=== PATIENT | male | born 1945 | race American Indian/Alaskan Native ===

== ENCOUNTER 2016-06-02 05:48 | Inpatient (IN) | payer MEDICARE, OTHER ==
[2016-06-02] MEDS ORDERED: ATROVENT IH ONE ×2 (06:18→09:02)
[2016-06-02] MEDS ORDERED: PROVENTIL IH ONE ×2 (06:18→09:02)
--- NOTE | 2016-06-02 06:19 | Emergency Department Report ---
ED Shortness of Breath HPI - General Chief Complaint: Dyspnea/Respdistress Stated Complaint: JOSE LUIS Time Seen by Provider: 06/02/16 06:11 Source: patient, EMS (ems notes not available at time of chart dictation), RN notes reviewed, old records reviewed Mode of arrival: Stretcher Limitations: Physical Limitation - History of Present Illness Initial Comments: Past medical history: COPD, hypertension, renal insufficiency Not home oxygen dependent. Primary care physician through the [facility] This is a 71-year-old male. He is previously unknown to me. He is apparently brought to the hospital by EMS Patient complained of shortness of breath, cough and wheezing. He was started on BiPAP prior to my evaluation. As per verbal report from EMS, he received 125 of Solu-Medrol, 2 g of magnesium sulfate, 5 mg of albuterol. He reports that he felt improved. There is no pain at this time. There is no leg pain. There is no leg swelling. No recent hospital admissions. MD Complaint: shortness of breath, cough, "asthma attack" -: Gradual Consistency: constant Improves With: bronchodilators, upright position, medication Worsens With: nothing, lying flat, exertion Known History Of: COPD Associated Symptoms: cough Treatments Prior to Arrival: oxygen, bronchodilator, NIPPV - Related Data Previous Rx's Medication Instructions Recorded Last Taken Type Budesoni/Formotero 160-4.5(Nf) 2 puff IH BID #1 inha 01/30/14 Unknown Rx [Symbicort 160-4.5 (Nf)] Diltiazem [Cardizem] 180 mg PO Q8AM #30 tablet 01/30/14 Unknown Rx Ipratropium/Albuterol Sulfate 1 ampul IH Q8HRT #120 ampul.neb 01/30/14 Unknown Rx [Duoneb 0.5 mg-3 mg/3 ml Soln] Tiotropium [Spiriva] 18 mcg IH QDAY #1 box 01/30/14 Unknown Rx Allergies Allergy/AdvReac Type Severity Reaction Status Date / Time No Known Allergies Allergy Verified 01/02/16 17:32 ED Review of Systems ROS: Stated complaint: JOSE LUIS Other details as noted in HPI Comment: Unobtainable due to pts medical conditions Constitutional: malaise Eyes: denies: vision change ENT: denies: epistaxis Respiratory: shortness of breath Cardiovascular: dyspnea on exertion Gastrointestinal: denies: vomiting Genitourinary: as per HPI Musculoskeletal: as per HPI Skin: as per HPI Neurological: as per HPI, weakness ED Past Medical Hx - Past Medical History Previous Medical History?: Yes Hx Hypertension: Yes Hx Renal Disease: Yes Hx COPD: Yes - Surgical History Past Surgical History?: Yes Additional Surgical History: prostate surgery - Social History Smoking Status: Never Smoker Substance Use Type: None - Medications Home Medications: Home Medications Medication Instructions Recorded Confirmed Last Taken Type Budesoni/Formotero 160-4.5(Nf) 2 puff IH BID #1 inha 01/30/14 Unknown Rx [Symbicort 160-4.5 (Nf)] Diltiazem [Cardizem] 180 mg PO Q8AM #30 tablet 01/30/14 Unknown Rx Ipratropium/Albuterol Sulfate 1 ampul IH Q8HRT #120 ampul.neb 01/30/14 Unknown Rx [Duoneb 0.5 mg-3 mg/3 ml Soln] Tiotropium [Spiriva] 18 mcg IH QDAY #1 box 01/30/14 Unknown Rx ED Physical Exam - General Limitations: Physical Limitation General appearance: alert, in no apparent distress - Head Head exam: Present: atraumatic, normocephalic - Eye Eye exam: Present: normal appearance, EOMI. Absent: nystagmus - ENT ENT exam: Present: normal exam, normal orophraynx, mucous membranes moist, normal external ear exam - Neck Neck exam: Present: normal inspection, full ROM. Absent: tenderness, meningismus - Respiratory Respiratory exam: Present: respiratory distress, wheezes, rhonchi - Cardiovascular Cardiovascular Exam: Present: normal rhythm, tachycardia, normal heart sounds. Absent: systolic murmur, diastolic murmur, rubs, gallop - GI/Abdominal GI/Abdominal exam: Present: soft, normal bowel sounds. Absent: distended, tenderness, guarding, rebound, rigid, pulsatile mass - Rectal Rectal exam: Present: deferred - Extremities Exam Extremities exam: Present: normal inspection, full ROM, normal capillary refill. Absent: tenderness, pedal edema, joint swelling, calf tenderness - Back Exam Back exam: Present: normal inspection, full ROM. Absent: tenderness, CVA tenderness (R), CVA tenderness (L), muscle spasm, paraspinal tenderness, vertebral tenderness - Neurological Exam Neurological exam: Present: alert, other (Extraocular movements intact. Tongue midline. No facial droop. Facial sensation intact to light touch in the V1, V2 , V3 distribution bilaterally. 5 and 5 strength in 4 extremities.. Sensation is intact to light touch in 4 extremities.). Absent: motor sensory deficit - Psychiatric Psychiatric exam: Present: normal affect, normal mood - Skin Skin exam: Present: warm, dry, intact, normal color. Absent: rash ED Course Vital Signs 06/02/16 06/02/16 06/02/16 05:44 05:50 05:51 Temperature Pulse Rate 110 H 112 H 111 H Pulse Rate [ Anterior Bilateral Bases ] Pulse Rate [ Radial] Respiratory 34 H 21 33 H Rate Respiratory Rate [Anterior Bilateral Bases ] Blood Pressure 137/99 167/105 Blood Pressure [Left Femoral Artery] O2 Sat by Pulse 99 100 100 Oximetry 06/02/16 06/02/16 06/02/16 05:55 05:59 06:00 Temperature Pulse Rate 111 H 110 H 109 H Pulse Rate [ Anterior Bilateral Bases ] Pulse Rate [ Radial] Respiratory 32 H 25 H 21 Rate Respiratory Rate [Anterior Bilateral Bases ] Blood Pressure 137/99 141/94 Blood Pressure [Left Femoral Artery] O2 Sat by Pulse 99 97 Oximetry 06/02/16 06/02/16 06/02/16 06:10 07:07 08:18 Temperature 96.5 F L 98.6 F Pulse Rate 110 H Pulse Rate [ Anterior Bilateral Bases ] Pulse Rate [ 113 H Radial] Respiratory 26 H 20 Rate Respiratory Rate [Anterior Bilateral Bases ] Blood Pressure 141/94 Blood Pressure 146/83 [Left Femoral Artery] O2 Sat by Pulse 99 98 Oximetry 06/02/16 06/02/16 06/02/16 09:18 09:19 10:18 Temperature Pulse Rate Pulse Rate [ 113 H 113 H Anterior Bilateral Bases ] Pulse Rate [ Radial] Respiratory 20 Rate Respiratory 30 H 28 H Rate [Anterior Bilateral Bases ] Blood Pressure Blood Pressure [Left Femoral Artery] O2 Sat by Pulse 98 Oximetry - Reevaluation(s) Reevaluation #1: 06/02/16 07:50 Differential diagnosis: Pneumonia, COPD, asthma, bronchitis, incidental hypothermia, urinary tract infection Assessment and plan: 71-year-old male with chronic renal insufficiency, renal function appears to be at baseline when compared to prior, with wheezing, shortness of breath, requiring positive pressure ventilation. He is alert, protecting his airway, and indicates that he feels much improved. There are no pulmonary embolus or DVT risk factors, he is low risk by well's criteria. He is found to be mildly hypothermic with a core temperature of 96.5. Blood cultures, lactic acid, active rewarming ordered, appropriate antibiotic therapy is ordered, urinalysis is pending. Case is discussed with the Hospital physician, Dr. Gómez, who graciously accepts the patient to her service. ED Medical Decision Making - Lab Data Result diagrams: 06/02/16 06:43 06/02/16 06:43 Vital Signs 06/02/16 06/02/16 06/02/16 05:44 05:50 05:51 Temperature Pulse Rate 110 H 112 H 111 H Respiratory 34 H 21 33 H Rate Blood Pressure 137/99 167/105 O2 Sat by Pulse 99 100 100 Oximetry 06/02/16 06/02/16 06/02/16 05:55 05:59 06:00 Temperature Pulse Rate 111 H 110 H 109 H Respiratory 32 H 25 H 21 Rate Blood Pressure 137/99 141/94 O2 Sat by Pulse 99 97 Oximetry 06/02/16 06/02/16 06:10 07:07 Temperature 96.5 F L Pulse Rate 110 H Respiratory 26 H Rate Blood Pressure 141/94 O2 Sat by Pulse 99 Oximetry Lab Results 06/02/16 06/02/16 06/02/16 Range/Units 06:43 06:43 06:43 WBC 3.6 L (4.5-11.0) K/mm3 RBC 3.28 L (3.65-5.03) M/mm3 Hgb 11.2 L (11.8-15.2) gm/dl Hct 32.9 L (35.5-45.6) % MCV 100 H (84-94) fl MCH 34 H (28-32) pg MCHC 34 (32-34) % RDW 14.5 (13.2-15.2) % Plt Count 196 (140-440) K/mm3 Lymph % (Auto) 16.9 (13.4-35.0) % Whitfield % (Auto) 9.6 H (0.0-7.3) % Eos % (Auto) 6.1 H (0.0-4.3) % Baso % (Auto) 1.7 (0.0-1.8) % Lymph # 0.6 L (1.2-5.4) K/mm3 Whitfield # 0.3 (0.0-0.8) K/mm3 Eos # 0.2 (0.0-0.4) K/mm3 Baso # 0.1 (0.0-0.1) K/mm3 Seg Neutrophils % 65.7 (40.0-70.0) % Seg Neutrophils # 2.3 (1.8-7.7) K/mm3 PT 12.6 (12.2-14.9) Sec. INR 0.95 (0.87-1.13) APTT 24.2 (24.2-36.6) Sec. Sodium 132 L (137-145) mmol/L Potassium 5.0 (3.6-5.0) mmol/L Chloride 92.3 L (98-107) mmol/L Carbon Dioxide 21 L (22-30) mmol/L Anion Gap 24 mmol/L BUN 15 (9-20) mg/dL Creatinine 2.0 H (0.8-1.5) mg/dL Estimated GFR 40 ml/min BUN/Creatinine Ratio 7.50 % Glucose 113 H (75-100) mg/dL Calcium 9.0 (8.4-10.2) mg/dL Magnesium 2.7 H (1.7-2.3) mg/dL Total Bilirubin 0.7 (0.1-1.2) mg/dL AST 27 (5-40) units/L ALT 13 (7-56) units/L Total Creatine Kinase (55-170) units/L NT-Pro-B Natriuret Pep (0-900) pg/mL Total Protein 6.4 (6.3-8.2) g/dL Albumin 4.2 (3.9-5) g/dL Albumin/Globulin Ratio 1.9 % // Range/Units 06:43 WBC (4.5-11.0) K/mm3 RBC (3.65-5.03) M/mm3 Hgb (11.8-15.2) gm/dl Hct (35.5-45.6) % MCV (84-94) fl MCH (28-32) pg MCHC (32-34) % RDW (13.2-15.2) % Plt Count (140-440) K/mm3 Lymph % (Auto) (13.4-35.0) % Whitfield % (Auto) (0.0-7.3) % Eos % (Auto) (0.0-4.3) % Baso % (Auto) (0.0-1.8) % Lymph # (1.2-5.4) K/mm3 Whitfield # (0.0-0.8) K/mm3 Eos # (0.0-0.4) K/mm3 Baso # (0.0-0.1) K/mm3 Seg Neutrophils % (40.0-70.0) % Seg Neutrophils # (1.8-7.7) K/mm3 PT (12.2-14.9) Sec. INR (0.87-1.13) APTT (24.2-36.6) Sec. Sodium (137-145) mmol/L Potassium (3.6-5.0) mmol/L Chloride (98-107) mmol/L Carbon Dioxide (22-30) mmol/L Anion Gap mmol/L BUN (9-20) mg/dL Creatinine (0.8-1.5) mg/dL Estimated GFR ml/min BUN/Creatinine Ratio % Glucose (75-100) mg/dL Calcium (8.4-10.2) mg/dL Magnesium (1.7-2.3) mg/dL Total Bilirubin (0.1-1.2) mg/dL AST (5-40) units/L ALT (7-56) units/L Total Creatine Kinase 243 H (55-170) units/L NT-Pro-B Natriuret Pep 367.1 (0-900) pg/mL Total Protein (6.3-8.2) g/dL Albumin (3.9-5) g/dL Albumin/Globulin Ratio % - EKG Data -: EKG Interpreted by Me Rate: tachycardia - EKG Data 06/02/16 07:53 sinus tachycardia, motion artifact, poor R-wave progression, not consistent with STEMI, unchanged when compared to prior EKG from December 2015. First-degree AV block seems to have resolved. - Radiology Data Radiology results: image reviewed interpreted by me: X-ray of the chest: Hyperinflated lungs, COPD, no acute disease Critical Care Time: Yes Critical care time in (mins) excluding proc time.: 35 Critical care attestation.: If time is entered above; I have spent that time in minutes in the direct care of this critically ill patient, excluding procedure time. Critical Care Time: Critical care time includes multiple bedside evaluations, interpretation of laboratory studies, radiology studies, time spent managing patient with acute respiratory failure, requiring positive pressure ventilation. This excludes procedure time. ED Disposition Clinical Impression: Renal insufficiency, COPD with acute exacerbation Disposition: OP ADMITTED IP TO THIS HOSP Is pt being admited?: Yes Condition: Good
[2016-06-02 07:04] LABS: Basophils % (Auto) 1.7 % (0.0-1.8); Eosinophils % (Auto) 6.1 % (0.0-4.3); Hematocrit 32.9 % (35.5-45.6); Hemoglobin 11.2 gm/dl (11.8-15.2); Mean Corpuscular HGB Conc 34 % (32-34); Mean Corpuscular Hemoglobin 34 pg (28-32); Mean Corpuscular Volume 100 fl (84-94); Platelet Count 196 K/mm3 (140-440); Red Blood Count 3.28 M/mm3 (3.65-5.03); Red Cell Distribution Width 14.5 % (13.2-15.2); White Blood Count 3.6 K/mm3 (4.5-11.0)
[2016-06-02 07:11] LABS: INR 0.95 (0.87-1.13); Partial Thromboplastin Time 24.2 Sec. (24.2-36.6)
--- NOTE | 2016-06-02 07:15 | Admit Criteria Form ---
Admission Criteria Documentation: COPD Clinical Indications for Admission to Inpatient Care (Place 'X' for any and all applicable criteria): Admission is indicated for ANY ONE of the following (1)(2)(3): [X ]I. Acute exacerbation by high-risk comorbidity (e.g., pneumonia, dysrhythmia, heart failure, pleural effusion, pneumothorax) or severe underlying COPD (e.g., steroid dependent) [X ]II. Inpatient admission required rather than observation care (see Chronic Obstructive Pulmonary Disease: Observation Care) because of ANY ONE of the following: [ X]a) New or pre-existing signs or symptoms of COPD (eg, dyspnea or Tachypnea at rest or with minimal activity) that persist despite outpatient and observation care treatment [ ]b) New-onset hypoxemia (room air SaO2 less than 90%, PO2 less than 60 mm Hg (8.0 kPa)) that persists despite outpatient and observation care treatment [ ]c) Worsening of pre-existing hypoxemia (eg, new or increased requirement for supplemental oxygen to maintain oxygenation at baseline level) that persists despite outpatient and observation care treatment, with oxygen treatment needs performable only in acute inpatient setting [ ]d) Hypercarbia (PCO2 greater than 40 mm Hg (5.3 kPa))-induced respiratory acidosis (pH less than 7.35) that persists despite outpatient and observation care treatment [ ]e) Supplemental oxygen or respiratory treatments for over 24 hours that are performable only in acute inpatient setting [ ]f) Chest tube placement with active evacuation (e.g., suction, drainage) (5) [ X]g) Other condition, treatment or monitoring requiring inpatient admission [ ]III. Planned invasive surgical or diagnostic procedures requiring acute- care hospitalization [ ]IV. Acute respiratory failure (e.g., uncompensated hypercarbia, severe hypoxemia) [ ]V. Severe comorbid condition (e.g., severe steroid myopathy, acute vertebral fracture) that has acutely worsened pulmonary function [ ]. Confusion state, lethargy, obtundation, stupor or coma Extended stay beyond goal length of stay may be needed for (31)(32): [ ]a ) Respiratory Failure. [ ]b) Severe or persisting hypoxemia or hypercarbia [ ]c) Severe or persistent dyspnea [ ]d) Comorbidities (e.g. chronic heart failure, atrial fibrillation with rapid response, pneumonia) [ ]e) Malnutrition The original [facility] content created by [facility] has been revised. The portions of the content which have been revised are identified through the use of italic text or in bold, and [facility] has neither reviewed nor approved the modified material. All other unmodified content is copyright [facility]. Please see references footnoted in the original [facility] edition 2016 Admission Criteria Met: Yes
[2016-06-02] MEDS ORDERED: ROCEPHIN/NS 1 GM/50 ML 1 GM/50 ML BAG IV ONE (07:17)
[2016-06-02 07:28] LABS: Albumin 4.2 g/dL (3.9-5); Albumin/Globulin Ratio 1.9 %; BUN/Creatinine Ratio 7.5; Bilirubin,Total 0.7 mg/dL (0.1-1.2); Chloride 92.3 mmol/L (98-107); Magnesium 2.7 mg/dL (1.7-2.3); Total Protein 6.4 g/dL (6.3-8.2)
[2016-06-02] MEDS ORDERED: ZITHROMAX 500 MG in NACL 0.9% 250ML 250 ML IV ONE (08:00)
--- NOTE | 2016-06-02 08:13 | XRay Report ---
AP CHEST :06/02/16 05:48:00 CLINICAL: Dyspnea. COMPARISON:01/02/16 FINDINGS: Normal heart and pulmonary vasculature. The lungs are hyperexpanded and hyperlucent. No airspace disease or pleural effusion. The bones and soft tissues are normal. IMPRESSION: COPD. No CHF or pneumonia.
[2016-06-02] MEDS ORDERED: PROTONIX PO ONE (08:18)
--- NOTE | 2016-06-02 08:23 | History and Physical Report ---
History of Present Illness Date of examination: 06/02/16 Date of admission: 06/02/16 Chief complaint: Worsening Shortness of breath History of present illness: Very pleasant 71-year-old -[place] Citizen male patient with significant past medical history of hypertension chronic kidney disease and COPD presented to the emergency room with worsening shortness of breath cough and severe wheezing patient was noted to be hypoxemic and was placed on BiPAP Agitation and received high-dose IV steroids as well as IV antibiotics Denies any nausea vomiting or abdominal pain Denies chest pain but complains of severe shortness of breath and dyspnea on exertion Chest x-ray findings consistent with COPD transfer Past History Past Medical History: COPD, hypertension, renal failure Past Surgical History: Other (prostate surgery) Social history: lives with family, full code. denies: smoking, alcohol abuse, prescription drug abuse Family history: hypertension Medications and Allergies Allergies Allergy/AdvReac Type Severity Reaction Status Date / Time No Known Allergies Allergy Verified 01/02/16 17:32 Home Medications Medication Instructions Recorded Confirmed Last Taken Type Budesoni/Formotero 160-4.5(Nf) 2 puff IH BID #1 inha 01/30/14 Unknown Rx [Symbicort 160-4.5 (Nf)] Diltiazem [Cardizem] 180 mg PO Q8AM #30 tablet 01/30/14 Unknown Rx Ipratropium/Albuterol Sulfate 1 ampul IH Q8HRT #120 ampul.neb 01/30/14 Unknown Rx [Duoneb 0.5 mg-3 mg/3 ml Soln] Tiotropium [Spiriva] 18 mcg IH QDAY #1 box 01/30/14 Unknown Rx Active Meds: Active Medications Azithromycin 500 mg/ Sodium (Chloride) 250 mls @ 250 mls/hr IV ONCE.ED ONE Stop: 06/02/16 08:59 Review of Systems Constitutional: weakness, no weight loss, no weight gain, no fever, no chills Ears, nose, mouth and throat: no nasal congestion, no nasal discharge Cardiovascular: shortness of breath, dyspnea on exertion, no chest pain, no orthopnea Respiratory: cough with sputum, shortness of breath Gastrointestinal: no abdominal pain, no nausea, no vomiting Genitourinary Male: no dysuria, no hematuria Musculoskeletal: no myalgias, no arthritis Integumentary: no rash, no lesions Neurological: weakness, no paralysis, no numbness, no seizures Psychiatric: no anxiety, no depression Endocrine: no cold intolerance, no heat intolerance, no polydipsia, no polyuria Hematologic/Lymphatic: no easy bruising, no easy bleeding Allergic/Immunologic: no urticaria, no allergic rhinitis Exam - Constitutional Vitals: Temp Pulse Resp BP Pulse Ox 96.5 F L 110 H 26 H 141/94 99 06/02/16 07:07 06/02/16 06:10 06/02/16 06:10 06/02/16 06:10 06/02/16 06:10 General appearance: Present: mild distress, cachectic, other (on BiPAP) - EENT Eyes: Present: PERRL, EOM intact ENT: hearing intact, clear oral mucosa - Neck Neck: Present: supple, normal ROM - Respiratory Respiratory effort: normal Respiratory: bilateral: diminished, rhonchi, wheezing - Cardiovascular Rhythm: regular Heart Sounds: Present: S1 & S2 - Extremities Extremities: no ischemia, pulses intact, pulses symmetrical Peripheral Pulses: within normal limits - Abdominal General gastrointestinal: Present: soft, non-tender, non-distended, normal bowel sounds - Integumentary Integumentary: Present: clear, warm - Musculoskeletal Musculoskeletal: strength equal bilaterally - Psychiatric Psychiatric: appropriate mood/affect, cooperative - Neurologic Neurologic: CNII-XII intact, moves all extremities Results - Labs CBC & Chem 7: 06/02/16 06:43 06/02/16 06:43 Labs: Abnormal lab results 06/02/16 06/02/16 06/02/16 Range/Units 06:43 06:43 06:43 WBC 3.6 L (4.5-11.0) K/mm3 RBC 3.28 L (3.65-5.03) M/mm3 Hgb 11.2 L (11.8-15.2) gm/dl Hct 32.9 L (35.5-45.6) % MCV 100 H (84-94) fl MCH 34 H (28-32) pg [place] % (Auto) 9.6 H (0.0-7.3) % Eos % (Auto) 6.1 H (0.0-4.3) % Lymph # 0.6 L (1.2-5.4) K/mm3 Sodium 132 L (137-145) mmol/L Chloride 92.3 L (98-107) mmol/L Carbon Dioxide 21 L (22-30) mmol/L Creatinine 2.0 H (0.8-1.5) mg/dL Glucose 113 H (75-100) mg/dL Magnesium 2.7 H (1.7-2.3) mg/dL Total Creatine Kinase 243 H (55-170) units/L Assessment and Plan --Acute toxic respiratory failure Requiring BiPAP, titrated to O2 sats more than 90% Wean as tolerated, to nasal cannula oxygen or Ventimask 55% Secondary to acute exacerbation of COPD --Acute exacerbation of COPD Oxygen, nebulizers, IV Solu-Medrol, IV antibiotics Inhalation steroids, supportive. Consider pulmonary evaluation if needed --Positive cardiac enzymes/non-ST elevation OH Patient had negative stress test last year Serial cardiac enzymes and EKG Cardiology evaluation for Possible Heart cath --Lactic acidosis Rule out sepsis, continue antibiotics for acute bronchitis --Acute bronchitis Nebulizers IV antibiotics and steroids --Acute on chronic renal failure stage III Gentle hydration, closely monitor renal function avoid nephrotoxic medication Constant nephrology evaluation if needed --DVT prophylaxis with Lovenox renal dose --Full CODE STATUS Patient's condition treatment plan discussed in detail with the patient he our physician and his nurse --
[2016-06-02] MEDS ORDERED: CARDIZEM PO SCH (09:00)
[2016-06-02] MEDS ORDERED: PROTONIX IV ONE (09:23)
[2016-06-02 09:27] LABS: ISTAT Base Excess -7; ISTAT HCO3 19.5; ISTAT PCO2 42.9 (35-45); ISTAT PH 7.265 (7.35-7.45); ISTAT PO2 70 (80-105); ISTAT SO2 91; ISTAT TCO2 21
[2016-06-02] MEDS: LOVENOX SUB-Q SCH (09:39)
[2016-06-02] MEDS ORDERED: SPIRIVA IH SCH (10:00)
[2016-06-02] MEDS ORDERED: ASPIRIN PO SCH (10:00)
[2016-06-02 10:47] LABS: Bilirubin,Urine NEG (Negative); Blood,Urine NEG (Negative); Ketones,Urine TR mg/dL (Negative); Leukocyte Esterase,Urine NEG (Negative); Nitrite,Urine NEG (Negative); Protein,Urine <15 mg/dL mg/dL (Negative); Urobilinogen,Urine < 2.0 mg/dL (<2.0); WBC,Urine < 1.0 /HPF (0.0-6.0)
[2016-06-02] MEDS: LEVAQUIN 500MG/100ML 500 MG/100 ML BAG IV SCH (10:50)
[2016-06-02] MEDS ORDERED: PROVENTIL IH PRN (12:00)
[2016-06-02] MEDS: DUONEB 0.5 MG-3 MG/3 ML SOLN IH SCH ×3 (12:59→20:10)
[2016-06-02] MEDS: CARDIZEM CD PO SCH (13:16)
[2016-06-02] MEDS: NACL 0.9% 1000 ML 1,000 ML IV SCH (13:17)
--- NOTE | 2016-06-02 14:20 | Consultation ---
History of Present Illness Consult date: 06/02/16 Past History Past Medical History: COPD, hypertension, renal failure Past Surgical History: Other (prostate surgery) Social history: lives with family, full code. denies: smoking, alcohol abuse, prescription drug abuse Family history: hypertension Medications and Allergies Allergies Allergy/AdvReac Type Severity Reaction Status Date / Time No Known Allergies Allergy Verified 01/02/16 17:32 Home Medications Medication Instructions Recorded Confirmed Last Taken Type Budesoni/Formotero 160-4.5(Nf) 2 puff IH BID #1 inha 01/30/14 Unknown Rx [Symbicort 160-4.5 (Nf)] Diltiazem [Cardizem] 180 mg PO Q8AM #30 tablet 01/30/14 Unknown Rx Ipratropium/Albuterol Sulfate 1 ampul IH Q8HRT #120 ampul.neb 01/30/14 Unknown Rx [Duoneb 0.5 mg-3 mg/3 ml Soln] Tiotropium [Spiriva] 18 mcg IH QDAY #1 box 01/30/14 Unknown Rx Active Meds: Active Medications Albuterol (Proventil) 2.5 mg IH Q2HRT PRN PRN Reason: Shortness Of Breath Albuterol/Ipratropium (Duoneb 0.5 Mg-3 Mg/3 Ml Soln) 1 ampul [facility]H Q4HRT [facility] Last Admin: 06/02/16 12:59 Dose: Not Given Aspirin (Aspirin) 325 mg PO QDAY [facility] Last Admin: 06/02/16 11:42 Dose: 325 mg Budesonide 0.5 mg/ (Arformoterol Tartrate 15 mcg) 0 mg IH Q12HRT [facility] Diltiazem HCl (Cardizem Cd) 180 mg PO DAILY@0800 [facility] Last Admin: 06/02/16 13:16 Dose: 180 mg Enoxaparin Sodium (Lovenox) 30 mg SUB-Q QDAY [facility] Last Admin: 06/02/16 09:39 Dose: 30 mg Levofloxacin/Dextrose (Levaquin 500mg/100ml) 500 mg in 100 mls @ 100 mls/hr IV Q24HR [facility] PRN Reason: Protocol Last Admin: 06/02/16 10:50 Dose: 100 mls/hr Sodium Chloride (Nacl 0.9% 1000 Ml) 1,000 mls @ 75 mls/hr IV DIRECT NICOLE Last Admin: 06/02/16 13:17 Dose: 75 mls/hr Methylprednisolone Sodium Succinate (Solu-Medrol) 80 mg IV Q8HR [facility] Last Admin: 06/02/16 13:16 Dose: 80 mg Physical Examination Vital Signs Pulse Resp Pulse Ox 110 H 34 H 99 06/02/16 05:44 06/02/16 05:44 06/02/16 05:44 Results 06/02/16 06:43 06/02/16 06:43 Cardiac Enzymes 06/02/16 Range/Units 13:01 CK-MB (CK-2) 7.0 H (0.0-4.0) ng/mL Assessment and Plan Detailed Cardiology consult dictated.
[2016-06-02 19:44] LABS: Creatine Kinase MB 6.8 ng/mL (0.0-4.0)
[2016-06-02] MEDS ORDERED: PULMICORT 0.5 MG, BROVANA NEBU 15 MCG IH SCH (20:00)
--- NOTE | 2016-06-03 04:33 | Consultation ---
HISTORY OF PRESENT ILLNESS: A 71-year-old thin built pleasant gentleman with a history of hypertension, chronic kidney disease stage 3, COPD, mild anemia who was admitted with progressive shortness of breath for several hours before admission. The patient has been having shortness of breath for the past 2-3 days, which become worse several hours before admission. He did not have any chest pain. No history of nausea, vomiting, palpitations, presyncope, or syncope. However, he gives history of some sweating. His serum creatinine is 2 and his first troponin is 0.166. His proBNP is 367. His ABGs revealed pH of 7.265, bicarbonate of 20. At the time of examination, he does not have any shortness of breath. He also gives history of cough with yellowish/brownish expectoration and also history of wheezing. No history of diabetes mellitus or hyperlipidemia. He is being treated with intravenous antibiotics. His blood cultures are pending. Chest x-ray done today reveals COPD, no evidence of CHF or pneumonia. PAST MEDICAL HISTORY: History of multiple medical problems as described above. No history of CAD or myocardial infarctions in the past. He had a Lexiscan stress myocardial scan on 01/03/2016, which was negative for ischemia. No wall motion abnormality. He had normal left ventricular ejection fraction of 63%. SOCIAL HISTORY: He has been a chronic heavy smoker and he came down on the number of cigarettes and approximately a week ago, he smoked 1 cigarette and he stopped smoking. History of occasional alcohol use. No history of drug abuse. FAMILY HISTORY: Negative for premature coronary artery disease. REVIEW OF SYSTEMS: CARDIOVASCULAR: As described in the history. PULMONARY: As described in the history. RENAL: As described in the history. HEMATOPOIETIC SYSTEM: As described in the history. METABOLISM AND ENDOCRINOLOGY: As described in the history. Review of rest of the 10 systems is negative. MEDICATIONS: DuoNeb inhalation q.4h., aspirin 325 mg p.o. daily, Diltiazem ER 180 mg p.o. daily, Lovenox 30 mg subcutaneous daily, intravenous Levaquin, and intravenous steroids. The patient also has received intravenous azithromycin and intravenous ceftriaxone in the Emergency Room. PHYSICAL EXAMINATION: GENERAL: A 71-year-old thin built, pleasant gentleman. VITAL SIGNS: He is afebrile, pulse 113 per minute and regular, blood pressure 146/83 mmHg, respirations 18 per minute. NEUROLOGIC: He is awake, alert, and oriented x 3. HEENT: Negative. NECK: Supple, no JVD, no bruit, no thyromegaly. HEART: Point of maximum impulse shifted laterally and is forcible in nature, no palpable thrills. Auscultation of heart reveals S1, S2 heard. S2 is loud. S4 is heard. No S3. Grade 2/6 ejection systolic murmur is heard over the pericardium. EXTREMITIES: Peripheral pulses felt. No edema. LUNGS: Bilateral air entry good and equal. No bronchial breathing. No wheezing. ABDOMEN: Soft, benign. No organomegaly. SKIN: Negative. BONE AND JOINTS: Negative. LABORATORY DATA: BUN 15, creatinine 2, potassium 5. WBC, mildly decreased to 3.6, hemoglobin and hematocrit 11.2 and 32.9 respectively, platelet count normal. Troponin and proBNP as described in the history. Chest x-ray findings as described in the history. EKG done today at 5:50 a.m., sinus tachycardia with a rate of 111 per minute, otherwise normal. The patient had a chest CT in the past (01/28/2014) which revealed COPD and bilateral atelectasis. There was no evidence of pulmonary embolism. IMPRESSION: 1. Progressive shortness of breath. 2. Acute exacerbation of chronic obstructive pulmonary disease. 3. Possible tracheobronchitis. 4. History of hypertension. 5. Chronic kidney disease, stage 3. 6. Mild anemia. 7. Negative Betina-stress myocardial scan during 12/2015. ADDENDUM: The patient also has had surgery for carcinoma of the prostate 20 years ago. RECOMMENDATIONS: 1. To continue present management. 2. Follow up serial troponins. 3. We will order echocardiogram to assess ventricular dimensions and function. Thank you again. We will follow. Yours Sincerely, JOB# [id number] CALI/VINNIE KAYE
[2016-06-03] MEDS: NACL 0.9% 1000 ML 1,000 ML IV SCH (05:23)
[2016-06-03 05:53] LABS: Hematocrit 30.4 % (35.5-45.6); Hemoglobin 10.3 gm/dl (11.8-15.2); Mean Corpuscular HGB Conc 34 % (32-34); Mean Corpuscular Hemoglobin 34 pg (28-32); Mean Corpuscular Volume 100 fl (84-94); Platelet Count 187 K/mm3 (140-440); Red Blood Count 3.05 M/mm3 (3.65-5.03); Red Cell Distribution Width 14.6 % (13.2-15.2); White Blood Count 7.6 K/mm3 (4.5-11.0)
[2016-06-03 06:12] LABS: Calcium 8.8 mg/dL (8.4-10.2); Chloride 97.3 mmol/L (98-107); Potassium 5.1 mmol/L (3.6-5.0)
--- NOTE | 2016-06-03 06:38 | Consultation ---
ADDENDUM The patient's troponins were 0.166 and 0.142. This is most likely secondary to chronic kidney disease with creatinine of 2, acute [place] is unlikely. JOB# [id number] CALI/VINNIE KAYE
[2016-06-03] MEDS: DUONEB 0.5 MG-3 MG/3 ML SOLN IH SCH ×3 (07:50→19:53)
[2016-06-03] MEDS: CARDIZEM CD PO SCH (07:52)
[2016-06-03 08:05] LABS: Basophils % (Manual) 0 % (0.0-1.8); Blastocytes % (Manual) 0 %; Eosinophils % (Manual) 0 % (0.0-4.3)
[2016-06-03 08:07] LABS: Anisocytosis 1+; Polychromasia Rare
[2016-06-03 08:11] LABS: Diff Status Complete; Large Platelets Few; Platelet Estimate Cons
[2016-06-03] MEDS: LOVENOX SUB-Q SCH (10:01)
[2016-06-03] MEDS: HALFPRIN EC PO SCH (10:01)
[2016-06-03] MEDS: LEVAQUIN 500MG/100ML 500 MG/100 ML BAG IV SCH (10:02)
--- NOTE | 2016-06-03 15:21 | Progress Note ---
Assessment and Plan Assessment: Progressive SOB COPD exacerbation Possible tracheobronchitis HTN CKD Mild anemia Negative lexiscan MPI 12/2015 Plan: Currently stable cardiac status. Cont current management. Await echo. The patient has been seen in conjunction with Dr. Maldonado who agrees with the assessment and plan of care. Subjective Date of service: 06/03/16 Interval history: no complaints, VSS. Objective Last Vital Signs Temp 97.7 F 06/03/16 08:55 Pulse 92 H 06/03/16 14:52 Resp 18 06/03/16 14:52 BP 145/74 06/03/16 12:56 Pulse Ox 98 06/03/16 08:55 - Physical Examination General: Appears Well, No Apparent Distress HEENT: Positive: PERRL, Normocephaly, Mucus Membranes Moist Neck: Positive: neck supple, trachea midline Cardiac: Positive: Reg Rate and Rhythm, S1/S2 Lungs: Positive: Normal Exam, clear to auscultation, Normal Breath Sounds Neuro: Positive: Grossly Intact, Cranial Nerve 2-12 Intact Abdomen: Positive: Unremarkable, Soft, Active Bowel Sounds. Negative: Tender Skin: Positive: Clear. Negative: Rash, Wound Musculoskeletal: No Fluid Collection, No Pain, Normal Range of Motion Extremities: Present: normal, upper extr. pulses, lower extr. pulses. Absent: edema - Labs and Meds Cardiac Enzymes 06/02/16 Range/Units 18:49 CK-MB (CK-2) 6.8 H (0.0-4.0) ng/mL CBC 06/03/16 Range/Units 04:58 WBC 7.6 (4.5-11.0) K/mm3 RBC 3.05 L (3.65-5.03) M/mm3 Hgb 10.3 L (11.8-15.2) gm/dl Hct 30.4 L (35.5-45.6) % Plt Count 187 (140-440) K/mm3 Comprehensive Metabolic Panel 06/03/16 Range/Units 04:58 Sodium 135 L (137-145) mmol/L Potassium 5.1 H (3.6-5.0) mmol/L Chloride 97.3 L (98-107) mmol/L Carbon Dioxide 23 (22-30) mmol/L BUN 19 (9-20) mg/dL Creatinine 1.9 H (0.8-1.5) mg/dL Glucose 149 H (75-100) mg/dL Calcium 8.8 (8.4-10.2) mg/dL - Telemetry EKG Rhythm: Sinus Rhythm
--- NOTE | 2016-06-03 16:32 | Progress Note ---
Assessment and Plan Assessment and plan: --Acute hypoxic respiratory failure Since saturates well on nasal cannula oxygen , intermittent BiPAP as needed, titrated to O2 sats more than 90% Secondary to acute exacerbation of COPD Home O2 evaluation at the time of discharge --Acute exacerbation of COPD Oxygen, nebulizers, tapering dose of IV Solu-Medrol, IV antibiotics Inhalation steroids, supportive. --Positive cardiac enzymes/non-ST elevation [place] Patient had negative stress test last year Probably nonspecific, secondary to acute renal failure Cardiology evaluation noted and appreciated --Lactic acidosis Rule out sepsis, continue antibiotics for acute bronchitis --Acute bronchitis Nebulizers IV antibiotics and steroids --Acute on chronic renal failure stage III Gentle hydration, closely monitor renal function avoid nephrotoxic medication Constant nephrology evaluation if needed --DVT prophylaxis with Lovenox renal dose --Full CODE STATUS Patient's condition treatment plan discussed in detail with the patient he our physician and his nurse Possible discharge in 1-2 days if stable -- History Interval history: Patient seen and evaluated this morning medical records reviewed Patient's nurse was at the bedside, denies any chest pain, complains of mild shortness of breath and nonproductive cough Patient was admitted with acute respiratory failure on BiPAP with acute exacerbation of COPD with bronchitis Nonspecific elevation of cardiac enzymes, probably secondary to acute renal failure, cardiology following Hospitalist Physical - Constitutional Vitals: Temp Pulse Resp BP Pulse Ox 97.7 F 92 H 18 145/74 98 06/03/16 08:55 06/03/16 14:52 06/03/16 14:52 06/03/16 12:56 06/03/16 08:55 General appearance: Present: no acute distress, cachectic, other (on BiPAP) - EENT Eyes: Present: PERRL, EOM intact - Neck Neck: Present: supple, normal ROM - Respiratory Respiratory effort: normal Respiratory: bilateral: diminished, wheezing, negative: rales, rhonchi - Cardiovascular Rhythm: regular Heart Sounds: Present: S1 & S2 - Extremities Extremities: no ischemia, pulses intact, pulses symmetrical Peripheral Pulses: within normal limits - Abdominal General gastrointestinal: soft, non-tender, non-distended, normal bowel sounds - Integumentary Integumentary: Present: clear, warm - Psychiatric Psychiatric: appropriate mood/affect, cooperative - Neurologic Neurologic: CNII-XII intact, moves all extremities Results - Labs CBC & Chem 7: 06/03/16 04:58 06/03/16 04:58 Labs: Laboratory Last Values WBC 7.6 K/mm3 (4.5-11.0) 06/03/16 04:58 RBC 3.05 M/mm3 (3.65-5.03) L 06/03/16 04:58 Hgb 10.3 gm/dl (11.8-15.2) L 06/03/16 04:58 Hct 30.4 % (35.5-45.6) L 06/03/16 04:58 MCV 100 fl (84-94) H 06/03/16 04:58 MCH 34 pg (28-32) H 06/03/16 04:58 MCHC 34 % (32-34) 06/03/16 04:58 RDW 14.6 % (13.2-15.2) 06/03/16 04:58 Plt Count 187 K/mm3 (140-440) 06/03/16 04:58 Lymph % (Auto) 16.9 % (13.4-35.0) 06/02/16 06:43 Sebastian % (Auto) 9.6 % (0.0-7.3) H 06/02/16 06:43 Eos % (Auto) 6.1 % (0.0-4.3) H 06/02/16 06:43 Baso % (Auto) 1.7 % (0.0-1.8) 06/02/16 06:43 Lymph # 0.6 K/mm3 (1.2-5.4) L 06/02/16 06:43 Sebastian # 0.3 K/mm3 (0.0-0.8) 06/02/16 06:43 Eos # 0.2 K/mm3 (0.0-0.4) 06/02/16 06:43 Baso # 0.1 K/mm3 (0.0-0.1) 06/02/16 06:43 Add Manual Diff Complete 06/03/16 04:58 Total Counted 100 06/03/16 04:58 Seg Neutrophils % [employer] Manager 06/03/16 04:58 Seg Neuts % (Manual) 93.0 % (40.0-70.0) H 06/03/16 04:58 Band Neutrophils % 3.0 % 06/03/16 04:58 Lymphocytes % (Manual) 1.0 % (13.4-35.0) L 06/03/16 04:58 Reactive Lymphs % (Man) 0 % 06/03/16 04:58 Monocytes % (Manual) 3.0 % (0.0-7.3) 06/03/16 04:58 Eosinophils % (Manual) 0 % (0.0-4.3) 06/03/16 04:58 Basophils % (Manual) 0 % (0.0-1.8) 06/03/16 04:58 Metamyelocytes % 0 % 06/03/16 04:58 Myelocytes % 0 % 06/03/16 04:58 Promyelocytes % 0 % 06/03/16 04:58 Blast Cells % 0 % 06/03/16 04:58 Nucleated RBC % Not Reportable 06/03/16 04:58 Seg Neutrophils # 2.3 K/mm3 (1.8-7.7) 06/02/16 06:43 Seg Neutrophils # Man 7.1 K/mm3 (1.8-7.7) 06/03/16 04:58 Band Neutrophils # 0.2 K/mm3 06/03/16 04:58 Lymphocytes # (Manual) 0.1 K/mm3 (1.2-5.4) L 06/03/16 04:58 Abs React Lymphs (Man) 0.0 K/mm3 06/03/16 04:58 Monocytes # (Manual) 0.2 K/mm3 (0.0-0.8) 06/03/16 04:58 Eosinophils # (Manual) 0.0 K/mm3 (0.0-0.4) 06/03/16 04:58 Basophils # (Manual) 0.0 K/mm3 (0.0-0.1) 06/03/16 04:58 Metamyelocytes # 0.0 K/mm3 06/03/16 04:58 Myelocytes # 0.0 K/mm3 06/03/16 04:58 Promyelocytes # 0.0 K/mm3 06/03/16 04:58 Blast Cells # 0.0 K/mm3 06/03/16 04:58 WBC Morphology Not Reportable 06/03/16 04:58 Hypersegmented Neuts Not Reportable 06/03/16 04:58 Hyposegmented Neuts Not Reportable 06/03/16 04:58 Hypogranular Neuts Not Reportable 06/03/16 04:58 Smudge Cells Not Reportable 06/03/16 04:58 Toxic Granulation Not Reportable 06/03/16 04:58 Toxic Vacuolation Not Reportable 06/03/16 04:58 Dohle Bodies Not Reportable 06/03/16 04:58 Pelger-Huet Anomaly Not Reportable 06/03/16 04:58 Timothy Rods Not Reportable 06/03/16 04:58 Platelet Estimate Cons 06/03/16 04:58 Clumped Platelets Not Reportable 06/03/16 04:58 Plt Clumps, EDTA Not Reportable 06/03/16 04:58 Large Platelets Few 06/03/16 04:58 Giant Platelets Not Reportable 06/03/16 04:58 Platelet Satelliting Not Reportable 06/03/16 04:58 Plt Morphology Comment Not Reportable 06/03/16 04:58 RBC Morphology Not Reportable 06/03/16 04:58 Dimorphic RBCs Not Reportable 06/03/16 04:58 Polychromasia Rare 06/03/16 04:58 Hypochromasia Not Reportable 06/03/16 04:58 Poikilocytosis Not Reportable 06/03/16 04:58 Anisocytosis 1+ 06/03/16 04:58 Microcytosis Not Reportable 06/03/16 04:58 Macrocytosis Not Reportable 06/03/16 04:58 Spherocytes Not Reportable 06/03/16 04:58 Pappenheimer Bodies Not Reportable 06/03/16 04:58 Sickle Cells Not Reportable 06/03/16 04:58 Target Cells Not Reportable 06/03/16 04:58 Tear Drop Cells Not Reportable 06/03/16 04:58 Ovalocytes Not Reportable 06/03/16 04:58 Helmet Cells Not Reportable 06/03/16 04:[address] [place] Bodies Not Reportable 06/03/16 04:58 Stewart Rings Not Reportable 06/03/16 04:58 [place] Cells Not Reportable 06/03/16 04:58 Bite Cells Not Reportable 06/03/16 04:58 Crenated Cell Not Reportable 06/03/16 04:58 Elliptocytes Not Reportable 06/03/16 04:58 Acanthocytes (Spur) Not Reportable 06/03/16 04:58 Rouleaux Not Reportable 06/03/16 04:58 Hemoglobin C Crystals Not Reportable 06/03/16 04:58 Schistocytes Not Reportable 06/03/16 04:58 Malaria parasites Not Reportable 06/03/16 04:58 [place] Bodies Not Reportable 06/03/16 04:58 Hem Pathologist Commnt No 06/03/16 04:58 PT 12.6 Sec. (12.2-14.9) 06/02/16 06:43 INR 0.95 (0.87-1.13) 06/02/16 06:43 APTT 24.2 Sec. (24.2-36.6) 06/02/16 06:43 POC ABG pH 7.265 (7.35-7.45) L 06/02/16 09:18 POC ABG pCO2 42.9 (35-45) 06/02/16 09:18 POC ABG pO2 70 (80-105) L 06/02/16 09:18 POC ABG HCO3 19.5 06/02/16 09:18 POC ABG Total CO2 21 06/02/16 09:18 POC ABG O2 Sat 91 06/02/16 09:18 POC ABG Base Excess -7 06/02/16 09:18 FiO2 32 % 06/02/16 09:18 Sodium 135 mmol/L (137-145) L 06/03/16 04:58 Potassium 5.1 mmol/L (3.6-5.0) H 06/03/16 04:58 Chloride 97.3 mmol/L (98-107) L 06/03/16 04:58 Carbon Dioxide 23 mmol/L (22-30) 06/03/16 04:58 Anion Gap 20 mmol/L 06/03/16 04:58 BUN 19 mg/dL (9-20) 06/03/16 04:58 Creatinine 1.9 mg/dL (0.8-1.5) H 06/03/16 04:58 Estimated GFR 43 ml/min 06/03/16 04:58 BUN/Creatinine Ratio 10.00 % 06/03/16 04:58 Glucose 149 mg/dL (75-100) H 06/03/16 04:58 Lactic Acid 2.3 mmol/L (0.7-2.0) H* 06/02/16 06:43 Calcium 8.8 mg/dL (8.4-10.2) 06/03/16 04:58 Magnesium 2.7 mg/dL (1.7-2.3) H 06/02/16 06:43 Total Bilirubin 0.7 mg/dL (0.1-1.2) 06/02/16 06:43 AST 27 units/L (5-40) 06/02/16 06:43 ALT 13 units/L (7-56) 06/02/16 06:43 Alkaline Phosphatase 65 units/L (35-129) 06/02/16 06:43 Total Creatine Kinase 229 units/L (55-170) H 06/02/16 18:49 CK-MB (CK-2) 6.8 ng/mL (0.0-4.0) H 06/02/16 18:49 CK-MB (CK-2) Rel Index 2.9 (0-4) 06/02/16 18:49 Troponin T 0.121 ng/mL (0.00-0.029) H* 06/02/16 18:49 NT-Pro-B Natriuret Pep 367.1 pg/mL (0-900) 06/02/16 06:43 Total Protein 6.4 g/dL (6.3-8.2) 06/02/16 06:43 Albumin 4.2 g/dL (3.9-5) 06/02/16 06:43 Albumin/Globulin Ratio 1.9 % 06/02/16 06:43 Triglycerides 66 mg/dL (2-149) 06/02/16 06:43 Cholesterol 180 mg/dL (50-199) 06/02/16 06:43 LDL Cholesterol Direct 55 mg/dL (50-130) 06/02/16 06:43 HDL Cholesterol 135 mg/dL (40-59) H 06/02/16 06:43 Cholesterol/HDL Ratio 1.33 % 06/02/16 06:43 Urine Color Yellow (Yellow) 06/02/16 Unknown Urine Turbidity Clear (Clear) 06/02/16 Unknown Urine pH 5.0 (5.0-7.0) 06/02/16 Unknown Ur Specific [place] 1.011 (1.003-1.030) 06/02/16 Unknown Urine Protein <15 mg/dl mg/dL (Negative) 06/02/16 Unknown Urine Glucose (UA) Neg mg/dL (Negative) 06/02/16 Unknown Urine Ketones Tr mg/dL (Negative) 06/02/16 Unknown Urine Blood Neg (Negative) 06/02/16 Unknown Urine Nitrite Neg (Negative) 06/02/16 Unknown Urine Bilirubin Neg (Negative) 06/02/16 Unknown Urine Urobilinogen < 2.0 mg/dL (<2.0) 06/02/16 Unknown Ur Leukocyte Esterase Neg (Negative) 06/02/16 Unknown Urine WBC (Auto) < 1.0 /HPF (0.0-6.0) 06/02/16 Unknown Urine RBC (Auto) 3.0 /HPF (0.0-6.0) 06/02/16 Unknown U Epithel Cells (Auto) < 1.0 /HPF (0-13.0) 06/02/16 Unknown
[2016-06-04 07:04] LABS: BUN/Creatinine Ratio 9.47; Calcium 8.7 mg/dL (8.4-10.2); Chloride 98.8 mmol/L (98-107); Potassium 4.8 mmol/L (3.6-5.0)
[2016-06-04] MEDS: NACL 0.9% 1000 ML 1,000 ML IV SCH (07:05)
[2016-06-04] MEDS: DUONEB 0.5 MG-3 MG/3 ML SOLN IH SCH ×2 (08:15→14:42)
--- NOTE | 2016-06-04 09:46 | Discharge Summary ---
Providers - Providers Date of Admission: 06/02/16 08:16 Date of discharge: 06/04/16 Attending physician: ALEKSANDER STEPHENSON 06/02/16 09:47 Consult to Physician [CONS] Routine Consulting Provider: ECHO DOYLE Reason For Exam: SOB/positive troponin Place consult to:: bonding agent Notified:: bonita Time called:: 12:49 Comment:: put on list Primary care physician: CLINICAL MICROBIOLOGIST Hospitalization Reason for admission: Worsening shortness of breath of 2 days' duration Condition: Good Pertinent studies: Chest x-ray; findings consistent with COPD, no CHF or pneumonia Echocardiogram; normal left ventricle function with ejection fraction of 50-55% Consults; cardiology Hospital course: Final diagnosis; Final diagnosis; Acute on chronic respiratory failure requiring BiPAP resolved Acute exacerbation of COPD Nonspecific elevation of cardiac enzymes Noncardiac secondary to acute renal failure Lactic acidosis resolved Acute bronchitis improved Acute on chronic renal failure stage III improved 71-year-old -[place] male patient with significant past medical history of hypertension chronic kidney disease COPD was admitted through emergency room with worsening shortness of breath of 2 days' duration Patient was noted to be in acute respiratory failure requiring BiPAP, there to slowly wean to nasal cannula oxygen Patient also had nonspecific elevation of cardiac enzymes probably secondary to acute renal failure Cardiology has evaluated the patient and medications were optimized Patient's symptoms significantly improved today's comfortable in bed alert awake oriented 3 Not in acute distress vital signs are stable [id number] evaluation physical examination done by me prior to discharge is unremarkable as detailed below Cardiology did not recommend any further workup Patient is hemodynamically and clinically stable for discharge and does not need any further acute inpatient care at this time Disposition: DISCHARGED TO HOME OR SELFCARE Time spent for discharge: 32 min Core Measure Documentation - Palliative Care Palliative Care/ Comfort Measures: Not Applicable - Core Measures Any of the following diagnoses?: none Exam - Constitutional Vitals: Temp Pulse Resp BP Pulse Ox 97.8 F 87 20 145/85 97 06/04/16 05:00 06/04/16 05:00 06/04/16 05:00 06/04/16 05:00 06/04/16 05:00 General appearance: Present: no acute distress, well-nourished - EENT Eyes: Present: PERRL, EOM intact - Neck Neck: Present: supple, normal ROM - Respiratory Respiratory effort: normal Respiratory: bilateral: diminished, negative: rales, rhonchi, wheezing - Cardiovascular Rhythm: regular Heart Sounds: Present: S1 & S2 - Extremities Extremities: no ischemia, pulses intact, pulses symmetrical Peripheral Pulses: within normal limits - Abdominal General gastrointestinal: Present: soft, non-tender, non-distended, normal bowel sounds - Integumentary Integumentary: Present: clear, warm - Musculoskeletal Musculoskeletal: strength equal bilaterally - Psychiatric Psychiatric: appropriate mood/affect, cooperative - Neurologic Neurologic: CNII-XII intact, moves all extremities Plan Activity: advance as tolerated Diet: low salt Special Instructions: smoking cessation Additional Instructions: if you have chest pain or shortness of breath,contact MD or go to ER. advised smoking cessation Follow up with: PRIMARY CARE, [Primary Care Provider] - 3-5 Days ARIANNA HOUGH MD [Staff Physician] - 7 Days Prescriptions: Azithromycin [Zithromax Z-VALERIE] 0 mg PO DAILY #1 tab Prednisone [predniSONE 10 mg (6-Day Pack, 21 Tabs)] 10 mg PO .TAPER #1 tab.ds.pk
[2016-06-04] MEDS ORDERED: LOVENOX SUB-Q SCH (10:00)
--- NOTE | 2016-06-04 11:51 | Progress Note ---
Assessment and Plan Assessment: Progressive SOB COPD exacerbation Possible tracheobronchitis HTN CKD Mild anemia Negative lexiscan MPI 12/2015 Plan: Echo reviewed with [facility]. Currently stable cardiac status. Cont current management. Pt may discharge home from cardiology standpoint. Recommend follow up in our office with Dr. Maldonado within 1-2 weeks of hospital discharge. The patient has been seen in conjunction with Dr. Maldonado who agrees with the assessment and plan of care. Subjective Date of service: 06/04/16 Principal diagnosis: COPD exacerbation Interval history: no complaints, VSS. States he is ready to go home. Objective Last Vital Signs Temp 98.4 F 06/04/16 08:45 Pulse 87 06/04/16 05:00 Resp 18 06/04/16 08:45 BP 134/74 06/04/16 08:45 Pulse Ox 100 06/04/16 08:45 - Physical Examination General: Appears Well, No Apparent Distress HEENT: Positive: PERRL, Normocephaly, Mucus Membranes Moist Neck: Positive: neck supple, trachea midline Cardiac: Positive: Reg Rate and Rhythm, S1/S2 Lungs: Positive: clear to auscultation Neuro: Positive: Grossly Intact, Cranial Nerve 2-12 Intact Abdomen: Positive: Unremarkable, Soft, Active Bowel Sounds. Negative: Tender Skin: Positive: Clear. Negative: Rash, Wound Musculoskeletal: No Fluid Collection, No Pain, Normal Range of Motion Extremities: Present: normal, upper extr. pulses, lower extr. pulses. Absent: edema - Labs and Meds Comprehensive Metabolic Panel 06/04/16 Range/Units 05:49 Sodium 134 L (137-145) mmol/L Potassium 4.8 (3.6-5.0) mmol/L Chloride 98.8 (98-107) mmol/L Carbon Dioxide 23 (22-30) mmol/L BUN 18 (9-20) mg/dL Creatinine 1.9 H (0.8-1.5) mg/dL Glucose 133 H (75-100) mg/dL Calcium 8.7 (8.4-10.2) mg/dL
[2016-06-04] MEDS: CARDIZEM CD PO SCH (12:31)
[2016-06-04] MEDS: HALFPRIN EC PO SCH (12:31)
--- NOTE | 2016-06-04 16:20 | Query- Renal Failure ---
Wenceslao Reyes____Dalia Date:___06/04/16 Bundle Clerk/CDS:____Joseph Ochoacarmenza Phone#:____[phone] Exercise your independent professional judgment when responding to query. Questions asked do not imply a particular answer is desired or expected. We greatly appreciate your clarification on this issue. Clinical Documentation States: 71 year old Male was admitted on 06/02/16 The Progress note ( 06/03/16) states " Acute on chronic renal failure stage III Gentle hydration, closely monitor renal function avoid nephrotoxic medication Constant nephrology evaluation if needed " Clinical Findings Show: Creatinine: 2.0 Please clarify if you mean: Acute Renal Failure with or due to: [ ] Tubular Necrosis [ ] Medullary Necrosis [ ] Vasomotor Nephropathy [ ] Shock Kidney [ ] Tubular Nephrosis [ ] Renal Tubular Stasis [ ] Cortical Necrosis [ ] Acute Renal Failure (unspecified) [ ] Lower Tubular Nephrosis [x ] Other:_Acute on chronic kidney disease stage III [patient's baseline creatinine was 1.9 ]_due to ATN [ ] Not Applicable Present on Admission: [x ] Yes (Y) [ ] Clinically undeterminable (W) [ ] No (N) Please also document response in your Progress Notes and/or Discharge Summary and indicate if the condition was present on admission. VARGAS
--- NOTE | 2016-06-04 16:25 | Query- General ---
Wenceslao Reyes___Dalia Date: 06/04/16 Billing Adjudicator/CDS:____Joseph Mack Phone#:___[phone] Exercise your independent professional judgment when responding to this query. Questions asked do not imply a particular answer is desired or expected. We greatly appreciate your clarification on this issue. Clinical Documentation States: 71 year old male was admitted on 06/02/16 The hospitalist progress note (06/03/16) states " Lactic acidosis Rule out sepsis, continue antibiotics for acute bronchitis " Clinical Findings Show (include reference to source document): Given the above clinical scenario can you please provide an appropriate diagnosis based on your knowledge of the patient: Please clarify the status of Sepsis: PHYSICIAN RESPONSE: [ ] Sepsis ruled in [ ] Sepsis ruled out [ x] Other (please specify) possible sepsis secondary to acute bronchitis [ ] Clinically undeterminable Present on Admission: [ x] Yes (Y) [ ] Clinically undeterminable (W) [ ]No(N) Please also document response in your Progress Notes and/or Discharge Summary and indicate if the condition was present on admission. VARGAS
[2016-06-04 17:10] VITALS: BP 154/81
[2016-06-05] MEDS ORDERED: LEVAQUIN 500MG/100ML 500 MG/100 ML BAG IV SCH (10:00)
== END 2016-06-04 18:30 | disposition home or self-care (01) | DRG 871 ==
LOC: ED 05:48 → 4A 08:16
PROVIDERS: ADMIT Internal Medicine; ATTEND Internal Medicine
PROC: 4A033R1 Measurement of Arterial Saturation, Peripheral, Percutaneous Approach (ICD-10-PCS; principal; 2016-06-02)
PROC: 5A09357 Assistance with Respiratory Ventilation, Less than 24 Consecutive Hours, Continuous Positive Airway Pressure (ICD-10-PCS; 2016-06-02)
DX: A41.9 Sepsis, unspecified organism (principal); J96.21 Acute and chronic respiratory failure with hypoxia; N17.0 Acute kidney failure with tubular necrosis; J44.0 Chronic obstructive pulmonary disease with (acute) lower respiratory infection; J44.1 Chronic obstructive pulmonary disease with (acute) exacerbation; J20.9 Acute bronchitis, unspecified; I12.9 Hypertensive chronic kidney disease with stage 1 through stage 4 chronic kidney disease, or unspecified chronic kidney disease; N18.3 Chronic kidney disease, stage 3 (moderate); D64.9 Anemia, unspecified; Z79.899 Other long term (current) drug therapy; Z82.49 Family history of ischemic heart disease and other diseases of the circulatory system
CPT/HCPCS: 36415; 71010; 80048; 80053; 80061; 81001; 82140; 82550; 82553; 82803; 83735; 83880; 84484; 85007; 85025; 85610; 85730; 87040; 87086; 93005; 93010; 93306; 94640; 94760; 96365; 96366; 96368; 96372; 99291; C9113; J0456; J0696; J1650; J1956; J2920; J2930; J7030; J7050

== ENCOUNTER 2016-10-11 13:26 | Inpatient (IN) | payer MEDICARE, OTHER ==
[2016-10-11] MEDS ORDERED: DUONEB *Not for PRN Use IH ONE (13:36)
--- NOTE | 2016-10-11 13:42 | Emergency Department Report ---
ED Shortness of Breath HPI - General Chief Complaint: Dyspnea/Respdistress Stated Complaint: JOSE LUIS Source: EMS Mode of arrival: Stretcher Limitations: No Limitations - History of Present Illness Initial Comments: 8-year-old male here with complaint of shortness of breath. Patient has a known history of CPD. States that he started developing shortness of breath last night with symptoms of worsening this morning. Has a known history of intubation. His been on steroids recently. EMS treated him with BiPAP steroids 5 mg of albuterol in route. Patient states she feels better with the BiPAP on. His oxygen saturations were in the mid to high 80s on EMS evaluation. Here on arrival his oxygen saturation is in the high 90s. He is able to speak in more than 3 word sentences. -: Sudden Consistency: constant Improves With: oxygen, bronchodilators Known History Of: COPD, asthma Associated Symptoms: pain with inspiration, lower abdominal swelling Treatments Prior to Arrival: oxygen, bronchodilator - Related Data Previous Rx's Medication Instructions Recorded Last Taken Type Budesoni/Formotero 160-4.5(Nf) 2 puff IH BID #1 inha 01/30/14 06/01/16 08:00 Rx [Symbicort 160-4.5 (Nf)] Diltiazem [Cardizem] 180 mg PO Q8AM #30 tablet 01/30/14 06/01/16 21:00 Rx Ipratropium/Albuterol Sulfate 1 ampul IH Q8HRT #120 ampul.neb 01/30/14 06/01/16 21:00 Rx [DUONEB *Not for PRN Use*] Tiotropium [Spiriva] 18 mcg IH QDAY #1 box 01/30/14 06/01/16 09:00 Rx Azithromycin [Zithromax Z-VALERIE] 0 mg PO DAILY #1 tab 06/04/16 Unknown Rx Prednisone [predniSONE 10 mg 10 mg PO .TAPER #1 tab.ds.pk 06/04/16 Unknown Rx (6-Day Pack, 21 Tabs)] Allergies Allergy/AdvReac Type Severity Reaction Status Date / Time No Known Allergies Allergy Verified 01/02/16 17:32 ED Review of Systems ROS: Stated complaint: JOSE LUIS Other details as noted in HPI Comment: All other systems reviewed and negative Constitutional: denies: chills, fever Eyes: denies: eye pain, eye discharge, vision change ENT: denies: ear pain, throat pain Respiratory: shortness of breath, SOB with exertion, SOB at rest. denies: cough , wheezing Cardiovascular: dyspnea on exertion. denies: chest pain, palpitations Endocrine: no symptoms reported Gastrointestinal: denies: abdominal pain, nausea, diarrhea Genitourinary: denies: urgency, dysuria Musculoskeletal: denies: back pain, joint swelling, arthralgia Skin: denies: rash, lesions Neurological: denies: headache, weakness, paresthesias Psychiatric: denies: anxiety, depression Hematological/Lymphatic: denies: easy bleeding, easy bruising ED Past Medical Hx - Past Medical History Hx Hypertension: Yes Hx Renal Disease: Yes Hx COPD: Yes - Surgical History Additional Surgical History: prostate surgery - Family History Family history: no significant - Social History Smoking Status: Unknown if ever smoked - Medications Home Medications: Home Medications Medication Instructions Recorded Confirmed Last Taken Type Budesoni/Formotero 160-4.5(Nf) 2 puff IH BID #1 inha 01/30/14 06/03/16 06/01/16 08:00 Rx [Symbicort 160-4.5 (Nf)] Diltiazem [Cardizem] 180 mg PO Q8AM #30 tablet 01/30/14 06/03/16 06/01/16 21:00 Rx Ipratropium/Albuterol Sulfate 1 ampul IH Q8HRT #120 ampul.neb 01/30/14 06/03/16 06/01/16 21:00 Rx [DUONEB *Not for PRN Use*] Tiotropium [Spiriva] 18 mcg IH QDAY #1 box 01/30/14 06/03/16 06/01/16 09:00 Rx Azithromycin [Zithromax Z-VALERIE] 0 mg PO DAILY #1 tab 06/04/16 Unknown Rx Prednisone [predniSONE 10 mg 10 mg PO .TAPER #1 tab.ds.pk 06/04/16 Unknown Rx (6-Day Pack, 21 Tabs)] ED Physical Exam - General Limitations: No Limitations General appearance: alert, in distress - Head Head exam: Present: atraumatic, normocephalic - Eye Eye exam: Present: normal appearance. Absent: scleral icterus, conjunctival injection - ENT ENT exam: Present: mucous membranes moist - Neck Neck exam: Present: normal inspection - Respiratory Respiratory exam: Present: normal lung sounds bilaterally, respiratory distress , wheezes, decreased breath sounds, other (speaking in more than 3 word sentences, tachypnea) - Cardiovascular Cardiovascular Exam: Present: normal rhythm, tachycardia, irregular rhythm. Absent: systolic murmur, diastolic murmur, rubs, gallop - GI/Abdominal GI/Abdominal exam: Present: soft, normal bowel sounds. Absent: distended, tenderness - Rectal Rectal exam: Present: deferred - Extremities Exam Extremities exam: Present: normal inspection. Absent: pedal edema - Back Exam Back exam: Present: normal inspection. Absent: vertebral tenderness - Neurological Exam Neurological exam: Present: alert, oriented X3 - Psychiatric Psychiatric exam: Present: normal affect, normal mood - Skin Skin exam: Present: warm, dry, intact, normal color. Absent: rash ED Course Vital Signs 10/11/16 10/11/16 10/11/16 13:30 13:40 13:50 Temperature Pulse Rate 104 H 102 H Pulse Rate [ 99 H Anterior Bilateral Throughout] Respiratory 22 30 H Rate Respiratory 31 H Rate [Anterior Bilateral Throughout] Blood Pressure 167/104 164/108 O2 Sat by Pulse 100 99 Oximetry 10/11/16 10/11/16 10/11/16 13:53 14:11 14:20 Temperature 97.5 F L Pulse Rate 98 H Pulse Rate [ 96 H Anterior Bilateral Throughout] Respiratory 33 H Rate Respiratory 32 H Rate [Anterior Bilateral Throughout] Blood Pressure 166/93 O2 Sat by Pulse 98 Oximetry ED Medical Decision Making - Lab Data Result diagrams: 10/11/16 13:47 10/11/16 13:47 Laboratory Results - last 24 hr 10/11/16 10/11/16 10/11/16 13:47 13:47 13:47 WBC 5.1 RBC 4.03 Hgb 12.7 Hct 38.7 MCV 96 H MCH 32 MCHC 33 RDW 14.5 Plt Count 277 Lymph % (Auto) 37.4 H [place] % (Auto) 15.8 H Eos % (Auto) 9.5 H Baso % (Auto) 1.4 Lymph # 1.9 [place] # 0.8 Eos # 0.5 H Baso # 0.1 Seg Neutrophils % 35.9 L Seg Neutrophils # 1.8 Carbon Dioxide 19 L BUN 27 H Creatinine 2.0 H Estimated GFR 40 BUN/Creatinine Ratio 13.50 Glucose 79 Calcium 9.1 Total Bilirubin 0.60 AST 20 ALT 11 Alkaline Phosphatase 49 Troponin T 0.045 H NT-Pro-B Natriuret Pep Total Protein 7.0 Albumin 4.2 Albumin/Globulin Ratio 1.5 Triglycerides 72 Cholesterol 128 LDL Cholesterol Direct 37 L HDL Cholesterol 77 H Cholesterol/HDL Ratio 1.66 10/11/16 13:47 WBC RBC Hgb Hct MCV MCH MCHC RDW Plt Count Lymph % (Auto) [place] % (Auto) Eos % (Auto) Baso % (Auto) Lymph # [place] # Eos # Baso # Seg Neutrophils % Seg Neutrophils # Carbon Dioxide BUN Creatinine Estimated GFR BUN/Creatinine Ratio Glucose Calcium Total Bilirubin AST ALT Alkaline Phosphatase Troponin T NT-Pro-B Natriuret Pep 218.2 Total Protein Albumin Albumin/Globulin Ratio Triglycerides Cholesterol LDL Cholesterol Direct HDL Cholesterol Cholesterol/HDL Ratio - EKG Data -: EKG Interpreted by Me - EKG Data 10/11/16 13:43 Sinus tachycardia rate of 102 normal axis and prolonged WI interval biatrial enlargement and no ST or T-wave changes - Medical Decision Making Patient is a 71-year-old male presents to emergency department with acute onset of dyspnea. He initially had low oxygen saturations and was struggling to breathe prior to treatment by EMS. He is doing better on CPAP and started and nebulizers. Anticipate admission. Chest x-ray does not show any evidence of volume overload. Given breath sounds on patient presentation I suspect this is all related to COPD exacerbation. Patient still on BiPAP. Plan to admit to the hospitalist service for continued nebulizer treatments and CPAP as needed. Patient is counseled with this plan. Critical care attestation.: If time is entered above; I have spent that time in minutes in the direct care of this critically ill patient, excluding procedure time. ED Disposition Clinical Impression: COPD exacerbation Disposition: OP ADMIT IP TO THIS HOSP Is pt being admited?: Yes Condition: Stable Instructions: Chronic Obstructive Pulmonary Disease (ED) Referrals: PRIMARY CARE, [Primary Care Provider] - 3-5 Days
--- NOTE | 2016-10-11 14:00 | Admit Criteria Form ---
<GERARDO PHAN - Last Filed: 10/11/16 15:00> Admission Criteria Documentation: RESPIRATORY FAILURE GRG Clinical Indications for Admission to Inpatient Care (Place 'X' for any and all applicable criteria): Hospital admission is needed for appropriate care of the patient because of acute respiratory failure or insufficiency as indicated by 1 or more of the following (1)(2)(3)(4)(5)(6)(7)(8 ): [ X]I. Mechanical ventilation needed (acute invasive or noninvasive) [ ]II. Severe ventilation deficit as indicated by 1 or more of the following ( 9) [ ]a) Uncompensated Respiratory acidosis (pH < 7.35 and PaCO2 > 40 mmHg (5.3 kPa)) [ ]b) Airflow measurements < 25% of predicted (eg, PEFR < 100 L/min) [ ]c) FVC < 15 mL/kg of ideal body weight, or 50% decrease in vital capacity from baseline [ ]III. Noncardiac pulmonary edema not resolving with rapid emergency treatment (8) [ ]IV. Severe respiratory distress as indicated by 1 or more of the following: [ ]a) Severe tachypnea (respiratory rate greater than 30, greater than 45 for 6-month-old, greater than 60 for ) [ ]b) Severe hypoxemia (partial pressure of oxygen less than 50 mm Hg ( 6.7 kPa) on greater than 50% oxygen or partial pressure of oxygen to FIO2 ratio less than 200) [ ]c) Mental status deterioration from respiratory disease [ ]V. Airway obstruction or inadequate protection [A](10)(11) The original [email or web address] content created by [email or web address] has been revised. The portions of the content which have been revised are identified through the use of italic text or in bold, and [facility] has neither reviewed nor approved the modified material. All other unmodified content is copyright [facility]. Please see references footnoted in the original [facility] edition 2017 Admission Criteria Met: Yes <SAMARA RUIZ - Last Filed: 10/15/16 15:32> Admission Criteria Documentation: I am administratively signing this note. It has no bearing on the patient's admission status and was not filled out by me.
[2016-10-11 14:15] LABS: Basophils % (Auto) 1.4 % (0.0-1.8); Eosinophils % (Auto) 9.5 % (0.0-4.3); Hematocrit 38.7 % (35.5-45.6); Hemoglobin 12.7 gm/dl (11.8-15.2); Mean Corpuscular HGB Conc 33 % (32-34); Mean Corpuscular Hemoglobin 32 pg (28-32); Mean Corpuscular Volume 96 fl (84-94); Platelet Count 277 K/mm3 (140-440); Red Blood Count 4.03 M/mm3 (3.65-5.03); Red Cell Distribution Width 14.5 % (13.2-15.2); White Blood Count 5.1 K/mm3 (4.5-11.0)
[2016-10-11 14:18] LABS: Albumin 4.2 g/dL (3.9-5); Albumin/Globulin Ratio 1.5 %; BUN/Creatinine Ratio 13.5; Bilirubin,Total 0.6 mg/dL (0.1-1.2); Calcium 9.1 mg/dL (8.4-10.2); Chloride 102.3 mmol/L (98-107)
[2016-10-11] MEDS ORDERED: ZITHROMAX 500 MG in NACL 0.9% 250ML 250 ML IV ONE (14:30)
[2016-10-11 14:39] LABS: ISTAT Base Excess -9; ISTAT HCO3 17.4; ISTAT PCO2 37.6 (35-45); ISTAT PH 7.274 (7.35-7.45); ISTAT PO2 82 (80-105); ISTAT SO2 94; ISTAT TCO2 19
--- NOTE | 2016-10-11 15:28 | XRay Report ---
AP CHEST: HISTORY: Dyspnea The lungs are hyperinflated but clear. The heart and mediastinal structures are within normal limits. The thoracic cage is in tact. No overwhelming change since 06/02/16. IMPRESSION: Hyperinflation suggesting emphysema. No acute process.
[2016-10-11] MEDS ORDERED: DILAUDID IV PRN (18:29)
[2016-10-11] MEDS ORDERED: MILK OF MAGNESIA PO PRN (18:29)
[2016-10-11] MEDS ORDERED: ZOFRAN IV PRN (18:29)
[2016-10-11] MEDS ORDERED: AMBIEN PO PRN (18:29)
[2016-10-11] MEDS ORDERED: PERCOCET 5/325 PO PRN (18:29)
[2016-10-11] MEDS ORDERED: TYLENOL PO PRN (18:29)
[2016-10-11] MEDS ORDERED: DULCOLAX PR PRN (18:29)
--- NOTE | 2016-10-11 18:29 | History and Physical Report ---
History of Present Illness Date of examination: 10/11/16 Date of admission: 10/11/16 Chief complaint: Increasing SOB for 3 days History of present illness: History of Present Illness 71-year-old male here with complaint of shortness of breath. Patient has a known history of CPD. States that he started developing shortness of breath last night with symptoms of worsening this morning. Has a known history of intubation. His been on steroids recently. EMS treated him with BiPAP steroids 5 mg of albuterol in route. Patient states she feels better with the BiPAP on. His oxygen saturations were in the mid to high 80s on EMS evaluation. Here on arrival his oxygen saturation is in the high 90s. He is able to speak in more than 3 word sentences. -: Sudden Consistency: constant Improves With: oxygen, bronchodilators Known History Of: COPD, asthma Associated Symptoms: pain with inspiration, lower abdominal swelling Treatments Prior to Arrival: oxygen, bronchodilator Past Medical History Hx Hypertension: Yes Hx Renal Disease: Yes Hx COPD: Yes - Surgical History Additional Surgical History: prostate surgery - Family History Family history: no significant - Social History Smoking Status: Unknown if ever smoked - Medications Home Medications: Home Medications Medication Instructions Recorded Confirmed Last Taken Type Budesoni/Formotero 160-4.5(Nf) 2 puff IH BID #1 inha 01/30/14 06/03/16 06/01/16 08:00 Rx [Symbicort 160-4.5 (Nf)] Diltiazem [Cardizem] 180 mg PO Q8AM #30 tablet 01/30/14 06/03/16 06/01/16 21:00 Rx Ipratropium/Albuterol Sulfate 1 ampul IH Q8HRT #120 ampul.neb 01/30/14 06/03/16 06/01/16 21:00 Rx [DUONEB *Not for PRN Use*] Tiotropium [Spiriva] 18 mcg IH QDAY #1 box 01/30/14 06/03/16 06/01/16 09:00 Rx Azithromycin [Zithromax Z-VALERIE] 0 mg PO DAILY #1 tab 06/04/16 Unknown Rx Prednisone [predniSONE 10 mg 10 mg PO .TAPER #1 tab.ds.pk 06/04/16 Unknown Rx (6-Day Pack, 21 Tabs)] Review of Systems Stated complaint: JOSE LUIS Other details as noted in HPI Comment: All other systems reviewed and negative Constitutional: denies: chills, fever Eyes: denies: eye pain, eye discharge, vision change ENT: denies: ear pain, throat pain Respiratory: shortness of breath, SOB with exertion, SOB at rest. denies: cough , wheezing Cardiovascular: dyspnea on exertion. denies: chest pain, palpitations Endocrine: no symptoms reported Gastrointestinal: denies: abdominal pain, nausea, diarrhea Genitourinary: denies: urgency, dysuria Musculoskeletal: denies: back pain, joint swelling, arthralgia Skin: denies: rash, lesions Neurological: denies: headache, weakness, paresthesias Psychiatric: denies: anxiety, depression Hematological/Lymphatic: denies: easy bleeding, easy bruising Medications and Allergies Allergies Allergy/AdvReac Type Severity Reaction Status Date / Time No Known Allergies Allergy Verified 01/02/16 17:32 Home Medications Medication Instructions Recorded Confirmed Last Taken Type Tiotropium [Spiriva] 18 mcg IH QDAY #1 box 01/30/14 10/11/16 06/01/16 09:00 Rx Aspirin [Adult Low Dose Aspirin EC] 81 mg PO DAILY 10/11/16 10/11/16 10/11/16 History Diltiazem Cd [Cardizem Cd] 120 mg PO DAILY 10/11/16 10/11/16 10/11/16 History Folic Acid 0.4 mg PO QDAY 10/11/16 10/11/16 10/11/16 History Pravastatin Sodium [Pravastatin] 20 mg PO QHS 10/11/16 10/11/16 10/11/16 History Thiamine [Vitamin B-1] 100 mg PO QDAY 10/11/16 10/11/16 10/11/16 History Exam - Constitutional Vitals: Temp Pulse Resp BP Pulse Ox 98 F 92 H 18 151/93 99 10/11/16 18:10 10/11/16 18:10 10/11/16 18:10 10/11/16 18:10 10/11/16 18:10 General appearance: Present: no acute distress, well-nourished - EENT Eyes: Present: PERRL ENT: hearing intact, clear oral mucosa - Neck Neck: Present: supple, normal ROM - Respiratory Respiratory effort: normal Respiratory: bilateral: diminished, rhonchi - Cardiovascular Heart rate: 90 Rhythm: regular Heart Sounds: Present: S1 & S2. Absent: rub, click - Extremities Extremities: no ischemia, pulses symmetrical, No edema Peripheral Pulses: within normal limits - Abdominal General gastrointestinal: Present: soft, non-tender, non-distended, normal bowel sounds Male genitourinary: Present: normal - Rectal Rectal Exam: deferred - Integumentary Integumentary: Present: clear, warm, dry - Musculoskeletal Musculoskeletal: gait normal, strength equal bilaterally - Psychiatric Psychiatric: appropriate mood/affect, intact judgment & insight - Neurologic Neurologic: CNII-XII intact, moves all extremities - Allied Health Allied health notes reviewed: nursing, case management Results - Labs CBC & Chem 7: 10/12/16 05:31 10/12/16 05:31 Labs: Laboratory Last Values WBC 5.1 K/mm3 (4.5-11.0) 10/11/16 13:47 RBC 4.03 M/mm3 (3.65-5.03) 10/11/16 13:47 Hgb 12.7 gm/dl (11.8-15.2) 10/11/16 13:47 Hct 38.7 % (35.5-45.6) 10/11/16 13:47 MCV 96 fl (84-94) H 10/11/16 13:47 MCH 32 pg (28-32) 10/11/16 13:47 MCHC 33 % (32-34) 10/11/16 13:47 RDW 14.5 % (13.2-15.2) 10/11/16 13:47 Plt Count 277 K/mm3 (140-440) 10/11/16 13:47 Lymph % (Auto) 37.4 % (13.4-35.0) H 10/11/16 13:47 [place] % (Auto) 15.8 % (0.0-7.3) H 10/11/16 13:47 Eos % (Auto) 9.5 % (0.0-4.3) H 10/11/16 13:47 Baso % (Auto) 1.4 % (0.0-1.8) 10/11/16 13:47 Lymph # 1.9 K/mm3 (1.2-5.4) 10/11/16 13:47 [place] # 0.8 K/mm3 (0.0-0.8) 10/11/16 13:47 Eos # 0.5 K/mm3 (0.0-0.4) H 10/11/16 13:47 Baso # 0.1 K/mm3 (0.0-0.1) 10/11/16 13:47 Seg Neutrophils % 35.9 % (40.0-70.0) L 10/11/16 13:47 Seg Neutrophils # 1.8 K/mm3 (1.8-7.7) 10/11/16 13:47 POC ABG pH 7.274 (7.35-7.45) L 10/11/16 14:29 POC ABG pCO2 37.6 (35-45) 10/11/16 14:29 POC ABG pO2 82 (80-105) 10/11/16 14:29 POC ABG HCO3 17.4 10/11/16 14:29 POC ABG Total CO2 19 10/11/16 14:29 POC ABG O2 Sat 94 10/11/16 14:29 POC ABG Base Excess -9 10/11/16 14:29 FiO2 30 % 10/11/16 14:29 Carbon Dioxide 19 mmol/L (22-30) L 10/11/16 13:47 BUN 27 mg/dL (9-20) H 10/11/16 13:47 Creatinine 2.0 mg/dL (0.8-1.5) H 10/11/16 13:47 Estimated GFR 40 ml/min 10/11/16 13:47 BUN/Creatinine Ratio 13.50 % 10/11/16 13:47 Glucose 79 mg/dL (75-100) 10/11/16 13:47 Calcium 9.1 mg/dL (8.4-10.2) 10/11/16 13:47 Total Bilirubin 0.60 mg/dL (0.1-1.2) 10/11/16 13:47 AST 20 units/L (5-40) 10/11/16 13:47 ALT 11 units/L (7-56) 10/11/16 13:47 Alkaline Phosphatase 49 units/L (35-129) 10/11/16 13:47 Troponin T 0.045 ng/mL (0.00-0.029) H 10/11/16 13:47 NT-Pro-B Natriuret Pep 218.2 pg/mL (0-900) 10/11/16 13:47 Total Protein 7.0 g/dL (6.3-8.2) 10/11/16 13:47 Albumin 4.2 g/dL (3.9-5) 10/11/16 13:47 Albumin/Globulin Ratio 1.5 % 10/11/16 13:47 Triglycerides 72 mg/dL (2-149) 10/11/16 13:47 Cholesterol 128 mg/dL (50-199) 10/11/16 13:47 LDL Cholesterol Direct 37 mg/dL (50-130) L 10/11/16 13:47 HDL Cholesterol 77 mg/dL (40-59) H 10/11/16 13:47 Cholesterol/HDL Ratio 1.66 % 10/11/16 13:47 - Imaging and Cardiology EKG: report reviewed Chest x-ray: report reviewed Assessment and Plan - Patient Problems (1) Acute respiratory failure with hypoxia Current Visit: No Status: Acute Plan to address problem: Patient initiated on Duonebs IV solumedrol and IV Levaquin Bipap was initiated-Improved in ER -hence transferred to Telemetry (2) COPD with acute exacerbation Current Visit: No Status: Acute Plan to address problem: As above (3) Hyperkalemia Current Visit: No Status: Acute Plan to address problem: Kayexalate 30 mg ordered (4) Hypertension Current Visit: No Status: Chronic Qualifiers: Hypertension type: essential hypertension Qualified Code(s): I10 - Essential (primary) hypertension Plan to address problem: Cont Diltiazem (5) CKD (chronic kidney disease) Current Visit: Yes Status: Chronic Qualifiers: Chronic kidney disease stage: stage 3 (moderate) Qualified Code(s): N18.3 - Chronic kidney disease, stage 3 (moderate) Plan to address problem: Nephrology consult ordere.Patient to follow with [facility] on regular basis (6) DVT prophylaxis Current Visit: No Status: Acute Plan to address problem: On Heparin
[2016-10-11] MEDS ORDERED: DUONEB *Not for PRN Use IH (18:34)
[2016-10-11] MEDS ORDERED: NON-FORMULARY (Folic Acid [Folic Acid] 0.4 MG) PO SCH (18:45)
[2016-10-11] MEDS ORDERED: LOVENOX SUB-Q SCH (19:00)
[2016-10-11] MEDS: LEVAQUIN 750MG/150ML 750 MG/150 ML BAG IV SCH (19:09)
[2016-10-11] MEDS: DUONEB *Not for PRN Use IH SCH (20:54)
[2016-10-11] MEDS: ZOCOR PO SCH (22:46)
[2016-10-11] MEDS: HALFPRIN EC PO SCH (22:46)
[2016-10-11] MEDS: CARDIZEM CD PO SCH (22:46)
[2016-10-11] MEDS: D5NS 1,000 ML IV SCH (22:46)
[2016-10-11] MEDS: VITAMIN B-1 PO SCH (22:52)
[2016-10-12] MEDS: DUONEB *Not for PRN Use IH SCH ×4 (02:09→19:40)
[2016-10-12 05:56] LABS: Basophils % (Auto) 0.1 % (0.0-1.8); Hematocrit 34.9 % (35.5-45.6); Hemoglobin 11.9 gm/dl (11.8-15.2); Mean Corpuscular HGB Conc 34 % (32-34); Mean Corpuscular Hemoglobin 32 pg (28-32); Mean Corpuscular Volume 95 fl (84-94); Platelet Count 249 K/mm3 (140-440); Red Blood Count 3.69 M/mm3 (3.65-5.03); Red Cell Distribution Width 14.4 % (13.2-15.2); White Blood Count 2.5 K/mm3 (4.5-11.0)
[2016-10-12 06:15] LABS: Albumin 4.1 g/dL (3.9-5); Albumin/Globulin Ratio 1.8 %; BUN/Creatinine Ratio 15.9; Bilirubin,Total 0.4 mg/dL (0.1-1.2); Chloride 101.5 mmol/L (98-107); Potassium 5.6 mmol/L (3.6-5.0); Total Protein 6.4 g/dL (6.3-8.2)
--- NOTE | 2016-10-12 09:34 | Consultation ---
History of Present Illness - Reason for Consult Consult date: 10/12/16 acute renal failure, chronic renal failure, hyperkalemia, metabolic acidosis Requesting physician: DANIELA DAVIS - History of Present Illness 71-year-old male here with complaint of shortness of breath. Patient has a known history of CPD. States that he started developing shortness of breath last night with symptoms of worsening this morning. Has a known history of intubation. His been on steroids recently. EMS treated him with BiPAP steroids 5 mg of albuterol in route. Patient states she feels better with the BiPAP on. His oxygen saturations were in the mid to high 80s on EMS evaluation. Here on arrival his oxygen saturation is in the high 90s. He is able to speak in more than 3 word sentences. cr was 1.9 in may, has ranged from 1.9 to 2.5 on previous visits -: Sudden Consistency: constant Improves With: oxygen, bronchodilators Known History Of: COPD, asthma Associated Symptoms: pain with inspiration, lower abdominal swelling Treatments Prior to Arrival: oxygen, bronchodilator Past Medical History Hx Hypertension: Yes Hx Renal Disease: Yes Hx COPD: Yes - Surgical History Additional Surgical History: prostate surgery - Family History Family history: no significant - Social History Smoking Status: Unknown if ever smoked - Medications Home Medications: Home Medications Medication Instructions Recorded Confirmed Last Taken Type Budesoni/Formotero 160-4.5(Nf) 2 puff IH BID #1 inha 01/30/14 06/03/16 06/01/16 08:00 Rx [Symbicort 160-4.5 (Nf)] Diltiazem [Cardizem] 180 mg PO Q8AM #30 tablet 01/30/14 06/03/16 06/01/16 21:00 Rx Ipratropium/Albuterol Sulfate 1 ampul IH Q8HRT #120 ampul.neb 01/30/14 06/03/16 06/01/16 21:00 Rx [DUONEB *Not for PRN Use*] Tiotropium [Spiriva] 18 mcg IH QDAY #1 box 01/30/14 06/03/16 06/01/16 09:00 Rx Azithromycin [Zithromax Z-VALERIE] 0 mg PO DAILY #1 tab 06/04/16 Unknown Rx Prednisone [predniSONE 10 mg 10 mg PO .TAPER #1 tab.ds.pk 06/04/16 Unknown Rx (6-Day Pack, 21 Tabs)] Review of Systems Stated complaint: JOSE LUIS Other details as noted in HPI Comment: All other systems reviewed and negative Constitutional: denies: chills, fever Eyes: denies: eye pain, eye discharge, vision change ENT: denies: ear pain, throat pain Respiratory: shortness of breath, SOB with exertion, SOB at rest. denies: cough , wheezing Cardiovascular: dyspnea on exertion. denies: chest pain, palpitations Endocrine: no symptoms reported Gastrointestinal: denies: abdominal pain, nausea, diarrhea Genitourinary: denies: urgency, dysuria Musculoskeletal: denies: back pain, joint swelling, arthralgia Skin: denies: rash, lesions Neurological: denies: headache, weakness, paresthesias Psychiatric: denies: anxiety, depression Hematological/Lymphatic: denies: easy bleeding, easy bruising Medications and Allergies Allergies Allergy/AdvReac Type Severity Reaction Status Date / Time No Known Allergies Allergy Verified 01/02/16 17:32 Home Medications Medication Instructions Recorded Confirmed Last Taken Type Tiotropium [Spiriva] 18 mcg IH QDAY #1 box 01/30/14 10/11/16 06/01/16 09:00 Rx Aspirin [Adult Low Dose Aspirin EC] 81 mg PO DAILY 10/11/16 10/11/16 10/11/16 History Diltiazem Cd [Cardizem Cd] 120 mg PO DAILY 10/11/16 10/11/16 10/11/16 History Folic Acid 0.4 mg PO QDAY 10/11/16 10/11/16 10/11/16 History Pravastatin Sodium [Pravastatin] 20 mg PO QHS 10/11/16 10/11/16 10/11/16 History Thiamine [Vitamin B-1] 100 mg PO QDAY 10/11/16 10/11/16 10/11/16 History Active Meds: Active Medications Acetaminophen (Tylenol) 650 mg PO Q4H PRN PRN Reason: Pain MILD(1-3)/Fever >100.5/NOBLE Albuterol/Ipratropium (Duoneb *Not For Prn Use*) 1 ampul IH Q6HRT NICOLE Last Admin: 10/12/16 02:09 Dose: 1 ampul Albuterol/Ipratropium (Duoneb *Not For Prn Use*) 1 ampul IH Q3H PRN PRN Reason: Wheezing Aspirin (Halfprin Ec) 81 mg PO DAILY [facility] Last Admin: 10/11/16 22:46 Dose: 81 mg Bisacodyl (Dulcolax) 10 mg MO QDAY PRN PRN Reason: Constipation unrelieved by MOM Diltiazem HCl (Cardizem Cd) 120 mg PO DAILY [facility] Last Admin: 10/11/16 22:46 Dose: 120 mg Folic Acid (Folvite) 1 mg PO DAILY [facility] Hydromorphone HCl (Dilaudid) 0.5 mg IV Q3H PRN PRN Reason: Pain , Severe (7-10) Dextrose/Sodium Chloride (D5ns) 1,000 mls @ 42 mls/hr IV DIRECT [facility] Last Admin: 10/11/16 22:46 Dose: 42 mls/hr Levofloxacin/Dextrose (Levaquin 750mg/150ml) 750 mg in 150 mls @ 100 mls/hr IV Q24HR [facility] PRN Reason: Protocol Last Admin: 10/11/16 19:09 Dose: 100 mls/hr Magnesium Hydroxide (Milk Of Magnesia) 30 ml PO Q4H PRN PRN Reason: Constipation Methylprednisolone Sodium Succinate (Solu-Medrol) 125 mg IV Q8HR [facility] Last Admin: 10/12/16 06:28 Dose: 125 mg Ondansetron HCl (Zofran) 4 mg IV Q8H PRN PRN Reason: N/V unrelieved by Reglan Oxycodone/Acetaminophen (Percocet 5/325) 1 tab PO Q6H PRN PRN Reason: Pain, Moderate (4-6) Pneumococcal Polyvalent Vaccine (Pneumovax 23) 0.5 ml IM .ONCE ONE Stop: 10/12/16 12:01 Simvastatin (Zocor) 10 mg PO QHS [facility] Last Admin: 10/11/16 22:46 Dose: 10 mg Thiamine HCl (Vitamin B-1) 100 mg PO QDAY [facility] Last Admin: 10/11/16 22:52 Dose: 100 mg Tiotropium [place] (Spiriva) 1 puff IH QDAY [facility] Zolpidem Tartrate (Ambien) 5 mg PO QHS PRN PRN Reason: Insomnia Exam - Vital Signs Vital signs: Vital Signs Pulse Ox 88 10/11/16 13:25 - Physical Exam Narrative exam: General appearance: Present: no acute distress, well-nourished - EENT Eyes: Present: PERRL ENT: hearing intact, clear oral mucosa - Neck Neck: Present: supple, normal ROM - Respiratory Respiratory effort: normal Respiratory: bilateral: diminished, rhonchi - Cardiovascular Heart rate: 90 Rhythm: regular Heart Sounds: Present: S1 & S2. Absent: rub, click - Extremities Extremities: no ischemia, pulses symmetrical, No edema Peripheral Pulses: within normal limits - Abdominal General gastrointestinal: Present: soft, non-tender, non-distended, normal bowel sounds Male genitourinary: Present: normal - Rectal Rectal Exam: deferred - Integumentary Integumentary: Present: clear, warm, dry - Musculoskeletal Musculoskeletal: gait normal, strength equal bilaterally - Psychiatric Psychiatric: appropriate mood/affect, intact judgment & insight - Neurologic Neurologic: CNII-XII intact, moves all extremities - Allied Health Allied health notes reviewed: nursing, case management Results - Lab Results 10/12/16 05:31 10/12/16 05:31 Most recent lab results Calcium 9.0 mg/dL (8.4-10.2) 10/12/16 05:31 Assessment and Plan Impression: * MAGDALENE on ckd--cr 1.9 to 2.5 on previous admissions * hyperkalemia * COPD * SOB * HTN Plan. * renal us/ua/urine lytes * appears to be close to base renal function * r/o obstruction and infection * strict i/os * avoid nephrotoxins
[2016-10-12] MEDS ORDERED: KIONEX PO ONE (09:35)
--- NOTE | 2016-10-12 10:46 | Progress Note ---
Assessment and Plan Assessment and plan: Acute hypoxic respiratory failure. Continue BiPAP as clinically indicated. Acute COPD exacerbation. Continue IV Solu-Medrol, IV antibiotics and nebulizer treatments. Hyperkalemia. Patient status post Kayexalate 1. Follow-up BMP. Hypertension. Continue diltiazem. CKD. Nephrology consultation pending. DVT prophylaxis. Continue heparin. History Interval history: No new issues overnight. Hospitalist Physical - Constitutional Vitals: Temp Pulse Resp BP Pulse Ox 97.8 F 94 H 20 166/88 100 10/12/16 07:42 10/12/16 07:42 10/12/16 07:42 10/12/16 07:42 10/12/16 07:42 General appearance: Present: no acute distress, well-nourished - EENT Eyes: Present: PERRL, EOM intact ENT: hearing intact, clear oral mucosa, dentition normal - Neck Neck: Present: supple, normal ROM - Respiratory Respiratory effort: normal Respiratory: bilateral: CTA - Cardiovascular Rhythm: regular Heart Sounds: Present: S1 & S2. Absent: gallop, rub - Extremities Extremities: no ischemia, No edema, Full ROM - Abdominal General gastrointestinal: soft, non-tender, non-distended, normal bowel sounds - Integumentary Integumentary: Present: clear, warm, dry - Neurologic Neurologic: CNII-XII intact, moves all extremities Results - Labs CBC & Chem 7: 10/12/16 05:31 10/12/16 05:31 Labs: Laboratory Last Values WBC 2.5 K/mm3 (4.5-11.0) L 10/12/16 05:31 RBC 3.69 M/mm3 (3.65-5.03) 10/12/16 05:31 Hgb 11.9 gm/dl (11.8-15.2) 10/12/16 05:31 Hct 34.9 % (35.5-45.6) L 10/12/16 05:31 MCV 95 fl (84-94) H 10/12/16 05:31 MCH 32 pg (28-32) 10/12/16 05:31 MCHC 34 % (32-34) 10/12/16 05:31 RDW 14.4 % (13.2-15.2) 10/12/16 05:31 Plt Count 249 K/mm3 (140-440) 10/12/16 05:31 Lymph % (Auto) 15.9 % (13.4-35.0) 10/12/16 05:31 [place] % (Auto) 2.0 % (0.0-7.3) 10/12/16 05:31 Eos % (Auto) 0.0 % (0.0-4.3) 10/12/16 05:31 Baso % (Auto) 0.1 % (0.0-1.8) 10/12/16 05:31 Lymph # 0.4 K/mm3 (1.2-5.4) L 10/12/16 05:31 [place] # 0.1 K/mm3 (0.0-0.8) 10/12/16 05:31 Eos # 0.0 K/mm3 (0.0-0.4) 10/12/16 05:31 Baso # 0.0 K/mm3 (0.0-0.1) 10/12/16 05:31 Seg Neutrophils % 82.0 % (40.0-70.0) H 10/12/16 05:31 Seg Neutrophils # 2.1 K/mm3 (1.8-7.7) 10/12/16 05:31 POC ABG pH 7.274 (7.35-7.45) L 10/11/16 14:29 POC ABG pCO2 37.6 (35-45) 10/11/16 14:29 POC ABG pO2 82 (80-105) 10/11/16 14:29 POC ABG HCO3 17.4 10/11/16 14:29 POC ABG Total CO2 19 10/11/16 14:29 POC ABG O2 Sat 94 10/11/16 14:29 POC ABG Base Excess -9 10/11/16 14:29 FiO2 30 % 10/11/16 14:29 Sodium 137 mmol/L (137-145) 10/12/16 05:31 Potassium 5.6 mmol/L (3.6-5.0) H 10/12/16 05:31 Chloride 101.5 mmol/L (98-107) 10/12/16 05:31 Carbon Dioxide 16 mmol/L (22-30) L 10/12/16 05:31 Anion Gap 25 mmol/L 10/12/16 05:31 BUN 35 mg/dL (9-20) H 10/12/16 05:31 Creatinine 2.2 mg/dL (0.8-1.5) H 10/12/16 05:31 Estimated GFR 36 ml/min 10/12/16 05:31 BUN/Creatinine Ratio 15.90 % 10/12/16 05:31 Glucose 139 mg/dL (75-100) H 10/12/16 05:31 Calcium 9.0 mg/dL (8.4-10.2) 10/12/16 05:31 Total Bilirubin 0.40 mg/dL (0.1-1.2) 10/12/16 05:31 AST 15 units/L (5-40) 10/12/16 05:31 ALT 10 units/L (7-56) 10/12/16 05:31 Alkaline Phosphatase 45 units/L (35-129) 10/12/16 05:31 Troponin T 0.045 ng/mL (0.00-0.029) H 10/11/16 13:47 NT-Pro-B Natriuret Pep 218.2 pg/mL (0-900) 10/11/16 13:47 Total Protein 6.4 g/dL (6.3-8.2) 10/12/16 05:31 Albumin 4.1 g/dL (3.9-5) 10/12/16 05:31 Albumin/Globulin Ratio 1.8 % 10/12/16 05:31 Triglycerides 72 mg/dL (2-149) 10/11/16 13:47 Cholesterol 128 mg/dL (50-199) 10/11/16 13:47 LDL Cholesterol Direct 37 mg/dL (50-130) L 10/11/16 13:47 HDL Cholesterol 77 mg/dL (40-59) H 10/11/16 13:47 Cholesterol/HDL Ratio 1.66 % 10/11/16 13:47
[2016-10-12] MEDS: FOLVITE PO SCH (11:38)
[2016-10-12] MEDS: CARDIZEM CD PO SCH (11:38)
[2016-10-12] MEDS: HALFPRIN EC PO SCH (11:38)
[2016-10-12] MEDS ORDERED: PROVENTIL IH PRN (11:38)
[2016-10-12] MEDS: VITAMIN B-1 PO SCH (11:39)
[2016-10-12] MEDS: LEVAQUIN 750MG/150ML 750 MG/150 ML BAG IV SCH (11:39)
[2016-10-12] MEDS: SODIUM BICARBONATE PO SCH ×2 (11:39→22:04)
[2016-10-12] MEDS ORDERED: PNEUMOVAX 23 IM ONE (12:00)
--- NOTE | 2016-10-12 13:31 | Event Note ---
Date: 10/12/16 Dr. Meza thank you for asking us to participate in the care of this patient. Full consultation follow. This is 71 year old make with history of COPD admitted with shortness of breath and cough. Patient has history of smoking 1/2 pack a day for 40 years. Says stopped smoking 3 months ago. IMMPRESSION; 1. EXACERBATION OF COPD. 2. ACUTE BRONCHITIS. 3. METABOLIC ACIDOSIS 4. CKD. 5. hYPERTENSION. PLAN; 1. O2 2 LITRES VIA NASAL CANULA. 2. ALBUTEROL/ATROVENT AEROSOL TREATMENTS Q 6 HOURS. 3. CONTINUE I/V SOLUMEDRAL 4. CONTINUE LEVAQUINE. 5. CONTINUE SUPPLEMENT BICARB. 6. REPEAT ABGS TOMORROW.
[2016-10-12] MEDS: SPIRIVA IH SCH (17:37)
[2016-10-12] MEDS: ZOCOR PO SCH (22:04)
[2016-10-13] MEDS: DUONEB *Not for PRN Use IH SCH ×4 (01:50→20:35)
[2016-10-13 02:55] LABS: Bilirubin,Urine NEG (Negative); Blood,Urine NEG (Negative); Ketones,Urine NEG (Negative); Leukocyte Esterase,Urine NEG (Negative); Mucus,Urine FEW /HPF; Nitrite,Urine NEG (Negative); Protein,Urine <15 mg/dL mg/dL (Negative); RBC,Urine < 1.0 /HPF (0.0-6.0); Urobilinogen,Urine < 2.0 mg/dL (<2.0)
[2016-10-13 02:57] LABS: WBC,Urine < 1.0 /HPF (0.0-6.0)
[2016-10-13 06:23] LABS: Hemoglobin 10.8 gm/dl (11.8-15.2); Mean Corpuscular HGB Conc 35 % (32-34); Mean Corpuscular Hemoglobin 32 pg (28-32); Mean Corpuscular Volume 93 fl (84-94); Platelet Count 233 K/mm3 (140-440); Red Blood Count 3.32 M/mm3 (3.65-5.03); Red Cell Distribution Width 14.5 % (13.2-15.2); White Blood Count 18.6 K/mm3 (4.5-11.0)
[2016-10-13 06:34] LABS: BUN/Creatinine Ratio 20.5; Calcium 8.4 mg/dL (8.4-10.2)
[2016-10-13 06:35] LABS: Chloride 102.2 mmol/L (98-107); Potassium 4.2 mmol/L (3.6-5.0)
--- NOTE | 2016-10-13 07:48 | Ultrasound Report ---
ULTRASOUND RENAL BILATERAL ULTRASOUND BLADDER RESIDUAL HISTORY: Renal failure. TECHNIQUE: transabdominal ultrasound with color Doppler interrogation. FINDINGS: Compared to the renal ultrasound dated 01/28/14. The right kidney remains slightly atrophic with increased cortical echotexture measuring 7.9 cm in length. 3 tiny cortical cysts are noted in the right kidney on today's exam measuring less than 1 cm. The left kidney is poorly imaged on today's exam due to overlying bowel gas. The left kidney appears normal size measuring 9.1 cm. There is increased left renal echotexture on today's exam which is a new finding. No obvious left nephrolithiasis or focal left renal lesion. No hydronephrosis is appreciated. Prevoid bladder volume measures 52 cc. Postvoid residual measures 1.2 cc. IMPRESSION: Atrophic right kidney with tiny cysts which is essentially unchanged since 2014. The left kidney is normal size but now demonstrates increased echotexture suggesting acute renal failure or nonspecific renal parenchymal disease. No obstructive uropathy. No significant postvoid residual.
[2016-10-13 08:07] LABS: Basophils % (Manual) 0 % (0.0-1.8); Blastocytes % (Manual) 0 %; Eosinophils % (Manual) 0 % (0.0-4.3)
[2016-10-13 08:08] LABS: Burr Cells 2+; Poikilocytosis 1+
[2016-10-13 08:09] LABS: Acanthocytes 1+; Diff Status Complete; Ovalocytes Few
--- NOTE | 2016-10-13 08:45 | Progress Note ---
Assessment and Plan Impression: * MAGDALENE on ckd--cr 1.9 to 2.5 on previous admissions * hyperkalemia * COPD * SOB * HTN Plan. * renal us/ua/urine lytes * appears to be close to base renal function * r/o obstruction and infection * k is better today * co2 has improved * strict i/os * avoid nephrotoxins Subjective Date of service: 10/13/16 Principal diagnosis: ckd,hyperkalemia Interval history: resting in bed today Objective - Exam Narrative Exam: General appearance: Present: no acute distress, well-nourished - EENT Eyes: Present: PERRL ENT: hearing intact, clear oral mucosa - Neck Neck: Present: supple, normal ROM - Respiratory Respiratory effort: normal Respiratory: bilateral: diminished, rhonchi - Cardiovascular Heart rate: 90 Rhythm: regular Heart Sounds: Present: S1 & S2. Absent: rub, click - Extremities Extremities: no ischemia, pulses symmetrical, No edema Peripheral Pulses: within normal limits - Abdominal General gastrointestinal: Present: soft, non-tender, non-distended, normal bowel sounds Male genitourinary: Present: normal - Rectal Rectal Exam: deferred - Integumentary Integumentary: Present: clear, warm, dry - Musculoskeletal Musculoskeletal: gait normal, strength equal bilaterally - Psychiatric Psychiatric: appropriate mood/affect, intact judgment & insight - Neurologic Neurologic: CNII-XII intact, moves all extremities - Allied Health Allied health notes reviewed: nursing, case management - Vital Signs Vital signs: Vital Signs - 12hr 10/12/16 10/12/16 10/12/16 20:49 21:35 21:39 Temperature 98.2 F Pulse Rate 90 97 H Pulse Rate [ Bilateral] Respiratory 19 20 Rate Respiratory Rate [Bilateral ] Blood Pressure 170/94 O2 Sat by Pulse 100 96 Oximetry 10/13/16 10/13/16 10/13/16 01:07 01:51 01:57 Temperature 97.3 F L Pulse Rate 97 H Pulse Rate [ 97 H 101 H Bilateral] Respiratory 21 Rate Respiratory 18 18 Rate [Bilateral ] Blood Pressure 161/103 O2 Sat by Pulse 96 Oximetry 10/13/16 10/13/16 10/13/16 05:25 07:43 08:16 Temperature 98.2 F 98.4 F Pulse Rate 101 H 105 H Pulse Rate [ 104 H Bilateral] Respiratory 20 18 Rate Respiratory 18 Rate [Bilateral ] Blood Pressure 158/97 158/87 O2 Sat by Pulse 97 99 Oximetry 10/13/16 10/13/16 08:19 08:36 Temperature Pulse Rate Pulse Rate [ 104 H Bilateral] Respiratory Rate Respiratory 18 Rate [Bilateral ] Blood Pressure O2 Sat by Pulse 94 Oximetry - Lab 10/13/16 05:35 10/13/16 05:35 Most recent lab results Calcium 8.4 mg/dL (8.4-10.2) 10/13/16 05:35 Urine Creatinine 137.4 mg/dL (0.1-20.0) H 10/12/16 Unknown Urine Total Protein 8 mg/dL (5-11.8) 10/12/16 Unknown
[2016-10-13] MEDS: SPIRIVA IH SCH (10:11)
[2016-10-13] MEDS: SODIUM BICARBONATE PO SCH ×2 (10:34→22:01)
[2016-10-13] MEDS: CARDIZEM CD PO SCH (10:34)
[2016-10-13] MEDS: LEVAQUIN 750MG/150ML 750 MG/150 ML BAG IV SCH (10:34)
[2016-10-13] MEDS: FOLVITE PO SCH (10:34)
[2016-10-13] MEDS: HALFPRIN EC PO SCH (10:34)
[2016-10-13] MEDS: VITAMIN B-1 PO SCH (10:34)
[2016-10-13 11:05] LABS: ISTAT Base Excess -4; ISTAT HCO3 20.5; ISTAT PCO2 32.6 (35-45); ISTAT PH 7.406 (7.35-7.45); ISTAT PO2 111 (80-105); ISTAT SO2 98; ISTAT TCO2 21
--- NOTE | 2016-10-13 12:03 | Progress Note ---
Assessment and Plan Assessment and plan: Acute hypoxic respiratory failure. Continue BiPAP as clinically indicated. Acute COPD exacerbation. Continue IV Solu-Medrol, IV antibiotics and nebulizer treatments. Hyperkalemia. Resolved. s/p Kayexalate. Follow-up BMP. Chronic kidney disease. Patient appears to be a baseline creatinine of 1.06 June 2016 Hypertension. Continue diltiazem. CKD. Nephrology consultation pending. DVT prophylaxis. Continue heparin. History Interval history: No new issues overnight. Patient states he feels better but still short of breath. Hospitalist Physical - Constitutional Vitals: Temp Pulse Resp BP Pulse Ox 98.4 F 104 H 18 158/87 100 10/13/16 07:43 10/13/16 09:35 10/13/16 08:36 10/13/16 07:43 10/13/16 10:45 General appearance: Present: no acute distress, well-nourished - EENT Eyes: Present: PERRL, EOM intact ENT: hearing intact, clear oral mucosa, dentition normal - Neck Neck: Present: supple, normal ROM - Respiratory Respiratory effort: normal Respiratory: bilateral: CTA - Cardiovascular Rhythm: regular Heart Sounds: Present: S1 & S2. Absent: gallop, rub - Extremities Extremities: no ischemia, No edema, Full ROM - Abdominal General gastrointestinal: soft, non-tender, non-distended, normal bowel sounds - Integumentary Integumentary: Present: clear, warm, dry - Neurologic Neurologic: CNII-XII intact, moves all extremities Results - Labs CBC & Chem 7: 10/13/16 05:35 10/13/16 05:35 Labs: Laboratory Last Values WBC 18.6 K/mm3 (4.5-11.0) H 10/13/16 05:35 RBC 3.32 M/mm3 (3.65-5.03) L 10/13/16 05:35 Hgb 10.8 gm/dl (11.8-15.2) L 10/13/16 05:35 Hct 31.0 % (35.5-45.6) L 10/13/16 05:35 MCV 93 fl (84-94) 10/13/16 05:35 MCH 32 pg (28-32) 10/13/16 05:35 MCHC 35 % (32-34) H 10/13/16 05:35 RDW 14.5 % (13.2-15.2) 10/13/16 05:35 Plt Count 233 K/mm3 (140-440) 10/13/16 05:35 Lymph % (Auto) 15.9 % (13.4-35.0) 10/12/16 05:31 [place] % (Auto) 2.0 % (0.0-7.3) 10/12/16 05:31 Eos % (Auto) 0.0 % (0.0-4.3) 10/12/16 05:31 Baso % (Auto) 0.1 % (0.0-1.8) 10/12/16 05:31 Lymph # 0.4 K/mm3 (1.2-5.4) L 10/12/16 05:31 [place] # 0.1 K/mm3 (0.0-0.8) 10/12/16 05:31 Eos # 0.0 K/mm3 (0.0-0.4) 10/12/16 05:31 Baso # 0.0 K/mm3 (0.0-0.1) 10/12/16 05:31 Add Manual Diff Complete 10/13/16 05:35 Total Counted 100 10/13/16 05:35 Seg Neutrophils % [employer] 10/13/16 05:35 Seg Neuts % (Manual) 94.0 % (40.0-70.0) H 10/13/16 05:35 Band Neutrophils % 1.0 % 10/13/16 05:35 Lymphocytes % (Manual) 2.0 % (13.4-35.0) L 10/13/16 05:35 Reactive Lymphs % (Man) 0 % 10/13/16 05:35 Monocytes % (Manual) 3.0 % (0.0-7.3) 10/13/16 05:35 Eosinophils % (Manual) 0 % (0.0-4.3) 10/13/16 05:35 Basophils % (Manual) 0 % (0.0-1.8) 10/13/16 05:35 Metamyelocytes % 0 % 10/13/16 05:35 Myelocytes % 0 % 10/13/16 05:35 Promyelocytes % 0 % 10/13/16 05:35 Blast Cells % 0 % 10/13/16 05:35 Nucleated RBC % Not Reportable 10/13/16 05:35 Seg Neutrophils # 2.1 K/mm3 (1.8-7.7) 10/12/16 05:31 Seg Neutrophils # Man 17.5 K/mm3 (1.8-7.7) H 10/13/16 05:35 Band Neutrophils # 0.2 K/mm3 10/13/16 05:35 Lymphocytes # (Manual) 0.4 K/mm3 (1.2-5.4) L 10/13/16 05:35 Abs React Lymphs (Man) 0.0 K/mm3 10/13/16 05:35 Monocytes # (Manual) 0.6 K/mm3 (0.0-0.8) 10/13/16 05:35 Eosinophils # (Manual) 0.0 K/mm3 (0.0-0.4) 10/13/16 05:35 Basophils # (Manual) 0.0 K/mm3 (0.0-0.1) 10/13/16 05:35 Metamyelocytes # 0.0 K/mm3 10/13/16 05:35 Myelocytes # 0.0 K/mm3 10/13/16 05:35 Promyelocytes # 0.0 K/mm3 10/13/16 05:35 Blast Cells # 0.0 K/mm3 10/13/16 05:35 WBC Morphology Not Reportable 10/13/16 05:35 Hypersegmented Neuts Not Reportable 10/13/16 05:35 Hyposegmented Neuts Not Reportable 10/13/16 05:35 Hypogranular Neuts Not Reportable 10/13/16 05:35 Smudge Cells Not Reportable 10/13/16 05:35 Toxic Granulation Not Reportable 10/13/16 05:35 Toxic Vacuolation Not Reportable 10/13/16 05:35 Dohle Bodies Not Reportable 10/13/16 05:35 Pelger-Huet Anomaly Not Reportable 10/13/16 05:35 Timothy Rods Not Reportable 10/13/16 05:35 Platelet Estimate Appears normal 10/13/16 05:35 Clumped Platelets Not Reportable 10/13/16 05:35 Plt Clumps, EDTA Not Reportable 10/13/16 05:35 Large Platelets Not Reportable 10/13/16 05:35 Giant Platelets Not Reportable 10/13/16 05:35 Platelet Satelliting Not Reportable 10/13/16 05:35 Plt Morphology Comment Not Reportable 10/13/16 05:35 RBC Morphology Not Reportable 10/13/16 05:35 Dimorphic RBCs Not Reportable 10/13/16 05:35 Polychromasia Not Reportable 10/13/16 05:35 Hypochromasia Not Reportable 10/13/16 05:35 Poikilocytosis 1+ 10/13/16 05:35 Anisocytosis Not Reportable 10/13/16 05:35 Microcytosis Not Reportable 10/13/16 05:35 Macrocytosis Not Reportable 10/13/16 05:35 Spherocytes Not Reportable 10/13/16 05:35 Pappenheimer Bodies Not Reportable 10/13/16 05:35 Sickle Cells Not Reportable 10/13/16 05:35 Target Cells Not Reportable 10/13/16 05:35 Tear Drop Cells Not Reportable 10/13/16 05:35 Ovalocytes Few 10/13/16 05:35 Helmet Cells Not Reportable 10/13/16 05:35 [place] Bodies Not Reportable 10/13/16 05:35 [place] Rings Not Reportable 10/13/16 05:35 Luis Cells 2+ 10/13/16 05:35 Bite Cells Not Reportable 10/13/16 05:35 Crenated Cell Not Reportable 10/13/16 05:35 Elliptocytes Not Reportable 10/13/16 05:35 Acanthocytes (Spur) 1+ 10/13/16 05:35 Rouleaux Not Reportable 10/13/16 05:35 Hemoglobin C Crystals Not Reportable 10/13/16 05:35 Schistocytes Not Reportable 10/13/16 05:35 Malaria parasites Not Reportable 10/13/16 05:35 [place] Bodies Not Reportable 10/13/16 05:35 Hem Pathologist Commnt No 10/13/16 05:35 POC ABG pH 7.406 (7.35-7.45) 10/13/16 10:40 POC ABG pCO2 32.6 (35-45) L 10/13/16 10:40 POC ABG pO2 111 (80-105) H 10/13/16 10:40 POC ABG HCO3 20.5 10/13/16 10:40 POC ABG Total CO2 21 10/13/16 10:40 POC ABG O2 Sat 98 10/13/16 10:40 POC ABG Base Excess -4 10/13/16 10:40 FiO2 32 % 10/13/16 10:40 Sodium 139 mmol/L (137-145) 10/13/16 05:35 Potassium 4.2 mmol/L (3.6-5.0) D 10/13/16 05:35 Chloride 102.2 mmol/L (98-107) 10/13/16 05:35 Carbon Dioxide 20 mmol/L (22-30) L 10/13/16 05:35 Anion Gap 21 mmol/L 10/13/16 05:35 BUN 41 mg/dL (9-20) H 10/13/16 05:35 Creatinine 2.0 mg/dL (0.8-1.5) H 10/13/16 05:35 Estimated GFR 40 ml/min 10/13/16 05:35 BUN/Creatinine Ratio 20.50 % 10/13/16 05:35 Glucose 150 mg/dL (75-100) H 10/13/16 05:35 POC Glucose 172 (70-105) H 10/12/16 21:33 Calcium 8.4 mg/dL (8.4-10.2) 10/13/16 05:35 Total Bilirubin 0.40 mg/dL (0.1-1.2) 10/12/16 05:31 AST 15 units/L (5-40) 10/12/16 05:31 ALT 10 units/L (7-56) 10/12/16 05:31 Alkaline Phosphatase 45 units/L (35-129) 10/12/16 05:31 Troponin T 0.045 ng/mL (0.00-0.029) H 10/11/16 13:47 NT-Pro-B Natriuret Pep 218.2 pg/mL (0-900) 10/11/16 13:47 Total Protein 6.4 g/dL (6.3-8.2) 10/12/16 05:31 Albumin 4.1 g/dL (3.9-5) 10/12/16 05:31 Albumin/Globulin Ratio 1.8 % 10/12/16 05:31 Triglycerides 72 mg/dL (2-149) 10/11/16 13:47 Cholesterol 128 mg/dL (50-199) 10/11/16 13:47 LDL Cholesterol Direct 37 mg/dL (50-130) L 10/11/16 13:47 HDL Cholesterol 77 mg/dL (40-59) H 10/11/16 13:47 Cholesterol/HDL Ratio 1.66 % 10/11/16 13:47 Urine Color Yellow (Yellow) 10/12/16 Unknown Urine Turbidity Clear (Clear) 10/12/16 Unknown Urine pH 5.0 (5.0-7.0) 10/12/16 Unknown Ur Specific [place] 1.017 (1.003-1.030) 10/12/16 Unknown Urine Protein <15 mg/dl mg/dL (Negative) 10/12/16 Unknown Urine Glucose (UA) Neg mg/dL (Negative) 10/12/16 Unknown Urine Ketones Neg mg/dL (Negative) 10/12/16 Unknown Urine Blood Neg (Negative) 10/12/16 Unknown Urine Nitrite Neg (Negative) 10/12/16 Unknown Urine Bilirubin Neg (Negative) 10/12/16 Unknown Urine Urobilinogen < 2.0 mg/dL (<2.0) 10/12/16 Unknown Ur Leukocyte Esterase Neg (Negative) 10/12/16 Unknown Urine WBC (Auto) < 1.0 /HPF (0.0-6.0) 10/12/16 Unknown Urine RBC (Auto) < 1.0 /HPF (0.0-6.0) 10/12/16 Unknown U Epithel Cells (Auto) < 1.0 /HPF (0-13.0) 10/12/16 Unknown Urine Mucus Few /HPF 10/12/16 Unknown Urine Creatinine 137.4 mg/dL (0.1-20.0) H 10/12/16 Unknown Protein/Creatinin Ratio 0.06 10/12/16 Unknown Urine Total Protein 8 mg/dL (5-11.8) 10/12/16 Unknown
--- NOTE | 2016-10-13 15:31 | Progress Note ---
Assessment and Plan Patient resting on room air. Says breathing better than yesterday.O2 saturation 97% on room air. - Patient Problems (1) COPD exacerbation Current Visit: Yes Status: Acute Plan to address problem: O2 2 litres via nasal canula. Albuterol/atrovent aerosol treatments q 6 hours Continue I/V solumedral. Continue Levaquine. SCDs. (2) Acute bronchitis Current Visit: No Status: Acute Qualifiers: Bronchitis organism: B Plan to address problem: Patient is on Levaquine. (3) CKD (chronic kidney disease) Current Visit: Yes Status: Chronic Qualifiers: Chronic kidney disease stage: stage 3 (moderate) Qualified Code(s): N18.3 - Chronic kidney disease, stage 3 (moderate) Plan to address problem: Management as per nephrology. (4) Metabolic acidosis Current Visit: No Status: Acute Plan to address problem: Improving. (5) History of alcohol abuse Current Visit: No Status: Acute Plan to address problem: Counselled to stop drinking. Subjective Date of service: 10/13/16 Principal diagnosis: ckd,hyperkalemia Interval history: Patient resting on room air. Says breathing better than yesterday.O2 saturation 97% on room air. Objective Vital Signs - 12hr 10/13/16 10/13/16 10/13/16 05:25 07:43 08:16 Temperature 98.2 F 98.4 F Pulse Rate 101 H 105 H Pulse Rate [ Anterior Bilateral Throughout] Pulse Rate [ 104 H Bilateral] Respiratory 20 18 Rate Respiratory Rate [Anterior Bilateral Throughout] Respiratory 18 Rate [Bilateral ] Blood Pressure 158/97 158/87 O2 Sat by Pulse 97 99 Oximetry 10/13/16 10/13/16 10/13/16 08:19 08:36 09:35 Temperature Pulse Rate 104 H Pulse Rate [ Anterior Bilateral Throughout] Pulse Rate [ 104 H Bilateral] Respiratory Rate Respiratory Rate [Anterior Bilateral Throughout] Respiratory 18 Rate [Bilateral ] Blood Pressure O2 Sat by Pulse 94 Oximetry 10/13/16 10/13/16 10/13/16 10:45 11:32 13:32 Temperature 98.2 F Pulse Rate 108 H Pulse Rate [ Anterior Bilateral Throughout] Pulse Rate [ 104 H Bilateral] Respiratory 20 Rate Respiratory Rate [Anterior Bilateral Throughout] Respiratory 18 Rate [Bilateral ] Blood Pressure 151/77 O2 Sat by Pulse 100 100 Oximetry 10/13/16 10/13/16 13:34 13:47 Temperature Pulse Rate Pulse Rate [ 104 H Anterior Bilateral Throughout] Pulse Rate [ Bilateral] Respiratory Rate Respiratory 18 Rate [Anterior Bilateral Throughout] Respiratory Rate [Bilateral ] Blood Pressure O2 Sat by Pulse 97 Oximetry Constitutional: no acute distress, alert Eyes: non-icteric Neck: supple, no lymphadenopathy Effort: normal Ascultation: Bilateral: diminished breath sounds Cardiovascular: regular rate and rhythm Gastrointestinal: normoactive bowel sounds, soft, non-tender Integumentary: normal Extremities: no cyanosis, no edema Neurologic: normal mental status, non-focal exam, pupils equal and round, CN II- XII normal Psychiatric: mood appropriate CBC and BMP: 10/13/16 05:35 10/13/16 05:35 ABG, PT/INR, D-dimer: ABG POC ABG pH 7.406 (7.35-7.45) 10/13/16 10:40 POC ABG pCO2 32.6 (35-45) L 10/13/16 10:40 POC ABG pO2 111 (80-105) H 10/13/16 10:40 POC ABG HCO3 20.5 10/13/16 10:40 POC ABG Total CO2 21 10/13/16 10:40 POC ABG O2 Sat 98 10/13/16 10:40 Abnormal lab findings: Abnormal Labs 10/12/16 10/12/16 10/12/16 05:31 05:31 18:41 WBC 2.5 L RBC Hgb Hct 34.9 L MCV 95 H MCHC Lymph # 0.4 L Seg Neutrophils % 82.0 H Seg Neuts % (Manual) Lymphocytes % (Manual) Seg Neutrophils # Man Lymphocytes # (Manual) POC ABG pCO2 POC ABG pO2 Potassium 5.6 H Carbon Dioxide 16 L BUN 35 H Creatinine 2.2 H Glucose 139 H POC Glucose 180 H Urine Creatinine 10/12/16 10/12/16 10/13/16 21:33 Unknown 05:35 WBC RBC Hgb Hct MCV MCHC Lymph # Seg Neutrophils % Seg Neuts % (Manual) Lymphocytes % (Manual) Seg Neutrophils # Man Lymphocytes # (Manual) POC ABG pCO2 POC ABG pO2 Potassium Carbon Dioxide 20 L BUN 41 H Creatinine 2.0 H Glucose 150 H POC Glucose 172 H Urine Creatinine 137.4 H 10/13/16 10/13/16 05:35 10:40 WBC 18.6 H RBC 3.32 L Hgb 10.8 L Hct 31.0 L MCV MCHC 35 H Lymph # Seg Neutrophils % Seg Neuts % (Manual) 94.0 H Lymphocytes % (Manual) 2.0 L Seg Neutrophils # Man 17.5 H Lymphocytes # (Manual) 0.4 L POC ABG pCO2 32.6 L POC ABG pO2 111 H Potassium Carbon Dioxide BUN Creatinine Glucose POC Glucose Urine Creatinine Chest x-ray: report reviewed (Hyperinflation. Lungs clear.)
[2016-10-13] MEDS: D5NS 1,000 ML IV SCH (18:38)
[2016-10-13] MEDS: ZOCOR PO SCH (22:01)
[2016-10-14] MEDS: DUONEB *Not for PRN Use IH SCH ×3 (02:37→14:27)
[2016-10-14 05:55] LABS: Hematocrit 29.2 % (35.5-45.6); Mean Corpuscular HGB Conc 34 % (32-34); Mean Corpuscular Hemoglobin 32 pg (28-32); Mean Corpuscular Volume 93 fl (84-94); Platelet Count 218 K/mm3 (140-440); Red Blood Count 3.14 M/mm3 (3.65-5.03); Red Cell Distribution Width 14.4 % (13.2-15.2); White Blood Count 15.5 K/mm3 (4.5-11.0)
[2016-10-14 06:08] LABS: BUN/Creatinine Ratio 21.57; Calcium 8.1 mg/dL (8.4-10.2); Chloride 103.6 mmol/L (98-107); Potassium 3.9 mmol/L (3.6-5.0)
--- NOTE | 2016-10-14 07:38 | Discharge Summary ---
Providers - Providers Date of Admission: 10/11/16 18:29 Date of discharge: 10/14/16 Attending physician: REYNA MERCADO 10/12/16 08:43 Consult to Physician [CONS] Routine Consulting Provider: TAMAR COLEMAN Reason For Exam: CKD Place consult to:: renal Notified:: office Phone number called:: [phone] Was contact made?: Yes If yes, spoke with:: farhana Time called:: 09:20 Primary care physician: [facility] Hospitalization Reason for admission: COPD exac Condition: Stable Hospital course: This is a 71-year-old male with significant past medical history of COPD and CKD who presented through the emergency department with complaints of dyspnea that began the night prior to admission and worsened the morning of admission. Patient was treated by EMS with BiPAP and albuterol in route. Upon arrival to the emergency room, patient was noted to have saturations in the 80s and was continued on BiPAP. Patient was admitted with diagnosis of acute hypoxic respiratory failure, COPD exacerbation and acute bronchitis. Patient was treated with IV steroids and IV antibiotics. Patient has local significant improvement throughout hospitalization. Patient's respiratory status returned back to his baseline. Patient's creatinine was noted to be at his baseline on admission and remained stable throughout hospitalization. Patient was seen by nephrology and pulmonary consultation. Patient is felt to have received maximal hospital benefit. Therefore, patient will be discharged home. Dedicated discharge time 32 minutes. Disposition: DC-01 TO HOME OR SELFCARE Time spent for discharge: 32 - Discharge Diagnoses (1) COPD exacerbation Status: Acute (2) CKD (chronic kidney disease) Status: Chronic Qualifiers: Chronic kidney disease stage: stage 3 (moderate) Qualified Code(s): N18.3 - Chronic kidney disease, stage 3 (moderate) (3) Acute bronchitis Status: Acute Qualifiers: Bronchitis organism: B Comment: Improved the patient completed a course of antibiotics. (4) Acute respiratory failure with hypoxia Status: Acute Comment: This has improved the patient does not meet criteria for oxygen supplementation. The patient had oxygen saturations checked both sitting and walking. Core Measure Documentation - Palliative Care Palliative Care/ Comfort Measures: Not Applicable - Core Measures Any of the following diagnoses?: none Exam - Constitutional Vitals: Temp Pulse Resp BP Pulse Ox 98.2 F 24 L 98 H 165/85 96 10/14/16 07:33 10/14/16 07:33 10/14/16 07:33 10/14/16 07:33 10/14/16 07:33 General appearance: Present: no acute distress, well-nourished - EENT Eyes: Present: PERRL ENT: hearing intact, clear oral mucosa - Neck Neck: Present: supple, normal ROM - Respiratory Respiratory effort: normal Respiratory: bilateral: CTA - Cardiovascular Heart Sounds: Present: S1 & S2. Absent: rub, click - Extremities Extremities: pulses symmetrical, No edema Peripheral Pulses: within normal limits - Abdominal General gastrointestinal: Present: soft, non-tender, non-distended, normal bowel sounds Male genitourinary: Present: normal - Integumentary Integumentary: Present: clear, warm, dry - Musculoskeletal Musculoskeletal: gait normal, strength equal bilaterally - Psychiatric Psychiatric: appropriate mood/affect, intact judgment & insight - Neurologic Neurologic: CNII-XII intact, moves all extremities Plan Activity: no restrictions Weight Bearing Status: Full Weight Bearing Diet: regular Follow up with: PRIMARY CAREMD [Primary Care Provider] - 3-5 Days ANNA MARIE CLINE MD [Staff Physician] - 7 Days MI ELIZONDO MD [Staff Physician] - 7 Days Prescriptions: Cefuroxime Axetil [Ceftin] 500 mg PO Q12H #14 ml Ipratropium/Albuterol Sulfate [DUONEB *Not for PRN Use*] 1 ampul IH Q6HRT #30 ampul.neb methylPREDNISolone [Medrol] 4 mg PO QAM #1 tab.ds.pk oxyCODONE /ACETAMINOPHEN [Percocet 5/325 mg] 1 tab PO Q6H PRN #15 tablet PRN Reason: Pain, Moderate (4-6) Sodium Bicarbonate 1,300 mg PO BID #60 tablet
[2016-10-14 07:46] LABS: Acanthocytes 1+; Basophils % (Manual) 0 % (0.0-1.8); Blastocytes % (Manual) 0 %; Eosinophils % (Manual) 0 % (0.0-4.3); Poikilocytosis 2+
[2016-10-14 07:47] LABS: Burr Cells 1+; Diff Status Complete; Elliptocytes Rare; Helmet Cells 1+; Ovalocytes 1+; Schistocytes Few
--- NOTE | 2016-10-14 09:45 | Progress Note ---
Assessment and Plan Impression: * MAGDALENE on ckd--cr 1.9 to 2.5 on previous admissions * hyperkalemia * COPD * SOB * HTN Plan. * renal us/ua/urine lytes * appears to be close to base renal function * r/o obstruction and infection * k is better today * co2 has improved * strict i/os * avoid nephrotoxins * ok to dc home, follow up 2 weeks in office Subjective Date of service: 10/14/16 Principal diagnosis: ckd,hyperkalemia Interval history: resting in bed today Objective - Exam Narrative Exam: General appearance: Present: no acute distress, well-nourished - EENT Eyes: Present: PERRL ENT: hearing intact, clear oral mucosa - Neck Neck: Present: supple, normal ROM - Respiratory Respiratory effort: normal Respiratory: bilateral: diminished, rhonchi - Cardiovascular Heart rate: 90 Rhythm: regular Heart Sounds: Present: S1 & S2. Absent: rub, click - Extremities Extremities: no ischemia, pulses symmetrical, No edema Peripheral Pulses: within normal limits - Abdominal General gastrointestinal: Present: soft, non-tender, non-distended, normal bowel sounds Male genitourinary: Present: normal - Rectal Rectal Exam: deferred - Integumentary Integumentary: Present: clear, warm, dry - Musculoskeletal Musculoskeletal: gait normal, strength equal bilaterally - Psychiatric Psychiatric: appropriate mood/affect, intact judgment & insight - Neurologic Neurologic: CNII-XII intact, moves all extremities - Allied Health Allied health notes reviewed: nursing, case management - Vital Signs Vital signs: Vital Signs - 12hr 10/13/16 10/13/16 10/14/16 22:00 23:30 01:15 Temperature 98.3 F Pulse Rate 103 H 103 H Respiratory 20 Rate Blood Pressure 160/82 O2 Sat by Pulse 100 98 Oximetry 10/14/16 10/14/16 05:56 07:33 Temperature 98.1 F 98.2 F Pulse Rate 96 H 24 L Respiratory 20 98 H Rate Blood Pressure 161/83 165/85 O2 Sat by Pulse 96 96 Oximetry - Lab 10/14/16 05:18 10/14/16 05:18 Most recent lab results Calcium 8.1 mg/dL (8.4-10.2) L 10/14/16 05:18 Urine Creatinine 137.4 mg/dL (0.1-20.0) H 10/12/16 Unknown Urine Total Protein 8 mg/dL (5-11.8) 10/12/16 Unknown
[2016-10-14] MEDS: SPIRIVA IH SCH (09:46)
[2016-10-14] MEDS: LEVAQUIN 750MG/150ML 750 MG/150 ML BAG IV SCH (10:01)
[2016-10-14] MEDS: CARDIZEM CD PO SCH (10:07)
[2016-10-14] MEDS: FOLVITE PO SCH (10:07)
[2016-10-14] MEDS: VITAMIN B-1 PO SCH (10:07)
[2016-10-14] MEDS: SODIUM BICARBONATE PO SCH (10:07)
[2016-10-14] MEDS: HALFPRIN EC PO SCH (10:08)
--- NOTE | 2016-10-14 10:51 | Consultation ---
CONSULTED BY: Dr. Meza. SKIP LOAD DRIVER: Chi Ralph M.D. REASON FOR CONSULTATION: Exacerbation of chronic obstructive pulmonary disease, acute bronchitis. Dr. Meza, thank you for asking me to participate in the care of this patient. HISTORY OF PRESENT ILLNESS: This is a 71-year-old -[place] male with history of COPD. He admitted with shortness of breath and cough, coughing up some white yellow sputum and the patient has a history of smoking half a pack to one pack a day for 40 years. Says he stopped smoking 3 months ago. He also has a history of alcohol abuse. He is still drinking alcohol every day. Counseled him to stop drinking alcohol and he denies illicit drug abuse. The patient has a history of chronic kidney disease. His blood work showing the patient is in metabolic acidosis. The patient also has a history of hypertension. He denies other medical problems. SOCIAL HISTORY: He used to work in [employer] for the [employer] before he retired. He is . He has no children. ALLERGIES: He denies any allergies to the medications. PHYSICAL EXAMINATION: GENERAL: He is alert, awake, in mild shortness of breath. VITAL SIGNS: Temperature is 98, pulse 85, respirations 22, blood pressure 143/82. HEENT: Eyes, pupils are equal and reactive. Extraocular muscles intact. NECK: Supple, no lymphadenopathy. No thyromegaly. No JVD. HEART: Regular rate and rhythm. LUNGS: Prolonged expiratory phase. Decreased breath sounds bilaterally. ABDOMEN: Soft, bowel sounds present. No CVA tenderness. MUSCULOSKELETAL: No edema, no clubbing, no cyanosis. NEUROLOGIC: DTR equal and reactive. Babinski is negative. No focal neurological deficits. LABORATORY DATA: The patient's CBC: WBC 2.5, hemoglobin 11.9, hematocrit 34.9 and platelet count is 249,000. The patient's BMP: Sodium 137, potassium 5.6, BUN 35, creatinine 2.2. Chest x-ray, hyperinflation suggesting emphysema. No acute processes. IMPRESSION: 1. Exacerbation of chronic obstructive pulmonary disease. 2. Acute bronchitis. 3. Metabolic acidosis. 4. Chronic kidney disease. 5. Hypertension. PLAN: 1. O2 2 liters via nasal cannula. 2. Albuterol and Atrovent aerosol treatments q.6h. 3. Continue IV Solu-Medrol. 4. Continue Levaquin. 5. Continue supplementing bicarb. 6. Repeat ABG tomorrow. I want to thank Dr. Meza for this consultation. I will follow the patient with him. JOB# [id number] RSM/NTS
--- NOTE | 2016-10-14 12:09 | Progress Note ---
Subjective Date of service: 10/14/16 Principal diagnosis: ckd,hyperkalemia Interval history: Seen and examined at bedside; 24 hour events reviewed; nursing and respiratory care staff consulted; no adverse overnight events reported to me; Objective Vital Signs - 12hr 10/14/16 10/14/16 10/14/16 01:15 05:56 07:33 Temperature 98.3 F 98.1 F 98.2 F Pulse Rate 103 H 96 H 24 L Pulse Rate [ Bilateral] Respiratory 20 20 98 H Rate Respiratory Rate [Bilateral ] Blood Pressure 160/82 161/83 165/85 O2 Sat by Pulse 98 96 96 Oximetry 10/14/16 10/14/16 10/14/16 08:00 09:48 10:00 Temperature Pulse Rate Pulse Rate [ 110 H 111 H Bilateral] Respiratory Rate Respiratory 17 17 Rate [Bilateral ] Blood Pressure O2 Sat by Pulse 98 Oximetry 10/14/16 10:07 Temperature Pulse Rate 69 Pulse Rate [ Bilateral] Respiratory Rate Respiratory Rate [Bilateral ] Blood Pressure O2 Sat by Pulse Oximetry Constitutional: no acute distress, alert Eyes: non-icteric Neck: supple, no lymphadenopathy Effort: normal Ascultation: Bilateral: diminished breath sounds Cardiovascular: regular rate and rhythm Gastrointestinal: normoactive bowel sounds, soft, non-tender Integumentary: normal Extremities: no cyanosis, no edema Neurologic: normal mental status, non-focal exam, pupils equal and round, CN II- XII normal Psychiatric: mood appropriate CBC and BMP: 10/14/16 05:18 10/14/16 05:18 ABG, PT/INR, D-dimer: ABG POC ABG pH 7.406 (7.35-7.45) 10/13/16 10:40 POC ABG pCO2 32.6 (35-45) L 10/13/16 10:40 POC ABG pO2 111 (80-105) H 10/13/16 10:40 POC ABG HCO3 20.5 10/13/16 10:40 POC ABG Total CO2 21 10/13/16 10:40 POC ABG O2 Sat 98 10/13/16 10:40 Abnormal lab findings: Abnormal Labs 10/12/16 10/12/16 10/12/16 05:31 05:31 18:41 WBC 2.5 L RBC Hgb Hct 34.9 L MCV 95 H MCHC Lymph # 0.4 L Seg Neutrophils % 82.0 H Seg Neuts % (Manual) Lymphocytes % (Manual) Seg Neutrophils # Man Lymphocytes # (Manual) POC ABG pCO2 POC ABG pO2 Potassium 5.6 H Carbon Dioxide 16 L BUN 35 H Creatinine 2.2 H Glucose 139 H POC Glucose 180 H Calcium Urine Creatinine 10/12/16 10/12/16 10/13/16 21:33 Unknown 05:35 WBC RBC Hgb Hct MCV MCHC Lymph # Seg Neutrophils % Seg Neuts % (Manual) Lymphocytes % (Manual) Seg Neutrophils # Man Lymphocytes # (Manual) POC ABG pCO2 POC ABG pO2 Potassium Carbon Dioxide 20 L BUN 41 H Creatinine 2.0 H Glucose 150 H POC Glucose 172 H Calcium Urine Creatinine 137.4 H 10/13/16 10/13/16 10/13/16 05:35 07:38 10:40 WBC 18.6 H RBC 3.32 L Hgb 10.8 L Hct 31.0 L MCV MCHC 35 H Lymph # Seg Neutrophils % Seg Neuts % (Manual) 94.0 H Lymphocytes % (Manual) 2.0 L Seg Neutrophils # Man 17.5 H Lymphocytes # (Manual) 0.4 L POC ABG pCO2 32.6 L POC ABG pO2 111 H Potassium Carbon Dioxide BUN Creatinine Glucose POC Glucose 165 H Calcium Urine Creatinine 10/13/16 10/13/16 10/13/16 11:38 15:41 21:36 WBC RBC Hgb Hct MCV MCHC Lymph # Seg Neutrophils % Seg Neuts % (Manual) Lymphocytes % (Manual) Seg Neutrophils # Man Lymphocytes # (Manual) POC ABG pCO2 POC ABG pO2 Potassium Carbon Dioxide BUN Creatinine Glucose POC Glucose 252 H 162 H 131 H Calcium Urine Creatinine 10/14/16 10/14/16 10/14/16 05:18 05:18 07:14 WBC 15.5 H RBC 3.14 L Hgb 10.0 L Hct 29.2 L MCV MCHC Lymph # Seg Neutrophils % Seg Neuts % (Manual) 98.0 H Lymphocytes % (Manual) 0 L Seg Neutrophils # Man 15.2 H Lymphocytes # (Manual) 0.0 L POC ABG pCO2 POC ABG pO2 Potassium Carbon Dioxide 21 L BUN 41 H Creatinine 1.9 H Glucose 138 H POC Glucose 159 H Calcium 8.1 L Urine Creatinine 10/14/16 12:02 WBC RBC Hgb Hct MCV MCHC Lymph # Seg Neutrophils % Seg Neuts % (Manual) Lymphocytes % (Manual) Seg Neutrophils # Man Lymphocytes # (Manual) POC ABG pCO2 POC ABG pO2 Potassium Carbon Dioxide BUN Creatinine Glucose POC Glucose 130 H Calcium Urine Creatinine
[2016-10-14 12:21] VITALS: BP 166/91
[2016-10-15] MEDS ORDERED: LEVAQUIN PO SCH (11:00)
== END 2016-10-14 13:55 | disposition home or self-care (01) | DRG 682 ==
LOC: ED 13:26 → 4A 18:29
PROVIDERS: ADMIT Internal Medicine; ATTEND Hospitalist
PROC: 4A033R1 Measurement of Arterial Saturation, Peripheral, Percutaneous Approach (ICD-10-PCS; principal; 2016-10-11)
PROC: 5A09357 Assistance with Respiratory Ventilation, Less than 24 Consecutive Hours, Continuous Positive Airway Pressure (ICD-10-PCS; 2016-10-11)
DX: N17.9 Acute kidney failure, unspecified (principal); J96.01 Acute respiratory failure with hypoxia; J44.1 Chronic obstructive pulmonary disease with (acute) exacerbation; J44.0 Chronic obstructive pulmonary disease with (acute) lower respiratory infection; E87.5 Hyperkalemia; I12.9 Hypertensive chronic kidney disease with stage 1 through stage 4 chronic kidney disease, or unspecified chronic kidney disease; N18.9 Chronic kidney disease, unspecified; J20.9 Acute bronchitis, unspecified; E78.2 Mixed hyperlipidemia
CPT/HCPCS: 36415; 36600; 71010; 76770; 76857; 80048; 80053; 80061; 81001; 82570; 82803; 82962; 83880; 84156; 84484; 85007; 85025; 90471; 90732; 93005; 93010; 94640; 94760; 96365; 99406; G0009; J0456; J1956; J2930; J7042; J7050

== ENCOUNTER 2017-02-06 09:56 | Inpatient (IN) | payer MEDICARE ==
[2017-02-06] MEDS ORDERED: NORMODYNE IV ONE ×2 (10:13→11:15)
[2017-02-06] MEDS ORDERED: DUONEB *Not for PRN Use IH ONE (10:22)
[2017-02-06 10:30] LABS: Basophils % (Auto) 0.9 % (0.0-1.8); Eosinophils % (Auto) 7.9 % (0.0-4.3); Hematocrit 36.7 % (35.5-45.6); Hemoglobin 12.5 gm/dl (11.8-15.2); Mean Corpuscular HGB Conc 34 % (32-34); Mean Corpuscular Hemoglobin 33 pg (28-32); Mean Corpuscular Volume 95 fl (84-94); Platelet Count 214 K/mm3 (140-440); Red Blood Count 3.84 M/mm3 (3.65-5.03); Red Cell Distribution Width 15.3 % (13.2-15.2)
[2017-02-06 10:49] LABS: INR 0.96 (0.87-1.13)
[2017-02-06 10:50] LABS: Partial Thromboplastin Time 24.7 Sec. (24.2-36.6)
[2017-02-06 10:51] LABS: Creatine Kinase MB 7.5 ng/mL (0.0-4.0)
[2017-02-06 10:53] LABS: Alanine Aminotransferase 12 units/L (7-56); Albumin 4.1 g/dL (3.9-5); Albumin/Globulin Ratio 1.9 %; Alkaline Phosphatase 52 units/L (35-129); Anion Gap 18 mmol/L; BUN/Creatinine Ratio 13; Bilirubin,Direct < 0.2 mg/dL (0-0.2); Blood Urea Nitrogen 24 mg/dL (9-20); Calcium 8.6 mg/dL (8.4-10.2); Carbon Dioxide 22 mmol/L (22-30); Chloride 101.8 mmol/L (98-107); Creatine Kinase 288 units/L (55-170); Glucose 109 mg/dL (75-100); Potassium 4.8 mmol/L (3.6-5.0); Sodium 137 mmol/L (137-145); Total Protein 6.3 g/dL (6.3-8.2)
[2017-02-06 11:13] LABS: Bilirubin,Indirect 0.2 mg/dL; Cholesterol 149 mg/dL (50-199); HDL Cholesterol 113 mg/dL (40-59); LDL Cholesterol,Direct 24 mg/dL (50-130); Triglycerides 63 mg/dL (2-149)
[2017-02-06] MEDS ORDERED: NACL 0.9% 1000 ML 1,000 ML ONE ×2 (11:37→13:46)
[2017-02-06 11:39] LABS: ISTAT Base Excess -5; ISTAT HCO3 24.8; ISTAT PCO2 85.1 (35-45); ISTAT PH 7.073 (7.35-7.45); ISTAT PO2 104 (80-105); ISTAT SO2 94; ISTAT TCO2 27
[2017-02-06] MEDS ORDERED: KETALAR ONE (11:44)
[2017-02-06] MEDS ORDERED: QUELICIN ONE (11:44)
[2017-02-06] MEDS ORDERED: VASELINE LIP THERAPY TP PRN (11:52)
[2017-02-06] MEDS ORDERED: ARTIFICIAL TEARS OPHTH OINT OU PRN (11:52)
[2017-02-06] MEDS ORDERED: NACL 0.9% 500 ML IV SCH (12:00)
--- NOTE | 2017-02-06 12:26 | XRay Report ---
AP CHEST: HISTORY: endotracheal tube placement The endotracheal tube and nasogastric tube is in good position.AP view of the chest demonstrates a normal mediastinal and cardiac contour with clear lungs and normal bony and soft tissue structures. IMPRESSION: Unremarkable AP chest.
--- NOTE | 2017-02-06 12:49 | History and Physical Report ---
History of Present Illness Chief complaint: I cant breathe History of present illness: 71 YO Male with HTN, COPD,chronic Respiratory Failure on Home oxygen, CKD, presents to ED for evaluation. Pt unable to provide history. Pt seen and evaluated in ED and found to be in severe respiratory distress and unable to protect his airway. Pt intubated and placed on vent support. Pt history taken from ED staff and medical record. Pt initially reported shortness of breath over the past several days with worsening symptoms over the past day. EMS called and upon arrival patient found to be is distress, and transported to [facility] for evaluation. Pt seen and evaluated in ED and found to have hypercapnic respiratory failure and subsequently intubated and placed on vent support. Past History Past Medical History: COPD, hypertension, renal failure Past Surgical History: Other (Prostate Surgery) Social history: . denies: smoking, alcohol abuse, prescription drug abuse Family history: hypertension Medications and Allergies Allergies Allergy/AdvReac Type Severity Reaction Status Date / Time No Known Allergies Allergy Verified 01/02/16 17:32 Home Medications Medication Instructions Recorded Confirmed Last Taken Type Tiotropium [Spiriva] 18 mcg IH QDAY #1 box 01/30/14 10/11/16 06/01/16 09:00 Rx Aspirin [Adult Low Dose Aspirin EC] 81 mg PO DAILY 10/11/16 10/11/16 10/11/16 History Diltiazem Cd [Cardizem CD] 120 mg PO DAILY 10/11/16 10/11/16 10/11/16 History Folic Acid 0.4 mg PO QDAY 10/11/16 10/11/16 10/11/16 History Pravastatin Sodium [Pravastatin] 20 mg PO QHS 10/11/16 10/11/16 10/11/16 History Thiamine [Vitamin B-1] 100 mg PO QDAY 10/11/16 10/11/16 10/11/16 History Cefuroxime Axetil [Ceftin] 500 mg PO Q12H #14 ml 10/14/16 Unknown Rx Ipratropium/Albuterol Sulfate 1 ampul IH Q6HRT #30 ampul.neb 10/14/16 Unknown Rx [DUONEB *Not for PRN Use*] Sodium Bicarbonate 1,300 mg PO BID #60 tablet 10/14/16 Unknown Rx methylPREDNISolone [Medrol] 4 mg PO QAM #1 tab.ds.pk 10/14/16 Unknown Rx oxyCODONE /ACETAMINOPHEN [Percocet 1 tab PO Q6H PRN #15 tablet 10/14/16 Unknown Rx 5/325 mg] Active Meds: Active Medications Hydrophilic Ointment (Vaseline Lip Therapy) 1 applic TP Q2HR PRN PRN Reason: Dry Lips Lorazepam 100 mg/ Sodium Chloride/ Miscellaneous Information 100 mls @ 1 mls/ hr IV TITR NICOLE; 1 MG/HR PRN Reason: Protocol Multi-Ingred Cream/Lotion/Oil/Oint (Artificial Tears Ophth Oint) 1 applic OU Q4HR PRN PRN Reason: Dry Eye(s) Sodium Chloride (Nacl 0.9% 500 Ml) 0 ml IV DIRECT NICLOE Review of Systems ROS unobtainable: due to mental status Exam - Constitutional Vitals: Temp Pulse Resp BP Pulse Ox 97.2 F L 85 30 H 139/95 100 02/06/17 09:57 02/06/17 12:29 02/06/17 11:30 02/06/17 12:29 02/06/17 12:29 General appearance: Present: severe distress - EENT Eyes: Present: PERRL ENT: hearing intact, clear oral mucosa - Neck Neck: Present: supple, normal ROM - Respiratory Respiratory effort: labored Respiratory: bilateral: diminished, rhonchi - Cardiovascular Heart Sounds: Present: S1 & S2. Absent: rub, click - Extremities Extremities: pulses symmetrical, No edema Peripheral Pulses: within normal limits - Abdominal General gastrointestinal: Present: soft, non-tender, non-distended, normal bowel sounds Male genitourinary: Present: normal - Integumentary Integumentary: Present: clear, warm, dry - Musculoskeletal Musculoskeletal: generalized weakness - Psychiatric Psychiatric: no intact judgment & insight, no memory intact - Neurologic Neurologic: no gait normal Results - Labs CBC & Chem 7: 02/06/17 10:15 02/06/17 10:15 Labs: Abnormal lab results 02/06/17 02/06/17 02/06/17 Range/Units 10:13 10:15 10:15 MCV 95 H (84-94) fl MCH 33 H (28-32) pg RDW 15.3 H (13.2-15.2) % Tillman % (Auto) 12.1 H (0.0-7.3) % Eos % (Auto) 7.9 H (0.0-4.3) % Eos # 0.6 H (0.0-0.4) K/mm3 D-Dimer 1213.08 H (0-234) ng/mlDDU POC ABG pH (7.35-7.45) POC ABG pCO2 (35-45) BUN (9-20) mg/dL Creatinine (0.8-1.5) mg/dL Glucose (75-100) mg/dL POC Glucose 113 H (70-105) Magnesium (1.7-2.3) mg/dL Total Creatine Kinase (55-170) units/L CK-MB (CK-2) (0.0-4.0) ng/mL Troponin T (0.00-0.029) ng/mL LDL Cholesterol Direct (50-130) mg/dL HDL Cholesterol (40-59) mg/dL 02/06/17 02/06/17 Range/Units 10:15 11:24 MCV (84-94) fl MCH (28-32) pg RDW (13.2-15.2) % Tillman % (Auto) (0.0-7.3) % Eos % (Auto) (0.0-4.3) % Eos # (0.0-0.4) K/mm3 D-Dimer (0-234) ng/mlDDU POC ABG pH 7.073 L (7.35-7.45) POC ABG pCO2 85.1 H (35-45) BUN 24 H (9-20) mg/dL Creatinine 1.9 H (0.8-1.5) mg/dL Glucose 109 H (75-100) mg/dL POC Glucose (70-105) Magnesium 3.20 H (1.7-2.3) mg/dL Total Creatine Kinase 288 H (55-170) units/L CK-MB (CK-2) 7.5 H (0.0-4.0) ng/mL Troponin T 0.039 H (0.00-0.029) ng/mL LDL Cholesterol Direct 24 L (50-130) mg/dL HDL Cholesterol 113 H (40-59) mg/dL Assessment and Plan - Patient Problems (1) Acute hypercapnic respiratory failure Current Visit: Yes Status: Acute Plan to address problem: Admit to ICU, Pt intubated, sedated on vent support, nebulizer therapy, pulmonary consulted, wean vent as tolerated, daily sedation holiday, SBT daily, The high probability of a clinically significant, sudden or life threatening deterioration of the [Pulmonary, cadiac, renal] system(s) required my full and direct attention, intervention and personal management. The aggregate critical care time was [65] minutes. This time is in addition to time spent performing reported procedures but includes the following: [x] Data Review and interpretation [x] Patient assessment and monitoring of vital signs [x] Documentation [x] Medication orders and management (2) Respiratory acidosis Current Visit: Yes Status: Acute Plan to address problem: Intubated, on vent support, hyperventillation trial to decreased CO2 level, supportive care. (3) ARF (acute renal failure) Current Visit: Yes Status: Acute Plan to address problem: IVF resuscitation therapy, monitor uop q shift, urine electrolytes, (4) COPD with acute exacerbation Current Visit: No Status: Acute Plan to address problem: IV abx, steroid therapy, wean vent as tolerated, (5) History of prostate cancer Current Visit: No Status: Acute Plan to address problem: Pain control, supportive care, outpatient urology F/U. (6) Elevated d-dimer Current Visit: Yes Status: Acute Plan to address problem: Suspect thromboembolic disease. Initiate heparin protocol now and conduct CTA chest when patient medically stable for testing. IF CTA chest negative for PE then discontinue heparin drip. (7) DVT prophylaxis Current Visit: No Status: Acute
[2017-02-06] MEDS ORDERED: ALUM-MAG HYDROX-SIMETH 200-200-20MG/5ML PO PRN (12:50)
[2017-02-06] MEDS ORDERED: MILK OF MAGNESIA PO PRN (12:50)
[2017-02-06] MEDS ORDERED: DULCOLAX PR PRN (12:50)
[2017-02-06] MEDS ORDERED: ATIVAN 100 MG in NACL 0.9% 50 ML, VIAFLEX EMPTY CONTAINER 0 ML IV SCH (13:00)
[2017-02-06 13:18] LABS: Bilirubin,Urine NEG (Negative); Blood,Urine NEG (Negative); Ketones,Urine NEG (Negative); Leukocyte Esterase,Urine NEG (Negative); Mucus,Urine FEW /HPF; Nitrite,Urine NEG (Negative); Protein,Urine <15 mg/dL mg/dL (Negative); RBC,Urine < 1.0 /HPF (0.0-6.0); Urobilinogen,Urine < 2.0 mg/dL (<2.0)
[2017-02-06 14:23] LABS: ISTAT Base Excess -8; ISTAT HCO3 18.3; ISTAT PCO2 38.1 (35-45); ISTAT PO2 121 (80-105); ISTAT SO2 98; ISTAT TCO2 19
--- NOTE | 2017-02-06 14:49 | Emergency Department Report ---
ED General Adult HPI - General Chief complaint: Dyspnea/Respdistress Stated complaint: RESP DISTRESS Time Seen by Provider: 02/06/17 10:08 Source: EMS Mode of arrival: Stretcher Limitations: Physical Limitation - History of Present Illness Initial comments: The patient presents to the emergency department in respiratory distress. He states that he is on home oxygen but doesn't use CPAP at night. He denies any chest pain. He is able tell me he hasn't had a fever. He is largely just able to answer in the affirmative or negative to questions. He's had some cough but no significant sputum production. He denies any recent leg pain or swelling. He is telling me that he does not have a history of heart failure. The history is limited secondary to his respiratory condition. -: Gradual, hour(s) (states problem began today. Denies having any problem yesterday.) - Related Data Home Medications Medication Instructions Recorded Confirmed Last Taken Aspirin [Adult Low Dose Aspirin EC] 81 mg PO DAILY 10/11/16 10/11/16 10/11/16 Diltiazem Cd [Cardizem CD] 120 mg PO DAILY 10/11/16 10/11/16 10/11/16 Folic Acid 0.4 mg PO QDAY 10/11/16 10/11/16 10/11/16 Pravastatin Sodium [Pravastatin] 20 mg PO QHS 10/11/16 10/11/16 10/11/16 Thiamine [Vitamin B-1] 100 mg PO QDAY 10/11/16 10/11/16 10/11/16 Previous Rx's Medication Instructions Recorded Last Taken Type Tiotropium [Spiriva] 18 mcg IH QDAY #1 box 01/30/14 06/01/16 09:00 Rx Cefuroxime Axetil [Ceftin] 500 mg PO Q12H #14 ml 10/14/16 Unknown Rx Ipratropium/Albuterol Sulfate 1 ampul IH Q6HRT #30 ampul.neb 10/14/16 Unknown Rx [DUONEB *Not for PRN Use*] Sodium Bicarbonate 1,300 mg PO BID #60 tablet 10/14/16 Unknown Rx methylPREDNISolone [Medrol] 4 mg PO QAM #1 tab.ds.pk 10/14/16 Unknown Rx oxyCODONE /ACETAMINOPHEN [Percocet 1 tab PO Q6H PRN #15 tablet 10/14/16 Unknown Rx 5/325 mg] Allergies Allergy/AdvReac Type Severity Reaction Status Date / Time No Known Allergies Allergy Verified 01/02/16 17:32 ED Review of Systems ROS: Stated complaint: RESP DISTRESS Other details as noted in HPI Comment: Unobtainable due to pts medical conditions ED Past Medical Hx - Past Medical History Hx Hypertension: Yes Hx Renal Disease: Yes Hx COPD: Yes - Surgical History Additional Surgical History: prostate surgery - Social History Smoking Status: Unknown if ever smoked Substance Use Type: None - Medications Home Medications: Home Medications Medication Instructions Recorded Confirmed Last Taken Type Tiotropium [Spiriva] 18 mcg IH QDAY #1 box 01/30/14 10/11/16 06/01/16 09:00 Rx Aspirin [Adult Low Dose Aspirin EC] 81 mg PO DAILY 10/11/16 10/11/16 10/11/16 History Diltiazem Cd [Cardizem CD] 120 mg PO DAILY 10/11/16 10/11/16 10/11/16 History Folic Acid 0.4 mg PO QDAY 10/11/16 10/11/16 10/11/16 History Pravastatin Sodium [Pravastatin] 20 mg PO QHS 10/11/16 10/11/16 10/11/16 History Thiamine [Vitamin B-1] 100 mg PO QDAY 10/11/16 10/11/16 10/11/16 History Cefuroxime Axetil [Ceftin] 500 mg PO Q12H #14 ml 10/14/16 Unknown Rx Ipratropium/Albuterol Sulfate 1 ampul IH Q6HRT #30 ampul.neb 10/14/16 Unknown Rx [DUONEB *Not for PRN Use*] Sodium Bicarbonate 1,300 mg PO BID #60 tablet 10/14/16 Unknown Rx methylPREDNISolone [Medrol] 4 mg PO QAM #1 tab.ds.pk 10/14/16 Unknown Rx oxyCODONE /ACETAMINOPHEN [Percocet 1 tab PO Q6H PRN #15 tablet 10/14/16 Unknown Rx 5/325 mg] ED Physical Exam - General Limitations: Physical Limitation General appearance: in no apparent distress, lethargic (mildly) - Head Head exam: Present: atraumatic, normocephalic - Eye Eye exam: Present: normal appearance, PERRL, EOMI. Absent: scleral icterus - ENT ENT exam: Present: mucous membranes moist - Neck Neck exam: Present: normal inspection. Absent: tenderness, meningismus - Respiratory Respiratory exam: Present: normal lung sounds bilaterally. Absent: respiratory distress - Cardiovascular Cardiovascular Exam: Present: regular rate, normal rhythm. Absent: systolic murmur, diastolic murmur, rubs, gallop - GI/Abdominal GI/Abdominal exam: Present: soft, normal bowel sounds. Absent: distended, tenderness, guarding, rebound, rigid - Rectal Rectal exam: Present: deferred - Extremities Exam Extremities exam: Present: normal inspection - Back Exam Back exam: Present: normal inspection - Neurological Exam Neurological exam: Present: CN II-XII intact. Absent: motor sensory deficit - Psychiatric Psychiatric exam: Present: agitated, anxious - Skin Skin exam: Present: warm, dry, intact, normal color. Absent: rash ED Course Vital Signs 02/06/17 02/06/17 02/06/17 09:57 10:00 10:15 Temperature 97.2 F L Pulse Rate 114 H 114 H 113 H Pulse Rate [ Anterior Bilateral Throughout] Respiratory 31 H 28 H 33 H Rate Respiratory Rate [Anterior Bilateral Throughout] Blood Pressure 184/119 Blood Pressure 191/124 [Left] O2 Sat by Pulse 99 100 100 Oximetry 02/06/17 02/06/17 02/06/17 10:18 10:20 10:29 Temperature Pulse Rate 94 H 87 Pulse Rate [ 87 Anterior Bilateral Throughout] Respiratory 32 H Rate Respiratory 32 H Rate [Anterior Bilateral Throughout] Blood Pressure 184/119 158/100 Blood Pressure [Left] O2 Sat by Pulse 99 Oximetry 02/06/17 02/06/17 02/06/17 10:30 11:02 11:11 Temperature Pulse Rate 88 94 H Pulse Rate [ 93 H Anterior Bilateral Throughout] Respiratory 28 H 35 H Rate Respiratory 34 H Rate [Anterior Bilateral Throughout] Blood Pressure 158/100 170/104 Blood Pressure [Left] O2 Sat by Pulse 100 97 Oximetry 02/06/17 02/06/17 02/06/17 11:15 11:30 12:15 Temperature Pulse Rate 95 H 85 88 Pulse Rate [ Anterior Bilateral Throughout] Respiratory 30 H Rate Respiratory Rate [Anterior Bilateral Throughout] Blood Pressure 177/112 143/99 136/93 Blood Pressure [Left] O2 Sat by Pulse 97 99 Oximetry 02/06/17 02/06/17 12:29 13:55 Temperature Pulse Rate 85 85 Pulse Rate [ Anterior Bilateral Throughout] Respiratory Rate Respiratory Rate [Anterior Bilateral Throughout] Blood Pressure 139/95 114/83 Blood Pressure [Left] O2 Sat by Pulse 100 100 Oximetry - Reevaluation(s) Reevaluation #1: I gave the patient a trial of BiPAP. He did seem to be ventilating okay. However, he was tiring. In addition, his blood gas showed very significant respiratory acidosis. Therefore elected intubation/RSI was performed. Discussed the abnormal EKG, elevated d-dimer slightly elevated troponin. Plan now is empiric heparin. She will be admitted to the intensive care unit. 02/06/17 15:23 02/06/17 15:25 ED Medical Decision Making - Lab Data Result diagrams: 02/06/17 10:15 02/06/17 10:15 Laboratory Results - last 24 hr 02/06/17 02/06/17 02/06/17 10:13 10:15 10:15 WBC 7.0 RBC 3.84 Hgb 12.5 Hct 36.7 MCV 95 H MCH 33 H MCHC 34 RDW 15.3 H Plt Count 214 Lymph % (Auto) 34.4 [place] % (Auto) 12.1 H Eos % (Auto) 7.9 H Baso % (Auto) 0.9 Lymph # 2.4 [place] # 0.8 Eos # 0.6 H Baso # 0.1 Seg Neutrophils % 44.7 Seg Neutrophils # 3.1 PT 13.3 INR 0.96 APTT 24.7 D-Dimer 1213.08 H POC ABG pH POC ABG pCO2 POC ABG pO2 POC ABG HCO3 POC ABG Total CO2 POC ABG O2 Sat POC ABG Base Excess FiO2 Sodium Potassium Chloride Carbon Dioxide Anion Gap BUN Creatinine Estimated GFR BUN/Creatinine Ratio Glucose POC Glucose 113 H Calcium Magnesium Total Bilirubin Direct Bilirubin Indirect Bilirubin AST ALT Alkaline Phosphatase Total Creatine Kinase CK-MB (CK-2) CK-MB (CK-2) Rel Index Troponin T NT-Pro-B Natriuret Pep Total Protein Albumin Albumin/Globulin Ratio Triglycerides Cholesterol LDL Cholesterol Direct HDL Cholesterol Cholesterol/HDL Ratio Urine Color Urine Turbidity Urine pH Ur Specific [place] Urine Protein Urine Glucose (UA) Urine Ketones Urine Blood Urine Nitrite Urine Bilirubin Urine Urobilinogen Ur Leukocyte Esterase Urine WBC (Auto) Urine RBC (Auto) Urine Mucus 02/06/17 02/06/17 02/06/17 10:15 11:24 13:01 WBC RBC Hgb Hct MCV MCH MCHC RDW Plt Count Lymph % (Auto) [place] % (Auto) Eos % (Auto) Baso % (Auto) Lymph # [place] # Eos # Baso # Seg Neutrophils % Seg Neutrophils # PT INR APTT D-Dimer POC ABG pH 7.073 L POC ABG pCO2 85.1 H POC ABG pO2 104 POC ABG HCO3 24.8 POC ABG Total CO2 27 POC ABG O2 Sat 94 POC ABG Base Excess -5 FiO2 40 Sodium 137 Potassium 4.8 Chloride 101.8 Carbon Dioxide 22 Anion Gap 18 BUN 24 H Creatinine 1.9 H Estimated GFR 43 BUN/Creatinine Ratio 13 Glucose 109 H POC Glucose Calcium 8.6 Magnesium 3.20 H Total Bilirubin 0.50 Direct Bilirubin < 0.2 Indirect Bilirubin 0.2 AST 20 ALT 12 Alkaline Phosphatase 52 Total Creatine Kinase 288 H CK-MB (CK-2) 7.5 H CK-MB (CK-2) Rel Index 2.6 Troponin T 0.039 H NT-Pro-B Natriuret Pep 304.4 Total Protein 6.3 Albumin 4.1 Albumin/Globulin Ratio 1.9 Triglycerides 63 Cholesterol 149 LDL Cholesterol Direct 24 L HDL Cholesterol 113 H Cholesterol/HDL Ratio 1.31 Urine Color Yellow Urine Turbidity Clear Urine pH 6.0 Ur Specific [place] 1.011 Urine Protein <15 mg/dl Urine Glucose (UA) Neg Urine Ketones Neg Urine Blood Neg Urine Nitrite Neg Urine Bilirubin Neg Urine Urobilinogen < 2.0 Ur Leukocyte Esterase Neg Urine WBC (Auto) 1.0 Urine RBC (Auto) < 1.0 Urine Mucus Few 02/06/17 14:13 WBC RBC Hgb Hct MCV MCH MCHC RDW Plt Count Lymph % (Auto) [place] % (Auto) Eos % (Auto) Baso % (Auto) Lymph # [place] # Eos # Baso # Seg Neutrophils % Seg Neutrophils # PT INR APTT D-Dimer POC ABG pH 7.290 L POC ABG pCO2 38.1 POC ABG pO2 121 H POC ABG HCO3 18.3 POC ABG Total CO2 19 POC ABG O2 Sat 98 POC ABG Base Excess -8 FiO2 35 Sodium Potassium Chloride Carbon Dioxide Anion Gap BUN Creatinine Estimated GFR BUN/Creatinine Ratio Glucose POC Glucose Calcium Magnesium Total Bilirubin Direct Bilirubin Indirect Bilirubin AST ALT Alkaline Phosphatase Total Creatine Kinase CK-MB (CK-2) CK-MB (CK-2) Rel Index Troponin T NT-Pro-B Natriuret Pep Total Protein Albumin Albumin/Globulin Ratio Triglycerides Cholesterol LDL Cholesterol Direct HDL Cholesterol Cholesterol/HDL Ratio Urine Color Urine Turbidity Urine pH Ur Specific [place] Urine Protein Urine Glucose (UA) Urine Ketones Urine Blood Urine Nitrite Urine Bilirubin Urine Urobilinogen Ur Leukocyte Esterase Urine WBC (Auto) Urine RBC (Auto) Urine Mucus - EKG Data -: EKG Interpreted by Me EKG shows normal: sinus rhythm Rate: normal - EKG Data Interpretation: other (there is a transverse amount of baseline wandering. However the T waves are generous deflection) - Radiology Data interpreted by me: Chest x-ray consistent with COPD. No acute process seen. Endotracheal tube in adequate position. Critical Care Time: Yes Critical care time in (mins) excluding proc time.: 60 Critical care attestation.: If time is entered above; I have spent that time in minutes in the direct care of this critically ill patient, excluding procedure time. ED Disposition Clinical Impression: Elevated d-dimer, Renal insufficiency, COPD exacerbation Respiratory failure Qualifiers: Chronicity: acute Respiratory failure complication: hypoxia and hypercapnia Qualified Code(s): J96.01 - Acute respiratory failure with hypoxia; J96.02 - Acute respiratory failure with hypercapnia; J96.02 - Acute respiratory failure with hypercapnia; J96.02 - Acute respiratory failure with hypercapnia Disposition: OP ADMIT IP TO THIS HOSP Is pt being admited?: Yes Does the pt Need Aspirin: Yes Condition: Stable Instructions: Chronic Bronchitis (ED) Time of Disposition: 15:26
[2017-02-06] MEDS ORDERED: fentaNYL DRIP Premix 2,000 MCG/100 ML BAG IV SCH (15:00)
[2017-02-06] MEDS ORDERED: NACL 0.9% 1000 ML 1,000 ML IV ONE ×2 (15:16→15:49)
[2017-02-06] MEDS: PRAVACHOL PO SCH (21:52)
[2017-02-06] MEDS: HEPARIN/ 0.45% NACL-25,000 UNIT/500 ML 25,000 UNIT/500 ML BAG IV SCH (21:52)
[2017-02-06] MEDS: SODIUM BICARBONATE PO SCH (21:52)
[2017-02-06] MEDS: ZITHROMAX 500 MG in NACL 0.9% 250ML 250 ML IV SCH (22:29)
--- NOTE | 2017-02-07 03:09 | XRay Report ---
FINAL REPORT EXAM: XR CHEST 1V AP HISTORY: follow up respiratory failure TECHNIQUE: An AP view of the chest was submitted. There are no previous studies available for comparison. FINDINGS: The lungs are hyperinflated. There are no localized infiltrates. The interstitial markings are mildly prominent. Mild CHF cannot be excluded. The heart size is normal. The tip of the ET tube is in good position above the robert. There is an NG tube coursing into the stomach. The bones and soft tissues otherwise appear well maintained IMPRESSION: Hyperinflation with prominent interstitial markings. Superimposed CHF cannot be excluded. Satisfactory position of the ET tube and NG tube.
[2017-02-07 05:10] LABS: ISTAT Base Excess -10; ISTAT HCO3 17.5; ISTAT PCO2 39.6 (35-45); ISTAT PH 7.254 (7.35-7.45); ISTAT PO2 96 (80-105); ISTAT SO2 96; ISTAT TCO2 19
[2017-02-07] MEDS ORDERED: NON-FORMULARY (Folic Acid [Folic Acid] 0.4 MG) PO SCH (10:00)
[2017-02-07] MEDS: VITAMIN B-1 PO SCH (10:50)
[2017-02-07] MEDS: SODIUM BICARBONATE PO SCH ×2 (10:50→23:57)
[2017-02-07] MEDS: FOLVITE PO SCH (10:51)
--- NOTE | 2017-02-07 11:26 | Consultation ---
History of Present Illness Consult date: 02/07/17 Reason for consult: COPD, other (respiratory failure.) History of present illness: Called to evaluate case of a 71-year-old -Italian male, admitted to the hospital with a history of previous difficulty and COPD. The patient was intubated last night at the ER, following basal progressive breathing difficulty. According to his nephew, he was taking medications to no avail and also using his oxygen. Reportedly, no sick contacts. Unclear if the patient is smoking are not. He has been intubated previously and usually goes to the [place] for medical care. No history of chest pain or hemoptysis but information is limited. The patient was intubated last night, after worsening breathing difficulty. Admission chest x-ray showing extensive hyperinflation with emphysema. Past History Past Medical History: COPD, hypertension, renal failure Past Surgical History: Other (Prostate Surgery) Social history: . denies: smoking, alcohol abuse, prescription drug abuse Family history: hypertension Medications and Allergies Allergies Allergy/AdvReac Type Severity Reaction Status Date / Time No Known Allergies Allergy Verified 01/02/16 17:32 Home Medications Medication Instructions Recorded Confirmed Last Taken Type Tiotropium [Spiriva] 18 mcg IH QDAY #1 box 01/30/14 10/11/16 06/01/16 09:00 Rx Aspirin [Adult Low Dose Aspirin EC] 81 mg PO DAILY 10/11/16 10/11/16 10/11/16 History Diltiazem Cd [Cardizem CD] 120 mg PO DAILY 10/11/16 10/11/16 10/11/16 History Folic Acid 0.4 mg PO QDAY 10/11/16 10/11/16 10/11/16 History Pravastatin Sodium [Pravastatin] 20 mg PO QHS 10/11/16 10/11/16 10/11/16 History Thiamine [Vitamin B-1] 100 mg PO QDAY 10/11/16 10/11/16 10/11/16 History Cefuroxime Axetil [Ceftin] 500 mg PO Q12H #14 ml 10/14/16 Unknown Rx Ipratropium/Albuterol Sulfate 1 ampul IH Q6HRT #30 ampul.neb 10/14/16 Unknown Rx [DUONEB *Not for PRN Use*] Sodium Bicarbonate 1,300 mg PO BID #60 tablet 10/14/16 Unknown Rx methylPREDNISolone [Medrol] 4 mg PO QAM #1 tab.ds.pk 10/14/16 Unknown Rx oxyCODONE /ACETAMINOPHEN [Percocet 1 tab PO Q6H PRN #15 tablet 10/14/16 Unknown Rx 5/325 mg] Active Meds: Active Medications Al Hydrox/Mg Hydrox/Simethicone (Alum-Mag Hydrox-Simeth [phone]/5ml) 30 ml PO Q4H PRN PRN Reason: Indigestion Albuterol/Ipratropium (Duoneb *Not For Prn Use*) 1 ampul IH Q4HRT NICOLE Aspirin (Aspirin) 300 mg [place] QDAY ONE Stop: 02/07/17 15:28 Bisacodyl (Dulcolax) 10 mg [place] QDAY PRN PRN Reason: constipation unrelieved by MOM Diltiazem HCl (Cardizem) 30 mg PO Q6HR NICOLE Folic Acid (Folvite) 0.5 mg PO DAILY [facility] Last Admin: 02/07/17 10:51 Dose: 0.5 mg Hydrophilic Ointment (Vaseline Lip Therapy) 1 applic TP Q2HR PRN PRN Reason: Dry Lips Fentanyl Citrate (Fentanyl Drip Premix) 2,000 mcg in 100 mls @ 2.495 mls/hr IV TITR NICOLE; 1 MCG/KG/HR PRN Reason: Protocol Last Titration: 02/07/17 08:10 Dose: 0 mcg/kg/hr, 0 mls/hr Heparin Sodium/Sodium Chloride (Heparin/ 0.45% Nacl-25,000 Unit/500 Ml) 25,000 unit in 500 mls @ 14 mls/hr IV TITR NICOLE; 700 UNITS/HR PRN Reason: Protocol Last Titration: 02/07/17 07:58 Dose: 600 units/hr, 12 mls/hr Azithromycin 500 mg/ Sodium (Chloride) 250 mls @ 250 mls/hr IV Q24H NICOLE Last Admin: 02/06/17 22:29 Dose: 250 mls/hr Sodium Chloride (Nacl 0.9% 1000 Ml) 1,000 mls @ 60 mls/hr IV DIRECT NICOLE Magnesium Hydroxide (Milk Of Magnesia) 30 ml PO Q4H PRN PRN Reason: Constipation Methylprednisolone Sodium Succinate (Solu-Medrol) 40 mg IV Q6HR NICOLE Multi-Ingred Cream/Lotion/Oil/Oint (Artificial Tears Ophth Oint) 1 applic OU Q4HR PRN PRN Reason: Dry Eye(s) Pravastatin Sodium (Pravachol) 20 mg PO QHS [facility] Last Admin: 02/06/17 21:52 Dose: 20 mg Sodium Bicarbonate (Sodium Bicarbonate) 1,300 mg PO BID [facility] Last Admin: 02/07/17 10:50 Dose: 1,300 mg Sodium Chloride (Nacl 0.9% 500 Ml) 0 ml IV DIRECT [facility] Thiamine HCl (Vitamin B-1) 100 mg PO QDAY [facility] Last Admin: 02/07/17 10:50 Dose: 100 mg Review of Systems ROS unobtainable: due to mental status Physical Examination Vital signs: Vital Signs Temp Pulse Resp BP Pulse Ox 97.2 F L 114 H 31 H 191/124 99 02/06/17 09:57 02/06/17 09:57 02/06/17 09:57 02/06/17 09:57 02/06/17 09:57 General appearance: no acute distress, other Eyes: non-icteric ENT: oropharynx moist Neck: JVD (non collapsing) Ascultation: Bilateral: diminished breath sounds (bilateral and equal), wheezes Percussion: Bilateral: dull Cardiovascular: regular rate and rhythm Gastrointestinal: normoactive bowel sounds, non-distended Integumentary: normal Extremities: no cyanosis, no edema Musculoskeletal: no deformities other (sedated and intubated. RASS -3) Results - Laboratory Findings CBC and BMP: 02/06/17 10:15 02/06/17 10:15 ABG POC ABG pH 7.254 (7.35-7.45) L 02/07/17 05:08 POC ABG pCO2 39.6 (35-45) 02/07/17 05:08 POC ABG pO2 96 (80-105) 02/07/17 05:08 POC ABG HCO3 17.5 02/07/17 05:08 POC ABG Total CO2 19 02/07/17 05:08 POC ABG O2 Sat 96 02/07/17 05:08 PT/INR, D-dimer PT 13.3 Sec. (12.2-14.9) 02/06/17 10:15 INR 0.96 (0.87-1.13) 02/06/17 10:15 D-Dimer 1213.08 ng/mlDDU (0-234) H 02/06/17 10:15 Abnormal lab findings: Abnormal Labs 02/06/17 02/06/17 02/06/17 10:13 10:15 10:15 MCV 95 H MCH 33 H RDW 15.3 H Ben[place] % (Auto) 12.1 H Eos % (Auto) 7.9 H Eos # 0.6 H D-Dimer 1213.08 H Heparin Anti-Xa Level POC ABG pH POC ABG pCO2 POC ABG pO2 BUN Creatinine Glucose POC Glucose 113 H Magnesium Total Creatine Kinase CK-MB (CK-2) Troponin T LDL Cholesterol Direct HDL Cholesterol Urine Creatinine 02/06/17 02/06/17 02/06/17 10:15 11:24 13:01 MCV MCH RDW [place] % (Auto) Eos % (Auto) Eos # D-Dimer Heparin Anti-Xa Level POC ABG pH 7.073 L POC ABG pCO2 85.1 H POC ABG pO2 BUN 24 H Creatinine 1.9 H Glucose 109 H POC Glucose Magnesium 3.20 H Total Creatine Kinase 288 H CK-MB (CK-2) 7.5 H Troponin T 0.039 H LDL Cholesterol Direct 24 L HDL Cholesterol 113 H Urine Creatinine 68.5 H 02/06/17 02/07/17 02/07/17 14:13 04:26 05:08 MCV MCH RDW [place]zie % (Auto) Eos % (Auto) Eos # D-Dimer Heparin Anti-Xa Level 1.30 H POC ABG pH 7.290 L 7.254 L POC ABG pCO2 POC ABG pO2 121 H BUN Creatinine Glucose POC Glucose Magnesium Total Creatine Kinase CK-MB (CK-2) Troponin T LDL Cholesterol Direct HDL Cholesterol Urine Creatinine - Diagnostic Findings Chest x-ray: report reviewed, image reviewed Assessment and Plan Acute on chronic respiratory failure. COPD exacerbation. Malnutrition. Possible secondary to advanced emphysema MAGDALENE Abnormal d-dimer. Cause to be determined Recommendations Follow all ventilator protocol orders Auto PEEP noted at 10 cm H2O. Adjust tidal volume to 475, peak flow accordingly Albuterol 2.5 milligram nebulizations every 4-6 hours with ipratropium Solu-Medrol 40-60 mg IV every 6-8 hours Oxygen support via nasal cannula or mask to maintain oximetry over 92% We'll continue current antibiotics for now. Check sputum culture and adjust treatment accordingly Continue IV heparin Bilateral lower extremity venous Doppler evaluation. Discontinue Ativan sedation. Continue fentanyl drip as needed Sedation medication and spontaneous breathing trial in the morning Case is discussed with the patient fell in detail. All questions answered. Critical care time was 40 minutes in [id number] evaluation coordination of care
[2017-02-07] MEDS ORDERED: NACL 0.9% 1000 ML 1,000 ML IV SCH (12:00)
[2017-02-07] MEDS: DUONEB *Not for PRN Use IH SCH ×3 (12:25→23:52)
[2017-02-07] MEDS ORDERED: SODIUM BICARBONATE FEEDTUBE PRN (13:18)
[2017-02-07] MEDS ORDERED: PANCREAZE DR 10,500 UNIT FEEDTUBE PRN (13:18)
[2017-02-07] MEDS ORDERED: SIMPLE SYRUP FEEDTUBE PRN ×2 (13:18)
[2017-02-07 13:55] LABS: Calcium 8.2 mg/dL (8.4-10.2); Chloride 101.4 mmol/L (98-107); Potassium 5.7 mmol/L (3.6-5.0)
[2017-02-07] MEDS: CARDIZEM PO SCH ×3 (14:05→23:58)
[2017-02-07] MEDS ORDERED: ASPIRIN PO ONE (15:27)
--- NOTE | 2017-02-07 17:13 | Progress Note ---
Assessment and Plan Assessment and plan: -- Acute hypoxic respiratory failure : Requiring intubation on mechanical ventilation, continue nebulizers, IV steroids, empiric antibiotics, supportive care Follow cultures --Acute exacerbation of COPD : Inflammatory support, nebulizers, IV steroids, supportive care --Acute pneumonitis; continue current antibiotic, Zithromax, follow cultures --Elevated d-dimer; patient is not stable for imaging study, on heparin drip --Acute kidney injury; vasomotor nephropathy, closely monitor renal function, avoid nephrotoxic medication, nephrology evaluation if no improvement --Hyperkalemia; Kayexalate 30 g 1 dose, closely monitor potassium levels, Nephrology evaluation if no improvement --DVT prophylaxis; patient is already on heparin drip --Full CODE STATUS Consults and recommendations noted and appreciated Critical care time 31 minutes History Interval history: Patient seen and examined in ICU, Medical records reviewed Admitted with acute hypoxic respiratory failure, intubated on ventilatory support Sedated, noncommunicative No new events reported by the nursing staff Hospitalist Physical - Constitutional Vitals: Temp Pulse Resp BP Pulse Ox 98.9 F 92 H 20 137/79 100 02/07/17 16:00 02/07/17 16:28 02/07/17 16:28 02/07/17 16:23 02/07/17 16:23 General appearance: Present: no acute distress, other (intubated and sedated) - EENT Eyes: Present: PERRL, EOM intact - Neck Neck: Present: supple - Respiratory Respiratory effort: normal Respiratory: bilateral: diminished, rhonchi, negative: rales, wheezing - Cardiovascular Rhythm: regular Heart Sounds: Present: S1 & S2 - Extremities Extremities: no ischemia, No edema - Abdominal General gastrointestinal: soft, non-tender, non-distended, normal bowel sounds - Integumentary Integumentary: Present: clear, warm - Psychiatric Psychiatric: appropriate mood/affect, cooperative - Neurologic Neurologic: CNII-XII intact, moves all extremities Results - Labs CBC & Chem 7: 02/06/17 10:15 02/07/17 13:07 Labs: Laboratory Last Values WBC 7.0 K/mm3 (4.5-11.0) 02/06/17 10:15 RBC 3.84 M/mm3 (3.65-5.03) 02/06/17 10:15 Hgb 12.5 gm/dl (11.8-15.2) 02/06/17 10:15 Hct 36.7 % (35.5-45.6) 02/06/17 10:15 MCV 95 fl (84-94) H 02/06/17 10:15 MCH 33 pg (28-32) H 02/06/17 10:15 MCHC 34 % (32-34) 02/06/17 10:15 RDW 15.3 % (13.2-15.2) H 02/06/17 10:15 Plt Count 214 K/mm3 (140-440) 02/06/17 10:15 Lymph % (Auto) 34.4 % (13.4-35.0) 02/06/17 10:15 [place] % (Auto) 12.1 % (0.0-7.3) H 02/06/17 10:15 Eos % (Auto) 7.9 % (0.0-4.3) H 02/06/17 10:15 Baso % (Auto) 0.9 % (0.0-1.8) 02/06/17 10:15 Lymph # 2.4 K/mm3 (1.2-5.4) 02/06/17 10:15 [place] # 0.8 K/mm3 (0.0-0.8) 02/06/17 10:15 Eos # 0.6 K/mm3 (0.0-0.4) H 02/06/17 10:15 Baso # 0.1 K/mm3 (0.0-0.1) 02/06/17 10:15 Seg Neutrophils % 44.7 % (40.0-70.0) 02/06/17 10:15 Seg Neutrophils # 3.1 K/mm3 (1.8-7.7) 02/06/17 10:15 PT 13.3 Sec. (12.2-14.9) 02/06/17 10:15 INR 0.96 (0.87-1.13) 02/06/17 10:15 APTT 24.7 Sec. (24.2-36.6) 02/06/17 10:15 D-Dimer 1213.08 ng/mlDDU (0-234) H 02/06/17 10:15 Heparin Anti-Xa Level > 2.00 U.I./ml (0.3-0.7) H 02/07/17 13:07 POC ABG pH 7.254 (7.35-7.45) L 02/07/17 05:08 POC ABG pCO2 39.6 (35-45) 02/07/17 05:08 POC ABG pO2 96 (80-105) 02/07/17 05:08 POC ABG HCO3 17.5 02/07/17 05:08 POC ABG Total CO2 19 02/07/17 05:08 POC ABG O2 Sat 96 02/07/17 05:08 POC ABG Base Excess -10 02/07/17 05:08 FiO2 30 % 02/07/17 05:08 Sodium 132 mmol/L (137-145) L 02/07/17 13:07 Potassium 5.7 mmol/L (3.6-5.0) H 02/07/17 13:07 Chloride 101.4 mmol/L (98-107) 02/07/17 13:07 Carbon Dioxide 19 mmol/L (22-30) L 02/07/17 13:07 Anion Gap 17 mmol/L 02/07/17 13:07 BUN 37 mg/dL (9-20) H 02/07/17 13:07 Creatinine 1.9 mg/dL (0.8-1.5) H 02/07/17 13:07 Estimated GFR 43 ml/min 02/07/17 13:07 BUN/Creatinine Ratio 19 % 02/07/17 13:07 Glucose 124 mg/dL (75-100) H 02/07/17 13:07 POC Glucose 155 (70-105) H 02/07/17 07:53 Calcium 8.2 mg/dL (8.4-10.2) L 02/07/17 13:07 Magnesium 3.20 mg/dL (1.7-2.3) H 02/06/17 10:15 Total Bilirubin 0.50 mg/dL (0.1-1.2) 02/06/17 10:15 Direct Bilirubin < 0.2 mg/dL (0-0.2) 02/06/17 10:15 Indirect Bilirubin 0.2 mg/dL 02/06/17 10:15 AST 20 units/L (5-40) 02/06/17 10:15 ALT 12 units/L (7-56) 02/06/17 10:15 Alkaline Phosphatase 52 units/L (35-129) 02/06/17 10:15 Total Creatine Kinase 288 units/L (55-170) H 02/06/17 10:15 CK-MB (CK-2) 7.5 ng/mL (0.0-4.0) H 02/06/17 10:15 CK-MB (CK-2) Rel Index 2.6 (0-4) 02/06/17 10:15 Troponin T 0.039 ng/mL (0.00-0.029) H 02/06/17 10:15 NT-Pro-B Natriuret Pep 304.4 pg/mL (0-900) 02/06/17 10:15 Total Protein 6.3 g/dL (6.3-8.2) 02/06/17 10:15 Albumin 4.1 g/dL (3.9-5) 02/06/17 10:15 Albumin/Globulin Ratio 1.9 % 02/06/17 10:15 Triglycerides 63 mg/dL (2-149) 02/06/17 10:15 Cholesterol 149 mg/dL (50-199) 02/06/17 10:15 LDL Cholesterol Direct 24 mg/dL (50-130) L 02/06/17 10:15 HDL Cholesterol 113 mg/dL (40-59) H 02/06/17 10:15 Cholesterol/HDL Ratio 1.31 % 02/06/17 10:15 Urine Color Yellow (Yellow) 02/06/17 13:01 Urine Turbidity Clear (Clear) 02/06/17 13:01 Urine pH 6.0 (5.0-7.0) 02/06/17 13:01 Ur Specific [place] 1.011 (1.003-1.030) 02/06/17 13:01 Urine Protein <15 mg/dl mg/dL (Negative) 02/06/17 13:01 Urine Glucose (UA) Neg mg/dL (Negative) 02/06/17 13:01 Urine Ketones Neg mg/dL (Negative) 02/06/17 13:01 Urine Blood Neg (Negative) 02/06/17 13:01 Urine Nitrite Neg (Negative) 02/06/17 13:01 Urine Bilirubin Neg (Negative) 02/06/17 13:01 Urine Urobilinogen < 2.0 mg/dL (<2.0) 02/06/17 13:01 Ur Leukocyte Esterase Neg (Negative) 02/06/17 13:01 Urine WBC (Auto) 1.0 /HPF (0.0-6.0) 02/06/17 13:01 Urine RBC (Auto) < 1.0 /HPF (0.0-6.0) 02/06/17 13:01 Urine Mucus Few /HPF 02/06/17 13:01 Urine Creatinine 68.5 mg/dL (0.1-20.0) H 02/06/17 13:01 Urine Sodium 148 mmol/L 02/06/17 13:01
[2017-02-07] MEDS ORDERED: KIONEX PO ONE (18:00)
[2017-02-07] MEDS ORDERED: ASPIRIN ONE (18:38)
[2017-02-07] MEDS: ZITHROMAX 500 MG in NACL 0.9% 250ML 250 ML IV SCH (21:14)
[2017-02-07] MEDS: PRAVACHOL PO SCH (23:57)
[2017-02-08] MEDS ORDERED: HEPARIN 10,000 UNITS/10 ML IV ONE (00:16)
--- NOTE | 2017-02-08 02:23 | XRay Report ---
FINAL REPORT EXAM: XR CHEST 1V AP HISTORY: follow up respiratory failure TECHNIQUE: A portable upright view of the chest was obtained and compared the study of 02/07/2017. FINDINGS: The lungs are hyper inflated. There are no acute infiltrates or evidence of congestion. Pleural fluid is not seen. The heart size is normal. The thoracic aorta is mildly tortuous. The ET tube and NG tube appear in good position. The skeletal structures are well-maintained IMPRESSION: COPD. No acute infiltrates or congestion. Satisfactory position of the ET tube and NG tube.
[2017-02-08] MEDS: DUONEB *Not for PRN Use IH SCH ×6 (02:47→19:34)
[2017-02-08 05:02] LABS: Hematocrit 33.6 % (35.5-45.6); Hemoglobin 11.5 gm/dl (11.8-15.2); Mean Corpuscular HGB Conc 34 % (32-34); Mean Corpuscular Hemoglobin 33 pg (28-32); Mean Corpuscular Volume 96 fl (84-94); Platelet Count 162 K/mm3 (140-440); Red Blood Count 3.49 M/mm3 (3.65-5.03); Red Cell Distribution Width 15.6 % (13.2-15.2); White Blood Count 12.7 K/mm3 (4.5-11.0)
[2017-02-08 05:18] LABS: Calcium 8.2 mg/dL (8.4-10.2); Chloride 100.8 mmol/L (98-107); Potassium 4.8 mmol/L (3.6-5.0)
[2017-02-08] MEDS: CARDIZEM PO SCH ×3 (06:28→18:42)
[2017-02-08 06:49] LABS: Basophils % (Manual) 0 % (0.0-1.8); Blastocytes % (Manual) 0 %; Diff Status Complete; Eosinophils % (Manual) 0 % (0.0-4.3); Platelet Estimate Consistent w Auto
--- NOTE | 2017-02-08 08:07 | Vascular Lab Report ---
LOWER EXTREMITY VENOUS DUPLEX: REASON FOR EXAM: Swelling of the lower extremities. COMMENTS ON THE RIGHT: All veins visualized are freely compressible without evidence of internal echogenicity. Flow is spontaneous and phasic throughout. COMMENTS ON THE LEFT: All veins visualized are freely compressible without evidence of internal echogenicity. Flow is spontaneous and phasic throughout. IMPRESSION: No evidence of acute or chronic deep venous thrombosis in either lower extremity.
--- NOTE | 2017-02-08 09:04 | Progress Note ---
Assessment and Plan Acute on chronic respiratory failure. COPD exacerbation. Acute tracheobronchitis. No infiltrates on follow-up chest x-ray. Some secretions. Culture negative thus far Malnutrition. Possible secondary to advanced emphysema MAGDALENE Abnormal d-dimer. Cause to be determined Recommendations ABGs on 8/5 cm H2O If tolerated, proceed with extubation. Recommend extubation to NIV/BiPAP 12/5 cm H2O, same FiO2 Continue nebulizer therapy and IV steroids. Continue IV heparin Doppler evaluation was negative for DVT. I will recommend to continue the heparin and do VQ scan once extubated Discussed with RT in detail and ICU staff. No family available today at the bedside. Critical care time was 31 minutes in [id number] evaluation coordination of care Subjective Date of service: 02/08/17 Interval history: Awake. Reports no shortness of breath. Some discomfort from ETT Objective Vital Signs - 12hr 02/07/17 02/07/17 02/07/17 21:30 22:00 22:30 Temperature Pulse Rate 97 H 100 H 97 H Pulse Rate [ Anterior Bilateral Throughout] Respiratory 20 22 18 Rate Respiratory Rate [Anterior Bilateral Throughout] Blood Pressure 109/85 111/87 132/76 O2 Sat by Pulse 100 100 100 Oximetry 02/07/17 02/07/17 02/07/17 23:00 23:30 23:47 Temperature Pulse Rate 93 H 94 H 93 H Pulse Rate [ Anterior Bilateral Throughout] Respiratory 18 18 Rate Respiratory Rate [Anterior Bilateral Throughout] Blood Pressure 127/79 127/85 127/85 O2 Sat by Pulse 100 99 99 Oximetry 02/07/17 02/08/17 02/08/17 23:58 00:00 00:30 Temperature 98.9 F Pulse Rate 91 H 90 88 Pulse Rate [ Anterior Bilateral Throughout] Respiratory 18 18 Rate Respiratory Rate [Anterior Bilateral Throughout] Blood Pressure 127/85 133/79 123/73 O2 Sat by Pulse 100 100 Oximetry 02/08/17 02/08/17 02/08/17 01:00 01:30 02:00 Temperature Pulse Rate 86 92 H 89 Pulse Rate [ 92 H Anterior Bilateral Throughout] Respiratory 18 19 18 Rate Respiratory 18 Rate [Anterior Bilateral Throughout] Blood Pressure 124/77 141/81 144/81 O2 Sat by Pulse 99 100 100 Oximetry 02/08/17 02/08/17 02/08/17 02:30 03:00 03:30 Temperature Pulse Rate 84 82 83 Pulse Rate [ Anterior Bilateral Throughout] Respiratory 18 18 18 Rate Respiratory Rate [Anterior Bilateral Throughout] Blood Pressure 130/76 133/77 131/79 O2 Sat by Pulse 100 100 100 Oximetry 02/08/17 02/08/17 02/08/17 04:00 04:30 05:00 Temperature Pulse Rate 91 H 101 H 97 H Pulse Rate [ Anterior Bilateral Throughout] Respiratory 21 25 H 20 Rate Respiratory Rate [Anterior Bilateral Throughout] Blood Pressure 131/79 131/79 162/109 O2 Sat by Pulse 99 98 100 Oximetry 02/08/17 02/08/17 02/08/17 05:16 05:30 06:00 Temperature Pulse Rate 93 H 88 86 Pulse Rate [ Anterior Bilateral Throughout] Respiratory 17 18 Rate Respiratory Rate [Anterior Bilateral Throughout] Blood Pressure 162/109 162/109 144/87 O2 Sat by Pulse 100 100 100 Oximetry 02/08/17 02/08/17 02/08/17 06:28 06:30 07:00 Temperature Pulse Rate 93 H 91 H 95 H Pulse Rate [ Anterior Bilateral Throughout] Respiratory 19 17 Rate Respiratory Rate [Anterior Bilateral Throughout] Blood Pressure 144/87 163/104 159/112 O2 Sat by Pulse 100 100 Oximetry 02/08/17 02/08/17 02/08/17 07:30 07:40 08:00 Temperature 97.8 F Pulse Rate 83 80 Pulse Rate [ Anterior Bilateral Throughout] Respiratory 18 18 Rate Respiratory Rate [Anterior Bilateral Throughout] Blood Pressure 148/85 154/83 O2 Sat by Pulse 100 100 Oximetry 02/08/17 02/08/17 08:36 08:40 Temperature Pulse Rate 87 Pulse Rate [ 86 Anterior Bilateral Throughout] Respiratory Rate Respiratory 19 Rate [Anterior Bilateral Throughout] Blood Pressure 152/77 O2 Sat by Pulse 98 Oximetry Constitutional: no acute distress, alert, other (able to lift head upon command. On spontaneous breathing trial) Eyes: non-icteric ENT: oropharynx moist Neck: no JVD Ascultation: Bilateral: diminished breath sounds (bilateral and equal), wheezes Percussion: Bilateral: dull Cardiovascular: regular rate and rhythm Gastrointestinal: normoactive bowel sounds, non-distended Integumentary: normal Extremities: no cyanosis, no edema Neurologic: normal mental status, non-focal exam, pupils equal and round Psychiatric: mood appropriate CBC and BMP: 02/08/17 04:40 02/08/17 04:40 ABG, PT/INR, D-dimer: ABG POC ABG pH 7.254 (7.35-7.45) L 02/07/17 05:08 POC ABG pCO2 39.6 (35-45) 02/07/17 05:08 POC ABG pO2 96 (80-105) 02/07/17 05:08 POC ABG HCO3 17.5 02/07/17 05:08 POC ABG Total CO2 19 02/07/17 05:08 POC ABG O2 Sat 96 02/07/17 05:08 PT/INR, D-dimer PT 13.3 Sec. (12.2-14.9) 02/06/17 10:15 INR 0.96 (0.87-1.13) 02/06/17 10:15 D-Dimer 1213.08 ng/mlDDU (0-234) H 02/06/17 10:15 Abnormal lab findings: Abnormal Labs 02/06/17 02/06/17 02/06/17 10:13 10:15 10:15 WBC RBC Hgb Hct MCV 95 H MCH 33 H RDW 15.3 H [place] % (Auto) 12.1 H Eos % (Auto) 7.9 H Eos # 0.6 H Seg Neuts % (Manual) Lymphocytes % (Manual) Seg Neutrophils # Man Lymphocytes # (Manual) D-Dimer 1213.08 H Heparin Anti-Xa Level POC ABG pH POC ABG pCO2 POC ABG pO2 Sodium Potassium Carbon Dioxide BUN Creatinine Glucose POC Glucose 113 H Calcium Magnesium Total Creatine Kinase CK-MB (CK-2) Troponin T LDL Cholesterol Direct HDL Cholesterol Urine Creatinine 02/06/17 02/06/17 02/06/17 10:15 11:24 13:01 WBC RBC Hgb Hct MCV MCH RDW [place] % (Auto) Eos % (Auto) Eos # Seg Neuts % (Manual) Lymphocytes % (Manual) Seg Neutrophils # Man Lymphocytes # (Manual) D-Dimer Heparin Anti-Xa Level POC ABG pH 7.073 L POC ABG pCO2 85.1 H POC ABG pO2 Sodium Potassium Carbon Dioxide BUN 24 H Creatinine 1.9 H Glucose 109 H POC Glucose Calcium Magnesium 3.20 H Total Creatine Kinase 288 H CK-MB (CK-2) 7.5 H Troponin T 0.039 H LDL Cholesterol Direct 24 L HDL Cholesterol 113 H Urine Creatinine 68.5 H 02/06/17 02/07/17 02/07/17 14:13 04:26 05:08 WBC RBC Hgb Hct MCV MCH RDW [place] % (Auto) Eos % (Auto) Eos # Seg Neuts % (Manual) Lymphocytes % (Manual) Seg Neutrophils # Man Lymphocytes # (Manual) D-Dimer Heparin Anti-Xa Level 1.30 H POC ABG pH 7.290 L 7.254 L POC ABG pCO2 POC ABG pO2 121 H Sodium Potassium Carbon Dioxide BUN Creatinine Glucose POC Glucose Calcium Magnesium Total Creatine Kinase CK-MB (CK-2) Troponin T LDL Cholesterol Direct HDL Cholesterol Urine Creatinine 02/07/17 02/07/17 02/07/17 07:53 13:07 13:07 WBC RBC Hgb Hct MCV MCH RDW [place] % (Auto) Eos % (Auto) Eos # Seg Neuts % (Manual) Lymphocytes % (Manual) Seg Neutrophils # Man Lymphocytes # (Manual) D-Dimer Heparin Anti-Xa Level > 2.00 H POC ABG pH POC ABG pCO2 POC ABG pO2 Sodium 132 L Potassium 5.7 H Carbon Dioxide 19 L BUN 37 H Creatinine 1.9 H Glucose 124 H POC Glucose 155 H Calcium 8.2 L Magnesium Total Creatine Kinase CK-MB (CK-2) Troponin T LDL Cholesterol Direct HDL Cholesterol Urine Creatinine 02/07/17 02/08/17 02/08/17 23:03 04:40 04:40 WBC 12.7 H RBC 3.49 L Hgb 11.5 L Hct 33.6 L MCV 96 H MCH 33 H RDW 15.6 H [place] % (Auto) Eos % (Auto) Eos # Seg Neuts % (Manual) 91.0 H Lymphocytes % (Manual) 4.0 L Seg Neutrophils # Man 11.6 H Lymphocytes # (Manual) 0.5 L D-Dimer Heparin Anti-Xa Level < 0.10 L POC ABG pH POC ABG pCO2 POC ABG pO2 Sodium 135 L Potassium Carbon Dioxide 19 L BUN 36 H Creatinine 1.9 H Glucose 134 H POC Glucose Calcium 8.2 L Magnesium Total Creatine Kinase CK-MB (CK-2) Troponin T LDL Cholesterol Direct HDL Cholesterol Urine Creatinine Chest x-ray: report reviewed, image reviewed
[2017-02-08 11:16] LABS: ISTAT Base Excess -4; ISTAT PCO2 35.7 (35-45); ISTAT PH 7.377 (7.35-7.45); ISTAT PO2 95 (80-105); ISTAT SO2 97; ISTAT TCO2 22
[2017-02-08 11:17] LABS: ISTAT Base Excess -5; ISTAT HCO3 20.6; ISTAT PCO2 35.3 (35-45); ISTAT PH 7.373 (7.35-7.45); ISTAT PO2 99 (80-105); ISTAT SO2 98; ISTAT TCO2 22
[2017-02-08] MEDS: FOLVITE PO SCH (11:25)
[2017-02-08] MEDS: SODIUM BICARBONATE PO SCH ×2 (11:25→22:41)
--- NOTE | 2017-02-08 12:02 | Progress Note ---
Assessment and Plan Assessment and plan: -- Acute hypoxic respiratory failure : Requiring intubation on mechanical ventilation, s/p extubation continue nebulizers, Bipap as needed, IV steroids, empiric antibiotics, supportive care, Follow cultures --Acute exacerbation of COPD : Oxygen support, nebulizers, IV steroids, supportive care --Acute pneumonitis; continue current antibiotic, Zithromax, follow cultures --Elevated d-dimer; lower extremity venous Doppler negative for DVT , now that patient is extubated , we will check VQ scan to rule out PE Continue heparin drip --Acute kidney injury; vasomotor nephropathy, closely monitor renal function, avoid nephrotoxic medication, nephrology evaluation if no improvement --Hyperkalemia; corrected --DVT prophylaxis; patient is already on heparin drip --Full CODE STATUS Closely monitor overnight in ICU Plan of care discussed with the patient and the nurse Pulmonary Consult and recommendations noted and appreciated History Interval history: Patient seen and examined medical records reviewed Patient is extubated, on Ventimask, not in acute distress No new events reported by nursing staff Vital signs reviewed stable Hospitalist Physical - Constitutional Vitals: Temp Pulse Resp BP Pulse Ox 98.5 F 85 20 154/84 98 02/08/17 11:39 02/08/17 11:57 02/08/17 11:57 02/08/17 10:46 02/08/17 10:46 General appearance: Present: no acute distress, cachectic, other (extubated ,on Ventimask) - EENT Eyes: Present: PERRL, EOM intact - Neck Neck: Present: supple, normal ROM - Respiratory Respiratory effort: normal Respiratory: bilateral: diminished, rhonchi, negative: rales, wheezing - Cardiovascular Rhythm: regular Heart Sounds: Present: S1 & S2 - Extremities Extremities: no ischemia, No edema - Abdominal General gastrointestinal: soft, non-tender, non-distended, normal bowel sounds - Integumentary Integumentary: Present: clear, warm - Psychiatric Psychiatric: appropriate mood/affect, other (confused at times) - Neurologic Neurologic: moves all extremities Results - Labs CBC & Chem 7: 02/08/17 04:40 02/08/17 04:40 Labs: Laboratory Last Values WBC 12.7 K/mm3 (4.5-11.0) H 02/08/17 04:40 RBC 3.49 M/mm3 (3.65-5.03) L 02/08/17 04:40 Hgb 11.5 gm/dl (11.8-15.2) L 02/08/17 04:40 Hct 33.6 % (35.5-45.6) L 02/08/17 04:40 MCV 96 fl (84-94) H 02/08/17 04:40 MCH 33 pg (28-32) H 02/08/17 04:40 MCHC 34 % (32-34) 02/08/17 04:40 RDW 15.6 % (13.2-15.2) H 02/08/17 04:40 Plt Count 162 K/mm3 (140-440) 02/08/17 04:40 Lymph % (Auto) 34.4 % (13.4-35.0) 02/06/17 10:15 [place] % (Auto) 12.1 % (0.0-7.3) H 02/06/17 10:15 Eos % (Auto) 7.9 % (0.0-4.3) H 02/06/17 10:15 Baso % (Auto) 0.9 % (0.0-1.8) 02/06/17 10:15 Lymph # 2.4 K/mm3 (1.2-5.4) 02/06/17 10:15 [place] # 0.8 K/mm3 (0.0-0.8) 02/06/17 10:15 Eos # 0.6 K/mm3 (0.0-0.4) H 02/06/17 10:15 Baso # 0.1 K/mm3 (0.0-0.1) 02/06/17 10:15 Add Manual Diff Complete 02/08/17 04:40 Total Counted 100 02/08/17 04:40 Seg Neutrophils % Appliance Mechanic 02/08/17 04:40 Seg Neuts % (Manual) 91.0 % (40.0-70.0) H 02/08/17 04:40 Band Neutrophils % 4.0 % 02/08/17 04:40 Lymphocytes % (Manual) 4.0 % (13.4-35.0) L 02/08/17 04:40 Reactive Lymphs % (Man) 0 % 02/08/17 04:40 Monocytes % (Manual) 1.0 % (0.0-7.3) 02/08/17 04:40 Eosinophils % (Manual) 0 % (0.0-4.3) 02/08/17 04:40 Basophils % (Manual) 0 % (0.0-1.8) 02/08/17 04:40 Metamyelocytes % 0 % 02/08/17 04:40 Myelocytes % 0 % 02/08/17 04:40 Promyelocytes % 0 % 02/08/17 04:40 Blast Cells % 0 % 02/08/17 04:40 Nucleated RBC % Not Reportable 02/08/17 04:40 Seg Neutrophils # 3.1 K/mm3 (1.8-7.7) 02/06/17 10:15 Seg Neutrophils # Man 11.6 K/mm3 (1.8-7.7) H 02/08/17 04:40 Band Neutrophils # 0.5 K/mm3 02/08/17 04:40 Lymphocytes # (Manual) 0.5 K/mm3 (1.2-5.4) L 02/08/17 04:40 Abs React Lymphs (Man) 0.0 K/mm3 02/08/17 04:40 Monocytes # (Manual) 0.1 K/mm3 (0.0-0.8) 02/08/17 04:40 Eosinophils # (Manual) 0.0 K/mm3 (0.0-0.4) 02/08/17 04:40 Basophils # (Manual) 0.0 K/mm3 (0.0-0.1) 02/08/17 04:40 Metamyelocytes # 0.0 K/mm3 02/08/17 04:40 Myelocytes # 0.0 K/mm3 02/08/17 04:40 Promyelocytes # 0.0 K/mm3 02/08/17 04:40 Blast Cells # 0.0 K/mm3 02/08/17 04:40 WBC Morphology Not Reportable 02/08/17 04:40 Hypersegmented Neuts Not Reportable 02/08/17 04:40 Hyposegmented Neuts Not Reportable 02/08/17 04:40 Hypogranular Neuts Not Reportable 02/08/17 04:40 Smudge Cells Not Reportable 02/08/17 04:40 Toxic Granulation Not Reportable 02/08/17 04:40 Toxic Vacuolation Not Reportable 02/08/17 04:40 Dohle Bodies Not Reportable 02/08/17 04:40 Pelger-Huet Anomaly Not Reportable 02/08/17 04:40 Timothy Rods Not Reportable 02/08/17 04:40 Platelet Estimate Consistent w auto 02/08/17 04:40 Clumped Platelets Not Reportable 02/08/17 04:40 Plt Clumps, EDTA Not Reportable 02/08/17 04:40 Large Platelets Not Reportable 02/08/17 04:40 Giant Platelets Not Reportable 02/08/17 04:40 Platelet Satelliting Not Reportable 02/08/17 04:40 Plt Morphology Comment Not Reportable 02/08/17 04:40 RBC Morphology Not Reportable 02/08/17 04:40 Dimorphic RBCs Not Reportable 02/08/17 04:40 Polychromasia Not Reportable 02/08/17 04:40 Hypochromasia Not Reportable 02/08/17 04:40 Poikilocytosis Not Reportable 02/08/17 04:40 Anisocytosis Not Reportable 02/08/17 04:40 Microcytosis Not Reportable 02/08/17 04:40 Macrocytosis Not Reportable 02/08/17 04:40 Spherocytes Not Reportable 02/08/17 04:40 Pappenheimer Bodies Not Reportable 02/08/17 04:40 Sickle Cells Not Reportable 02/08/17 04:40 Target Cells Not Reportable 02/08/17 04:40 Tear Drop Cells Not Reportable 02/08/17 04:40 Ovalocytes Not Reportable 02/08/17 04:40 Helmet Cells Not Reportable 02/08/17 04:40 Choudhury-[place]os[place] Bodies Not Reportable 02/08/17 04:40 [place] Rings Not Reportable 02/08/17 04:40 [place] Cells Not Reportable 02/08/17 04:40 Bite Cells Not Reportable 02/08/17 04:40 Crenated Cell Not Reportable 02/08/17 04:40 Elliptocytes Not Reportable 02/08/17 04:40 Acanthocytes (Spur) Not Reportable 02/08/17 04:40 Rouleaux Not Reportable 02/08/17 04:40 Hemoglobin C Crystals Not Reportable 02/08/17 04:40 Schistocytes Not Reportable 02/08/17 04:40 Malaria parasites Not Reportable 02/08/17 04:40 [place] Bodies Not Reportable 02/08/17 04:40 Hem Pathologist Commnt No 02/08/17 04:40 PT 13.3 Sec. (12.2-14.9) 02/06/17 10:15 INR 0.96 (0.87-1.13) 02/06/17 10:15 APTT 24.7 Sec. (24.2-36.6) 02/06/17 10:15 D-Dimer 1213.08 ng/mlDDU (0-234) H 02/06/17 10:15 Heparin Anti-Xa Level 0.43 U.I./ml (0.3-0.7) 02/08/17 04:44 POC ABG pH 7.373 (7.35-7.45) 02/08/17 10:47 POC ABG pCO2 35.3 (35-45) 02/08/17 10:47 POC ABG pO2 99 (80-105) 02/08/17 10:47 POC ABG HCO3 20.6 02/08/17 10:47 POC ABG Total CO2 22 02/08/17 10:47 POC ABG O2 Sat 98 02/08/17 10:47 POC ABG Base Excess -5 02/08/17 10:47 FiO2 30 % 02/08/17 10:47 Sodium 135 mmol/L (137-145) L 02/08/17 04:40 Potassium 4.8 mmol/L (3.6-5.0) 02/08/17 04:40 Chloride 100.8 mmol/L (98-107) 02/08/17 04:40 Carbon Dioxide 19 mmol/L (22-30) L 02/08/17 04:40 Anion Gap 20 mmol/L 02/08/17 04:40 BUN 36 mg/dL (9-20) H 02/08/17 04:40 Creatinine 1.9 mg/dL (0.8-1.5) H 02/08/17 04:40 Estimated GFR 43 ml/min 02/08/17 04:40 BUN/Creatinine Ratio 19 % 02/08/17 04:40 Glucose 134 mg/dL (75-100) H 02/08/17 04:40 POC Glucose 155 (70-105) H 02/07/17 07:53 Calcium 8.2 mg/dL (8.4-10.2) L 02/08/17 04:40 Magnesium 3.20 mg/dL (1.7-2.3) H 02/06/17 10:15 Total Bilirubin 0.50 mg/dL (0.1-1.2) 02/06/17 10:15 Direct Bilirubin < 0.2 mg/dL (0-0.2) 02/06/17 10:15 Indirect Bilirubin 0.2 mg/dL 02/06/17 10:15 AST 20 units/L (5-40) 02/06/17 10:15 ALT 12 units/L (7-56) 02/06/17 10:15 Alkaline Phosphatase 52 units/L (35-129) 02/06/17 10:15 Total Creatine Kinase 288 units/L (55-170) H 02/06/17 10:15 CK-MB (CK-2) 7.5 ng/mL (0.0-4.0) H 02/06/17 10:15 CK-MB (CK-2) Rel Index 2.6 (0-4) 02/06/17 10:15 Troponin T 0.039 ng/mL (0.00-0.029) H 02/06/17 10:15 NT-Pro-B Natriuret Pep 304.4 pg/mL (0-900) 02/06/17 10:15 Total Protein 6.3 g/dL (6.3-8.2) 02/06/17 10:15 Albumin 4.1 g/dL (3.9-5) 02/06/17 10:15 Albumin/Globulin Ratio 1.9 % 02/06/17 10:15 Triglycerides 63 mg/dL (2-149) 02/06/17 10:15 Cholesterol 149 mg/dL (50-199) 02/06/17 10:15 LDL Cholesterol Direct 24 mg/dL (50-130) L 02/06/17 10:15 HDL Cholesterol 113 mg/dL (40-59) H 02/06/17 10:15 Cholesterol/HDL Ratio 1.31 % 02/06/17 10:15 Urine Color Yellow (Yellow) 02/06/17 13:01 Urine Turbidity Clear (Clear) 02/06/17 13:01 Urine pH 6.0 (5.0-7.0) 02/06/17 13:01 Ur Specific [place] 1.011 (1.003-1.030) 02/06/17 13:01 Urine Protein <15 mg/dl mg/dL (Negative) 02/06/17 13:01 Urine Glucose (UA) Neg mg/dL (Negative) 02/06/17 13:01 Urine Ketones Neg mg/dL (Negative) 02/06/17 13:01 Urine Blood Neg (Negative) 02/06/17 13:01 Urine Nitrite Neg (Negative) 02/06/17 13:01 Urine Bilirubin Neg (Negative) 02/06/17 13:01 Urine Urobilinogen < 2.0 mg/dL (<2.0) 02/06/17 13:01 Ur Leukocyte Esterase Neg (Negative) 02/06/17 13:01 Urine WBC (Auto) 1.0 /HPF (0.0-6.0) 02/06/17 13:01 Urine RBC (Auto) < 1.0 /HPF (0.0-6.0) 02/06/17 13:01 Urine Mucus Few /HPF 02/06/17 13:01 Urine Creatinine 68.5 mg/dL (0.1-20.0) H 02/06/17 13:01 Urine Sodium 148 mmol/L 02/06/17 13:01
[2017-02-08] MEDS ORDERED: PROVENTIL IH PRN (15:22)
[2017-02-08] MEDS: HEPARIN/ 0.45% NACL-25,000 UNIT/500 ML 25,000 UNIT/500 ML BAG IV SCH (17:06)
[2017-02-08] MEDS: ZITHROMAX PO SCH (18:42)
[2017-02-08] MEDS: VITAMIN B-1 PO SCH (18:49)
[2017-02-08] MEDS: PRAVACHOL PO SCH (22:42)
--- NOTE | 2017-02-09 02:25 | XRay Report ---
FINAL REPORT EXAM: XR CHEST 1V AP HISTORY: follow up respiratory failure TECHNIQUE: A portable upright view the chest was obtained and compared to the previous study of 02/08/2017. FINDINGS: Since the previous study the patient has been extubated. The NG tube is also been removed. The lungs are hyperinflated. There is interstitial prominence in both lungs which has worsened since the prior study. Superimposed CHF cannot be excluded. There are no localized infiltrates. The heart size is normal. Pleural fluid is not seen. The bones and soft tissues do not show any acute changes. IMPRESSION: COPD. Increasing interstitial prominence since yesterday study suggesting the possibility of CHF. Interval extubation and removal of the NG tube since the previous study.
[2017-02-09] MEDS: DUONEB *Not for PRN Use IH SCH ×4 (02:51→21:19)
[2017-02-09 05:22] LABS: Hemoglobin 10.9 gm/dl (11.8-15.2); Mean Corpuscular HGB Conc 34 % (32-34); Mean Corpuscular Hemoglobin 32 pg (28-32); Mean Corpuscular Volume 95 fl (84-94); Platelet Count 172 K/mm3 (140-440); Red Blood Count 3.37 M/mm3 (3.65-5.03); Red Cell Distribution Width 15.7 % (13.2-15.2); White Blood Count 12.2 K/mm3 (4.5-11.0)
[2017-02-09 05:33] LABS: Calcium 8.2 mg/dL (8.4-10.2); Chloride 103.2 mmol/L (98-107); Magnesium 2.1 mg/dL (1.7-2.3); Potassium 3.2 mmol/L (3.6-5.0)
[2017-02-09] MEDS: CARDIZEM PO SCH ×5 (05:51→23:50)
[2017-02-09 06:09] LABS: Basophils % (Manual) 0 % (0.0-1.8); Blastocytes % (Manual) 0 %; Eosinophils % (Manual) 0 % (0.0-4.3)
[2017-02-09 06:10] LABS: Anisocytosis 1+; Diff Status Complete; Platelet Estimate Consistent w Auto; Schistocytes Rare
--- NOTE | 2017-02-09 08:47 | Progress Note ---
Assessment and Plan Acute on chronic respiratory failure. Extubated successfully, now on NC oxygen prn. O2sat on r/o 95% at the bedside COPD exacerbation. Controlled Acute tracheobronchitis. No infiltrates on follow-up chest x-ray. Some secretions. Culture negative thus far Malnutrition. Possible secondary to advanced emphysema MAGDALENE Abnormal d-dimer. Cause to be determined Recommendations Continue nebs Aspiration precautions Progress diet if able to sip water w/o difficulty Complete ABX VQ scan Discussed with pt.No family at the bedside Critical care time was 31 minutes in [id number] evaluation coordination of care Subjective Date of service: 02/09/17 Interval history: Fels better but weak. Minimal cough.No SOB Objective Vital Signs - 12hr 02/08/17 02/08/17 02/08/17 21:00 21:30 22:00 Temperature Pulse Rate 92 H 90 88 Pulse Rate [ Anterior Bilateral Throughout] Respiratory 23 26 H 22 Rate Respiratory Rate [Anterior Bilateral Throughout] Blood Pressure 153/63 161/62 161/62 O2 Sat by Pulse 100 99 99 Oximetry 02/08/17 02/08/17 02/08/17 22:30 23:00 23:30 Temperature Pulse Rate 87 93 H 92 H Pulse Rate [ Anterior Bilateral Throughout] Respiratory 21 27 H 26 H Rate Respiratory Rate [Anterior Bilateral Throughout] Blood Pressure 163/64 133/67 142/74 O2 Sat by Pulse 100 100 100 Oximetry 02/08/17 02/09/17 02/09/17 23:43 00:00 00:30 Temperature 98.1 F Pulse Rate 88 84 Pulse Rate [ Anterior Bilateral Throughout] Respiratory 28 H 20 Rate Respiratory Rate [Anterior Bilateral Throughout] Blood Pressure 134/75 128/69 O2 Sat by Pulse 99 97 Oximetry 02/09/17 02/09/17 02/09/17 01:00 01:30 02:00 Temperature Pulse Rate 81 81 81 Pulse Rate [ Anterior Bilateral Throughout] Respiratory 21 23 20 Rate Respiratory Rate [Anterior Bilateral Throughout] Blood Pressure 124/66 126/65 130/71 O2 Sat by Pulse 97 97 98 Oximetry 02/09/17 02/09/17 02/09/17 02:30 02:53 03:00 Temperature Pulse Rate 85 89 Pulse Rate [ 88 Anterior Bilateral Throughout] Respiratory 22 26 H Rate Respiratory 24 Rate [Anterior Bilateral Throughout] Blood Pressure 130/71 145/79 O2 Sat by Pulse 98 98 Oximetry 02/09/17 02/09/17 02/09/17 03:04 03:30 04:00 Temperature 98.2 F Pulse Rate 87 93 H 86 Pulse Rate [ Anterior Bilateral Throughout] Respiratory 18 15 19 Rate Respiratory Rate [Anterior Bilateral Throughout] Blood Pressure 145/77 145/79 150/76 O2 Sat by Pulse 99 99 99 Oximetry 02/09/17 02/09/17 02/09/17 04:30 05:00 05:30 Temperature Pulse Rate 90 88 83 Pulse Rate [ Anterior Bilateral Throughout] Respiratory 17 15 19 Rate Respiratory Rate [Anterior Bilateral Throughout] Blood Pressure 150/76 153/76 135/76 O2 Sat by Pulse 100 100 99 Oximetry 02/09/17 02/09/17 02/09/17 05:51 05:54 06:00 Temperature Pulse Rate 93 H 81 79 Pulse Rate [ Anterior Bilateral Throughout] Respiratory 18 Rate Respiratory Rate [Anterior Bilateral Throughout] Blood Pressure 151/80 135/76 143/78 O2 Sat by Pulse 100 Oximetry 02/09/17 02/09/17 02/09/17 06:30 07:00 08:00 Temperature Pulse Rate 77 88 Pulse Rate [ 87 Anterior Bilateral Throughout] Respiratory 14 21 Rate Respiratory 24 Rate [Anterior Bilateral Throughout] Blood Pressure 141/75 141/75 O2 Sat by Pulse 100 100 Oximetry 02/09/17 08:15 Temperature Pulse Rate Pulse Rate [ 92 H Anterior Bilateral Throughout] Respiratory Rate Respiratory 22 Rate [Anterior Bilateral Throughout] Blood Pressure O2 Sat by Pulse Oximetry Constitutional: no acute distress, alert Eyes: non-icteric ENT: oropharynx moist Neck: no JVD Ascultation: Bilateral: clear, diminished breath sounds (bilateral and equal) Percussion: Bilateral: dull Cardiovascular: regular rate and rhythm Gastrointestinal: normoactive bowel sounds, non-distended Integumentary: normal Extremities: no cyanosis, no edema Neurologic: normal mental status, non-focal exam, pupils equal and round Psychiatric: mood appropriate CBC and BMP: 02/09/17 04:00 02/09/17 04:34 ABG, PT/INR, D-dimer: ABG POC ABG pH 7.373 (7.35-7.45) 02/08/17 10:47 POC ABG pCO2 35.3 (35-45) 02/08/17 10:47 POC ABG pO2 99 (80-105) 02/08/17 10:47 POC ABG HCO3 20.6 02/08/17 10:47 POC ABG Total CO2 22 02/08/17 10:47 POC ABG O2 Sat 98 02/08/17 10:47 PT/INR, D-dimer PT 13.3 Sec. (12.2-14.9) 02/06/17 10:15 INR 0.96 (0.87-1.13) 02/06/17 10:15 D-Dimer 1213.08 ng/mlDDU (0-234) H 02/06/17 10:15 Abnormal lab findings: Abnormal Labs 02/06/17 02/06/17 02/06/17 10:13 10:15 10:15 WBC RBC Hgb Hct MCV 95 H MCH 33 H RDW 15.3 H Coffee % (Auto) 12.1 H Eos % (Auto) 7.9 H Eos # 0.6 H Seg Neuts % (Manual) Lymphocytes % (Manual) Seg Neutrophils # Man Lymphocytes # (Manual) D-Dimer 1213.08 H Heparin Anti-Xa Level POC ABG pH POC ABG pCO2 POC ABG pO2 Sodium Potassium Carbon Dioxide BUN Creatinine Glucose POC Glucose 113 H Calcium Magnesium Total Creatine Kinase CK-MB (CK-2) Troponin T LDL Cholesterol Direct HDL Cholesterol Urine Creatinine 02/06/17 02/06/17 02/06/17 10:15 11:24 13:01 WBC RBC Hgb Hct MCV MCH RDW [place] % (Auto) Eos % (Auto) Eos # Seg Neuts % (Manual) Lymphocytes % (Manual) Seg Neutrophils # Man Lymphocytes # (Manual) D-Dimer Heparin Anti-Xa Level POC ABG pH 7.073 L POC ABG pCO2 85.1 H POC ABG pO2 Sodium Potassium Carbon Dioxide BUN 24 H Creatinine 1.9 H Glucose 109 H POC Glucose Calcium Magnesium 3.20 H Total Creatine Kinase 288 H CK-MB (CK-2) 7.5 H Troponin T 0.039 H LDL Cholesterol Direct 24 L HDL Cholesterol 113 H Urine Creatinine 68.5 H 02/06/17 02/07/17 02/07/17 14:13 04:26 05:08 WBC RBC Hgb Hct MCV MCH RDW [place] % (Auto) Eos % (Auto) Eos # Seg Neuts % (Manual) Lymphocytes % (Manual) Seg Neutrophils # Man Lymphocytes # (Manual) D-Dimer Heparin Anti-Xa Level 1.30 H POC ABG pH 7.290 L 7.254 L POC ABG pCO2 POC ABG pO2 121 H Sodium Potassium Carbon Dioxide BUN Creatinine Glucose POC Glucose Calcium Magnesium Total Creatine Kinase CK-MB (CK-2) Troponin T LDL Cholesterol Direct HDL Cholesterol Urine Creatinine 02/07/17 02/07/17 02/07/17 07:53 13:07 13:07 WBC RBC Hgb Hct MCV MCH RDW [place] % (Auto) Eos % (Auto) Eos # Seg Neuts % (Manual) Lymphocytes % (Manual) Seg Neutrophils # Man Lymphocytes # (Manual) D-Dimer Heparin Anti-Xa Level > 2.00 H POC ABG pH POC ABG pCO2 POC ABG pO2 Sodium 132 L Potassium 5.7 H Carbon Dioxide 19 L BUN 37 H Creatinine 1.9 H Glucose 124 H POC Glucose 155 H Calcium 8.2 L Magnesium Total Creatine Kinase CK-MB (CK-2) Troponin T LDL Cholesterol Direct HDL Cholesterol Urine Creatinine 02/07/17 02/08/17 02/08/17 23:03 04:40 04:40 WBC 12.7 H RBC 3.49 L Hgb 11.5 L Hct 33.6 L MCV 96 H MCH 33 H RDW 15.6 H [place] % (Auto) Eos % (Auto) Eos # Seg Neuts % (Manual) 91.0 H Lymphocytes % (Manual) 4.0 L Seg Neutrophils # Man 11.6 H Lymphocytes # (Manual) 0.5 L D-Dimer Heparin Anti-Xa Level < 0.10 L POC ABG pH POC ABG pCO2 POC ABG pO2 Sodium 135 L Potassium Carbon Dioxide 19 L BUN 36 H Creatinine 1.9 H Glucose 134 H POC Glucose Calcium 8.2 L Magnesium Total Creatine Kinase CK-MB (CK-2) Troponin T LDL Cholesterol Direct HDL Cholesterol Urine Creatinine 02/09/17 02/09/17 04:00 04:34 WBC 12.2 H RBC 3.37 L Hgb 10.9 L Hct 32.0 L MCV 95 H MCH RDW 15.7 H Coffee % (Auto) Eos % (Auto) Eos # Seg Neuts % (Manual) 94.0 H Lymphocytes % (Manual) 2.0 L Seg Neutrophils # Man 11.5 H Lymphocytes # (Manual) 0.2 L D-Dimer Heparin Anti-Xa Level POC ABG pH POC ABG pCO2 POC ABG pO2 Sodium Potassium 3.2 L D Carbon Dioxide BUN 32 H Creatinine 1.7 H Glucose 134 H POC Glucose Calcium 8.2 L Magnesium Total Creatine Kinase CK-MB (CK-2) Troponin T LDL Cholesterol Direct HDL Cholesterol Urine Creatinine
--- NOTE | 2017-02-09 08:55 | Nuclear Medicine Report ---
LUNG SCAN, VENTILATION AND PERFUSION: History: Elevated d-dimer. Findings: Inhalation of Xenon gas demonstrates a normal distribution of the activity throughout both lungs. The wash out phases show no focal retention of activity however uniform retention of activity is noted bilaterally. After injection of Technetium 99m macroaggregated albumin gamma camera imaging of the lungs in multiple projections demonstrates normal pulmonary contours with a heterogeneous distribution of activity. No definite focal areas of segmental or lobar perfusion deficiency are identified. IMPRESSION: No evidence of pulmonary embolism.
[2017-02-09] MEDS: SODIUM BICARBONATE PO SCH (10:39)
[2017-02-09] MEDS: VITAMIN B-1 PO SCH (10:39)
[2017-02-09] MEDS: FOLVITE PO SCH (10:39)
[2017-02-09] MEDS: LOVENOX SUB-Q SCH (10:41)
[2017-02-09] MEDS: ZITHROMAX PO SCH (10:42)
[2017-02-09] MEDS ORDERED: POTASSIUM CHLORIDE FEEDTUBE ONE (11:00)
--- NOTE | 2017-02-09 15:27 | Progress Note ---
Assessment and Plan Assessment and plan: -- Acute hypoxic respiratory failure : Requiring intubation on mechanical ventilation, s/p extubation continue nebulizers, Bipap as needed, IV steroids, empiric antibiotics, supportive care, Follow cultures Soft diet , advance as tolerated --Acute exacerbation of COPD : Oxygen support, nebulizers, IV steroids, supportive care --Acute pneumonitis; continue current antibiotic, Zithromax, follow cultures --Elevated d-dimer; lower extremity venous Doppler negative for DVT , negative for PE DC heparin drip --Acute kidney injury; vasomotor nephropathy, trending down closely monitor renal function,avoid nephrotoxins --Hyperkalemia; corrected --DVT prophylaxis; Lovenox --Full CODE STATUS Physical therapy occupational therapy --DC planning. Case management Patient is stable to be transferred out of ICU to telemetry Plan of care discussed with the patient , family member and the nurse Possible discharge in 1-2 days if stable History Interval history: He feels better no new complaints,s/p extubation yesterday Saturating well on nasal cannula oxygen, passed the swallow eval Denies any chest pain or shortness of breath Vital signs reviewed Hospitalist Physical - Constitutional Vitals: Temp Pulse Resp BP Pulse Ox 97.4 F L 94 H 28 H 141/78 96 02/09/17 12:00 02/09/17 14:39 02/09/17 14:39 02/09/17 14:30 02/09/17 14:30 General appearance: Present: no acute distress, cachectic - EENT Eyes: Present: PERRL, EOM intact - Neck Neck: Present: supple, normal ROM - Respiratory Respiratory effort: normal Respiratory: bilateral: diminished, negative: rales, rhonchi, wheezing - Cardiovascular Rhythm: regular Heart Sounds: Present: S1 & S2 - Extremities Extremities: no ischemia, No edema - Abdominal General gastrointestinal: soft, non-tender, non-distended, normal bowel sounds - Integumentary Integumentary: Present: clear, warm - Psychiatric Psychiatric: appropriate mood/affect, cooperative - Neurologic Neurologic: CNII-XII intact, moves all extremities Results - Labs CBC & Chem 7: 02/09/17 04:00 02/09/17 04:34 Labs: Laboratory Last Values WBC 12.2 K/mm3 (4.5-11.0) H 02/09/17 04:00 RBC 3.37 M/mm3 (3.65-5.03) L 02/09/17 04:00 Hgb 10.9 gm/dl (11.8-15.2) L 02/09/17 04:00 Hct 32.0 % (35.5-45.6) L 02/09/17 04:00 MCV 95 fl (84-94) H 02/09/17 04:00 MCH 32 pg (28-32) 02/09/17 04:00 MCHC 34 % (32-34) 02/09/17 04:00 RDW 15.7 % (13.2-15.2) H 02/09/17 04:00 Plt Count 172 K/mm3 (140-440) 02/09/17 04:00 Lymph % (Auto) 34.4 % (13.4-35.0) 02/06/17 10:15 [place] % (Auto) 12.1 % (0.0-7.3) H 02/06/17 10:15 Eos % (Auto) 7.9 % (0.0-4.3) H 02/06/17 10:15 Baso % (Auto) 0.9 % (0.0-1.8) 02/06/17 10:15 Lymph # 2.4 K/mm3 (1.2-5.4) 02/06/17 10:15 [place] # 0.8 K/mm3 (0.0-0.8) 02/06/17 10:15 Eos # 0.6 K/mm3 (0.0-0.4) H 02/06/17 10:15 Baso # 0.1 K/mm3 (0.0-0.1) 02/06/17 10:15 Add Manual Diff Complete 02/09/17 04:00 Total Counted 100 02/09/17 04:00 Seg Neutrophils % Manager Of It 02/09/17 04:00 Seg Neuts % (Manual) 94.0 % (40.0-70.0) H 02/09/17 04:00 Band Neutrophils % 0 % 02/09/17 04:00 Lymphocytes % (Manual) 2.0 % (13.4-35.0) L 02/09/17 04:00 Reactive Lymphs % (Man) 0 % 02/09/17 04:00 Monocytes % (Manual) 4.0 % (0.0-7.3) 02/09/17 04:00 Eosinophils % (Manual) 0 % (0.0-4.3) 02/09/17 04:00 Basophils % (Manual) 0 % (0.0-1.8) 02/09/17 04:00 Metamyelocytes % 0 % 02/09/17 04:00 Myelocytes % 0 % 02/09/17 04:00 Promyelocytes % 0 % 02/09/17 04:00 Blast Cells % 0 % 02/09/17 04:00 Nucleated RBC % Not Reportable 02/09/17 04:00 Seg Neutrophils # 3.1 K/mm3 (1.8-7.7) 02/06/17 10:15 Seg Neutrophils # Man 11.5 K/mm3 (1.8-7.7) H 02/09/17 04:00 Band Neutrophils # 0.0 K/mm3 02/09/17 04:00 Lymphocytes # (Manual) 0.2 K/mm3 (1.2-5.4) L 02/09/17 04:00 Abs React Lymphs (Man) 0.0 K/mm3 02/09/17 04:00 Monocytes # (Manual) 0.5 K/mm3 (0.0-0.8) 02/09/17 04:00 Eosinophils # (Manual) 0.0 K/mm3 (0.0-0.4) 02/09/17 04:00 Basophils # (Manual) 0.0 K/mm3 (0.0-0.1) 02/09/17 04:00 Metamyelocytes # 0.0 K/mm3 02/09/17 04:00 Myelocytes # 0.0 K/mm3 02/09/17 04:00 Promyelocytes # 0.0 K/mm3 02/09/17 04:00 Blast Cells # 0.0 K/mm3 02/09/17 04:00 WBC Morphology Not Reportable 02/09/17 04:00 Hypersegmented Neuts Not Reportable 02/09/17 04:00 Hyposegmented Neuts Not Reportable 02/09/17 04:00 Hypogranular Neuts Not Reportable 02/09/17 04:00 Smudge Cells Not Reportable 02/09/17 04:00 Toxic Granulation Not Reportable 02/09/17 04:00 Toxic Vacuolation Not Reportable 02/09/17 04:00 Dohle Bodies Not Reportable 02/09/17 04:00 Pelger-Huet Anomaly Not Reportable 02/09/17 04:00 Timothy Rods Not Reportable 02/09/17 04:00 Platelet Estimate Consistent w auto 02/09/17 04:00 Clumped Platelets Not Reportable 02/09/17 04:00 Plt Clumps, EDTA Not Reportable 02/09/17 04:00 Large Platelets Not Reportable 02/09/17 04:00 Giant Platelets Not Reportable 02/09/17 04:00 Platelet Satelliting Not Reportable 02/09/17 04:00 Plt Morphology Comment Not Reportable 02/09/17 04:00 RBC Morphology Not Reportable 02/09/17 04:00 Dimorphic RBCs Not Reportable 02/09/17 04:00 Polychromasia Not Reportable 02/09/17 04:00 Hypochromasia Not Reportable 02/09/17 04:00 Poikilocytosis Not Reportable 02/09/17 04:00 Anisocytosis 1+ 02/09/17 04:00 Microcytosis Not Reportable 02/09/17 04:00 Macrocytosis Not Reportable 02/09/17 04:00 Spherocytes Not Reportable 02/09/17 04:00 Pappenheimer Bodies Not Reportable 02/09/17 04:00 Sickle Cells Not Reportable 02/09/17 04:00 Target Cells Not Reportable 02/09/17 04:00 Tear Drop Cells Not Reportable 02/09/17 04:00 Ovalocytes Not Reportable 02/09/17 04:00 Helmet Cells Not Reportable 02/09/17 04:00 Choudhury-Ch[place]on Bodies Not Reportable 02/09/17 04:00 [place] Rings Not Reportable 02/09/17 04:00 Luis Cells Not Reportable 02/09/17 04:00 Bite Cells Not Reportable 02/09/17 04:00 Crenated Cell Not Reportable 02/09/17 04:00 Elliptocytes Not Reportable 02/09/17 04:00 Acanthocytes (Spur) Not Reportable 02/09/17 04:00 Rouleaux Not Reportable 02/09/17 04:00 Hemoglobin C Crystals Not Reportable 02/09/17 04:00 Schistocytes Rare 02/09/17 04:00 Malaria parasites Not Reportable 02/09/17 04:00 [place] Bodies Not Reportable 02/09/17 04:00 Hem Pathologist Commnt No 02/09/17 04:00 PT 13.3 Sec. (12.2-14.9) 02/06/17 10:15 INR 0.96 (0.87-1.13) 02/06/17 10:15 APTT 24.7 Sec. (24.2-36.6) 02/06/17 10:15 D-Dimer 1213.08 ng/mlDDU (0-234) H 02/06/17 10:15 Heparin Anti-Xa Level 0.43 U.I./ml (0.3-0.7) 02/08/17 04:44 POC ABG pH 7.373 (7.35-7.45) 02/08/17 10:47 POC ABG pCO2 35.3 (35-45) 02/08/17 10:47 POC ABG pO2 99 (80-105) 02/08/17 10:47 POC ABG HCO3 20.6 02/08/17 10:47 POC ABG Total CO2 22 02/08/17 10:47 POC ABG O2 Sat 98 02/08/17 10:47 POC ABG Base Excess -5 02/08/17 10:47 FiO2 30 % 02/08/17 10:47 Sodium 141 mmol/L (137-145) 02/09/17 04:34 Potassium 3.2 mmol/L (3.6-5.0) L D 02/09/17 04:34 Chloride 103.2 mmol/L (98-107) 02/09/17 04:34 Carbon Dioxide 25 mmol/L (22-30) 02/09/17 04:34 Anion Gap 16 mmol/L 02/09/17 04:34 BUN 32 mg/dL (9-20) H 02/09/17 04:34 Creatinine 1.7 mg/dL (0.8-1.5) H 02/09/17 04:34 Estimated GFR 48 ml/min 02/09/17 04:34 BUN/Creatinine Ratio 19 % 02/09/17 04:34 Glucose 134 mg/dL (75-100) H 02/09/17 04:34 POC Glucose 155 (70-105) H 02/07/17 07:53 Calcium 8.2 mg/dL (8.4-10.2) L 02/09/17 04:34 Magnesium 2.10 mg/dL (1.7-2.3) 02/09/17 04:34 Total Bilirubin 0.50 mg/dL (0.1-1.2) 02/06/17 10:15 Direct Bilirubin < 0.2 mg/dL (0-0.2) 02/06/17 10:15 Indirect Bilirubin 0.2 mg/dL 02/06/17 10:15 AST 20 units/L (5-40) 02/06/17 10:15 ALT 12 units/L (7-56) 02/06/17 10:15 Alkaline Phosphatase 52 units/L (35-129) 02/06/17 10:15 Total Creatine Kinase 288 units/L (55-170) H 02/06/17 10:15 CK-MB (CK-2) 7.5 ng/mL (0.0-4.0) H 02/06/17 10:15 CK-MB (CK-2) Rel Index 2.6 (0-4) 02/06/17 10:15 Troponin T 0.039 ng/mL (0.00-0.029) H 02/06/17 10:15 NT-Pro-B Natriuret Pep 304.4 pg/mL (0-900) 02/06/17 10:15 Total Protein 6.3 g/dL (6.3-8.2) 02/06/17 10:15 Albumin 4.1 g/dL (3.9-5) 02/06/17 10:15 Albumin/Globulin Ratio 1.9 % 02/06/17 10:15 Triglycerides 63 mg/dL (2-149) 02/06/17 10:15 Cholesterol 149 mg/dL (50-199) 02/06/17 10:15 LDL Cholesterol Direct 24 mg/dL (50-130) L 02/06/17 10:15 HDL Cholesterol 113 mg/dL (40-59) H 02/06/17 10:15 Cholesterol/HDL Ratio 1.31 % 02/06/17 10:15 Urine Color Yellow (Yellow) 02/06/17 13:01 Urine Turbidity Clear (Clear) 02/06/17 13:01 Urine pH 6.0 (5.0-7.0) 02/06/17 13:01 Ur Specific [place] 1.011 (1.003-1.030) 02/06/17 13:01 Urine Protein <15 mg/dl mg/dL (Negative) 02/06/17 13:01 Urine Glucose (UA) Neg mg/dL (Negative) 02/06/17 13:01 Urine Ketones Neg mg/dL (Negative) 02/06/17 13:01 Urine Blood Neg (Negative) 02/06/17 13:01 Urine Nitrite Neg (Negative) 02/06/17 13:01 Urine Bilirubin Neg (Negative) 02/06/17 13:01 Urine Urobilinogen < 2.0 mg/dL (<2.0) 02/06/17 13:01 Ur Leukocyte Esterase Neg (Negative) 02/06/17 13:01 Urine WBC (Auto) 1.0 /HPF (0.0-6.0) 02/06/17 13:01 Urine RBC (Auto) < 1.0 /HPF (0.0-6.0) 02/06/17 13:01 Urine Mucus Few /HPF 02/06/17 13:01 Urine Creatinine 68.5 mg/dL (0.1-20.0) H 02/06/17 13:01 Urine Sodium 148 mmol/L 02/06/17 13:01
[2017-02-09] MEDS: PRAVACHOL PO SCH (22:26)
[2017-02-10] MEDS: DUONEB *Not for PRN Use IH SCH ×4 (03:04→20:15)
[2017-02-10] MEDS: CARDIZEM PO SCH ×4 (05:53→23:49)
[2017-02-10 06:29] LABS: Hematocrit 30.7 % (35.5-45.6); Hemoglobin 10.5 gm/dl (11.8-15.2); Mean Corpuscular HGB Conc 34 % (32-34); Mean Corpuscular Hemoglobin 32 pg (28-32); Mean Corpuscular Volume 94 fl (84-94); Platelet Count 173 K/mm3 (140-440); Red Blood Count 3.29 M/mm3 (3.65-5.03); Red Cell Distribution Width 15.3 % (13.2-15.2); White Blood Count 11.4 K/mm3 (4.5-11.0)
[2017-02-10 06:50] LABS: Calcium 8.3 mg/dL (8.4-10.2); Chloride 107.1 mmol/L (98-107); Potassium 3.8 mmol/L (3.6-5.0)
--- NOTE | 2017-02-10 08:06 | XRay Report ---
AP CHEST :02/10/17 CLINICAL: Followup respiratory failure. COMPARISON:02/09/17 FINDINGS: Normal heart and pulmonary vasculature. Lungs are hyperexpanded and hyperlucent. No airspace disease or pleural effusion. The bones and soft tissues are normal. IMPRESSION: COPD. No change.
[2017-02-10 08:10] LABS: Blastocytes % (Manual) 0 %
[2017-02-10 08:11] LABS: Acanthocytes Few; Anisocytosis 1+; Basophils % (Manual) 0 % (0.0-1.8); Diff Status Complete; Elliptocytes Few; Eosinophils % (Manual) 0 % (0.0-4.3); Helmet Cells Few; Ovalocytes 1+; Poikilocytosis 1+; Polychromasia Few
[2017-02-10] MEDS: FOLVITE PO SCH (09:58)
[2017-02-10] MEDS: ZITHROMAX PO SCH (09:58)
[2017-02-10] MEDS: VITAMIN B-1 PO SCH (09:58)
[2017-02-10] MEDS: LOVENOX SUB-Q SCH (09:59)
--- NOTE | 2017-02-10 10:30 | Progress Note ---
Assessment and Plan Acute on chronic respiratory failure. Resolved. COPD exacerbation. Controlled Acute tracheobronchitis. Complete antibiotics. No infiltrates on x-rays Malnutrition. Possible secondary to advanced emphysema. Needs nutritional support MAGDALENE Abnormal d-dimer. Cause to be determined Recommendations Ventilation perfusion scan still pending Continue nebs Progress diet as tolerated Complete 7 days ABX VQ scan Subjective Date of service: 02/10/17 Interval history: Patient reported feeling better today. Still some occasional cough and expectoration, some expectoration was to be limited. Getting his nebulizer therapy. No fever Objective Vital Signs - 12hr 02/09/17 02/09/17 02/10/17 23:21 23:50 04:08 Temperature 98.7 F 98.8 F Pulse Rate 99 H 99 H 100 H Pulse Rate [ Anterior Bilateral Throughout] Respiratory 18 18 Rate Respiratory Rate [Anterior Bilateral Throughout] Blood Pressure 153/89 153/89 151/88 O2 Sat by Pulse 99 95 Oximetry 02/10/17 02/10/17 02/10/17 05:53 08:03 08:04 Temperature Pulse Rate 100 H Pulse Rate [ 95 H 95 H Anterior Bilateral Throughout] Respiratory Rate Respiratory 17 18 Rate [Anterior Bilateral Throughout] Blood Pressure 151/88 O2 Sat by Pulse Oximetry 02/10/17 08:05 Temperature Pulse Rate Pulse Rate [ Anterior Bilateral Throughout] Respiratory Rate Respiratory Rate [Anterior Bilateral Throughout] Blood Pressure O2 Sat by Pulse 97 Oximetry Constitutional: no acute distress, alert Eyes: non-icteric ENT: oropharynx moist Neck: no JVD Ascultation: Bilateral: clear, diminished breath sounds (bilateral and equal) Percussion: Bilateral: dull Cardiovascular: regular rate and rhythm Gastrointestinal: normoactive bowel sounds, non-distended Integumentary: normal Extremities: no cyanosis, no edema Neurologic: normal mental status, non-focal exam, pupils equal and round Psychiatric: mood appropriate CBC and BMP: 02/10/17 06:02 02/10/17 06:02 ABG, PT/INR, D-dimer: ABG POC ABG pH 7.373 (7.35-7.45) 02/08/17 10:47 POC ABG pCO2 35.3 (35-45) 02/08/17 10:47 POC ABG pO2 99 (80-105) 02/08/17 10:47 POC ABG HCO3 20.6 02/08/17 10:47 POC ABG Total CO2 22 02/08/17 10:47 POC ABG O2 Sat 98 02/08/17 10:47 PT/INR, D-dimer PT 13.3 Sec. (12.2-14.9) 02/06/17 10:15 INR 0.96 (0.87-1.13) 02/06/17 10:15 D-Dimer 1213.08 ng/mlDDU (0-234) H 02/06/17 10:15 Abnormal lab findings: Abnormal Labs 02/06/17 02/06/17 02/06/17 10:13 10:15 10:15 WBC RBC Hgb Hct MCV 95 H MCH 33 H RDW 15.3 H [place] % (Auto) 12.1 H Eos % (Auto) 7.9 H Eos # 0.6 H Seg Neuts % (Manual) Lymphocytes % (Manual) Seg Neutrophils # Man Lymphocytes # (Manual) D-Dimer 1213.08 H Heparin Anti-Xa Level POC ABG pH POC ABG pCO2 POC ABG pO2 Sodium Potassium Chloride Carbon Dioxide BUN Creatinine Glucose POC Glucose 113 H Calcium Magnesium Total Creatine Kinase CK-MB (CK-2) Troponin T LDL Cholesterol Direct HDL Cholesterol Urine Creatinine 02/06/17 02/06/17 02/06/17 10:15 11:24 13:01 WBC RBC Hgb Hct MCV MCH RDW [place] % (Auto) Eos % (Auto) Eos # Seg Neuts % (Manual) Lymphocytes % (Manual) Seg Neutrophils # Man Lymphocytes # (Manual) D-Dimer Heparin Anti-Xa Level POC ABG pH 7.073 L POC ABG pCO2 85.1 H POC ABG pO2 Sodium Potassium Chloride Carbon Dioxide BUN 24 H Creatinine 1.9 H Glucose 109 H POC Glucose Calcium Magnesium 3.20 H Total Creatine Kinase 288 H CK-MB (CK-2) 7.5 H Troponin T 0.039 H LDL Cholesterol Direct 24 L HDL Cholesterol 113 H Urine Creatinine 68.5 H 02/06/17 02/07/17 02/07/17 14:13 04:26 05:08 WBC RBC Hgb Hct MCV MCH RDW [place] % (Auto) Eos % (Auto) Eos # Seg Neuts % (Manual) Lymphocytes % (Manual) Seg Neutrophils # Man Lymphocytes # (Manual) D-Dimer Heparin Anti-Xa Level 1.30 H POC ABG pH 7.290 L 7.254 L POC ABG pCO2 POC ABG pO2 121 H Sodium Potassium Chloride Carbon Dioxide BUN Creatinine Glucose POC Glucose Calcium Magnesium Total Creatine Kinase CK-MB (CK-2) Troponin T LDL Cholesterol Direct HDL Cholesterol Urine Creatinine 02/07/17 02/07/17 02/07/17 07:53 13:07 13:07 WBC RBC Hgb Hct MCV MCH RDW [place] % (Auto) Eos % (Auto) Eos # Seg Neuts % (Manual) Lymphocytes % (Manual) Seg Neutrophils # Man Lymphocytes # (Manual) D-Dimer Heparin Anti-Xa Level > 2.00 H POC ABG pH POC ABG pCO2 POC ABG pO2 Sodium 132 L Potassium 5.7 H Chloride Carbon Dioxide 19 L BUN 37 H Creatinine 1.9 H Glucose 124 H POC Glucose 155 H Calcium 8.2 L Magnesium Total Creatine Kinase CK-MB (CK-2) Troponin T LDL Cholesterol Direct HDL Cholesterol Urine Creatinine 02/07/17 02/08/17 02/08/17 23:03 04:40 04:40 WBC 12.7 H RBC 3.49 L Hgb 11.5 L Hct 33.6 L MCV 96 H MCH 33 H RDW 15.6 H [place] % (Auto) Eos % (Auto) Eos # Seg Neuts % (Manual) 91.0 H Lymphocytes % (Manual) 4.0 L Seg Neutrophils # Man 11.6 H Lymphocytes # (Manual) 0.5 L D-Dimer Heparin Anti-Xa Level < 0.10 L POC ABG pH POC ABG pCO2 POC ABG pO2 Sodium 135 L Potassium Chloride Carbon Dioxide 19 L BUN 36 H Creatinine 1.9 H Glucose 134 H POC Glucose Calcium 8.2 L Magnesium Total Creatine Kinase CK-MB (CK-2) Troponin T LDL Cholesterol Direct HDL Cholesterol Urine Creatinine 02/09/17 02/09/17 02/10/17 04:00 04:34 06:02 WBC 12.2 H 11.4 H RBC 3.37 L 3.29 L Hgb 10.9 L 10.5 L Hct 32.0 L 30.7 L MCV 95 H MCH RDW 15.7 H 15.3 H [place] % (Auto) Eos % (Auto) Eos # Seg Neuts % (Manual) 94.0 H 94.0 H Lymphocytes % (Manual) 2.0 L 4.0 L Seg Neutrophils # Man 11.5 H 10.7 H Lymphocytes # (Manual) 0.2 L 0.5 L D-Dimer Heparin Anti-Xa Level POC ABG pH POC ABG pCO2 POC ABG pO2 Sodium Potassium 3.2 L D Chloride Carbon Dioxide BUN 32 H Creatinine 1.7 H Glucose 134 H POC Glucose Calcium 8.2 L Magnesium Total Creatine Kinase CK-MB (CK-2) Troponin T LDL Cholesterol Direct HDL Cholesterol Urine Creatinine 02/10/17 06:02 WBC RBC Hgb Hct MCV MCH RDW [place] % (Auto) Eos % (Auto) Eos # Seg Neuts % (Manual) Lymphocytes % (Manual) Seg Neutrophils # Man Lymphocytes # (Manual) D-Dimer Heparin Anti-Xa Level POC ABG pH POC ABG pCO2 POC ABG pO2 Sodium Potassium Chloride 107.1 H Carbon Dioxide BUN 30 H Creatinine 1.7 H Glucose 133 H POC Glucose Calcium 8.3 L Magnesium Total Creatine Kinase CK-MB (CK-2) Troponin T LDL Cholesterol Direct HDL Cholesterol Urine Creatinine Chest x-ray: report reviewed, image reviewed
--- NOTE | 2017-02-10 19:05 | Progress Note ---
Assessment and Plan Assessment and plan: --Generalized weakness/debility; secondary to ICU stay, status post intubation Supportive care, physical therapy occupational therapy, possible subacute rehabilitation/SNF placement -- Acute hypoxic respiratory failure : Requiring intubation on mechanical ventilation, s/p extubation continue nebulizers, Bipap as needed, IV steroids, empiric antibiotics, supportive care, Follow cultures Soft diet , advance as tolerated --Acute exacerbation of COPD : Oxygen support, nebulizers, IV steroids, supportive care --Acute pneumonitis; continue current antibiotic, Zithromax, follow cultures --Elevated d-dimer; lower extremity venous Doppler negative for DVT , negative for PE DC heparin drip --Acute kidney injury; vasomotor nephropathy, trending down closely monitor renal function,avoid nephrotoxins --Hyperkalemia; corrected --DVT prophylaxis; Lovenox --Full CODE STATUS Physical therapy occupational therapy --DC planning. Case management History Interval history: Patient complains of generalized weak Looks tired, denies chest pain or shortness of breath on nasal cannula oxygen Vital signs reviewed stable Hospitalist Physical - Constitutional Vitals: Temp Pulse Resp BP Pulse Ox 98.4 F 93 H 17 155/91 97 02/10/17 07:12 02/10/17 15:17 02/10/17 15:17 02/10/17 07:12 02/10/17 08:05 General appearance: Present: no acute distress, cachectic, other (tired) - EENT Eyes: Present: PERRL, EOM intact - Neck Neck: Present: supple, normal ROM - Respiratory Respiratory effort: normal Respiratory: bilateral: diminished, rhonchi, negative: rales, wheezing - Cardiovascular Rhythm: regular Heart Sounds: Present: S1 & S2 - Extremities Extremities: no ischemia, No edema - Abdominal General gastrointestinal: soft, non-tender, non-distended, normal bowel sounds - Integumentary Integumentary: Present: clear, warm - Psychiatric Psychiatric: appropriate mood/affect, cooperative - Neurologic Neurologic: CNII-XII intact, moves all extremities Results - Labs CBC & Chem 7: 02/10/17 06:02 02/10/17 06:02 Labs: Laboratory Last Values WBC 11.4 K/mm3 (4.5-11.0) H 02/10/17 06:02 RBC 3.29 M/mm3 (3.65-5.03) L 02/10/17 06:02 Hgb 10.5 gm/dl (11.8-15.2) L 02/10/17 06:02 Hct 30.7 % (35.5-45.6) L 02/10/17 06:02 MCV 94 fl (84-94) 02/10/17 06:02 MCH 32 pg (28-32) 02/10/17 06:02 MCHC 34 % (32-34) 02/10/17 06:02 RDW 15.3 % (13.2-15.2) H 02/10/17 06:02 Plt Count 173 K/mm3 (140-440) 02/10/17 06:02 Lymph % (Auto) 34.4 % (13.4-35.0) 02/06/17 10:15 [place] % (Auto) 12.1 % (0.0-7.3) H 02/06/17 10:15 Eos % (Auto) 7.9 % (0.0-4.3) H 02/06/17 10:15 Baso % (Auto) 0.9 % (0.0-1.8) 02/06/17 10:15 Lymph # 2.4 K/mm3 (1.2-5.4) 02/06/17 10:15 [place] # 0.8 K/mm3 (0.0-0.8) 02/06/17 10:15 Eos # 0.6 K/mm3 (0.0-0.4) H 02/06/17 10:15 Baso # 0.1 K/mm3 (0.0-0.1) 02/06/17 10:15 Add Manual Diff Complete 02/10/17 06:02 Total Counted 100 02/10/17 06:02 Seg Neutrophils % [employer] 02/10/17 06:02 Seg Neuts % (Manual) 94.0 % (40.0-70.0) H 02/10/17 06:02 Band Neutrophils % 1.0 % 02/10/17 06:02 Lymphocytes % (Manual) 4.0 % (13.4-35.0) L 02/10/17 06:02 Reactive Lymphs % (Man) 0 % 02/10/17 06:02 Monocytes % (Manual) 1.0 % (0.0-7.3) 02/10/17 06:02 Eosinophils % (Manual) 0 % (0.0-4.3) 02/10/17 06:02 Basophils % (Manual) 0 % (0.0-1.8) 02/10/17 06:02 Metamyelocytes % 0 % 02/10/17 06:02 Myelocytes % 0 % 02/10/17 06:02 Promyelocytes % 0 % 02/10/17 06:02 Blast Cells % 0 % 02/10/17 06:02 Nucleated RBC % Not Reportable 02/10/17 06:02 Seg Neutrophils # 3.1 K/mm3 (1.8-7.7) 02/06/17 10:15 Seg Neutrophils # Man 10.7 K/mm3 (1.8-7.7) H 02/10/17 06:02 Band Neutrophils # 0.1 K/mm3 02/10/17 06:02 Lymphocytes # (Manual) 0.5 K/mm3 (1.2-5.4) L 02/10/17 06:02 Abs React Lymphs (Man) 0.0 K/mm3 02/10/17 06:02 Monocytes # (Manual) 0.1 K/mm3 (0.0-0.8) 02/10/17 06:02 Eosinophils # (Manual) 0.0 K/mm3 (0.0-0.4) 02/10/17 06:02 Basophils # (Manual) 0.0 K/mm3 (0.0-0.1) 02/10/17 06:02 Metamyelocytes # 0.0 K/mm3 02/10/17 06:02 Myelocytes # 0.0 K/mm3 02/10/17 06:02 Promyelocytes # 0.0 K/mm3 02/10/17 06:02 Blast Cells # 0.0 K/mm3 02/10/17 06:02 WBC Morphology Not Reportable 02/10/17 06:02 Hypersegmented Neuts Not Reportable 02/10/17 06:02 Hyposegmented Neuts Not Reportable 02/10/17 06:02 Hypogranular Neuts Not Reportable 02/10/17 06:02 Smudge Cells Not Reportable 02/10/17 06:02 Toxic Granulation Not Reportable 02/10/17 06:02 Toxic Vacuolation Not Reportable 02/10/17 06:02 Dohle Bodies Not Reportable 02/10/17 06:02 Pelger-Huet Anomaly Not Reportable 02/10/17 06:02 Timothy Rods Not Reportable 02/10/17 06:02 Platelet Estimate Appears normal 02/10/17 06:02 Clumped Platelets Not Reportable 02/10/17 06:02 Plt Clumps, EDTA Not Reportable 02/10/17 06:02 Large Platelets Not Reportable 02/10/17 06:02 Giant Platelets Not Reportable 02/10/17 06:02 Platelet Satelliting Not Reportable 02/10/17 06:02 Plt Morphology Comment Not Reportable 02/10/17 06:02 RBC Morphology Not Reportable 02/10/17 06:02 Dimorphic RBCs Not Reportable 02/10/17 06:02 Polychromasia Few 02/10/17 06:02 Hypochromasia Not Reportable 02/10/17 06:02 Poikilocytosis 1+ 02/10/17 06:02 Anisocytosis 1+ 02/10/17 06:02 Microcytosis Not Reportable 02/10/17 06:02 Macrocytosis Not Reportable 02/10/17 06:02 Spherocytes Not Reportable 02/10/17 06:02 Pappenheimer Bodies Not Reportable 02/10/17 06:02 Sickle Cells Not Reportable 02/10/17 06:02 Target Cells Not Reportable 02/10/17 06:02 Tear Drop Cells Not Reportable 02/10/17 06:02 Ovalocytes 1+ 02/10/17 06:02 Helmet Cells Few 02/10/17 06:02 Choudhury-Desha Bodies Not Reportable 02/10/17 06:02 [place] Rings Not Reportable 02/10/17 06:02 Luis Cells Not Reportable 02/10/17 06:02 Bite Cells Not Reportable 02/10/17 06:02 Crenated Cell Not Reportable 02/10/17 06:02 Elliptocytes Few 02/10/17 06:02 Acanthocytes (Spur) Few 02/10/17 06:02 Rouleaux Not Reportable 02/10/17 06:02 Hemoglobin C Crystals Not Reportable 02/10/17 06:02 Schistocytes Not Reportable 02/10/17 06:02 Malaria parasites Not Reportable 02/10/17 06:02 [place] Bodies Not Reportable 02/10/17 06:02 Hem Pathologist Commnt No 02/10/17 06:02 PT 13.3 Sec. (12.2-14.9) 02/06/17 10:15 INR 0.96 (0.87-1.13) 02/06/17 10:15 APTT 24.7 Sec. (24.2-36.6) 02/06/17 10:15 D-Dimer 1213.08 ng/mlDDU (0-234) H 02/06/17 10:15 Heparin Anti-Xa Level 0.43 U.I./ml (0.3-0.7) 02/08/17 04:44 POC ABG pH 7.373 (7.35-7.45) 02/08/17 10:47 POC ABG pCO2 35.3 (35-45) 02/08/17 10:47 POC ABG pO2 99 (80-105) 02/08/17 10:47 POC ABG HCO3 20.6 02/08/17 10:47 POC ABG Total CO2 22 02/08/17 10:47 POC ABG O2 Sat 98 02/08/17 10:47 POC ABG Base Excess -5 02/08/17 10:47 FiO2 30 % 02/08/17 10:47 Sodium 144 mmol/L (137-145) 02/10/17 06:02 Potassium 3.8 mmol/L (3.6-5.0) 02/10/17 06:02 Chloride 107.1 mmol/L (98-107) H 02/10/17 06:02 Carbon Dioxide 25 mmol/L (22-30) 02/10/17 06:02 Anion Gap 16 mmol/L 02/10/17 06:02 BUN 30 mg/dL (9-20) H 02/10/17 06:02 Creatinine 1.7 mg/dL (0.8-1.5) H 02/10/17 06:02 Estimated GFR 48 ml/min 02/10/17 06:02 BUN/Creatinine Ratio 18 % 02/10/17 06:02 Glucose 133 mg/dL (75-100) H 02/10/17 06:02 POC Glucose 155 (70-105) H 02/07/17 07:53 Calcium 8.3 mg/dL (8.4-10.2) L 02/10/17 06:02 Magnesium 2.10 mg/dL (1.7-2.3) 02/09/17 04:34 Total Bilirubin 0.50 mg/dL (0.1-1.2) 02/06/17 10:15 Direct Bilirubin < 0.2 mg/dL (0-0.2) 02/06/17 10:15 Indirect Bilirubin 0.2 mg/dL 02/06/17 10:15 AST 20 units/L (5-40) 02/06/17 10:15 ALT 12 units/L (7-56) 02/06/17 10:15 Alkaline Phosphatase 52 units/L (35-129) 02/06/17 10:15 Total Creatine Kinase 288 units/L (55-170) H 02/06/17 10:15 CK-MB (CK-2) 7.5 ng/mL (0.0-4.0) H 02/06/17 10:15 CK-MB (CK-2) Rel Index 2.6 (0-4) 02/06/17 10:15 Troponin T 0.039 ng/mL (0.00-0.029) H 02/06/17 10:15 NT-Pro-B Natriuret Pep 304.4 pg/mL (0-900) 02/06/17 10:15 Total Protein 6.3 g/dL (6.3-8.2) 02/06/17 10:15 Albumin 4.1 g/dL (3.9-5) 02/06/17 10:15 Albumin/Globulin Ratio 1.9 % 02/06/17 10:15 Triglycerides 63 mg/dL (2-149) 02/06/17 10:15 Cholesterol 149 mg/dL (50-199) 02/06/17 10:15 LDL Cholesterol Direct 24 mg/dL (50-130) L 02/06/17 10:15 HDL Cholesterol 113 mg/dL (40-59) H 02/06/17 10:15 Cholesterol/HDL Ratio 1.31 % 02/06/17 10:15 Urine Color Yellow (Yellow) 02/06/17 13:01 Urine Turbidity Clear (Clear) 02/06/17 13:01 Urine pH 6.0 (5.0-7.0) 02/06/17 13:01 Ur Specific [place] 1.011 (1.003-1.030) 02/06/17 13:01 Urine Protein <15 mg/dl mg/dL (Negative) 02/06/17 13:01 Urine Glucose (UA) Neg mg/dL (Negative) 02/06/17 13:01 Urine Ketones Neg mg/dL (Negative) 02/06/17 13:01 Urine Blood Neg (Negative) 02/06/17 13:01 Urine Nitrite Neg (Negative) 02/06/17 13:01 Urine Bilirubin Neg (Negative) 02/06/17 13:01 Urine Urobilinogen < 2.0 mg/dL (<2.0) 02/06/17 13:01 Ur Leukocyte Esterase Neg (Negative) 02/06/17 13:01 Urine WBC (Auto) 1.0 /HPF (0.0-6.0) 02/06/17 13:01 Urine RBC (Auto) < 1.0 /HPF (0.0-6.0) 02/06/17 13:01 Urine Mucus Few /HPF 02/06/17 13:01 Urine Creatinine 68.5 mg/dL (0.1-20.0) H 02/06/17 13:01 Urine Sodium 148 mmol/L 02/06/17 13:01
[2017-02-10] MEDS: PRAVACHOL PO SCH (22:08)
[2017-02-11] MEDS: DUONEB *Not for PRN Use IH SCH ×4 (01:45→21:02)
[2017-02-11] MEDS: CARDIZEM PO SCH ×3 (05:17→17:41)
[2017-02-11 06:32] LABS: Calcium 8.6 mg/dL (8.4-10.2); Potassium 3.9 mmol/L (3.6-5.0)
[2017-02-11] MEDS: FOLVITE PO SCH (10:03)
[2017-02-11] MEDS: ZITHROMAX PO SCH (10:03)
[2017-02-11] MEDS: LOVENOX SUB-Q SCH (10:04)
[2017-02-11] MEDS: VITAMIN B-1 PO SCH (10:04)
--- NOTE | 2017-02-11 11:08 | Progress Note ---
Assessment and Plan Acute on chronic respiratory failure. Resolved. COPD exacerbation. Controlled Acute tracheobronchitis. Completing antibiotics. No infiltrates on x-rays Malnutrition. Possible secondary to advanced emphysema. Needs nutritional support MAGDALENE Abnormal d-dimer. VQ , Doppler evaluation normal Recommendations Continue nebs prn Oxygen support as needed Symbicort or Breo plus Spiriva at D/H time. i believe this [facility]. Continue nutritional support Complete 7 days ABX Subjective Date of service: 02/11/17 Interval history: feels better. No respiratory complains Objective Vital Signs - 12hr 02/10/17 02/10/17 02/11/17 23:46 23:49 01:45 Temperature 99.2 F Pulse Rate 98 H 81 Pulse Rate [ 94 H Anterior Bilateral Throughout] Respiratory 18 Rate Respiratory 21 Rate [Anterior Bilateral Throughout] Blood Pressure 149/92 149/92 O2 Sat by Pulse 100 Oximetry 02/11/17 02/11/17 02/11/17 01:56 04:16 05:17 Temperature 98.5 F Pulse Rate 92 H 91 H Pulse Rate [ 98 H Anterior Bilateral Throughout] Respiratory 18 Rate Respiratory 18 Rate [Anterior Bilateral Throughout] Blood Pressure 156/93 156/93 O2 Sat by Pulse 98 Oximetry 02/11/17 02/11/17 02/11/17 06:57 07:12 07:19 Temperature 98.4 F Pulse Rate 90 Pulse Rate [ 91 H 91 H Anterior Bilateral Throughout] Respiratory 19 Rate Respiratory 20 20 Rate [Anterior Bilateral Throughout] Blood Pressure 156/87 O2 Sat by Pulse 100 97 Oximetry Constitutional: no acute distress, alert Eyes: non-icteric ENT: oropharynx moist Neck: no JVD Ascultation: Bilateral: clear, diminished breath sounds (bilateral and equal) Cardiovascular: regular rate and rhythm Gastrointestinal: normoactive bowel sounds, non-distended Integumentary: normal Extremities: no cyanosis, no edema Neurologic: normal mental status, non-focal exam, pupils equal and round Psychiatric: mood appropriate CBC and BMP: 02/10/17 06:02 02/11/17 05:54 ABG, PT/INR, D-dimer: ABG POC ABG pH 7.373 (7.35-7.45) 02/08/17 10:47 POC ABG pCO2 35.3 (35-45) 02/08/17 10:47 POC ABG pO2 99 (80-105) 02/08/17 10:47 POC ABG HCO3 20.6 02/08/17 10:47 POC ABG Total CO2 22 02/08/17 10:47 POC ABG O2 Sat 98 02/08/17 10:47 PT/INR, D-dimer PT 13.3 Sec. (12.2-14.9) 02/06/17 10:15 INR 0.96 (0.87-1.13) 02/06/17 10:15 D-Dimer 1213.08 ng/mlDDU (0-234) H 02/06/17 10:15 Abnormal lab findings: Abnormal Labs 02/06/17 02/06/17 02/06/17 10:13 10:15 10:15 WBC RBC Hgb Hct MCV 95 H MCH 33 H RDW 15.3 H [place] % (Auto) 12.1 H Eos % (Auto) 7.9 H Eos # 0.6 H Seg Neuts % (Manual) Lymphocytes % (Manual) Seg Neutrophils # Man Lymphocytes # (Manual) D-Dimer 1213.08 H Heparin Anti-Xa Level POC ABG pH POC ABG pCO2 POC ABG pO2 Sodium Potassium Chloride Carbon Dioxide BUN Creatinine Glucose POC Glucose 113 H Calcium Magnesium Total Creatine Kinase CK-MB (CK-2) Troponin T LDL Cholesterol Direct HDL Cholesterol Urine Creatinine 02/06/17 02/06/17 02/06/17 10:15 11:24 13:01 WBC RBC Hgb Hct MCV MCH RDW [place] % (Auto) Eos % (Auto) Eos # Seg Neuts % (Manual) Lymphocytes % (Manual) Seg Neutrophils # Man Lymphocytes # (Manual) D-Dimer Heparin Anti-Xa Level POC ABG pH 7.073 L POC ABG pCO2 85.1 H POC ABG pO2 Sodium Potassium Chloride Carbon Dioxide BUN 24 H Creatinine 1.9 H Glucose 109 H POC Glucose Calcium Magnesium 3.20 H Total Creatine Kinase 288 H CK-MB (CK-2) 7.5 H Troponin T 0.039 H LDL Cholesterol Direct 24 L HDL Cholesterol 113 H Urine Creatinine 68.5 H 02/06/17 02/07/17 02/07/17 14:13 04:26 05:08 WBC RBC Hgb Hct MCV MCH RDW [place] % (Auto) Eos % (Auto) Eos # Seg Neuts % (Manual) Lymphocytes % (Manual) Seg Neutrophils # Man Lymphocytes # (Manual) D-Dimer Heparin Anti-Xa Level 1.30 H POC ABG pH 7.290 L 7.254 L POC ABG pCO2 POC ABG pO2 121 H Sodium Potassium Chloride Carbon Dioxide BUN Creatinine Glucose POC Glucose Calcium Magnesium Total Creatine Kinase CK-MB (CK-2) Troponin T LDL Cholesterol Direct HDL Cholesterol Urine Creatinine 02/07/17 02/07/17 02/07/17 07:53 13:07 13:07 WBC RBC Hgb Hct MCV MCH RDW [place] % (Auto) Eos % (Auto) Eos # Seg Neuts % (Manual) Lymphocytes % (Manual) Seg Neutrophils # Man Lymphocytes # (Manual) D-Dimer Heparin Anti-Xa Level > 2.00 H POC ABG pH POC ABG pCO2 POC ABG pO2 Sodium 132 L Potassium 5.7 H Chloride Carbon Dioxide 19 L BUN 37 H Creatinine 1.9 H Glucose 124 H POC Glucose 155 H Calcium 8.2 L Magnesium Total Creatine Kinase CK-MB (CK-2) Troponin T LDL Cholesterol Direct HDL Cholesterol Urine Creatinine 02/07/17 02/08/17 02/08/17 23:03 04:40 04:40 WBC 12.7 H RBC 3.49 L Hgb 11.5 L Hct 33.6 L MCV 96 H MCH 33 H RDW 15.6 H [place] % (Auto) Eos % (Auto) Eos # Seg Neuts % (Manual) 91.0 H Lymphocytes % (Manual) 4.0 L Seg Neutrophils # Man 11.6 H Lymphocytes # (Manual) 0.5 L D-Dimer Heparin Anti-Xa Level < 0.10 L POC ABG pH POC ABG pCO2 POC ABG pO2 Sodium 135 L Potassium Chloride Carbon Dioxide 19 L BUN 36 H Creatinine 1.9 H Glucose 134 H POC Glucose Calcium 8.2 L Magnesium Total Creatine Kinase CK-MB (CK-2) Troponin T LDL Cholesterol Direct HDL Cholesterol Urine Creatinine 02/09/17 02/09/17 02/10/17 04:00 04:34 06:02 WBC 12.2 H 11.4 H RBC 3.37 L 3.29 L Hgb 10.9 L 10.5 L Hct 32.0 L 30.7 L MCV 95 H MCH RDW 15.7 H 15.3 H [place] % (Auto) Eos % (Auto) Eos # Seg Neuts % (Manual) 94.0 H 94.0 H Lymphocytes % (Manual) 2.0 L 4.0 L Seg Neutrophils # Man 11.5 H 10.7 H Lymphocytes # (Manual) 0.2 L 0.5 L D-Dimer Heparin Anti-Xa Level POC ABG pH POC ABG pCO2 POC ABG pO2 Sodium Potassium 3.2 L D Chloride Carbon Dioxide BUN 32 H Creatinine 1.7 H Glucose 134 H POC Glucose Calcium 8.2 L Magnesium Total Creatine Kinase CK-MB (CK-2) Troponin T LDL Cholesterol Direct HDL Cholesterol Urine Creatinine 02/10/17 02/11/17 06:02 05:54 WBC RBC Hgb Hct MCV MCH RDW [place] % (Auto) Eos % (Auto) Eos # Seg Neuts % (Manual) Lymphocytes % (Manual) Seg Neutrophils # Man Lymphocytes # (Manual) D-Dimer Heparin Anti-Xa Level POC ABG pH POC ABG pCO2 POC ABG pO2 Sodium Potassium Chloride 107.1 H Carbon Dioxide BUN 30 H 34 H Creatinine 1.7 H 1.9 H Glucose 133 H 128 H POC Glucose Calcium 8.3 L Magnesium Total Creatine Kinase CK-MB (CK-2) Troponin T LDL Cholesterol Direct HDL Cholesterol Urine Creatinine
[2017-02-11] MEDS: APRESOLINE IV PRN (17:46)
--- NOTE | 2017-02-11 19:01 | Progress Note ---
Assessment and Plan Assessment and plan: -- Acute hypoxic respiratory failure : Requiring intubation on mechanical ventilation, s/p extubation continue nebulizers, Bipap as needed, IV steroids, empiric antibiotics, supportive care, Follow cultures Soft diet , advance as tolerated --Generalized weakness/debility; significant improvement Supportive care, physical therapy occupational therapy, possible subacute rehabilitation/SNF placement --Acute exacerbation of COPD : Oxygen support, nebulizers, IV steroids, supportive care --Acute pneumonitis; continue current antibiotic, Zithromax, follow cultures --Elevated d-dimer; lower extremity venous Doppler negative for DVT , negative for PE DC heparin drip --Acute kidney injury; vasomotor nephropathy, trending down closely monitor renal function,avoid nephrotoxins --Hyperkalemia; corrected --DVT prophylaxis; Lovenox --Full CODE STATUS Physical therapy occupational therapy --DC planning. Case management Possible home with home PT and medically stable Plan of care discussed with the patient and the family member at the bedside History Interval history: Patient seen and examined medical records reviewed Patient feels a lot better today, received physical therapy Alert and awake, no new complaints Hospitalist Physical - Constitutional Vitals: Temp Pulse Resp BP Pulse Ox 98.4 F 104 H 18 176/97 98 02/11/17 15:46 02/11/17 15:46 02/11/17 15:46 02/11/17 15:46 02/11/17 15:46 General appearance: Present: no acute distress, cachectic, other (tired) - EENT Eyes: Present: PERRL, EOM intact - Neck Neck: Present: supple, normal ROM - Respiratory Respiratory effort: normal Respiratory: bilateral: diminished, negative: rales, rhonchi, wheezing - Cardiovascular Rhythm: regular Heart Sounds: Present: S1 & S2 - Extremities Extremities: no ischemia, No edema - Abdominal General gastrointestinal: soft, non-tender, non-distended, normal bowel sounds - Integumentary Integumentary: Present: clear, warm - Psychiatric Psychiatric: appropriate mood/affect, cooperative - Neurologic Neurologic: CNII-XII intact, moves all extremities Results - Labs CBC & Chem 7: 02/10/17 06:02 02/11/17 05:54 Labs: Laboratory Last Values WBC 11.4 K/mm3 (4.5-11.0) H 02/10/17 06:02 RBC 3.29 M/mm3 (3.65-5.03) L 02/10/17 06:02 Hgb 10.5 gm/dl (11.8-15.2) L 02/10/17 06:02 Hct 30.7 % (35.5-45.6) L 02/10/17 06:02 MCV 94 fl (84-94) 02/10/17 06:02 MCH 32 pg (28-32) 02/10/17 06:02 MCHC 34 % (32-34) 02/10/17 06:02 RDW 15.3 % (13.2-15.2) H 02/10/17 06:02 Plt Count 173 K/mm3 (140-440) 02/10/17 06:02 Lymph % (Auto) 34.4 % (13.4-35.0) 02/06/17 10:15 [place] % (Auto) 12.1 % (0.0-7.3) H 02/06/17 10:15 Eos % (Auto) 7.9 % (0.0-4.3) H 02/06/17 10:15 Baso % (Auto) 0.9 % (0.0-1.8) 02/06/17 10:15 Lymph # 2.4 K/mm3 (1.2-5.4) 02/06/17 10:15 [place] # 0.8 K/mm3 (0.0-0.8) 02/06/17 10:15 Eos # 0.6 K/mm3 (0.0-0.4) H 02/06/17 10:15 Baso # 0.1 K/mm3 (0.0-0.1) 02/06/17 10:15 Add Manual Diff Complete 02/10/17 06:02 Total Counted 100 02/10/17 06:02 Seg Neutrophils % [employer]uring Technician 02/10/17 06:02 Seg Neuts % (Manual) 94.0 % (40.0-70.0) H 02/10/17 06:02 Band Neutrophils % 1.0 % 02/10/17 06:02 Lymphocytes % (Manual) 4.0 % (13.4-35.0) L 02/10/17 06:02 Reactive Lymphs % (Man) 0 % 02/10/17 06:02 Monocytes % (Manual) 1.0 % (0.0-7.3) 02/10/17 06:02 Eosinophils % (Manual) 0 % (0.0-4.3) 02/10/17 06:02 Basophils % (Manual) 0 % (0.0-1.8) 02/10/17 06:02 Metamyelocytes % 0 % 02/10/17 06:02 Myelocytes % 0 % 02/10/17 06:02 Promyelocytes % 0 % 02/10/17 06:02 Blast Cells % 0 % 02/10/17 06:02 Nucleated RBC % Not Reportable 02/10/17 06:02 Seg Neutrophils # 3.1 K/mm3 (1.8-7.7) 02/06/17 10:15 Seg Neutrophils # Man 10.7 K/mm3 (1.8-7.7) H 02/10/17 06:02 Band Neutrophils # 0.1 K/mm3 02/10/17 06:02 Lymphocytes # (Manual) 0.5 K/mm3 (1.2-5.4) L 02/10/17 06:02 Abs React Lymphs (Man) 0.0 K/mm3 02/10/17 06:02 Monocytes # (Manual) 0.1 K/mm3 (0.0-0.8) 02/10/17 06:02 Eosinophils # (Manual) 0.0 K/mm3 (0.0-0.4) 02/10/17 06:02 Basophils # (Manual) 0.0 K/mm3 (0.0-0.1) 02/10/17 06:02 Metamyelocytes # 0.0 K/mm3 02/10/17 06:02 Myelocytes # 0.0 K/mm3 02/10/17 06:02 Promyelocytes # 0.0 K/mm3 02/10/17 06:02 Blast Cells # 0.0 K/mm3 02/10/17 06:02 WBC Morphology Not Reportable 02/10/17 06:02 Hypersegmented Neuts Not Reportable 02/10/17 06:02 Hyposegmented Neuts Not Reportable 02/10/17 06:02 Hypogranular Neuts Not Reportable 02/10/17 06:02 Smudge Cells Not Reportable 02/10/17 06:02 Toxic Granulation Not Reportable 02/10/17 06:02 Toxic Vacuolation Not Reportable 02/10/17 06:02 Dohle Bodies Not Reportable 02/10/17 06:02 Pelger-Huet Anomaly Not Reportable 02/10/17 06:02 Timothy Rods Not Reportable 02/10/17 06:02 Platelet Estimate Appears normal 02/10/17 06:02 Clumped Platelets Not Reportable 02/10/17 06:02 Plt Clumps, EDTA Not Reportable 02/10/17 06:02 Large Platelets Not Reportable 02/10/17 06:02 Giant Platelets Not Reportable 02/10/17 06:02 Platelet Satelliting Not Reportable 02/10/17 06:02 Plt Morphology Comment Not Reportable 02/10/17 06:02 RBC Morphology Not Reportable 02/10/17 06:02 Dimorphic RBCs Not Reportable 02/10/17 06:02 Polychromasia Few 02/10/17 06:02 Hypochromasia Not Reportable 02/10/17 06:02 Poikilocytosis 1+ 02/10/17 06:02 Anisocytosis 1+ 02/10/17 06:02 Microcytosis Not Reportable 02/10/17 06:02 Macrocytosis Not Reportable 02/10/17 06:02 Spherocytes Not Reportable 02/10/17 06:02 Pappenheimer Bodies Not Reportable 02/10/17 06:02 Sickle Cells Not Reportable 02/10/17 06:02 Target Cells Not Reportable 02/10/17 06:02 Tear Drop Cells Not Reportable 02/10/17 06:02 Ovalocytes 1+ 02/10/17 06:02 Helmet Cells Few 02/10/17 06:02 Choudhury-[place] Bodies Not Reportable 02/10/17 06:02 [place] Rings Not Reportable 02/10/17 06:02 [employer] Cells Not Reportable 02/10/17 06:02 Bite Cells Not Reportable 02/10/17 06:02 Crenated Cell Not Reportable 02/10/17 06:02 Elliptocytes Few 02/10/17 06:02 Acanthocytes (Spur) Few 02/10/17 06:02 Rouleaux Not Reportable 02/10/17 06:02 Hemoglobin C Crystals Not Reportable 02/10/17 06:02 Schistocytes Not Reportable 02/10/17 06:02 Malaria parasites Not Reportable 02/10/17 06:02 [place] Bodies Not Reportable 02/10/17 06:02 Hem Pathologist Commnt No 02/10/17 06:02 PT 13.3 Sec. (12.2-14.9) 02/06/17 10:15 INR 0.96 (0.87-1.13) 02/06/17 10:15 APTT 24.7 Sec. (24.2-36.6) 02/06/17 10:15 D-Dimer 1213.08 ng/mlDDU (0-234) H 02/06/17 10:15 Heparin Anti-Xa Level 0.43 U.I./ml (0.3-0.7) 02/08/17 04:44 POC ABG pH 7.373 (7.35-7.45) 02/08/17 10:47 POC ABG pCO2 35.3 (35-45) 02/08/17 10:47 POC ABG pO2 99 (80-105) 02/08/17 10:47 POC ABG HCO3 20.6 02/08/17 10:47 POC ABG Total CO2 22 02/08/17 10:47 POC ABG O2 Sat 98 02/08/17 10:47 POC ABG Base Excess -5 02/08/17 10:47 FiO2 30 % 02/08/17 10:47 Sodium 144 mmol/L (137-145) 02/11/17 05:54 Potassium 3.9 mmol/L (3.6-5.0) 02/11/17 05:54 Chloride 107.0 mmol/L (98-107) 02/11/17 05:54 Carbon Dioxide 25 mmol/L (22-30) 02/11/17 05:54 Anion Gap 16 mmol/L 02/11/17 05:54 BUN 34 mg/dL (9-20) H 02/11/17 05:54 Creatinine 1.9 mg/dL (0.8-1.5) H 02/11/17 05:54 Estimated GFR 43 ml/min 02/11/17 05:54 BUN/Creatinine Ratio 18 % 02/11/17 05:54 Glucose 128 mg/dL (75-100) H 02/11/17 05:54 POC Glucose 155 (70-105) H 02/07/17 07:53 Calcium 8.6 mg/dL (8.4-10.2) 02/11/17 05:54 Magnesium 2.10 mg/dL (1.7-2.3) 02/09/17 04:34 Total Bilirubin 0.50 mg/dL (0.1-1.2) 02/06/17 10:15 Direct Bilirubin < 0.2 mg/dL (0-0.2) 02/06/17 10:15 Indirect Bilirubin 0.2 mg/dL 02/06/17 10:15 AST 20 units/L (5-40) 02/06/17 10:15 ALT 12 units/L (7-56) 02/06/17 10:15 Alkaline Phosphatase 52 units/L (35-129) 02/06/17 10:15 Total Creatine Kinase 288 units/L (55-170) H 02/06/17 10:15 CK-MB (CK-2) 7.5 ng/mL (0.0-4.0) H 02/06/17 10:15 CK-MB (CK-2) Rel Index 2.6 (0-4) 02/06/17 10:15 Troponin T 0.039 ng/mL (0.00-0.029) H 02/06/17 10:15 NT-Pro-B Natriuret Pep 304.4 pg/mL (0-900) 02/06/17 10:15 Total Protein 6.3 g/dL (6.3-8.2) 02/06/17 10:15 Albumin 4.1 g/dL (3.9-5) 02/06/17 10:15 Albumin/Globulin Ratio 1.9 % 02/06/17 10:15 Triglycerides 63 mg/dL (2-149) 02/06/17 10:15 Cholesterol 149 mg/dL (50-199) 02/06/17 10:15 LDL Cholesterol Direct 24 mg/dL (50-130) L 02/06/17 10:15 HDL Cholesterol 113 mg/dL (40-59) H 02/06/17 10:15 Cholesterol/HDL Ratio 1.31 % 02/06/17 10:15 Urine Color Yellow (Yellow) 02/06/17 13:01 Urine Turbidity Clear (Clear) 02/06/17 13:01 Urine pH 6.0 (5.0-7.0) 02/06/17 13:01 Ur Specific [place] 1.011 (1.003-1.030) 02/06/17 13:01 Urine Protein <15 mg/dl mg/dL (Negative) 02/06/17 13:01 Urine Glucose (UA) Neg mg/dL (Negative) 02/06/17 13:01 Urine Ketones Neg mg/dL (Negative) 02/06/17 13:01 Urine Blood Neg (Negative) 02/06/17 13:01 Urine Nitrite Neg (Negative) 02/06/17 13:01 Urine Bilirubin Neg (Negative) 02/06/17 13:01 Urine Urobilinogen < 2.0 mg/dL (<2.0) 02/06/17 13:01 Ur Leukocyte Esterase Neg (Negative) 02/06/17 13:01 Urine WBC (Auto) 1.0 /HPF (0.0-6.0) 02/06/17 13:01 Urine RBC (Auto) < 1.0 /HPF (0.0-6.0) 02/06/17 13:01 Urine Mucus Few /HPF 02/06/17 13:01 Urine Creatinine 68.5 mg/dL (0.1-20.0) H 02/06/17 13:01 Urine Sodium 148 mmol/L 02/06/17 13:01
[2017-02-11] MEDS: PRAVACHOL PO SCH (21:44)
[2017-02-12] MEDS: CARDIZEM PO SCH ×4 (00:37→18:29)
[2017-02-12] MEDS: DUONEB *Not for PRN Use IH SCH ×4 (02:56→20:49)
[2017-02-12 06:26] LABS: Calcium 8.6 mg/dL (8.4-10.2); Chloride 101.9 mmol/L (98-107); Potassium 3.8 mmol/L (3.6-5.0)
[2017-02-12] MEDS: LOVENOX SUB-Q SCH (09:50)
[2017-02-12] MEDS: FOLVITE PO SCH (09:50)
[2017-02-12] MEDS: VITAMIN B-1 PO SCH (09:51)
--- NOTE | 2017-02-12 10:27 | Progress Note ---
Assessment and Plan Assessment and plan: -- Acute hypoxic respiratory failure : Requiring intubation on mechanical ventilation, s/p extubation continue nebulizers, Bipap as needed, IV steroids, empiric antibiotics, supportive care, Follow cultures Soft diet , advance as tolerated --Generalized weakness/debility; significant improvement Supportive care, physical therapy occupational therapy, possible subacute rehabilitation/SNF placement --Acute exacerbation of COPD : Oxygen support, nebulizers, IV steroids, supportive care --Acute pneumonitis; continue current antibiotic, Zithromax, follow cultures --Elevated d-dimer; lower extremity venous Doppler negative for DVT , negative for PE DC heparin drip --Acute kidney injury; vasomotor nephropathy, trending down closely monitor renal function,avoid nephrotoxins --Hyperkalemia; corrected --DVT prophylaxis; Lovenox --Full CODE STATUS Physical therapy occupational therapy --DC planning. Case management Possible home with home PT and medically stable Plan of care discussed with the patient and the family member at the bedside History Interval history: Patient seen and examined medical records reviewed No new complaints, tolerated physical therapy Vital signs reviewed Hospitalist Physical - Constitutional Vitals: Temp Pulse Resp BP Pulse Ox 98.7 F 87 20 152/89 98 02/12/17 09:02 02/12/17 09:02 02/12/17 09:02 02/12/17 09:02 02/12/17 09:02 General appearance: Present: no acute distress, cachectic - EENT Eyes: Present: PERRL, EOM intact - Neck Neck: Present: supple, normal ROM - Respiratory Respiratory effort: normal Respiratory: negative: rales, rhonchi, wheezing - Cardiovascular Rhythm: regular Heart Sounds: Present: S1 & S2 - Extremities Extremities: no ischemia, No edema - Abdominal General gastrointestinal: soft, non-tender, non-distended, normal bowel sounds - Integumentary Integumentary: Present: clear, warm - Psychiatric Psychiatric: appropriate mood/affect, cooperative - Neurologic Neurologic: moves all extremities Results - Labs CBC & Chem 7: 02/10/17 06:02 02/12/17 05:23 Labs: Laboratory Last Values WBC 11.4 K/mm3 (4.5-11.0) H 02/10/17 06:02 RBC 3.29 M/mm3 (3.65-5.03) L 02/10/17 06:02 Hgb 10.5 gm/dl (11.8-15.2) L 02/10/17 06:02 Hct 30.7 % (35.5-45.6) L 02/10/17 06:02 MCV 94 fl (84-94) 02/10/17 06:02 MCH 32 pg (28-32) 02/10/17 06:02 MCHC 34 % (32-34) 02/10/17 06:02 RDW 15.3 % (13.2-15.2) H 02/10/17 06:02 Plt Count 173 K/mm3 (140-440) 02/10/17 06:02 Lymph % (Auto) 34.4 % (13.4-35.0) 02/06/17 10:15 [place] % (Auto) 12.1 % (0.0-7.3) H 02/06/17 10:15 Eos % (Auto) 7.9 % (0.0-4.3) H 02/06/17 10:15 Baso % (Auto) 0.9 % (0.0-1.8) 02/06/17 10:15 Lymph # 2.4 K/mm3 (1.2-5.4) 02/06/17 10:15 [place] # 0.8 K/mm3 (0.0-0.8) 02/06/17 10:15 Eos # 0.6 K/mm3 (0.0-0.4) H 02/06/17 10:15 Baso # 0.1 K/mm3 (0.0-0.1) 02/06/17 10:15 Add Manual Diff Complete 02/10/17 06:02 Total Counted 100 02/10/17 06:02 Seg Neutrophils % [employer] Programmer 02/10/17 06:02 Seg Neuts % (Manual) 94.0 % (40.0-70.0) H 02/10/17 06:02 Band Neutrophils % 1.0 % 02/10/17 06:02 Lymphocytes % (Manual) 4.0 % (13.4-35.0) L 02/10/17 06:02 Reactive Lymphs % (Man) 0 % 02/10/17 06:02 Monocytes % (Manual) 1.0 % (0.0-7.3) 02/10/17 06:02 Eosinophils % (Manual) 0 % (0.0-4.3) 02/10/17 06:02 Basophils % (Manual) 0 % (0.0-1.8) 02/10/17 06:02 Metamyelocytes % 0 % 02/10/17 06:02 Myelocytes % 0 % 02/10/17 06:02 Promyelocytes % 0 % 02/10/17 06:02 Blast Cells % 0 % 02/10/17 06:02 Nucleated RBC % Not Reportable 02/10/17 06:02 Seg Neutrophils # 3.1 K/mm3 (1.8-7.7) 02/06/17 10:15 Seg Neutrophils # Man 10.7 K/mm3 (1.8-7.7) H 02/10/17 06:02 Band Neutrophils # 0.1 K/mm3 02/10/17 06:02 Lymphocytes # (Manual) 0.5 K/mm3 (1.2-5.4) L 02/10/17 06:02 Abs React Lymphs (Man) 0.0 K/mm3 02/10/17 06:02 Monocytes # (Manual) 0.1 K/mm3 (0.0-0.8) 02/10/17 06:02 Eosinophils # (Manual) 0.0 K/mm3 (0.0-0.4) 02/10/17 06:02 Basophils # (Manual) 0.0 K/mm3 (0.0-0.1) 02/10/17 06:02 Metamyelocytes # 0.0 K/mm3 02/10/17 06:02 Myelocytes # 0.0 K/mm3 02/10/17 06:02 Promyelocytes # 0.0 K/mm3 02/10/17 06:02 Blast Cells # 0.0 K/mm3 02/10/17 06:02 WBC Morphology Not Reportable 02/10/17 06:02 Hypersegmented Neuts Not Reportable 02/10/17 06:02 Hyposegmented Neuts Not Reportable 02/10/17 06:02 Hypogranular Neuts Not Reportable 02/10/17 06:02 Smudge Cells Not Reportable 02/10/17 06:02 Toxic Granulation Not Reportable 02/10/17 06:02 Toxic Vacuolation Not Reportable 02/10/17 06:02 Dohle Bodies Not Reportable 02/10/17 06:02 Pelger-Huet Anomaly Not Reportable 02/10/17 06:02 Timothy Rods Not Reportable 02/10/17 06:02 Platelet Estimate Appears normal 02/10/17 06:02 Clumped Platelets Not Reportable 02/10/17 06:02 Plt Clumps, EDTA Not Reportable 02/10/17 06:02 Large Platelets Not Reportable 02/10/17 06:02 Giant Platelets Not Reportable 02/10/17 06:02 Platelet Satelliting Not Reportable 02/10/17 06:02 Plt Morphology Comment Not Reportable 02/10/17 06:02 RBC Morphology Not Reportable 02/10/17 06:02 Dimorphic RBCs Not Reportable 02/10/17 06:02 Polychromasia Few 02/10/17 06:02 Hypochromasia Not Reportable 02/10/17 06:02 Poikilocytosis 1+ 02/10/17 06:02 Anisocytosis 1+ 02/10/17 06:02 Microcytosis Not Reportable 02/10/17 06:02 Macrocytosis Not Reportable 02/10/17 06:02 Spherocytes Not Reportable 02/10/17 06:02 Pappenheimer Bodies Not Reportable 02/10/17 06:02 Sickle Cells Not Reportable 02/10/17 06:02 Target Cells Not Reportable 02/10/17 06:02 Tear Drop Cells Not Reportable 02/10/17 06:02 Ovalocytes 1+ 02/10/17 06:02 Helmet Cells Few 02/10/17 06:02 Choudhury-[place] Bodies Not Reportable 02/10/17 06:02 [place] Rings Not Reportable 02/10/17 06:02 [place] Cells Not Reportable 02/10/17 06:02 Bite Cells Not Reportable 02/10/17 06:02 Crenated Cell Not Reportable 02/10/17 06:02 Elliptocytes Few 02/10/17 06:02 Acanthocytes (Spur) Few 02/10/17 06:02 Rouleaux Not Reportable 02/10/17 06:02 Hemoglobin C Crystals Not Reportable 02/10/17 06:02 Schistocytes Not Reportable 02/10/17 06:02 Malaria parasites Not Reportable 02/10/17 06:02 [place] Bodies Not Reportable 02/10/17 06:02 Hem Pathologist Commnt No 02/10/17 06:02 PT 13.3 Sec. (12.2-14.9) 02/06/17 10:15 INR 0.96 (0.87-1.13) 02/06/17 10:15 APTT 24.7 Sec. (24.2-36.6) 02/06/17 10:15 D-Dimer 1213.08 ng/mlDDU (0-234) H 02/06/17 10:15 Heparin Anti-Xa Level 0.43 U.I./ml (0.3-0.7) 02/08/17 04:44 POC ABG pH 7.373 (7.35-7.45) 02/08/17 10:47 POC ABG pCO2 35.3 (35-45) 02/08/17 10:47 POC ABG pO2 99 (80-105) 02/08/17 10:47 POC ABG HCO3 20.6 02/08/17 10:47 POC ABG Total CO2 22 02/08/17 10:47 POC ABG O2 Sat 98 02/08/17 10:47 POC ABG Base Excess -5 02/08/17 10:47 FiO2 30 % 02/08/17 10:47 Sodium 141 mmol/L (137-145) 02/12/17 05:23 Potassium 3.8 mmol/L (3.6-5.0) 02/12/17 05:23 Chloride 101.9 mmol/L (98-107) 02/12/17 05:23 Carbon Dioxide 25 mmol/L (22-30) 02/12/17 05:23 Anion Gap 18 mmol/L 02/12/17 05:23 BUN 36 mg/dL (9-20) H 02/12/17 05:23 Creatinine 1.9 mg/dL (0.8-1.5) H 02/12/17 05:23 Estimated GFR 43 ml/min 02/12/17 05:23 BUN/Creatinine Ratio 19 % 02/12/17 05:23 Glucose 124 mg/dL (75-100) H 02/12/17 05:23 POC Glucose 155 (70-105) H 02/07/17 07:53 Calcium 8.6 mg/dL (8.4-10.2) 02/12/17 05:23 Magnesium 2.10 mg/dL (1.7-2.3) 02/09/17 04:34 Total Bilirubin 0.50 mg/dL (0.1-1.2) 02/06/17 10:15 Direct Bilirubin < 0.2 mg/dL (0-0.2) 02/06/17 10:15 Indirect Bilirubin 0.2 mg/dL 02/06/17 10:15 AST 20 units/L (5-40) 02/06/17 10:15 ALT 12 units/L (7-56) 02/06/17 10:15 Alkaline Phosphatase 52 units/L (35-129) 02/06/17 10:15 Total Creatine Kinase 288 units/L (55-170) H 02/06/17 10:15 CK-MB (CK-2) 7.5 ng/mL (0.0-4.0) H 02/06/17 10:15 CK-MB (CK-2) Rel Index 2.6 (0-4) 02/06/17 10:15 Troponin T 0.039 ng/mL (0.00-0.029) H 02/06/17 10:15 NT-Pro-B Natriuret Pep 304.4 pg/mL (0-900) 02/06/17 10:15 Total Protein 6.3 g/dL (6.3-8.2) 02/06/17 10:15 Albumin 4.1 g/dL (3.9-5) 02/06/17 10:15 Albumin/Globulin Ratio 1.9 % 02/06/17 10:15 Triglycerides 63 mg/dL (2-149) 02/06/17 10:15 Cholesterol 149 mg/dL (50-199) 02/06/17 10:15 LDL Cholesterol Direct 24 mg/dL (50-130) L 02/06/17 10:15 HDL Cholesterol 113 mg/dL (40-59) H 02/06/17 10:15 Cholesterol/HDL Ratio 1.31 % 02/06/17 10:15 Urine Color Yellow (Yellow) 02/06/17 13:01 Urine Turbidity Clear (Clear) 02/06/17 13:01 Urine pH 6.0 (5.0-7.0) 02/06/17 13:01 Ur Specific [place] 1.011 (1.003-1.030) 02/06/17 13:01 Urine Protein <15 mg/dl mg/dL (Negative) 02/06/17 13:01 Urine Glucose (UA) Neg mg/dL (Negative) 02/06/17 13:01 Urine Ketones Neg mg/dL (Negative) 02/06/17 13:01 Urine Blood Neg (Negative) 02/06/17 13:01 Urine Nitrite Neg (Negative) 02/06/17 13:01 Urine Bilirubin Neg (Negative) 02/06/17 13:01 Urine Urobilinogen < 2.0 mg/dL (<2.0) 02/06/17 13:01 Ur Leukocyte Esterase Neg (Negative) 02/06/17 13:01 Urine WBC (Auto) 1.0 /HPF (0.0-6.0) 02/06/17 13:01 Urine RBC (Auto) < 1.0 /HPF (0.0-6.0) 02/06/17 13:01 Urine Mucus Few /HPF 02/06/17 13:01 Urine Creatinine 68.5 mg/dL (0.1-20.0) H 02/06/17 13:01 Urine Sodium 148 mmol/L 02/06/17 13:01
--- NOTE | 2017-02-12 16:00 | Progress Note ---
Assessment and Plan Imp: 1. Acute bronchitis 2. COPD exac. 3. Centrilobular emphysema 4. CKD 5. Cachexia Rec: 1. Finished 5 days of Zithromax 2. Prednisone taper at d/c 3. Symbicort/Spiriva at d/c 4. Can go home pulm-naylor and f/u with [facility] 1-2 weeks Plan of care reviewed w/ patient, he understands/agrees Subjective Date of service: 02/12/17 Principal diagnosis: COPD exac. Interval history: No events. On RA. No complaints. Active Medications Al Hydrox/Mg Hydrox/Simethicone (Alum-Mag Hydrox-Simeth [id number]/5ml) 30 ml PO Q4H PRN PRN Reason: Indigestion Albuterol (Proventil) 2.5 mg IH Q4HRT PRN PRN Reason: Shortness Of Breath Albuterol/Ipratropium (Duoneb *Not For Prn Use*) 1 ampul IH Q6HRT [facility] Last Admin: 02/12/17 14:35 Dose: 1 ampul Bisacodyl (Dulcolax) 10 mg [place] QDAY PRN PRN Reason: constipation unrelieved by MOM Diltiazem HCl (Cardizem) 30 mg PO Q6HR [facility] Last Admin: 02/12/17 13:11 Dose: 30 mg Enoxaparin Sodium (Lovenox) 30 mg SUB-Q QDAY [facility] Last Admin: 02/12/17 09:50 Dose: 30 mg Folic Acid (Folvite) 0.5 mg PO DAILY [facility] Last Admin: 02/12/17 09:50 Dose: 0.5 mg Hydralazine HCl (Apresoline) 10 mg IV Q4HR PRN PRN Reason: Hypertension Last Admin: 02/11/17 17:46 Dose: 10 mg Methylprednisolone Sodium Succinate (Solu-Medrol) 20 mg IV Q12H [facility] Last Admin: 02/12/17 08:32 Dose: 20 mg Multi-Ingred Cream/Lotion/Oil/Oint (Artificial Tears Ophth Oint) 1 applic OU Q4HR PRN PRN Reason: Dry Eye(s) Pravastatin Sodium (Pravachol) 20 mg PO QHS [facility] Last Admin: 02/11/17 21:44 Dose: 20 mg Sodium Chloride (Nacl 0.9% 500 Ml) 0 ml IV DIRECT NICOLE Thiamine HCl (Vitamin B-1) 100 mg PO QDAY [facility] Last Admin: 02/12/17 09:51 Dose: 100 mg Objective Vital Signs - 12hr 02/12/17 02/12/17 02/12/17 05:13 08:55 09:02 Temperature 98.7 F 98.7 F Pulse Rate 89 87 Pulse Rate [ 95 H Anterior Bilateral Throughout] Respiratory 18 20 Rate Respiratory 18 Rate [Anterior Bilateral Throughout] Blood Pressure 168/97 Blood Pressure 152/89 [Left] O2 Sat by Pulse 97 98 98 Oximetry 02/12/17 02/12/17 02/12/17 09:05 12:51 13:11 Temperature 98.2 F Pulse Rate 99 H Pulse Rate [ 94 H Anterior Bilateral Throughout] Respiratory 20 Rate Respiratory 18 Rate [Anterior Bilateral Throughout] Blood Pressure 160/91 Blood Pressure 160/91 [Left] O2 Sat by Pulse 95 Oximetry 02/12/17 02/12/17 14:35 14:45 Temperature Pulse Rate Pulse Rate [ 102 H 101 H Anterior Bilateral Throughout] Respiratory Rate Respiratory 20 20 Rate [Anterior Bilateral Throughout] Blood Pressure Blood Pressure [Left] O2 Sat by Pulse Oximetry Constitutional: no acute distress, alert Eyes: non-icteric ENT: oropharynx moist Neck: supple Ascultation: Bilateral: diminished breath sounds (bilateral and equal) Cardiovascular: regular rate and rhythm (no mrg) Gastrointestinal: normoactive bowel sounds, non-distended Integumentary: normal Extremities: no cyanosis, no edema Neurologic: normal mental status, non-focal exam, pupils equal and round Psychiatric: mood appropriate CBC and BMP: 02/10/17 06:02 02/12/17 05:23 ABG, PT/INR, D-dimer: ABG POC ABG pH 7.373 (7.35-7.45) 02/08/17 10:47 POC ABG pCO2 35.3 (35-45) 02/08/17 10:47 POC ABG pO2 99 (80-105) 02/08/17 10:47 POC ABG HCO3 20.6 02/08/17 10:47 POC ABG Total CO2 22 02/08/17 10:47 POC ABG O2 Sat 98 02/08/17 10:47 PT/INR, D-dimer PT 13.3 Sec. (12.2-14.9) 02/06/17 10:15 INR 0.96 (0.87-1.13) 02/06/17 10:15 D-Dimer 1213.08 ng/mlDDU (0-234) H 02/06/17 10:15 Abnormal lab findings: Abnormal Labs 02/06/17 02/06/17 02/06/17 10:13 10:15 10:15 WBC RBC Hgb Hct MCV 95 H MCH 33 H RDW 15.3 H [place] % (Auto) 12.1 H Eos % (Auto) 7.9 H Eos # 0.6 H Seg Neuts % (Manual) Lymphocytes % (Manual) Seg Neutrophils # Man Lymphocytes # (Manual) D-Dimer 1213.08 H Heparin Anti-Xa Level POC ABG pH POC ABG pCO2 POC ABG pO2 Sodium Potassium Chloride Carbon Dioxide BUN Creatinine Glucose POC Glucose 113 H Calcium Magnesium Total Creatine Kinase CK-MB (CK-2) Troponin T LDL Cholesterol Direct HDL Cholesterol Urine Creatinine 02/06/17 02/06/17 02/06/17 10:15 11:24 13:01 WBC RBC Hgb Hct MCV MCH RDW [place] % (Auto) Eos % (Auto) Eos # Seg Neuts % (Manual) Lymphocytes % (Manual) Seg Neutrophils # Man Lymphocytes # (Manual) D-Dimer Heparin Anti-Xa Level POC ABG pH 7.073 L POC ABG pCO2 85.1 H POC ABG pO2 Sodium Potassium Chloride Carbon Dioxide BUN 24 H Creatinine 1.9 H Glucose 109 H POC Glucose Calcium Magnesium 3.20 H Total Creatine Kinase 288 H CK-MB (CK-2) 7.5 H Troponin T 0.039 H LDL Cholesterol Direct 24 L HDL Cholesterol 113 H Urine Creatinine 68.5 H 02/06/17 02/07/17 02/07/17 14:13 04:26 05:08 WBC RBC Hgb Hct MCV MCH RDW [place] % (Auto) Eos % (Auto) Eos # Seg Neuts % (Manual) Lymphocytes % (Manual) Seg Neutrophils # Man Lymphocytes # (Manual) D-Dimer Heparin Anti-Xa Level 1.30 H POC ABG pH 7.290 L 7.254 L POC ABG pCO2 POC ABG pO2 121 H Sodium Potassium Chloride Carbon Dioxide BUN Creatinine Glucose POC Glucose Calcium Magnesium Total Creatine Kinase CK-MB (CK-2) Troponin T LDL Cholesterol Direct HDL Cholesterol Urine Creatinine 02/07/17 02/07/17 02/07/17 07:53 13:07 13:07 WBC RBC Hgb Hct MCV MCH RDW [place] % (Auto) Eos % (Auto) Eos # Seg Neuts % (Manual) Lymphocytes % (Manual) Seg Neutrophils # Man Lymphocytes # (Manual) D-Dimer Heparin Anti-Xa Level > 2.00 H POC ABG pH POC ABG pCO2 POC ABG pO2 Sodium 132 L Potassium 5.7 H Chloride Carbon Dioxide 19 L BUN 37 H Creatinine 1.9 H Glucose 124 H POC Glucose 155 H Calcium 8.2 L Magnesium Total Creatine Kinase CK-MB (CK-2) Troponin T LDL Cholesterol Direct HDL Cholesterol Urine Creatinine 02/07/17 02/08/17 02/08/17 23:03 04:40 04:40 WBC 12.7 H RBC 3.49 L Hgb 11.5 L Hct 33.6 L MCV 96 H MCH 33 H RDW 15.6 H [place] % (Auto) Eos % (Auto) Eos # Seg Neuts % (Manual) 91.0 H Lymphocytes % (Manual) 4.0 L Seg Neutrophils # Man 11.6 H Lymphocytes # (Manual) 0.5 L D-Dimer Heparin Anti-Xa Level < 0.10 L POC ABG pH POC ABG pCO2 POC ABG pO2 Sodium 135 L Potassium Chloride Carbon Dioxide 19 L BUN 36 H Creatinine 1.9 H Glucose 134 H POC Glucose Calcium 8.2 L Magnesium Total Creatine Kinase CK-MB (CK-2) Troponin T LDL Cholesterol Direct HDL Cholesterol Urine Creatinine 02/09/17 02/09/17 02/10/17 04:00 04:34 06:02 WBC 12.2 H 11.4 H RBC 3.37 L 3.29 L Hgb 10.9 L 10.5 L Hct 32.0 L 30.7 L MCV 95 H MCH RDW 15.7 H 15.3 H [place] % (Auto) Eos % (Auto) Eos # Seg Neuts % (Manual) 94.0 H 94.0 H Lymphocytes % (Manual) 2.0 L 4.0 L Seg Neutrophils # Man 11.5 H 10.7 H Lymphocytes # (Manual) 0.2 L 0.5 L D-Dimer Heparin Anti-Xa Level POC ABG pH POC ABG pCO2 POC ABG pO2 Sodium Potassium 3.2 L D Chloride Carbon Dioxide BUN 32 H Creatinine 1.7 H Glucose 134 H POC Glucose Calcium 8.2 L Magnesium Total Creatine Kinase CK-MB (CK-2) Troponin T LDL Cholesterol Direct HDL Cholesterol Urine Creatinine 02/10/17 02/11/17 02/12/17 06:02 05:54 05:23 WBC RBC Hgb Hct MCV MCH RDW [place] % (Auto) Eos % (Auto) Eos # Seg Neuts % (Manual) Lymphocytes % (Manual) Seg Neutrophils # Man Lymphocytes # (Manual) D-Dimer Heparin Anti-Xa Level POC ABG pH POC ABG pCO2 POC ABG pO2 Sodium Potassium Chloride 107.1 H Carbon Dioxide BUN 30 H 34 H 36 H Creatinine 1.7 H 1.9 H 1.9 H Glucose 133 H 128 H 124 H POC Glucose Calcium 8.3 L Magnesium Total Creatine Kinase CK-MB (CK-2) Troponin T LDL Cholesterol Direct HDL Cholesterol Urine Creatinine Chest x-ray: report reviewed, image reviewed
[2017-02-12] MEDS: APRESOLINE IV PRN (21:16)
[2017-02-12] MEDS: PRAVACHOL PO SCH (21:16)
[2017-02-13] MEDS: CARDIZEM PO SCH ×3 (01:00→12:13)
[2017-02-13] MEDS: DUONEB *Not for PRN Use IH SCH ×3 (03:06→13:16)
[2017-02-13] MEDS: FOLVITE PO SCH (09:58)
[2017-02-13] MEDS: VITAMIN B-1 PO SCH (09:59)
[2017-02-13] MEDS: LOVENOX SUB-Q SCH (09:59)
[2017-02-13 12:14] VITALS: BP 151/98
--- NOTE | 2017-02-13 14:44 | Progress Note ---
Assessment and Plan Imp: 1. Acute bronchitis 2. COPD exac. 3. Centrilobular emphysema 4. CKD 5. Cachexia Rec: 1. Finished 5 days of Zithromax 2. Prednisone taper at d/c 3. Symbicort/Spiriva at d/c 4. Can go home pulm-naylor and f/u with [facility] 1-2 weeks Plan of care reviewed w/ patient, he understands/agrees Subjective Date of service: 02/13/17 Principal diagnosis: COPD exac. Interval history: No events. On RA. No complaints. Active Medications Al Hydrox/Mg Hydrox/Simethicone (Alum-Mag Hydrox-Simeth [phone]/5ml) 30 ml PO Q4H PRN PRN Reason: Indigestion Albuterol (Proventil) 2.5 mg IH Q4HRT PRN PRN Reason: Shortness Of Breath Albuterol/Ipratropium (Duoneb *Not For Prn Use*) 1 ampul IH Q6HRT [facility] Last Admin: 02/13/17 13:16 Dose: 1 ampul Bisacodyl (Dulcolax) 10 mg DC QDAY PRN PRN Reason: constipation unrelieved by MOM Diltiazem HCl (Cardizem) 30 mg PO Q6HR [facility] Last Admin: 02/13/17 12:13 Dose: 30 mg Enoxaparin Sodium (Lovenox) 30 mg SUB-Q QDAY [facility] Last Admin: 02/13/17 09:59 Dose: 30 mg Folic Acid (Folvite) 0.5 mg PO DAILY [facility] Last Admin: 02/13/17 09:58 Dose: 0.5 mg Hydralazine HCl (Apresoline) 10 mg IV Q4HR PRN PRN Reason: Hypertension Last Admin: 02/12/17 21:16 Dose: 10 mg Methylprednisolone Sodium Succinate (Solu-Medrol) 20 mg IV Q12H [facility] Last Admin: 02/13/17 08:52 Dose: 20 mg Multi-Ingred Cream/Lotion/Oil/Oint (Artificial Tears Ophth Oint) 1 applic OU Q4HR PRN PRN Reason: Dry Eye(s) Pravastatin Sodium (Pravachol) 20 mg PO QHS [facility] Last Admin: 02/12/17 21:16 Dose: 20 mg Sodium Chloride (Nacl 0.9% 500 Ml) 0 ml IV DIRECT NICOLE Thiamine HCl (Vitamin B-1) 100 mg PO QDAY [facility] Last Admin: 02/13/17 09:59 Dose: 100 mg Objective Vital Signs - 12hr 02/13/17 02/13/17 02/13/17 04:07 06:26 07:15 Temperature 98.3 F Pulse Rate 83 83 Pulse Rate [ 87 Anterior Bilateral Throughout] Respiratory 18 Rate Respiratory 18 Rate [Anterior Bilateral Throughout] Blood Pressure 153/89 153/89 O2 Sat by Pulse 94 97 Oximetry 02/13/17 02/13/17 02/13/17 07:25 10:00 12:13 Temperature Pulse Rate 89 101 H Pulse Rate [ 89 Anterior Bilateral Throughout] Respiratory 18 Rate Respiratory 20 Rate [Anterior Bilateral Throughout] Blood Pressure 151/98 O2 Sat by Pulse Oximetry Constitutional: no acute distress, alert Eyes: non-icteric ENT: oropharynx moist Neck: supple Ascultation: Bilateral: clear Cardiovascular: regular rate and rhythm (no mrg) Gastrointestinal: normoactive bowel sounds, non-distended Integumentary: normal Extremities: no cyanosis, no edema Neurologic: normal mental status, non-focal exam, pupils equal and round Psychiatric: mood appropriate CBC and BMP: 02/10/17 06:02 02/12/17 05:23 ABG, PT/INR, D-dimer: ABG POC ABG pH 7.373 (7.35-7.45) 02/08/17 10:47 POC ABG pCO2 35.3 (35-45) 02/08/17 10:47 POC ABG pO2 99 (80-105) 02/08/17 10:47 POC ABG HCO3 20.6 02/08/17 10:47 POC ABG Total CO2 22 02/08/17 10:47 POC ABG O2 Sat 98 02/08/17 10:47 PT/INR, D-dimer PT 13.3 Sec. (12.2-14.9) 02/06/17 10:15 INR 0.96 (0.87-1.13) 02/06/17 10:15 D-Dimer 1213.08 ng/mlDDU (0-234) H 02/06/17 10:15 Abnormal lab findings: Abnormal Labs 02/06/17 02/06/17 02/06/17 10:13 10:15 10:15 WBC RBC Hgb Hct MCV 95 H MCH 33 H RDW 15.3 H [place] % (Auto) 12.1 H Eos % (Auto) 7.9 H Eos # 0.6 H Seg Neuts % (Manual) Lymphocytes % (Manual) Seg Neutrophils # Man Lymphocytes # (Manual) D-Dimer 1213.08 H Heparin Anti-Xa Level POC ABG pH POC ABG pCO2 POC ABG pO2 Sodium Potassium Chloride Carbon Dioxide BUN Creatinine Glucose POC Glucose 113 H Calcium Magnesium Total Creatine Kinase CK-MB (CK-2) Troponin T LDL Cholesterol Direct HDL Cholesterol Urine Creatinine 02/06/17 02/06/17 02/06/17 10:15 11:24 13:01 WBC RBC Hgb Hct MCV MCH RDW [place] % (Auto) Eos % (Auto) Eos # Seg Neuts % (Manual) Lymphocytes % (Manual) Seg Neutrophils # Man Lymphocytes # (Manual) D-Dimer Heparin Anti-Xa Level POC ABG pH 7.073 L POC ABG pCO2 85.1 H POC ABG pO2 Sodium Potassium Chloride Carbon Dioxide BUN 24 H Creatinine 1.9 H Glucose 109 H POC Glucose Calcium Magnesium 3.20 H Total Creatine Kinase 288 H CK-MB (CK-2) 7.5 H Troponin T 0.039 H LDL Cholesterol Direct 24 L HDL Cholesterol 113 H Urine Creatinine 68.5 H 02/06/17 02/07/17 02/07/17 14:13 04:26 05:08 WBC RBC Hgb Hct MCV MCH RDW [place] % (Auto) Eos % (Auto) Eos # Seg Neuts % (Manual) Lymphocytes % (Manual) Seg Neutrophils # Man Lymphocytes # (Manual) D-Dimer Heparin Anti-Xa Level 1.30 H POC ABG pH 7.290 L 7.254 L POC ABG pCO2 POC ABG pO2 121 H Sodium Potassium Chloride Carbon Dioxide BUN Creatinine Glucose POC Glucose Calcium Magnesium Total Creatine Kinase CK-MB (CK-2) Troponin T LDL Cholesterol Direct HDL Cholesterol Urine Creatinine 02/07/17 02/07/17 02/07/17 07:53 13:07 13:07 WBC RBC Hgb Hct MCV MCH RDW [place] % (Auto) Eos % (Auto) Eos # Seg Neuts % (Manual) Lymphocytes % (Manual) Seg Neutrophils # Man Lymphocytes # (Manual) D-Dimer Heparin Anti-Xa Level > 2.00 H POC ABG pH POC ABG pCO2 POC ABG pO2 Sodium 132 L Potassium 5.7 H Chloride Carbon Dioxide 19 L BUN 37 H Creatinine 1.9 H Glucose 124 H POC Glucose 155 H Calcium 8.2 L Magnesium Total Creatine Kinase CK-MB (CK-2) Troponin T LDL Cholesterol Direct HDL Cholesterol Urine Creatinine 02/07/17 02/08/17 02/08/17 23:03 04:40 04:40 WBC 12.7 H RBC 3.49 L Hgb 11.5 L Hct 33.6 L MCV 96 H MCH 33 H RDW 15.6 H [place] % (Auto) Eos % (Auto) Eos # Seg Neuts % (Manual) 91.0 H Lymphocytes % (Manual) 4.0 L Seg Neutrophils # Man 11.6 H Lymphocytes # (Manual) 0.5 L D-Dimer Heparin Anti-Xa Level < 0.10 L POC ABG pH POC ABG pCO2 POC ABG pO2 Sodium 135 L Potassium Chloride Carbon Dioxide 19 L BUN 36 H Creatinine 1.9 H Glucose 134 H POC Glucose Calcium 8.2 L Magnesium Total Creatine Kinase CK-MB (CK-2) Troponin T LDL Cholesterol Direct HDL Cholesterol Urine Creatinine 02/09/17 02/09/17 02/10/17 04:00 04:34 06:02 WBC 12.2 H 11.4 H RBC 3.37 L 3.29 L Hgb 10.9 L 10.5 L Hct 32.0 L 30.7 L MCV 95 H MCH RDW 15.7 H 15.3 H [place] % (Auto) Eos % (Auto) Eos # Seg Neuts % (Manual) 94.0 H 94.0 H Lymphocytes % (Manual) 2.0 L 4.0 L Seg Neutrophils # Man 11.5 H 10.7 H Lymphocytes # (Manual) 0.2 L 0.5 L D-Dimer Heparin Anti-Xa Level POC ABG pH POC ABG pCO2 POC ABG pO2 Sodium Potassium 3.2 L D Chloride Carbon Dioxide BUN 32 H Creatinine 1.7 H Glucose 134 H POC Glucose Calcium 8.2 L Magnesium Total Creatine Kinase CK-MB (CK-2) Troponin T LDL Cholesterol Direct HDL Cholesterol Urine Creatinine 02/10/17 02/11/17 02/12/17 06:02 05:54 05:23 WBC RBC Hgb Hct MCV MCH RDW [place] % (Auto) Eos % (Auto) Eos # Seg Neuts % (Manual) Lymphocytes % (Manual) Seg Neutrophils # Man Lymphocytes # (Manual) D-Dimer Heparin Anti-Xa Level POC ABG pH POC ABG pCO2 POC ABG pO2 Sodium Potassium Chloride 107.1 H Carbon Dioxide BUN 30 H 34 H 36 H Creatinine 1.7 H 1.9 H 1.9 H Glucose 133 H 128 H 124 H POC Glucose Calcium 8.3 L Magnesium Total Creatine Kinase CK-MB (CK-2) Troponin T LDL Cholesterol Direct HDL Cholesterol Urine Creatinine Chest x-ray: report reviewed, image reviewed
--- NOTE | 2017-02-13 15:42 | Discharge Summary ---
Providers - Providers Date of Admission: 02/06/17 12:50 Date of discharge: 02/13/17 Attending physician: ALEKSANDER STEPHENSON 02/06/17 11:53 Consult to Dietitian/Nutrition [CONS] Routine Physician Instructions: Reason For Exam: Reason for Consult: Write/Manage TPN/PPN 02/06/17 12:51 Consult to Physician [CONS] Routine Consulting Provider: WILSON [place] Reason For Exam: resp failure Place consult to:: answering service Notified:: yes Phone number called:: [phone] Was contact made?: Yes If yes, spoke with:: Sandy Time called:: 13:00 02/09/17 15:32 Physical Therapy Evaluation and Treat [CONS] Routine Comment: Reason For Exam: ICU pt/evaluate and treat 02/12/17 01:22 Consult to Case Management [CONS] Urgent Services Needed at Discharge: Other Notified:: CM Additional Physician Instructions: Discharge Planning Primary care physician: [employer] Hospitalization Reason for admission: worsening shortness of breath/acute hypoxic respiratory failure Condition: Stable Pertinent studies: Chest X-ray, VQ scan, venous Doppler Procedures: Intubated/vent support Hospital course: 71-year-old male patient with significant history of hypertension COPD chronic use. She fainted on home oxygen was admitted through the emergency room with worsening shortness of breath Patient was in acute distress. Patient was in acute respiratory failure requiring intubation ,admitted to ICU symptomatically managed Also had acute exacerbation of COPD and acute pneumonitis Evaluated by pulmonary critical, symptoms significantly improved Weaned and extubated Transfer to Medical floor, received physical therapy and occupational therapy Case management has evaluated the patient set up home health and home PT. Today patient is comfortable in no new complaints Vital signs stable, Physical examination prior to discharge is unremarkable Patient is clinically and hemodynamically stable. Discharge Discharge diagnosis ; -- Acute hypoxic respiratory failure : Intubated, Subsequently extubated --Generalized weakness/debility; home physical therapy --Acute exacerbation of COPD : Continue present --Acute pneumonitis; received Zithromax, --Elevated d-dimer; negative PE negative DVT --Acute on chronic on kidney disease3; follow nephrology upon discharge --Hyperkalemia; corrected Disposition: [id number] HOME UNDER HOME [facility] Time spent for discharge: 32 min Core Measure Documentation - Palliative Care Palliative Care/ Comfort Measures: Not Applicable - Core Measures Any of the following diagnoses?: none Exam - Constitutional Vitals: Temp Pulse Resp BP Pulse Ox 98.3 F 95 H 18 151/98 97 02/13/17 04:07 02/13/17 13:26 02/13/17 13:26 02/13/17 12:13 02/13/17 07:15 General appearance: Present: no acute distress, well-nourished - EENT Eyes: Present: PERRL, EOM intact - Neck Neck: Present: supple, normal ROM - Respiratory Respiratory effort: normal Respiratory: bilateral: diminished, negative: rales, rhonchi, wheezing - Cardiovascular Rhythm: regular Heart Sounds: Present: S1 & S2 - Extremities Extremities: no ischemia, No edema - Abdominal General gastrointestinal: Present: soft, non-tender, non-distended, normal bowel sounds - Integumentary Integumentary: Present: clear, warm - Musculoskeletal Musculoskeletal: strength equal bilaterally - Psychiatric Psychiatric: appropriate mood/affect, cooperative - Neurologic Neurologic: CNII-XII intact, moves all extremities Plan Activity: no restrictions, fall precautions Diet: regular Special Instructions: physical therapy Additional Instructions: If you have chest pain or shortness of breath, contact MD or go to emergency room. Follow up nephrology 1- 2 weeks Follow up with: [facility] [Provider Group] - 7 Days WILSON [place]TA[place] MD [Staff Physician] - 7 Days [facility], [Primary Care Provider] - 3-5 Days Prescriptions: Budesonide/Formoterol Fumarate [Symbicort 160-4.5 Mcg Inhaler] 10.2 gm IH BID 30 Days hfa.aer.[email or web address] Folic Acid [Folvite] 0.5 mg PO DAILY #30 tablet Prednisone [predniSONE 10 mg (6-Day Pack, 21 Tabs)] 10 mg PO .TAPER #1 tab.ds.pk Tiotropium [Spiriva] 18 mcg IH QDAY #1 box
== END 2017-02-13 17:56 | disposition home health service (06) | DRG 208 ==
LOC: ED 09:56 → CC1 12:50 → 4A 02-09 15:49
PROVIDERS: ADMIT Internal Medicine; ATTEND Internal Medicine
PROC: 5A1945Z Respiratory Ventilation, 24-96 Consecutive Hours (ICD-10-PCS; principal; 2017-02-06)
PROC: 0BH17EZ Insertion of Endotracheal Airway into Trachea, Via Natural or Artificial Opening (ICD-10-PCS; 2017-02-06)
PROC: 4A033R1 Measurement of Arterial Saturation, Peripheral, Percutaneous Approach (ICD-10-PCS; 2017-02-06)
PROC: 5A09357 Assistance with Respiratory Ventilation, Less than 24 Consecutive Hours, Continuous Positive Airway Pressure (ICD-10-PCS; 2017-02-06)
PROC: 5A09457 Assistance with Respiratory Ventilation, 24-96 Consecutive Hours, Continuous Positive Airway Pressure (ICD-10-PCS; 2017-02-08)
DX: J96.01 Acute respiratory failure with hypoxia (principal); N17.0 Acute kidney failure with tubular necrosis; J18.9 Pneumonia, unspecified organism; J44.1 Chronic obstructive pulmonary disease with (acute) exacerbation; E46 Unspecified protein-calorie malnutrition; E87.2 Acidosis; J44.0 Chronic obstructive pulmonary disease with (acute) lower respiratory infection; Z68.1 Body mass index [BMI] 19.9 or less, adult; J20.9 Acute bronchitis, unspecified; J43.2 Centrilobular emphysema; J96.02 Acute respiratory failure with hypercapnia; N18.3 Chronic kidney disease, stage 3 (moderate); E87.5 Hyperkalemia; R53.81 Other malaise; I12.9 Hypertensive chronic kidney disease with stage 1 through stage 4 chronic kidney disease, or unspecified chronic kidney disease; Z99.81 Dependence on supplemental oxygen; Z82.49 Family history of ischemic heart disease and other diseases of the circulatory system; Z79.82 Long term (current) use of aspirin; Z79.899 Other long term (current) drug therapy; Z85.46 Personal history of malignant neoplasm of prostate
CPT/HCPCS: 36415; 36600; 71010; 78582; 80048; 80061; 80074; 81001; 82550; 82553; 82570; 82803; 82962; 83735; 83880; 84300; 84484; 85007; 85014; 85018; 85025; 85379; 85520; 85610; 85730; 87070; 87205; 93005; 93010; 93970; 94002; 94003; 94640; 94644; 94660; 94760; 96365; 96366; 96368; 96375; A9270-GY; A9540; A9558; G8978-GP; G8979-GP; J0330; J0360; J0456; J1644; J1650; J2060; J2920; J3010; J7030; J7050

== ENCOUNTER 2018-07-24 10:51 | Inpatient (IN) | payer MEDICARE, OTHER ==
[2018-07-24] MEDS ORDERED: NACL 0.9% 500 ML 500 ML IV ONE (10:55)
[2018-07-24] MEDS ORDERED: PROVENTIL IH ONE (10:55)
[2018-07-24] MEDS ORDERED: ATROVENT IH ONE (10:55)
--- NOTE | 2018-07-24 10:57 | Emergency Department Report ---
ED General Adult HPI - General Chief complaint: Dyspnea/Respdistress Stated complaint: JOSE LUIS Time Seen by Provider: 07/24/18 10:54 Source: patient, EMS (verbal report received from EMS.ems notes not available at time of chart dictation), RN notes reviewed, old records reviewed Mode of arrival: Stretcher Limitations: Physical Limitation - History of Present Illness Initial comments: Primary care Dr.: [facility] Past medical history: COPD, known renal insufficiency This is a 73-year-old gentleman. The patient is brought to the hospital by emergency medical services for shortness of breath. Apparently, the patient was found at home by EMS, with significant work of breathing. EMS gave the patient steroids, 2 g of magnesium, started the patient on CPAP therapy. The patient upon arrival is on CPAP, and is able to answer yes no questions, but has difficulty answering open-ended questions secondary to respiratory distress. He indicates he is not having headache, neck pain, chest pain, abdominal pain, leg pain or leg swelling. The patient indicates he is having shortness of breath. He indicates he felt somewhat improved after initial therapies. No additional history is available at this time. -: Gradual Consistency: constant Improves with: medication, rest Worsens with: movement - Related Data Home Medications Medication Instructions Recorded Confirmed Last Taken Aspirin [Adult Low Dose Aspirin EC] 81 mg PO DAILY 10/11/16 02/10/17 1 Day Ago ~02/09/17 Pravastatin Sodium [Pravastatin] 20 mg PO QHS 10/11/16 02/10/17 1 Day Ago ~02/09/17 Thiamine [Vitamin B-1] 100 mg PO QDAY 10/11/16 02/10/17 1 Day Ago ~02/09/17 dilTIAZem CD [Cardizem CD] 120 mg PO DAILY 10/11/16 02/10/17 1 Day Ago ~02/09/17 Previous Rx's Medication Instructions Recorded Last Taken Type Ipratropium/Albuterol Sulfate 1 ampul IH Q6HRT #30 ampul.neb 10/14/16 1 Day Ago Rx [DUONEB *Not for PRN Use*] ~02/09/17 Sodium Bicarbonate 1,300 mg PO BID #60 tablet 10/14/16 1 Day Ago Rx ~02/09/17 Budesonide/Formoterol Fumarate 10.2 gm IH BID 30 Days hfa.aer.ad 02/13/17 Unknown Rx [Symbicort 160-4.5 Mcg Inhaler] Folic Acid [Folvite] 0.5 mg PO DAILY #30 tablet 02/13/17 Unknown Rx Prednisone [predniSONE 10 mg 10 mg PO .TAPER #1 tab.ds.pk 02/13/17 Unknown Rx (6-Day Pack, 21 Tabs)] Tiotropium [Spiriva] 18 mcg IH QDAY #1 box 02/13/17 Unknown Rx Allergies Allergy/AdvReac Type Severity Reaction Status Date / Time No Known Allergies Allergy Verified 01/02/16 17:32 ED Review of Systems ROS: Stated complaint: JOSE LUIS Other details as noted in HPI Comment: Unobtainable due to pts medical conditions Constitutional: malaise Respiratory: shortness of breath, SOB with exertion, SOB at rest, wheezing Cardiovascular: denies: chest pain Gastrointestinal: denies: abdominal pain Neurological: weakness ED Past Medical Hx - Past Medical History Hx Hypertension: Yes Hx Renal Disease: Yes Hx COPD: Yes - Surgical History Additional Surgical History: prostate surgery - Social History Smoking Status: Unknown if ever smoked - Medications Home Medications: Home Medications Medication Instructions Recorded Confirmed Last Taken Type Aspirin [Adult Low Dose Aspirin EC] 81 mg PO DAILY 10/11/16 02/10/17 1 Day Ago History ~02/09/17 Pravastatin Sodium [Pravastatin] 20 mg PO QHS 10/11/16 02/10/17 1 Day Ago History ~02/09/17 Thiamine [Vitamin B-1] 100 mg PO QDAY 10/11/16 02/10/17 1 Day Ago History ~02/09/17 dilTIAZem CD [Cardizem CD] 120 mg PO DAILY 10/11/16 02/10/17 1 Day Ago History ~02/09/17 Ipratropium/Albuterol Sulfate 1 ampul IH Q6HRT #30 ampul.neb 10/14/16 02/10/17 1 Day Ago Rx [DUONEB *Not for PRN Use*] ~02/09/17 Sodium Bicarbonate 1,300 mg PO BID #60 tablet 10/14/16 02/10/17 1 Day Ago Rx ~02/09/17 Budesonide/Formoterol Fumarate 10.2 gm IH BID 30 Days hfa.aer.ad 02/13/17 Unknown Rx [Symbicort 160-4.5 Mcg Inhaler] Folic Acid [Folvite] 0.5 mg PO DAILY #30 tablet 02/13/17 Unknown Rx Prednisone [predniSONE 10 mg 10 mg PO .TAPER #1 tab.ds.pk 02/13/17 Unknown Rx (6-Day Pack, 21 Tabs)] Tiotropium [Spiriva] 18 mcg IH QDAY #1 box 02/13/17 Unknown Rx ED Physical Exam - General Limitations: Physical Limitation General appearance: alert, anxious, in distress - Head Head exam: Present: atraumatic, normocephalic - Eye Eye exam: Present: normal appearance - ENT ENT exam: Present: normal exam, normal orophraynx, mucous membranes moist, normal external ear exam - Neck Neck exam: Present: normal inspection, full ROM. Absent: tenderness, meningismus - Respiratory Respiratory exam: Present: respiratory distress, wheezes, rhonchi, decreased breath sounds - Cardiovascular Cardiovascular Exam: Present: normal rhythm, tachycardia, normal heart sounds. Absent: bradycardia, irregular rhythm, systolic murmur, diastolic murmur, rubs, gallop - GI/Abdominal GI/Abdominal exam: Present: soft. Absent: distended, tenderness, guarding, rebound, rigid, pulsatile mass - Rectal Rectal exam: Present: deferred - Extremities Exam Extremities exam: Present: normal inspection, full ROM, other (2+ pulses noted in the bilateral upper, lower extremities. Compartments soft. No long bony tenderness. The pelvis is stable.). Absent: calf tenderness - Back Exam Back exam: Present: normal inspection - Neurological Exam Neurological exam: Present: alert, other (there is no facial droop. There is 5 out of 5 strength in 4 extremities. Detailed neurologic examination is not performed secondary to acute respiratory distress, and requirements for noninvasive positive pressure ventilation) - Psychiatric Psychiatric exam: Present: normal affect, normal mood - Skin Skin exam: Present: warm, dry, intact, normal color. Absent: rash ED Course Vital Signs 07/24/18 07/24/18 07/24/18 10:53 10:55 11:01 Temperature 97.5 F L Pulse Rate 93 H 117 H 116 H Respiratory 17 40 H 36 H Rate Blood Pressure 125/95 125/95 O2 Sat by Pulse 99 99 98 Oximetry 07/24/18 07/24/18 07/24/18 11:03 11:14 11:15 Temperature 96.8 F L Pulse Rate 116 H 121 H Respiratory 45 H 43 H Rate Blood Pressure 125/95 125/95 O2 Sat by Pulse 98 96 Oximetry 07/24/18 11:20 Temperature Pulse Rate 115 H Respiratory 34 H Rate Blood Pressure 125/95 O2 Sat by Pulse 98 Oximetry ED Medical Decision Making - Lab Data Result diagrams: 07/24/18 11:09 07/24/18 11:09 Vital Signs 07/24/18 07/24/18 07/24/18 10:53 10:55 11:01 Temperature 97.5 F L Pulse Rate 93 H 117 H 116 H Respiratory 17 40 H 36 H Rate Blood Pressure 125/95 125/95 O2 Sat by Pulse 99 99 98 Oximetry 07/24/18 07/24/18 07/24/18 11:03 11:14 11:15 Temperature 96.8 F L Pulse Rate 116 H 121 H Respiratory 45 H 43 H Rate Blood Pressure 125/95 125/95 O2 Sat by Pulse 98 96 Oximetry 07/24/18 11:20 Temperature Pulse Rate 115 H Respiratory 34 H Rate Blood Pressure 125/95 O2 Sat by Pulse 98 Oximetry Lab Results 07/24/18 07/24/18 07/24/18 Range/Units 11:09 11:09 11:09 WBC 4.7 (4.5-11.0) K/mm3 RBC 3.99 (3.65-5.03) M/mm3 Hgb 13.9 (11.8-15.2) gm/dl Hct 40.6 (35.5-45.6) % MCV 102 H (84-94) fl MCH 35 H (28-32) pg MCHC 34 (32-34) % RDW 13.9 (13.2-15.2) % Plt Count 210 (140-440) K/mm3 Lymph % (Auto) 32.4 (13.4-35.0) % [place] % (Auto) 12.6 H (0.0-7.3) % Eos % (Auto) 10.0 H (0.0-4.3) % Baso % (Auto) 1.3 (0.0-1.8) % Lymph # 1.5 (1.2-5.4) K/mm3 [place] # 0.6 (0.0-0.8) K/mm3 Eos # 0.5 H (0.0-0.4) K/mm3 Baso # 0.1 (0.0-0.1) K/mm3 Seg Neutrophils % 43.7 (40.0-70.0) % Seg Neutrophils # 2.1 (1.8-7.7) K/mm3 PT 12.2 (12.2-14.9) Sec. INR 0.86 L (0.87-1.13) POC ABG pH (7.35-7.45) POC ABG pCO2 (35-45) POC ABG pO2 (80-105) POC ABG HCO3 (22-26 mml/L) POC ABG Total CO2 (23-27mmol/L) POC ABG O2 Sat POC ABG Base Excess ((-2) - (+3)mmol/L) FiO2 % Sodium 130 L (137-145) mmol/L Potassium 4.7 (3.6-5.0) mmol/L Chloride 91.1 L (98-107) mmol/L Carbon Dioxide 21 L (22-30) mmol/L Anion Gap 23 mmol/L BUN 19 (9-20) mg/dL Creatinine 1.7 H (0.8-1.5) mg/dL Estimated GFR 48 ml/min BUN/Creatinine Ratio 11 % Glucose 99 (75-100) mg/dL Calcium 9.1 (8.4-10.2) mg/dL Magnesium 3.10 H (1.7-2.3) mg/dL Total Bilirubin 0.70 (0.1-1.2) mg/dL AST 23 (5-40) units/L ALT 14 (7-56) units/L Alkaline Phosphatase 54 (35-129) units/L Troponin T 0.051 H (0.00-0.029) ng/mL Total Protein 6.7 (6.3-8.2) g/dL Albumin 4.5 (3.9-5) g/dL Albumin/Globulin Ratio 2.0 % Triglycerides 60 (2-149) mg/dL Cholesterol 207 H (50-199) mg/dL LDL Cholesterol Direct 67 (50-130) mg/dL HDL Cholesterol 139 H (40-59) mg/dL Cholesterol/HDL Ratio 1.48 % // Range/Units 11:26 WBC (4.5-11.0) K/mm3 RBC (3.65-5.03) M/mm3 Hgb (11.8-15.2) gm/dl Hct (35.5-45.6) % MCV (84-94) fl MCH (28-32) pg MCHC (32-34) % RDW (13.2-15.2) % Plt Count (140-440) K/mm3 Lymph % (Auto) (13.4-35.0) % [place] % (Auto) (0.0-7.3) % Eos % (Auto) (0.0-4.3) % Baso % (Auto) (0.0-1.8) % Lymph # (1.2-5.4) K/mm3 [place] # (0.0-0.8) K/mm3 Eos # (0.0-0.4) K/mm3 Baso # (0.0-0.1) K/mm3 Seg Neutrophils % (40.0-70.0) % Seg Neutrophils # (1.8-7.7) K/mm3 PT (12.2-14.9) Sec. INR (0.87-1.13) POC ABG pH 7.290 L (7.35-7.45) POC ABG pCO2 44.8 (35-45) POC ABG pO2 83 (80-105) POC ABG HCO3 21.5 (22-26 mml/L) POC ABG Total CO2 23 (23-27mmol/L) POC ABG O2 Sat 95 POC ABG Base Excess -5 ((-2) - (+3)mmol/L) FiO2 35 % Sodium (137-145) mmol/L Potassium (3.6-5.0) mmol/L Chloride (98-107) mmol/L Carbon Dioxide (22-30) mmol/L Anion Gap mmol/L BUN (9-20) mg/dL Creatinine (0.8-1.5) mg/dL Estimated GFR ml/min BUN/Creatinine Ratio % Glucose (75-100) mg/dL Calcium (8.4-10.2) mg/dL Magnesium (1.7-2.3) mg/dL Total Bilirubin (0.1-1.2) mg/dL AST (5-40) units/L ALT (7-56) units/L Alkaline Phosphatase (35-129) units/L Troponin T (0.00-0.029) ng/mL Total Protein (6.3-8.2) g/dL Albumin (3.9-5) g/dL Albumin/Globulin Ratio % Triglycerides (2-149) mg/dL Cholesterol (50-199) mg/dL LDL Cholesterol Direct (50-130) mg/dL HDL Cholesterol (40-59) mg/dL Cholesterol/HDL Ratio % - EKG Data -: EKG Interpreted by Me EKG shows normal: sinus rhythm - EKG Data 07/24/18 12:40 EKG shows a sinus tachycardia, 115 bpm, QTC prolonged, motion artifact, no endorsement of chest pain, poor R-wave progression, abnormal EKG, not consistent with ST elevation myocardial infarction, appears to be nonspecifically changed when compared to prior EKG from 2017, may be related to motion artifact, lead placement. - Radiology Data Radiology results: report reviewed, image reviewed interpreted by me: X-ray of the chest shows hyperinflated lungs. No acute disease. Print Report Referring Physician: DELANO BUSTILLOS Patient Name: DIVYA KENNEDY Date of : 1945 Sex: Male Report Date: 2018-07-24 Report Status: [place] [address] XRay Report Signed Patient: DIVYA KENNEDY MR#: [id number] 7 : 1945 Acct:[id number] Age/Sex: 73 / M ADM Date: 07/24/18 Loc: ED Attending Dr: Ordering Physician: DELANO BUSTILLOS MD Date of Service: 07/24/18 Procedure(s): XR chest 1V ap Accession Number(s): [id number] cc: DELANO BUSTILLOS MD Fluoro Time In Minutes: AP CHEST: HISTORY: Dyspnea Underlying emphysematous changes are suspected. No evidence for pneumonia, pleural effusion or pneumothorax. Heart size is within normal limits. The bony structures are grossly intact. IMPRESSION: Emphysematous changes. No acute cardiopulmonary process identified. Transcribed By: TTR Dictated By: MARY LONG JR, MD Electronically Authenticated By: MARY LONG JR, MD Signed Date/Time: 07/24/18 1233 - Medical Decision Making Differential diagnosis, including but not limited to: Bronchitis, pneumonia, COPD exacerbation Assessment and plan: 73-year-old gentleman with likely recurrent COPD exacerbation. Vital sign abnormalities reviewed and appreciated, we appreciate that the patient does meet criteria for systemic inflammatory response syndrome, however, based off of his current history and physical, and review of old medical records, I think invasive bacterial illness is less likely, and it is my opinion that an exacerbation of his underlying chronic COPD is the more likely etiology to his presentation. He is improved with additional fluids, albuterol, and BiPAP therapy. I informed the patient and family that I recommended admission for hospitalization and supportive care, and he verbalized understanding. The Hospital physician, Dr. Praveen Meza, has accepted the patient to the medical service. Elevated troponin reviewed and appreciated, likely multifactorial, likely type II troponin leak, likely secondary to COPD exacerbation, and renal insufficiency. Hypermagnesemia likely secondary to prehospital magnesium administration. Critical Care Time: Yes Critical care time in (mins) excluding proc time.: 35 Critical care attestation.: If time is entered above; I have spent that time in minutes in the direct care of this critically ill patient, excluding procedure time. ED Disposition Clinical Impression: Renal insufficiency, COPD with acute exacerbation Disposition: 09 OP ADMIT IP TO THIS HOSP Is pt being admited?: Yes Does the pt Need Aspirin: Yes Condition: Fair Instructions: Chronic Obstructive Pulmonary Disease (ED)
[2018-07-24 11:28] LABS: Basophils # (Auto) 0.1 K/mm3 (0.0-0.1); Basophils % (Auto) 1.3 % (0.0-1.8); Eosinophils # (Auto) 0.5 K/mm3 (0.0-0.4); Hematocrit 40.6 % (35.5-45.6); Hemoglobin 13.9 gm/dl (11.8-15.2); Lymphocytes # (Auto) 1.5 K/mm3 (1.2-5.4); Lymphocytes % (Auto) 32.4 % (13.4-35.0); Mean Corpuscular HGB Conc 34 % (32-34); Mean Corpuscular Volume 102 fl (84-94); Monocytes # (Auto) 0.6 K/mm3 (0.0-0.8); Monocytes % (Auto) 12.6 % (0.0-7.3); Platelet Count 210 K/mm3 (140-440); Red Blood Count 3.99 M/mm3 (3.65-5.03); Red Cell Distribution Width 13.9 % (13.2-15.2)
[2018-07-24 11:38] LABS: INR 0.86 (0.87-1.13)
[2018-07-24 11:51] LABS: Albumin 4.5 g/dL (3.9-5); Calcium 9.1 mg/dL (8.4-10.2)
[2018-07-24 12:19] LABS: Chol/HDL Ratio 1.48 %
[2018-07-24] MEDS ORDERED: BABY ASPIRIN PO ONE (12:19)
[2018-07-24] MEDS ORDERED: DOXYCYCLINE HYCLATE 100 MG in NACL 0.9% 250ML 250 ML IV ONE (12:20)
--- NOTE | 2018-07-24 12:38 | XRay Report ---
AP CHEST: HISTORY: Dyspnea Underlying emphysematous changes are suspected. No evidence for pneumonia, pleural effusion or pneumothorax. Heart size is within normal limits. The bony structures are grossly intact. IMPRESSION: Emphysematous changes. No acute cardiopulmonary process identified.
[2018-07-24] MEDS ORDERED: BABY ASPIRIN ONE (14:25)
--- NOTE | 2018-07-24 18:31 | History and Physical Report ---
History of Present Illness Date of examination: 07/24/18 Date of admission: 07/24/18 12:19 Chief complaint: Increasing shortness of breath and wheezing for the last 2 days History of present illness: 73-year-old male with history of hypertension and COPD comes in for increasing shortness of breath and wheezing for last 2 days. Patient called EMS. Patient was given 2 g of magnesium and was initiated on CPAP and nebulizer treatments. Patient has difficulty answering because of shortness of breath. Not responding to nebulizer treatments. No fever or chills. No lower extremity pedal edema. No recent travel. Cough productive of mucoid sputum. Primary care Dr.: [facility] Past Medical History Hx Hypertension: Yes Hx Renal Disease: Yes Hx COPD: Yes Surgical History Additional Surgical History: prostate surgery Social History Smoking Status: Unknown if ever smoked Family history hypertension Review of systems Stated complaint: JOSE LUIS Other was present . Review of systems he details as noted in HPI Comment: Unobtainable due to pts medical conditions Constitutional: malaise Respiratory: shortness of breath, SOB with exertion, SOB at rest, wheezing Cardiovascular: denies: chest pain Gastrointestinal: denies: abdominal pain Neurological: weakness Medications and Allergies Allergies Allergy/AdvReac Type Severity Reaction Status Date / Time No Known Allergies Allergy Verified 01/02/16 17:32 Home Medications Medication Instructions Recorded Confirmed Last Taken Type Aspirin [Adult Low Dose Aspirin EC] 81 mg PO DAILY 10/11/16 02/10/17 1 Day Ago History ~02/09/17 Pravastatin Sodium [Pravastatin] 20 mg PO QHS 10/11/16 02/10/17 1 Day Ago History ~02/09/17 Thiamine [Vitamin B-1] 100 mg PO QDAY 10/11/16 02/10/17 1 Day Ago History ~02/09/17 dilTIAZem CD [Cardizem CD] 120 mg PO DAILY 10/11/16 02/10/17 1 Day Ago History ~02/09/17 Ipratropium/Albuterol Sulfate 1 ampul IH Q6HRT #30 ampul.neb 10/14/16 02/10/17 1 Day Ago Rx [DUONEB *Not for PRN Use*] ~02/09/17 Sodium Bicarbonate 1,300 mg PO BID #60 tablet 10/14/16 02/10/17 1 Day Ago Rx ~02/09/17 Budesonide/Formoterol Fumarate 10.2 gm IH BID 30 Days hfa.aer.ad 02/13/17 Unknown Rx [Symbicort 160-4.5 Mcg Inhaler] Folic Acid [Folvite] 0.5 mg PO DAILY #30 tablet 02/13/17 Unknown Rx Prednisone [predniSONE 10 mg 10 mg PO .TAPER #1 tab.ds.pk 02/13/17 Unknown Rx (6-Day Pack, 21 Tabs)] Tiotropium [Spiriva] 18 mcg IH QDAY #1 box 02/13/17 Unknown Rx Exam - Physical Exam Narrative exam: Lying in bed with BiPAP on face - Constitutional Vitals: Temp Pulse Resp BP Pulse Ox 96.8 F L 110 H 29 H 152/97 98 07/24/18 11:14 07/24/18 15:31 07/24/18 15:31 07/24/18 15:31 07/24/18 16:33 General appearance: Present: severe distress - Respiratory Respiratory: bilateral: diminished, rhonchi, wheezing - Cardiovascular Heart rate: 90 Rhythm: regular - Extremities Extremities: no ischemia, pulses intact Peripheral Pulses: within normal limits - Abdominal General gastrointestinal: Present: soft, non-tender, normal bowel sounds Male genitourinary: Present: normal - Rectal Rectal Exam: deferred - Integumentary Integumentary: Present: clear, warm, dry - Musculoskeletal Musculoskeletal: strength equal bilaterally - Psychiatric Psychiatric: appropriate mood/affect, intact judgment & insight, memory intact, cooperative - Neurologic Neurologic: CNII-XII intact, moves all extremities - Allied Health Allied health notes reviewed: nursing, case management Results - Labs CBC & Chem 7: 07/24/18 11:09 07/24/18 11:09 Labs: Laboratory Last Values WBC 4.7 K/mm3 (4.5-11.0) 07/24/18 11:09 RBC 3.99 M/mm3 (3.65-5.03) 07/24/18 11:09 Hgb 13.9 gm/dl (11.8-15.2) 07/24/18 11:09 Hct 40.6 % (35.5-45.6) 07/24/18 11:09 MCV 102 fl (84-94) H 07/24/18 11:09 MCH 35 pg (28-32) H 07/24/18 11:09 MCHC 34 % (32-34) 07/24/18 11:09 RDW 13.9 % (13.2-15.2) 07/24/18 11:09 Plt Count 210 K/mm3 (140-440) 07/24/18 11:09 Lymph % (Auto) 32.4 % (13.4-35.0) 07/24/18 11:09 [place] % (Auto) 12.6 % (0.0-7.3) H 07/24/18 11:09 Eos % (Auto) 10.0 % (0.0-4.3) H 07/24/18 11:09 Baso % (Auto) 1.3 % (0.0-1.8) 07/24/18 11:09 Lymph # 1.5 K/mm3 (1.2-5.4) 07/24/18 11:09 [place] # 0.6 K/mm3 (0.0-0.8) 07/24/18 11:09 Eos # 0.5 K/mm3 (0.0-0.4) H 07/24/18 11:09 Baso # 0.1 K/mm3 (0.0-0.1) 07/24/18 11:09 Seg Neutrophils % 43.7 % (40.0-70.0) 07/24/18 11:09 Seg Neutrophils # 2.1 K/mm3 (1.8-7.7) 07/24/18 11:09 PT 12.2 Sec. (12.2-14.9) 07/24/18 11:09 INR 0.86 (0.87-1.13) L 07/24/18 11:09 POC ABG pH 7.290 (7.35-7.45) L 07/24/18 11:26 POC ABG pCO2 44.8 (35-45) 07/24/18 11:26 POC ABG pO2 83 (80-105) 07/24/18 11:26 POC ABG HCO3 21.5 (22-26 mml/L) 07/24/18 11:26 POC ABG Total CO2 23 (23-27mmol/L) 07/24/18 11:26 POC ABG O2 Sat 95 07/24/18 11:26 POC ABG Base Excess -5 ((-2) - (+3)mmol/L) 07/24/18 11:26 35 % 07/24/18 11:26 Sodium 130 mmol/L (137-145) L 07/24/18 11:09 Potassium 4.7 mmol/L (3.6-5.0) 07/24/18 11:09 Chloride 91.1 mmol/L (98-107) L 07/24/18 11:09 Carbon Dioxide 21 mmol/L (22-30) L 07/24/18 11:09 23 mmol/L 07/24/18 11:09 BUN 19 mg/dL (9-20) 07/24/18 11:09 1.7 mg/dL (0.8-1.5) H 07/24/18 11:09 Estimated GFR 48 ml/min 07/24/18 11:09 11 % 07/24/18 11:09 Glucose 99 mg/dL (75-100) 07/24/18 11:09 Calcium 9.1 mg/dL (8.4-10.2) 07/24/18 11:09 Magnesium 3.10 mg/dL (1.7-2.3) H 07/24/18 11:09 0.70 mg/dL (0.1-1.2) 07/24/18 11:09 AST 23 units/L (5-40) 07/24/18 11:09 ALT 14 units/L (7-56) 07/24/18 11:09 54 units/L (35-129) 07/24/18 11:09 0.051 ng/mL (0.00-0.029) H 07/24/18 11:09 6.7 g/dL (6.3-8.2) 07/24/18 11:09 4.5 g/dL (3.9-5) 07/24/18 11:09 2.0 % 07/24/18 11:09 Triglycerides 60 mg/dL (2-149) 07/24/18 11:09 Cholesterol 207 mg/dL (50-199) H 07/24/18 11:09 67 mg/dL (50-130) 07/24/18 11:09 139 mg/dL (40-59) H 07/24/18 11:09 1.48 % 07/24/18 11:09 Short CBC 07/24/18 Range/Units 11:09 WBC 4.7 (4.5-11.0) K/mm3 Hgb 13.9 (11.8-15.2) gm/dl Hct 40.6 (35.5-45.6) % Plt Count 210 (140-440) K/mm3 BMP 07/24/18 11:09 Sodium 130 L Potassium 4.7 Chloride 91.1 L Carbon Dioxide 21 L BUN 19 Creatinine 1.7 H Glucose 99 Calcium 9.1 Cardiac Enzymes 07/24/18 Range/Units 11:09 Troponin T 0.051 H (0.00-0.029) ng/mL Liver Function 07/24/18 Range/Units 11:09 Total Bilirubin 0.70 (0.1-1.2) mg/dL AST 23 (5-40) units/L ALT 14 (7-56) units/L Alkaline Phosphatase 54 (35-129) units/L Albumin 4.5 (3.9-5) g/dL - Imaging and Cardiology EKG: report reviewed Chest x-ray: report reviewed Imaging and Cardiology: Chest x-ray IMPRESSION: Emphysematous changes. No acute cardiopulmonary process identified. EKG Data -: EKG Interpreted by Pr EKG shows normal: sinus rhythm EKG Data 07/24/18 12:40 EKG shows a sinus tachycardia, 115 bpm, QTC prolonged, motion artifact, no endorsement of chest pain, poor R-wave progression, abnormal EKG, not consistent with ST elevation myocardial infarction, appears to be nonspecifically changed when compared to prior EKG from 2017, may be related to motion artifact, lead placement. Assessment and Plan Advance Directives: Yes (full code) VTE prophylaxis?: Chemical Plan of care discussed with patient/family: Yes - Patient Problems (1) Acute respiratory failure with hypoxia Current Visit: No Status: Acute Plan to address problem: Patient in severe respiratory distress Patient on CPAP/BiPAP IV Solu-Medrol and frequent nebulizer treatments and IV antibiotics initiated Intubation if necessary (2) COPD exacerbation Current Visit: No Status: Acute Plan to address problem: Patient on BiPAP, IV Solu-Medrol, IV antibiotics and nebulizer treatments Intubation if necessary (3) Acute kidney injury superimposed on CKD Current Visit: Yes Status: Acute (4) Acute kidney injury Current Visit: Yes Status: Acute Plan to address problem: IV fluids for now (5) Elevated troponin level Current Visit: Yes Status: Acute Plan to address problem: We will trend the troponins Cardiology consult requested (6) Hypertension Current Visit: Yes Status: Chronic Qualifiers: Hypertension type: essential hypertension Qualified Code(s): I10 - Essential (primary) hypertension Plan to address problem: Continue antihypertensives (7) Hyponatremia Current Visit: Yes Status: Acute Plan to address problem: IV normal saline for now Nephrology consult requested (8) DVT prophylaxis Current Visit: Yes Status: Acute Plan to address problem: On heparin 5000 every 12 and GI prophylaxis
[2018-07-24] MEDS ORDERED: TYLENOL PO PRN (18:44)
[2018-07-24] MEDS ORDERED: PERCOCET 5/325 PO PRN (18:44)
[2018-07-24] MEDS ORDERED: ZOFRAN IV PRN (18:44)
[2018-07-24] MEDS ORDERED: MORPHINE IV PRN (18:44)
[2018-07-24] MEDS ORDERED: PROVENTIL IH PRN (18:47)
[2018-07-24] MEDS ORDERED: LEVAQUIN 750MG/150ML 750 MG/150 ML BAG IV SCH ×2 (19:00→20:00)
--- NOTE | 2018-07-24 19:33 | Consultation ---
History of Present Illness Consult date: 07/24/18 Reason for consult: dyspnea, cough, COPD History of present illness: PULMONARY AND CRITICAL CARE CONSULTATION DR. DAVIS THANK YOU FOR ASKING ME TO PARTICIPATE IN THE CARE OF THIS PATIENT. 73-year-old male with history of hypertension and COPD comes in for increasing shortness of breath and wheezing for last 2 days. Patient called EMS. Patient was given 2 g of magnesium and was initiated on CPAP and nebulizer treatments. Patient has difficulty answering because of shortness of breath. Not responding to nebulizer treatments. No fever or chills. No lower extremity pedal edema. No recent travel. Cough productive of mucoid sputum. Primary care Dr.: [facility]. Patient has history of hypertension and kidney disease. Patient has history of smoking 1 pack x 55 years. Stopped smoking 2 years ago. Patient says drinks alcohol some. Denies drug abuse. Worked for [employer] in [place]. No known drug allergies. Patient . No children. Chest xray emphysematous changes. No acute cardiopulmonary process. Patient presently resting on 3 litres O2. Patients blood gases PH 7.29, PCO2 45, PO2 83, HCO3 22, O2 saturation 95% on 35% fio2. Patient started on albuterol/atrovent aerosol treatments q 6 hours, I/V solumedrol. Levaquine and S/C heparin. Past History Past Medical History: hypertension, renal failure Medications and Allergies Allergies Allergy/AdvReac Type Severity Reaction Status Date / Time No Known Allergies Allergy Verified 01/02/16 17:32 Home Medications Medication Instructions Recorded Confirmed Last Taken Type Aspirin [Adult Low Dose Aspirin EC] 81 mg PO DAILY 10/11/16 02/10/17 1 Day Ago History ~02/09/17 Pravastatin Sodium [Pravastatin] 20 mg PO QHS 10/11/16 02/10/17 1 Day Ago History ~02/09/17 Thiamine [Vitamin B-1] 100 mg PO QDAY 10/11/16 02/10/17 1 Day Ago History ~02/09/17 dilTIAZem CD [Cardizem CD] 120 mg PO DAILY 10/11/16 02/10/17 1 Day Ago History ~02/09/17 Ipratropium/Albuterol Sulfate 1 ampul IH Q6HRT #30 ampul.neb 10/14/16 02/10/17 1 Day Ago Rx [DUONEB *Not for PRN Use*] ~02/09/17 Sodium Bicarbonate 1,300 mg PO BID #60 tablet 10/14/16 02/10/17 1 Day Ago Rx ~02/09/17 Budesonide/Formoterol Fumarate 10.2 gm IH BID 30 Days hfa.aer.ad 02/13/17 Unknown Rx [Symbicort 160-4.5 Mcg Inhaler] Folic Acid [Folvite] 0.5 mg PO DAILY #30 tablet 02/13/17 Unknown Rx Prednisone [predniSONE 10 mg 10 mg PO .TAPER #1 tab.ds.pk 02/13/17 Unknown Rx (6-Day Pack, 21 Tabs)] Tiotropium [Spiriva] 18 mcg IH QDAY #1 box 02/13/17 Unknown Rx Active Meds: Active Medications Acetaminophen (Tylenol) 650 mg PO Q4H PRN PRN Reason: Pain MILD(1-3)/Fever >100.5/NOBLE Albuterol (Proventil) 2.5 mg IH Q4HRT PRN PRN Reason: Shortness Of Breath Albuterol/Ipratropium (Duoneb *Not For Prn Use*) 1 ampul IH QIDRT [facility] Aspirin (Halfprin Ec) 81 mg PO DAILY [facility] Diltiazem HCl (Cardizem Cd) 120 mg PO DAILY [facility] Famotidine (Pepcid) 20 mg IV BID [facility] Folic Acid (Folvite) 0.5 mg PO DAILY [facility] Heparin Sodium (Porcine) (Heparin) 5,000 unit SUB-Q Q12HR [facility] Sodium Chloride (Nacl 0.9% 1000 Ml) 1,000 mls @ 75 mls/hr IV DIRECT [facility] Levofloxacin/Dextrose (Levaquin 750mg/150ml) 750 mg in 150 mls @ 100 mls/hr IV Q48H [facility]; Protocol Methylprednisolone Sodium Succinate (Solu-Medrol) 125 mg IV Q8H [facility] Morphine Sulfate (Morphine) 2 mg IV Q4H PRN PRN Reason: Pain, Moderate (4-6) Ondansetron HCl (Zofran) 4 mg IV Q8H PRN PRN Reason: Nausea And Vomiting Oxycodone/Acetaminophen (Percocet 5/325) 1 tab PO Q6H PRN PRN Reason: Pain, Moderate (4-6) Pravastatin Sodium (Pravachol) 20 mg PO QHS [facility] Sodium Bicarbonate (Sodium Bicarbonate) 1,300 mg PO BID [facility] Sodium Chloride (Sodium Chloride Flush Syringe 10 Ml) 10 ml IV BID [facility] Sodium Chloride (Sodium Chloride Flush Syringe 10 Ml) 10 ml IV PRN PRN PRN Reason: LINE FLUSH Thiamine HCl (Vitamin B-1) 100 mg PO QDAY [facility] Review of Systems All systems: negative Physical Examination Vital signs: Vital Signs Pulse Resp Pulse Ox 93 H 17 99 07/24/18 10:53 07/24/18 10:53 07/24/18 10:53 General appearance: no acute distress, alert Eyes: non-icteric ENT: oropharynx moist Neck: supple, no JVD Ascultation: Bilateral: diminished breath sounds, other (Prolonged expiratory phase.) Cardiovascular: regular rate and rhythm Gastrointestinal: normoactive bowel sounds, soft, non-tender Integumentary: normal Extremities: no cyanosis, no edema Musculoskeletal: no deformities Gait: poor gait normal mental status, non-focal exam, pupils equal and round, CN II-XII normal mood appropriate Results - Laboratory Findings CBC and BMP: 07/24/18 11:09 07/24/18 11:09 ABG POC ABG pH 7.290 (7.35-7.45) L 07/24/18 11:26 POC ABG pCO2 44.8 (35-45) 07/24/18 11:26 POC ABG pO2 83 (80-105) 07/24/18 11:26 POC ABG HCO3 21.5 (22-26 mml/L) 07/24/18 11:26 POC ABG Total CO2 23 (23-27mmol/L) 07/24/18 11:26 POC ABG O2 Sat 95 07/24/18 11:26 PT/INR, D-dimer PT 12.2 Sec. (12.2-14.9) 07/24/18 11:09 INR 0.86 (0.87-1.13) L 07/24/18 11:09 Abnormal lab findings: Abnormal Labs 07/24/18 07/24/18 07/24/18 11:09 11:09 11:09 MCV 102 H MCH 35 H [place] % (Auto) 12.6 H Eos % (Auto) 10.0 H Eos # 0.5 H INR 0.86 L POC ABG pH Sodium 130 L Chloride 91.1 L Carbon Dioxide 21 L Creatinine 1.7 H Magnesium 3.10 H Troponin T 0.051 H Cholesterol 207 H HDL Cholesterol 139 H 07/24/18 11:26 MCV MCH [place] % (Auto) Eos % (Auto) Eos # INR POC ABG pH 7.290 L Sodium Chloride Carbon Dioxide Creatinine Magnesium Troponin T Cholesterol HDL Cholesterol - Diagnostic Findings Chest x-ray: report reviewed (EMPHYSEMATOUS CHANGES. nO ACUTE CARDIOPULMONARY PROCESS.), image reviewed Assessment and Plan 73-year-old male with history of hypertension and COPD comes in for increasing shortness of breath and wheezing for last 2 days. Patient called EMS. Patient was given 2 g of magnesium and was initiated on CPAP and nebulizer treatments. Patient has difficulty answering because of shortness of breath. Not responding to nebulizer treatments. No fever or chills. No lower extremity pedal edema. No recent travel. Cough productive of mucoid sputum. Primary care Dr.: [facility] Patient has history of smoking 1 pack x 55 years. Stopped smoking 2 years ago. Patient says drinks alcohol some. Denies drug abuse. Worked for [employer] in [employer]. No known drug allergies. Patient . No children. Chest xray emphysematous changes. No acute cardiopulmonary process. Patient presently resting on 3 litres O2. Patients blood gases PH 7.29, PCO2 45, PO2 83, HCO3 22, O2 saturation 95% on 35% fio2. Patient started on albuterol/atrovent aerosol treatments q 6 hours, I/V solumedrol. Levaquine and S/C heparin. - Patient Problems (1) COPD with acute exacerbation Current Visit: Yes Status: Acute Plan to address problem: O2 3 litres via nasal canula. BIPAP stand by in the room. Albuterol/atrovent aerosol treatments q 6 hours. Continue I/V solumedrol Continue Levaquin Continue S/C Heparin. PFTs as out patient. (2) Acute bronchitis Current Visit: No Status: Acute Plan to address problem: Patient is on I/V Levaquin. (3) Acute hypercapnic respiratory failure Current Visit: No Status: Acute Plan to address problem: O2 3 litres via nasal canula. BIPAP stand by in the room. Albuterol/atrovent aerosol treatments q 6 hours. Continue I/V solumedrol Continue Levaquin Continue S/C Heparin. PFTs as out patient (4) Acute kidney injury superimposed on CKD Current Visit: Yes Status: Acute Plan to address problem: Management as per primary care and nephrology. (5) Hypertension Current Visit: Yes Status: Chronic Qualifiers: Hypertension type: essential hypertension Qualified Code(s): I10 - Essential (primary) hypertension Plan to address problem: Management as per primary care.
[2018-07-24] MEDS: DUONEB *Not for PRN Use IH SCH (19:58)
[2018-07-24] MEDS ORDERED: DUONEB *Not for PRN Use IH SCH (20:00)
[2018-07-24] MEDS ORDERED: SPIRIVA IH SCH (20:00)
[2018-07-24] MEDS: SOLU-Medrol IV SCH (20:26)
[2018-07-24] MEDS: CARDIZEM CD PO SCH (20:27)
[2018-07-24] MEDS: SODIUM BICARBONATE PO SCH (21:03)
[2018-07-24] MEDS: HEPARIN SUB-Q SCH (21:04)
[2018-07-24] MEDS: SODIUM CHLORIDE FLUSH SYRINGE 10 ML IV SCH (21:04)
[2018-07-24] MEDS: NACL 0.9% 1000 ML 1,000 ML IV SCH (21:05)
[2018-07-24] MEDS: PRAVACHOL PO SCH (21:06)
[2018-07-24] MEDS ORDERED: NON-FORMULARY (Pravastatin Sodium [Pravastatin] 20 MG) PO SCH (22:00)
[2018-07-24] MEDS ORDERED: PEPCID IV SCH (22:00)
[2018-07-24] MEDS ORDERED: NON-FORMULARY (Budesonide/Formoterol Fumarate [Symbicort 160-4.5 Mcg Inhaler] 10.2 GM) IH SCH (22:00)
[2018-07-25 02:36] LABS: Bilirubin,Urine NEG (Negative); Blood,Urine NEG (Negative); Color,Urine Yellow (Yellow); Protein,Urine <15 mg/dL mg/dL (Negative); RBC,Urine < 1.0 /HPF (0.0-6.0); Urobilinogen,Urine < 2.0 mg/dL (<2.0)
[2018-07-25 02:40] LABS: Creatinine,Urine 87.8 mg/dL (0.1-20.0)
[2018-07-25 02:44] LABS: WBC,Urine < 1.0 /HPF (0.0-6.0)
[2018-07-25] MEDS: SOLU-Medrol IV SCH ×3 (03:02→20:58)
[2018-07-25 05:33] LABS: Basophils % (Auto) 0.2 % (0.0-1.8); Hematocrit 39.9 % (35.5-45.6); Lymphocytes # (Auto) 0.3 K/mm3 (1.2-5.4); Lymphocytes % (Auto) 10.9 % (13.4-35.0); Mean Corpuscular HGB Conc 35 % (32-34); Mean Corpuscular Volume 100 fl (84-94); Monocytes # (Auto) 0.1 K/mm3 (0.0-0.8); Monocytes % (Auto) 3.5 % (0.0-7.3); Platelet Count 187 K/mm3 (140-440); Red Cell Distribution Width 13.6 % (13.2-15.2)
[2018-07-25 05:56] LABS: Calcium 8.9 mg/dL (8.4-10.2)
[2018-07-25] MEDS: DUONEB *Not for PRN Use IH SCH ×3 (07:36→19:02)
--- NOTE | 2018-07-25 08:47 | Progress Note ---
Assessment and Plan Patient awake resting on 2L O2. O2 saturation running 100%. No acute respiratory distress. Patient says he is breathing better than yesterday. - Patient Problems (1) COPD with acute exacerbation Current Visit: Yes Status: Acute Plan to address problem: O2 2 litres via nasal canula. BIPAP stand by in the room. Albuterol/atrovent aerosol treatments q 6 hours. Continue I/V solumedrol Continue Levaquin Continue S/C Heparin. PFTs as out patient. (2) Acute bronchitis Current Visit: No Status: Acute Plan to address problem: Patient is on I/V Levaquin. (3) Acute hypercapnic respiratory failure Current Visit: No Status: Acute Plan to address problem: O2 2 litres via nasal canula. BIPAP stand by in the room. Albuterol/atrovent aerosol treatments q 6 hours. Continue I/V solumedrol Continue Levaquin Continue S/C Heparin. PFTs as out patient (4) Acute kidney injury superimposed on CKD Current Visit: Yes Status: Acute Plan to address problem: Management as per primary care and nephrology. (5) Hypertension Current Visit: Yes Status: Chronic Qualifiers: Hypertension type: essential hypertension Qualified Code(s): I10 - Essential (primary) hypertension Plan to address problem: Management as per primary care. Subjective Date of service: 07/25/18 Interval history: Patient awake resting on 2L O2. O2 saturation running 100%. No acute respiratory distress. Patient says he is breathing better than yesterday. Objective Vital Signs - 12hr 07/24/18 07/24/18 07/25/18 21:08 21:16 02:15 Temperature 98.2 F Pulse Rate 110 H 100 H Pulse Rate [ Anterior Bilateral] Pulse Rate [ 110 H From Monitor] Respiratory 20 20 Rate Respiratory Rate [Anterior Bilateral] Blood Pressure Blood Pressure 144/90 [Right] O2 Sat by Pulse 99 99 Oximetry 07/25/18 07/25/18 07/25/18 07:38 07:39 07:52 Temperature 98.4 F Pulse Rate 100 H Pulse Rate [ 98 H Anterior Bilateral] Pulse Rate [ From Monitor] Respiratory 24 Rate Respiratory 19 Rate [Anterior Bilateral] Blood Pressure 149/84 Blood Pressure [Right] O2 Sat by Pulse 100 100 Oximetry Constitutional: no acute distress, alert Eyes: non-icteric ENT: oropharynx moist Neck: supple, no JVD Ascultation: Bilateral: diminished breath sounds, other (Prolonged expiratory phase.) Cardiovascular: regular rate and rhythm Gastrointestinal: normoactive bowel sounds, soft, non-tender Integumentary: normal Extremities: no cyanosis, no edema Neurologic: normal mental status, non-focal exam, pupils equal and round, CN II- XII normal Psychiatric: mood appropriate CBC and BMP: 07/25/18 04:47 07/25/18 04:47 ABG, PT/INR, D-dimer: ABG POC ABG pH 7.290 (7.35-7.45) L 07/24/18 11:26 POC ABG pCO2 44.8 (35-45) 07/24/18 11:26 POC ABG pO2 83 (80-105) 07/24/18 11:26 POC ABG HCO3 21.5 (22-26 mml/L) 07/24/18 11:26 POC ABG Total CO2 23 (23-27mmol/L) 07/24/18 11:26 POC ABG O2 Sat 95 07/24/18 11:26 PT/INR, D-dimer PT 12.2 Sec. (12.2-14.9) 07/24/18 11:09 INR 0.86 (0.87-1.13) L 07/24/18 11:09 Abnormal lab findings: Abnormal Labs 07/24/18 07/24/18 07/24/18 11:09 11:09 11:09 WBC MCV 102 H MCH 35 H MCHC Lymph % (Auto) [place] % (Auto) 12.6 H Eos % (Auto) 10.0 H Lymph # Eos # 0.5 H Seg Neutrophils % INR 0.86 L POC ABG pH Sodium 130 L Potassium Chloride 91.1 L Carbon Dioxide 21 L BUN Creatinine 1.7 H Glucose POC Glucose Magnesium 3.10 H Troponin T 0.051 H Total Protein Cholesterol 207 H HDL Cholesterol 139 H Urine Creatinine 07/24/18 07/24/18 07/24/18 11:26 19:03 21:28 WBC MCV MCH MCHC Lymph % (Auto) [place] % (Auto) Eos % (Auto) Lymph # Eos # Seg Neutrophils % INR POC ABG pH 7.290 L Sodium Potassium Chloride Carbon Dioxide BUN Creatinine Glucose POC Glucose 187 H Magnesium Troponin T 0.044 H Total Protein Cholesterol HDL Cholesterol Urine Creatinine 07/25/18 07/25/18 07/25/18 00:34 02:18 04:47 WBC 2.7 L MCV 100 H MCH 35 H MCHC 35 H Lymph % (Auto) 10.9 L [place] % (Auto) Eos % (Auto) Lymph # 0.3 L Eos # Seg Neutrophils % 85.4 H INR POC ABG pH Sodium Potassium Chloride Carbon Dioxide BUN Creatinine Glucose POC Glucose Magnesium Troponin T 0.039 H Total Protein Cholesterol HDL Cholesterol Urine Creatinine 87.8 H 07/25/18 04:47 WBC MCV MCH MCHC Lymph % (Auto) [place] % (Auto) Eos % (Auto) Lymph # Eos # Seg Neutrophils % INR POC ABG pH Sodium 131 L Potassium 5.6 H Chloride 94.9 L Carbon Dioxide 20 L BUN 27 H Creatinine 1.9 H Glucose 125 H POC Glucose Magnesium Troponin T Total Protein 6.2 L Cholesterol HDL Cholesterol Urine Creatinine
[2018-07-25] MEDS: VITAMIN B-1 PO SCH (10:07)
[2018-07-25] MEDS: SODIUM BICARBONATE PO SCH ×2 (10:07→21:06)
[2018-07-25] MEDS: CARDIZEM CD PO SCH (10:07)
[2018-07-25] MEDS: PEPCID IV SCH ×2 (10:08→21:06)
[2018-07-25] MEDS: HALFPRIN EC PO SCH (10:08)
[2018-07-25] MEDS: FOLVITE PO SCH (10:08)
[2018-07-25] MEDS: HEPARIN SUB-Q SCH ×2 (10:08→21:07)
[2018-07-25] MEDS: SODIUM CHLORIDE FLUSH SYRINGE 10 ML IV SCH ×2 (10:09→21:08)
--- NOTE | 2018-07-25 10:23 | Consultation ---
History of Present Illness Consult date: 07/25/18 Requesting physician: DANIELA DAVIS Consult reason: elevated troponin History of present illness: The pt is a 73 YO male with a past medical history of HTN, COPD, former tobacco use (quit smoking 2 years ago), ETOH use (drinks 1/2 pint daily). He presented with complaints of progressively worsening SOB and nonproductive cough for several days prior to arrival. He also c/o some intermittent "indigestion type" chest pain. He denies any palpitations, n/v, diaphoresis, dizziness or syncope. He states that he is regularly followed by the OR and denies any prior cardiac issues, including CAD, AMI or HF. He was noted to have minimally elevated troponins and thus cardiology has been consulted. He is also noted to have MAGDALENE with Cr 1.9 and serum K+ 5.6. Echo done 05/2016 showed EF 50-55%, impaired relaxation. Past History Past Medical History: COPD, hypertension Social history: smoking (former), alcohol abuse (drinks 1/2 pint daily) Medications and Allergies Allergies Allergy/AdvReac Type Severity Reaction Status Date / Time No Known Allergies Allergy Verified 01/02/16 17:32 Home Medications Medication Instructions Recorded Confirmed Last Taken Type Aspirin [Adult Low Dose Aspirin EC] 81 mg PO DAILY 10/11/16 07/25/18 1 Day Ago History ~02/09/17 Pravastatin Sodium [Pravastatin] 20 mg PO QHS 10/11/16 07/25/18 1 Day Ago History ~02/09/17 Thiamine [Vitamin B-1] 100 mg PO QDAY 10/11/16 07/25/18 1 Day Ago History ~02/09/17 dilTIAZem CD [Cardizem CD] 120 mg PO DAILY 10/11/16 07/25/18 1 Day Ago History ~02/09/17 Ipratropium/Albuterol Sulfate 1 ampul IH Q6HRT #30 ampul.neb 10/14/16 07/25/18 1 Day Ago Rx [DUONEB *Not for PRN Use*] ~02/09/17 Sodium Bicarbonate 1,300 mg PO BID #60 tablet 10/14/16 07/25/18 1 Day Ago Rx ~02/09/17 Budesonide/Formoterol Fumarate 10.2 gm IH BID 30 Days hfa.aer.ad 02/13/17 07/25/18 Unknown Rx [Symbicort 160-4.5 Mcg Inhaler] Folic Acid [Folvite] 0.5 mg PO DAILY #30 tablet 02/13/17 07/25/18 Unknown Rx Tiotropium [Spiriva] 18 mcg IH QDAY #1 box 02/13/17 07/25/18 Unknown Rx Fluticasone Propionate 50 mcg INNOSTRIL DAILY 07/25/18 07/25/18 Unknown History Loratadine 10 mg PO PRN PRN 07/25/18 07/25/18 Unknown History Symbicort 80-4.5 Mcg Inhaler 80 mcg INHALATION BID 07/25/18 07/25/18 Unknown History Active Meds: Active Medications Acetaminophen (Tylenol) 650 mg PO Q4H PRN PRN Reason: Pain MILD(1-3)/Fever >100.5/NOBLE Albuterol (Proventil) 2.5 mg IH Q4HRT PRN PRN Reason: Shortness Of Breath Albuterol/Ipratropium (Duoneb *Not For Prn Use*) 1 ampul IH QIDRT [facility] Last Admin: 07/25/18 07:36 Dose: 1 ampul Documented by: Aspirin (Halfprin Ec) 81 mg PO DAILY [facility] Last Admin: 07/25/18 10:08 Dose: 81 mg Documented by: Diltiazem HCl (Cardizem Cd) 120 mg PO DAILY [facility] Last Admin: 07/25/18 10:07 Dose: 120 mg Documented by: Famotidine (Pepcid) 10 mg IV BID [facility] Last Admin: 07/25/18 10:08 Dose: 10 mg Documented by: Folic Acid (Folvite) 0.5 mg PO DAILY [facility] Last Admin: 07/25/18 10:08 Dose: 0.5 mg Documented by: Heparin Sodium (Porcine) (Heparin) 5,000 unit SUB-Q Q12HR [facility] Last Admin: 07/25/18 10:08 Dose: 5,000 unit Documented by: Sodium Chloride (Nacl 0.9% 1000 Ml) 1,000 mls @ 75 mls/hr IV DIRECT [facility] Last Admin: 07/24/18 21:05 Dose: 75 mls/hr Documented by: Levofloxacin/Dextrose (Levaquin 750mg/150ml) 750 mg in 150 mls @ 100 mls/hr IV Q48H [facility]; Protocol Last Admin: 07/24/18 20:26 Dose: 100 mls/hr Documented by: Methylprednisolone Sodium Succinate (Solu-Medrol) 125 mg IV Q8H [facility] Last Admin: 07/25/18 03:02 Dose: 125 mg Documented by: Morphine Sulfate (Morphine) 2 mg IV Q4H PRN PRN Reason: Pain, Moderate (4-6) Ondansetron HCl (Zofran) 4 mg IV Q8H PRN PRN Reason: Nausea And Vomiting Oxycodone/Acetaminophen (Percocet 5/325) 1 tab PO Q6H PRN PRN Reason: Pain, Moderate (4-6) Pravastatin Sodium (Pravachol) 20 mg PO QHS [facility] Last Admin: 07/24/18 21:06 Dose: 20 mg Documented by: Sodium Bicarbonate (Sodium Bicarbonate) 1,300 mg PO BID [facility] Last Admin: 07/25/18 10:07 Dose: 1,300 mg Documented by: Sodium Chloride (Sodium Chloride Flush Syringe 10 Ml) 10 ml IV BID [facility] Last Admin: 07/25/18 10:09 Dose: 10 ml Documented by: Sodium Chloride (Sodium Chloride Flush Syringe 10 Ml) 10 ml IV PRN PRN PRN Reason: LINE FLUSH Sodium Polystyrene Sulfonate (Kionex) 30 gm PO ONCE ONE Stop: 07/25/18 10:14 Thiamine HCl (Vitamin B-1) 100 mg PO QDAY [facility] Last Admin: 07/25/18 10:07 Dose: 100 mg Documented by: Review of Systems Constitutional: no weight loss, no weight gain, no fever, no chills, no sweats Ears, nose, mouth and throat: no ear pain, no nose pain, no sinus pressure, no sinus pain Cardiovascular: chest pain, shortness of breath, dyspnea on exertion, high blood pressure, no orthopnea, no palpitations, no rapid/irregular heart beat, no edema, no syncope, no lightheadedness, no leg edema Respiratory: cough, shortness of breath, dyspnea on exertion, wheezing, no cough with sputum, no congestion, no pain on inspiration Gastrointestinal: no abdominal pain, no nausea, no vomiting, no diarrhea, no constipation, no change in bowel habits Genitourinary Male: no dysuria, no hematuria, no flank pain, no discharge, no urinary frequency, no urinary hesitancy Musculoskeletal: no neck stiffness, no neck pain, no shooting arm pain, no arm numbness/tingling, no low back pain, no shooting leg pain Integumentary: no rash, no pruritis, no redness, no sores, no wounds Neurological: no head injury, no paralysis, no weakness, no parathesias, no numbness, no tingling, no seizures, no syncope Psychiatric: no anxiety Endocrine: no cold intolerance, no heat intolerance Hematologic/Lymphatic: no easy bruising, no easy bleeding Allergic/Immunologic: wheezing, no urticaria Physical Examination Vital Signs Pulse Resp Pulse Ox 93 H 17 99 07/24/18 10:53 07/24/18 10:53 07/24/18 10:53 General appearance: no acute distress HEENT: Positive: PERRL, Normocephaly, Mucus Membranes Moist Neck: Positive: neck supple, trachea midline Cardiac: Positive: Reg Rate and Rhythm, S1/S2 Lungs: Positive: Decreased Breath Sounds, Wheezes Neuro: Positive: Grossly Intact Abdomen: Positive: Soft. Negative: Tender Skin: Negative: Rash, Wound Musculoskeletal: No Pain Extremities: Absent: edema Results 07/25/18 04:47 07/25/18 04:47 Cardiac Enzymes 07/24/18 07/25/18 Range/Units 11:09 04:47 AST 23 21 (5-40) units/L Coagulation 07/24/18 Range/Units 11:09 PT 12.2 (12.2-14.9) Sec. INR 0.86 L (0.87-1.13) Lipids 07/24/18 Range/Units 11:09 Triglycerides 60 (2-149) mg/dL Cholesterol 207 H (50-199) mg/dL HDL Cholesterol 139 H (40-59) mg/dL Cholesterol/HDL Ratio 1.48 % CBC 07/24/18 07/25/18 Range/Units 11:09 04:47 WBC 4.7 2.7 L (4.5-11.0) K/mm3 RBC 3.99 4.00 (3.65-5.03) M/mm3 Hgb 13.9 14.0 (11.8-15.2) gm/dl Hct 40.6 39.9 (35.5-45.6) % Plt Count 210 187 (140-440) K/mm3 Lymph # 1.5 0.3 L (1.2-5.4) K/mm3 [place] # 0.6 0.1 (0.0-0.8) K/mm3 Eos # 0.5 H 0.0 (0.0-0.4) K/mm3 Baso # 0.1 0.0 (0.0-0.1) K/mm3 Comprehensive Metabolic Panel 07/24/18 07/25/18 Range/Units 11:09 04:47 Sodium 130 L 131 L (137-145) mmol/L Potassium 4.7 5.6 H (3.6-5.0) mmol/L Chloride 91.1 L 94.9 L (98-107) mmol/L Carbon Dioxide 21 L 20 L (22-30) mmol/L BUN 19 27 H (9-20) mg/dL Creatinine 1.7 H 1.9 H (0.8-1.5) mg/dL Glucose 99 125 H (75-100) mg/dL Calcium 9.1 8.9 (8.4-10.2) mg/dL AST 23 21 (5-40) units/L ALT 14 13 (7-56) units/L Alkaline Phosphatase 54 50 (35-129) units/L Total Protein 6.7 6.2 L (6.3-8.2) g/dL Albumin 4.5 4.0 (3.9-5) g/dL - Imaging and Cardiology Echo: pending, report reviewed (05/2016 showed EF 50-55%, impaired relaxation. ) EKG: report reviewed, image reviewed EKG interpretations - Telemetry EKG Rhythm: Sinus Rhythm - EKG Sinus rhythms and dysrhythmias: sinus rhythm Assessment and Plan Pt's chest pain appears atypical, suspect pleuritic. Troponins are minimally elevated and flat, nonspecific in setting of MAGDALENE, ECG with no acute ischemic changes. Obtain echo. Follow pulmonary recs. Await nephrology recs. The patient has been seen in conjunction with Dr. Russell who agrees with the assessment and plan of care. - Patient Problems (1) COPD with acute exacerbation Current Visit: Yes Status: Acute (2) Chest pain Current Visit: Yes Status: Acute Qualifiers: Chest pain type: unspecified Qualified Code(s): R07.9 - Chest pain, unspecified (3) Elevated troponin level Current Visit: Yes Status: Acute (4) Acute kidney injury Current Visit: Yes Status: Acute (5) Hyperkalemia Current Visit: Yes Status: Acute (6) Hypertension Current Visit: Yes Status: Chronic Qualifiers: Hypertension type: essential hypertension Qualified Code(s): I10 - Essential (primary) hypertension (7) Hyperlipidemia Current Visit: Yes Status: Chronic (8) Alcohol use Current Visit: Yes Status: Chronic
--- NOTE | 2018-07-25 10:44 | Progress Note ---
Assessment and Plan Assessment and plan: 73-year-old male with history of hypertension and COPD comes in for increasing shortness of breath and wheezing for last 2 days. Patient called EMS. Patient was given 2 g of magnesium and was initiated on CPAP and nebulizer treatments. Patient has difficulty answering because of shortness of breath. Not responding to nebulizer treatments. No fever or chills. No lower extremity pedal edema. No recent travel. Cough productive of mucoid sputum. Primary care Dr.: [facility] On admission was noted to have elevated Troponin but this appears to be chronic, also elevated creatnine which appears to be consistent with his baseline. CXR- Emphysema Acute on chronic Respiratory failure with Hypoxia-Secondary to COPD COPD Exacerbation CKD stage 3 NSTEMI type 2 Hyponatremia Atypical chest pain -Pleuritic in nature Hyperkalemia ETOH use disorder Plan Continue supportive care Cardiology and Pulmonary input noted. Neprhology consulted Continue tapering steroids, Nebs as needed and scheduled Taper steroids CPAP/BIPAP PRN Give additional kayxalate and monitor K for resolution DVT.GI prophy pLAN DISCUSSED WITH THE PATIENT. History Interval history: Patient seen and examined, no new complaints. Hospitalist Physical - Physical exam Narrative exam: General appearance: Present: mild distress - Respiratory Respiratory: bilateral: diminished, rhonchi, wheezing - Cardiovascular Heart rate: 90 Rhythm: regular - Extremities Extremities: no ischemia, pulses intact Peripheral Pulses: within normal limits - Abdominal General gastrointestinal: Present: soft, non-tender, normal bowel sounds Male genitourinary: Present: normal - Integumentary Integumentary: Present: clear, warm, dry - Musculoskeletal Musculoskeletal: strength equal bilaterally - Psychiatric Psychiatric: appropriate mood/affect, intact judgment & insight, memory intact, cooperative - Neurologic Neurologic: CNII-XII intact, moves all extremities - Allied Health Allied health notes reviewed: nursing, case management - Constitutional Vitals: Temp Pulse Resp BP Pulse Ox 98.4 F 100 H 24 149/84 100 07/25/18 07:52 07/25/18 10:07 07/25/18 07:52 07/25/18 10:07 07/25/18 07:52 General appearance: Present: no acute distress Results - Labs CBC & Chem 7: 07/25/18 04:47 07/26/18 05:16 Labs: Laboratory Last Values WBC 2.7 K/mm3 (4.5-11.0) L 07/25/18 04:47 RBC 4.00 M/mm3 (3.65-5.03) 07/25/18 04:47 Hgb 14.0 gm/dl (11.8-15.2) 07/25/18 04:47 Hct 39.9 % (35.5-45.6) 07/25/18 04:47 MCV 100 fl (84-94) H 07/25/18 04:47 MCH 35 pg (28-32) H 07/25/18 04:47 MCHC 35 % (32-34) H 07/25/18 04:47 RDW 13.6 % (13.2-15.2) 07/25/18 04:47 Plt Count 187 K/mm3 (140-440) 07/25/18 04:47 Lymph % (Auto) 10.9 % (13.4-35.0) L 07/25/18 04:47 [place] % (Auto) 3.5 % (0.0-7.3) 07/25/18 04:47 Eos % (Auto) 0.0 % (0.0-4.3) 07/25/18 04:47 Baso % (Auto) 0.2 % (0.0-1.8) 07/25/18 04:47 Lymph # 0.3 K/mm3 (1.2-5.4) L 07/25/18 04:47 [place] # 0.1 K/mm3 (0.0-0.8) 07/25/18 04:47 Eos # 0.0 K/mm3 (0.0-0.4) 07/25/18 04:47 Baso # 0.0 K/mm3 (0.0-0.1) 07/25/18 04:47 Seg Neutrophils % 85.4 % (40.0-70.0) H 07/25/18 04:47 Seg Neutrophils # 2.3 K/mm3 (1.8-7.7) 07/25/18 04:47 PT 12.2 Sec. (12.2-14.9) 07/24/18 11:09 INR 0.86 (0.87-1.13) L 07/24/18 11:09 POC ABG pH 7.290 (7.35-7.45) L 07/24/18 11:26 POC ABG pCO2 44.8 (35-45) 07/24/18 11:26 POC ABG pO2 83 (80-105) 07/24/18 11:26 POC ABG HCO3 21.5 (22-26 mml/L) 07/24/18 11:26 POC ABG Total CO2 23 (23-27mmol/L) 07/24/18 11:26 POC ABG O2 Sat 95 07/24/18 11:26 POC ABG Base Excess -5 ((-2) - (+3)mmol/L) 07/24/18 11:26 35 % 07/24/18 11:26 Sodium 131 mmol/L (137-145) L 07/25/18 04:47 Potassium 5.6 mmol/L (3.6-5.0) H 07/25/18 04:47 Chloride 94.9 mmol/L (98-107) L 07/25/18 04:47 Carbon Dioxide 20 mmol/L (22-30) L 07/25/18 04:47 22 mmol/L 07/25/18 04:47 BUN 27 mg/dL (9-20) H 07/25/18 04:47 1.9 mg/dL (0.8-1.5) H 07/25/18 04:47 Estimated GFR 42 ml/min 07/25/18 04:47 14 % 07/25/18 04:47 Glucose 125 mg/dL (75-100) H 07/25/18 04:47 POC Glucose 187 (70-105) H 07/24/18 21:28 4.7 % (4-6) 07/24/18 18:48 Calcium 8.9 mg/dL (8.4-10.2) 07/25/18 04:47 Magnesium 3.10 mg/dL (1.7-2.3) H 07/24/18 11:09 0.50 mg/dL (0.1-1.2) 07/25/18 04:47 AST 21 units/L (5-40) 07/25/18 04:47 ALT 13 units/L (7-56) 07/25/18 04:47 50 units/L (35-129) 07/25/18 04:47 0.039 ng/mL (0.00-0.029) H 07/25/18 00:34 6.2 g/dL (6.3-8.2) L 07/25/18 04:47 4.0 g/dL (3.9-5) 07/25/18 04:47 1.8 % 07/25/18 04:47 Triglycerides 60 mg/dL (2-149) 07/24/18 11:09 Cholesterol 207 mg/dL (50-199) H 07/24/18 11:09 67 mg/dL (50-130) 07/24/18 11:09 139 mg/dL (40-59) H 07/24/18 11:09 1.48 % 07/24/18 11:09 Yellow (Yellow) 07/25/18 02:18 Clear (Clear) 07/25/18 02:18 5.0 (5.0-7.0) 07/25/18 02:18 Ur Specific [place] 1.010 (1.003-1.030) 07/25/18 02:18 <15 mg/dl mg/dL (Negative) 07/25/18 02:18 Neg mg/dL (Negative) 07/25/18 02:18 Negative mg/dL (Negative) 07/25/18 02:18 Neg (Negative) 07/25/18 02:18 Neg (Negative) 07/25/18 02:18 Neg (Negative) 07/25/18 02:18 < 2.0 mg/dL (<2.0) 07/25/18 02:18 Ur Leukocyte Esterase Neg (Negative) 07/25/18 02:18 < 1.0 /HPF (0.0-6.0) 07/25/18 02:18 < 1.0 /HPF (0.0-6.0) 07/25/18 02:18 87.8 mg/dL (0.1-20.0) H 07/25/18 02:18 20 mmol/L 07/25/18 02:18 Active Medications - Current Medications Current Medications: Generic Name Dose Route Start Last Admin Trade Name Freq PRN Reason Stop Dose Admin Acetaminophen 650 mg 07/24/18 18:44 Tylenol PO Q4H PRN Pain MILD(1-3)/Fever >100.5/NOBLE Albuterol 2.5 mg 07/24/18 18:47 Proventil IH Q4HRT PRN Shortness Of Breath Albuterol/Ipratropium 1 ampul 07/24/18 20:00 07/25/18 07:36 Duoneb *Not For Prn Use* IH 1 ampul QIDRT NICOLE Administration Aspirin 81 mg 07/25/18 10:00 07/25/18 10:08 Halfprin Ec PO 81 mg DAILY NICOLE Administration Diltiazem HCl 120 mg 07/24/18 20:00 07/25/18 10:07 Cardizem Cd PO 120 mg DAILY NICOLE Administration Famotidine 10 mg 07/25/18 10:00 07/25/18 10:08 Pepcid IV 10 mg BID NICOLE Administration Folic Acid 0.5 mg 07/25/18 10:00 07/25/18 10:08 Folvite PO 0.5 mg DAILY NICOLE Administration Heparin Sodium (Porcine) 5,000 unit 07/24/18 22:00 07/25/18 10:08 Heparin SUB-Q 5,000 unit Q12HR NICOLE Administration Sodium Chloride 1,000 mls @ 75 mls/hr 07/24/18 19:00 07/24/18 21:05 Nacl 0.9% 1000 Ml IV 75 mls/hr DIRECT NICOLE Administration Levofloxacin/Dextrose 750 mg in 150 mls @ 100 mls/hr 07/24/18 20:00 07/24/18 20:26 Levaquin 750mg/150ml IV 100 mls/hr Q48H NICOLE Administration Protocol Methylprednisolone Sodium Succinate 125 mg 07/24/18 20:00 07/25/18 03:02 Solu-Medrol IV 125 mg Q8H NICOLE Administration Morphine Sulfate 2 mg 07/24/18 18:44 Morphine IV Q4H PRN Pain, Moderate (4-6) Ondansetron HCl 4 mg 07/24/18 18:44 Zofran IV Q8H PRN Nausea And Vomiting Oxycodone/Acetaminophen 1 tab 07/24/18 18:44 Percocet 5/325 PO Q6H PRN Pain, Moderate (4-6) Pravastatin Sodium 20 mg 07/24/18 22:00 07/24/18 21:06 Pravachol PO 20 mg QHS NICOLE Administration Sodium Bicarbonate 1,300 mg 07/24/18 22:00 07/25/18 10:07 Sodium Bicarbonate PO 1,300 mg BID NICOLE Administration Sodium Chloride 10 ml 07/24/18 22:00 07/25/18 10:09 Sodium Chloride Flush Syringe 10 Ml IV 10 ml BID NICOLE Administration Sodium Chloride 10 ml 07/24/18 18:44 Sodium Chloride Flush Syringe 10 Ml IV PRN PRN LINE FLUSH Sodium Polystyrene Sulfonate 30 gm 07/25/18 11:13 Kionex PO 07/25/18 11:14 ONCE ONE Thiamine HCl 100 mg 07/25/18 10:00 07/25/18 10:07 Vitamin B-1 PO 100 mg QDAY NICOLE Administration
[2018-07-25] MEDS ORDERED: KIONEX PO ONE (11:13)
[2018-07-25] MEDS: NACL 0.9% 1000 ML 1,000 ML IV SCH (13:46)
--- NOTE | 2018-07-25 18:53 | Consultation ---
History of Present Illness - Reason for Consult Consult date: 07/25/18 acute renal failure, chronic renal failure - History of Present Illness The patient is is a 73 YO male with history significant for HTN, HLD, COPD and CKD who was brought to [facility] ED by EMS for shortness of breath. Patient is a very poor historian and there was no family member at the bedside. Apparently the patient was found at home by EMS, with significant work of breathing. EMS gave the patient steroids, 2 g of magnesium and started the patient on CPAP therapy. Vitals significant for tachycardia. Labs today showed creatinine 1.9 and K 5.6. CXR reported as presence of Emphysematous changes. Nephrology was consulted for further evaluation. Past History Past Medical History: COPD, hypertension, hyperlipidemia, renal failure Social history: smoking (former), alcohol abuse (drinks 1/2 pint daily) Medications and Allergies Allergies Allergy/AdvReac Type Severity Reaction Status Date / Time No Known Allergies Allergy Verified 01/02/16 17:32 Home Medications Medication Instructions Recorded Confirmed Last Taken Type Aspirin [Adult Low Dose Aspirin EC] 81 mg PO DAILY 10/11/16 07/25/18 1 Day Ago History ~02/09/17 Pravastatin Sodium [Pravastatin] 20 mg PO QHS 10/11/16 07/25/18 1 Day Ago History ~02/09/17 Thiamine [Vitamin B-1] 100 mg PO QDAY 10/11/16 07/25/18 1 Day Ago History ~02/09/17 dilTIAZem CD [Cardizem CD] 120 mg PO DAILY 10/11/16 07/25/18 1 Day Ago History ~02/09/17 Ipratropium/Albuterol Sulfate 1 ampul IH Q6HRT #30 ampul.neb 10/14/16 07/25/18 1 Day Ago Rx [DUONEB *Not for PRN Use*] ~02/09/17 Sodium Bicarbonate 1,300 mg PO BID #60 tablet 10/14/16 07/25/18 1 Day Ago Rx ~02/09/17 Budesonide/Formoterol Fumarate 10.2 gm IH BID 30 Days hfa.aer.[email or web address] 02/13/17 07/25/18 Unknown Rx [Symbicort 160-4.5 Mcg Inhaler] Folic Acid [Folvite] 0.5 mg PO DAILY #30 tablet 02/13/17 07/25/18 Unknown Rx Tiotropium [Spiriva] 18 mcg IH QDAY #1 box 02/13/17 07/25/18 Unknown Rx Fluticasone Propionate 50 mcg INNOSTRIL DAILY 07/25/18 07/25/18 Unknown History Loratadine 10 mg PO PRN PRN 07/25/18 07/25/18 Unknown History Symbicort 80-4.5 Mcg Inhaler 80 mcg INHALATION BID 07/25/18 07/25/18 Unknown Hi story Active Meds: Active Medications Acetaminophen (Tylenol) 650 mg PO Q4H PRN PRN Reason: Pain MILD(1-3)/Fever >100.5/NOBLE Albuterol (Proventil) 2.5 mg IH Q4HRT PRN PRN Reason: Shortness Of Breath Albuterol/Ipratropium (Duoneb *Not For Prn Use*) 1 ampul IH QIDRT [facility] Last Admin: 07/25/18 13:58 Dose: 1 ampul Documented by: Aspirin (Halfprin Ec) 81 mg PO DAILY [facility] Last Admin: 07/25/18 10:08 Dose: 81 mg Documented by: Diltiazem HCl (Cardizem Cd) 120 mg PO DAILY [facility] Last Admin: 07/25/18 10:07 Dose: 120 mg Documented by: Famotidine (Pepcid) 10 mg IV BID [facility] Last Admin: 07/25/18 10:08 Dose: 10 mg Documented by: Folic Acid (Folvite) 0.5 mg PO DAILY [facility] Last Admin: 07/25/18 10:08 Dose: 0.5 mg Documented by: Heparin Sodium (Porcine) (Heparin) 5,000 unit SUB-Q Q12HR [facility] Last Admin: 07/25/18 10:08 Dose: 5,000 unit Documented by: Sodium Chloride (Nacl 0.9% 1000 Ml) 1,000 mls @ 75 mls/hr IV DIRECT [facility] Last Admin: 07/25/18 13:46 Dose: 75 mls/hr Documented by: Levofloxacin/Dextrose (Levaquin 750mg/150ml) 750 mg in 150 mls @ 100 mls/hr IV Q48H [facility]; Protocol Last Admin: 07/24/18 20:26 Dose: 100 mls/hr Documented by: Methylprednisolone Sodium Succinate (Solu-Medrol) 80 mg IV Q8H [facility] Last Admin: 07/25/18 11:29 Dose: 80 mg Documented by: Morphine Sulfate (Morphine) 2 mg IV Q4H PRN PRN Reason: Pain, Moderate (4-6) Ondansetron HCl (Zofran) 4 mg IV Q8H PRN PRN Reason: Nausea And Vomiting Oxycodone/Acetaminophen (Percocet 5/325) 1 tab PO Q6H PRN PRN Reason: Pain, Moderate (4-6) Pravastatin Sodium (Pravachol) 20 mg PO QHS [facility] Last Admin: 07/24/18 21:06 Dose: 20 mg Documented by: Sodium Bicarbonate (Sodium Bicarbonate) 1,300 mg PO BID [facility] Last Admin: 07/25/18 10:07 Dose: 1,300 mg Documented by: Sodium Chloride (Sodium Chloride Flush Syringe 10 Ml) 10 ml IV BID [facility] Last Admin: 07/25/18 10:09 Dose: 10 ml Documented by: Sodium Chloride (Sodium Chloride Flush Syringe 10 Ml) 10 ml IV PRN PRN PRN Reason: LINE FLUSH Thiamine HCl (Vitamin B-1) 100 mg PO QDAY [facility] Last Admin: 07/25/18 10:07 Dose: 100 mg Documented by: Review of Systems ROS unobtainable: due to mental status Exam - Vital Signs Vital signs: Vital Signs Pulse Resp Pulse Ox 93 H 17 99 07/24/18 10:53 07/24/18 10:53 07/24/18 10:53 - General Appearance General appearance: well-developed, appears stated age, other (frail, not in distress) EENT: ATNC, PERRL, hearing intact, vision intact Neck: Present: neck supple, trachea midline Respiratory: Clear to Ascultation Heart: regular, S1S2, no murmurs Gastrointestinal: Present: normoactive bowel sounds. Absent: tenderness, distended Integumentary: no rash, warm and dry Neurologic: no focal deficit, no asterixis Musculoskeletal: Present: other (no edema) Results - Lab Results 07/25/18 04:47 07/26/18 05:16 Most recent lab results Calcium 8.9 mg/dL (8.4-10.2) 07/25/18 04:47 Magnesium 3.10 mg/dL (1.7-2.3) H 07/24/18 11:09 87.8 mg/dL (0.1-20.0) H 07/25/18 02:18 20 mmol/L 07/25/18 02:18 Assessment and Plan 1. Acute kidney injury: Likely vasomotor MAGDALENE superimposed on CKD stage 3 in the setting of volume depletion. R kidney atrophy. Started on IV fluids. Monitor renal function. Avoid nephrotoxic agents. Meds dosage based on GFR. 2. FEN: Hyperkalemia, kayexalate ordered. Hyponatremia, monitor. Metabolic acidosis, monitor. Monitor lytes. 3. COPD exacerbation. 4. Chest pain with elevated Troponin: Followed by Cards. 5. ETOH abuse.
[2018-07-25] MEDS: PRAVACHOL PO SCH (21:06)
[2018-07-26] MEDS: SOLU-Medrol IV SCH ×4 (03:09→22:11)
[2018-07-26] MEDS: NACL 0.9% 1000 ML 1,000 ML IV SCH ×2 (03:10→15:00)
[2018-07-26] MEDS: DUONEB *Not for PRN Use IH SCH ×5 (04:40→20:22)
[2018-07-26 06:05] LABS: Calcium 8.7 mg/dL (8.4-10.2)
[2018-07-26] MEDS: HALFPRIN EC PO SCH (09:04)
[2018-07-26] MEDS: SODIUM BICARBONATE PO SCH ×2 (09:04→22:12)
[2018-07-26] MEDS: VITAMIN B-1 PO SCH (09:04)
[2018-07-26] MEDS: CARDIZEM CD PO SCH (09:04)
[2018-07-26] MEDS: FOLVITE PO SCH (09:04)
[2018-07-26] MEDS: SODIUM CHLORIDE FLUSH SYRINGE 10 ML IV SCH ×2 (09:05→22:12)
[2018-07-26] MEDS: HEPARIN SUB-Q SCH ×2 (09:07→22:12)
[2018-07-26] MEDS: PEPCID PO SCH ×2 (09:10→22:12)
--- NOTE | 2018-07-26 10:12 | Progress Note ---
Assessment and Plan Echo reviewed - EF 50-55%, mild TR. Currently stable cardiac status. Nothing further to add from cardiac perspective at this time. Will sign off. Recommend pt follow up with [facility] within 1-2 weeks of hospital discharge. The patient has been seen in conjunction with Dr. Russell who agrees with the assessment and plan of care. - Patient Problems (1) COPD with acute exacerbation Current Visit: Yes Status: Acute (2) Chest pain Current Visit: Yes Status: Resolved Qualifiers: Chest pain type: unspecified Qualified Code(s): R07.9 - Chest pain, unspecified (3) Elevated troponin level Current Visit: Yes Status: Acute (4) Acute kidney injury Current Visit: Yes Status: Acute (5) Hyperkalemia Current Visit: Yes Status: Acute (6) Hypertension Current Visit: Yes Status: Chronic Qualifiers: Hypertension type: essential hypertension Qualified Code(s): I10 - Essential (primary) hypertension (7) Hyperlipidemia Current Visit: Yes Status: Chronic (8) Alcohol use Current Visit: Yes Status: Chronic Subjective Date of service: 07/26/18 Objective Vital Signs Temp Pulse Pulse Pulse Pulse Resp Resp 07/26/18 09:04 98 H 07/26/18 07:57 07/26/18 07:41 98 H 18 07/26/18 07:40 98 H 20 07/26/18 07:24 98.2 F 98 H 20 07/26/18 02:22 97.8 F 92 H 18 07/25/18 23:32 102 H 07/25/18 22:00 20 07/25/18 19:51 98.9 F 98 H 18 07/25/18 19:14 97 H 07/25/18 13:58 95 H 07/25/18 13:28 97.8 F 41 L 20 07/25/18 12:00 96 H Resp BP Pulse Ox 07/26/18 09:04 139/90 07/26/18 07:57 95 07/26/18 07:41 07/26/18 07:40 95 07/26/18 07:24 139/90 95 07/26/18 02:22 144/90 95 07/25/18 23:32 07/25/18 22:00 100 07/25/18 19:51 146/90 97 07/25/18 19:14 07/25/18 13:58 19 07/25/18 13:28 140/92 100 07/25/18 12:00 18 - Physical Examination HEENT: Positive: PERRL, Normocephaly, Mucus Membranes Moist Neck: Positive: neck supple, trachea midline Neuro: Positive: Grossly Intact Abdomen: Positive: Soft. Negative: Tender Skin: Negative: Rash, Wound Musculoskeletal: No Pain Extremities: Absent: edema - Labs and Meds Comprehensive Metabolic Panel 07/26/18 Range/Units 05:16 Sodium 141 D (137-145) mmol/L Potassium 4.0 D (3.6-5.0) mmol/L Chloride 103.4 (98-107) mmol/L Carbon Dioxide 22 (22-30) mmol/L BUN 29 H (9-20) mg/dL Creatinine 1.6 H (0.8-1.5) mg/dL Glucose 141 H (75-100) mg/dL Calcium 8.7 (8.4-10.2) mg/dL - Imaging and Cardiology EKG: report reviewed, image reviewed Echo: pending, report reviewed (05/2016 showed EF 50-55%, impaired relaxation. ) - EKG Sinus rhythms and dysrhythmias: sinus rhythm
[2018-07-26] MEDS: SODIUM CHLORIDE FLUSH SYRINGE 10 ML IV PRN ×2 (11:38→15:00)
[2018-07-26] MEDS ORDERED: SOLU-Medrol IV SCH (13:44)
--- NOTE | 2018-07-26 13:47 | Progress Note ---
Assessment and Plan Assessment and plan: 73-year-old male with history of hypertension and COPD comes in for increasing shortness of breath and wheezing for last 2 days. Patient called EMS. Patient was given 2 g of magnesium and was initiated on CPAP and nebulizer treatments. Patient has difficulty answering because of shortness of breath. Not responding to nebulizer treatments. No fever or chills. No lower extremity pedal edema. No recent travel. Cough productive of mucoid sputum. Primary care Dr.: [facility] On admission was noted to have elevated Troponin but this appears to be chronic, also elevated creatnine which appears to be consistent with his baseline. CXR- Emphysema Echo- EF 50-55%, mild TR. Acute on chronic Respiratory failure with Hypoxia-Secondary to COPD COPD Exacerbation MAGDALENE on CKD stage 3 secondary vasomotor nephropathy NSTEMI type 2 Hyponatremia Atypical chest pain -Pleuritic in nature Hyperkalemia ETOH use disorder Plan Continue supportive care NEPHROLOGY INPUT NOTED, RENAL FUNCTION IMPROVING Continue gentle hydration Cardiology and Pulmonary input noted. Continue tapering steroids, Nebs as needed and scheduled Taper steroids CPAP/BIPAP PRN Give additional kayxalate and monitor K for resolution DVT.GI prophy pLAN DISCUSSED WITH THE PATIENT. Anticipate discharge in am History Interval history: Patient seen and examined, no new complaints. Hospitalist Physical - Physical exam Narrative exam: General appearance: Present: no acute distress at this time. - Respiratory Respiratory: bilateral: diminished, rhonchi, wheezing - Cardiovascular Heart rate: 90 Rhythm: regular - Extremities Extremities: no ischemia, pulses intact Peripheral Pulses: within normal limits - Abdominal General gastrointestinal: Present: soft, non-tender, normal bowel sounds Male genitourinary: Present: normal - Integumentary Integumentary: Present: clear, warm, dry - Musculoskeletal Musculoskeletal: strength equal bilaterally - Psychiatric Psychiatric: appropriate mood/affect, intact judgment & insight, memory intact, cooperative - Neurologic Neurologic: CNII-XII intact, moves all extremities - Allied Health Allied health notes reviewed: nursing, case management - Constitutional Vitals: Temp Pulse Resp BP Pulse Ox 98.2 F 101 H 18 139/90 95 07/26/18 07:24 07/26/18 13:16 07/26/18 13:16 07/26/18 09:04 07/26/18 10:00 General appearance: Present: no acute distress Results - Labs CBC & Chem 7: 07/25/18 04:47 07/26/18 05:16 Labs: Laboratory Last Values WBC 2.7 K/mm3 (4.5-11.0) L 07/25/18 04:47 RBC 4.00 M/mm3 (3.65-5.03) 07/25/18 04:47 Hgb 14.0 gm/dl (11.8-15.2) 07/25/18 04:47 Hct 39.9 % (35.5-45.6) 07/25/18 04:47 MCV 100 fl (84-94) H 07/25/18 04:47 MCH 35 pg (28-32) H 07/25/18 04:47 MCHC 35 % (32-34) H 07/25/18 04:47 RDW 13.6 % (13.2-15.2) 07/25/18 04:47 Plt Count 187 K/mm3 (140-440) 07/25/18 04:47 Lymph % (Auto) 10.9 % (13.4-35.0) L 07/25/18 04:47 [place] % (Auto) 3.5 % (0.0-7.3) 07/25/18 04:47 Eos % (Auto) 0.0 % (0.0-4.3) 07/25/18 04:47 Baso % (Auto) 0.2 % (0.0-1.8) 07/25/18 04:47 Lymph # 0.3 K/mm3 (1.2-5.4) L 07/25/18 04:47 [place] # 0.1 K/mm3 (0.0-0.8) 07/25/18 04:47 Eos # 0.0 K/mm3 (0.0-0.4) 07/25/18 04:47 Baso # 0.0 K/mm3 (0.0-0.1) 07/25/18 04:47 Seg Neutrophils % 85.4 % (40.0-70.0) H 07/25/18 04:47 Seg Neutrophils # 2.3 K/mm3 (1.8-7.7) 07/25/18 04:47 PT 12.2 Sec. (12.2-14.9) 07/24/18 11:09 INR 0.86 (0.87-1.13) L 07/24/18 11:09 POC ABG pH 7.290 (7.35-7.45) L 07/24/18 11:26 POC ABG pCO2 44.8 (35-45) 07/24/18 11:26 POC ABG pO2 83 (80-105) 07/24/18 11:26 POC ABG HCO3 21.5 (22-26 mml/L) 07/24/18 11:26 POC ABG Total CO2 23 (23-27mmol/L) 07/24/18 11:26 POC ABG O2 Sat 95 07/24/18 11:26 POC ABG Base Excess -5 ((-2) - (+3)mmol/L) 07/24/18 11:26 35 % 07/24/18 11:26 Sodium 141 mmol/L (137-145) D 07/26/18 05:16 Potassium 4.0 mmol/L (3.6-5.0) D 07/26/18 05:16 Chloride 103.4 mmol/L (98-107) 07/26/18 05:16 Carbon Dioxide 22 mmol/L (22-30) 07/26/18 05:16 20 mmol/L 07/26/18 05:16 BUN 29 mg/dL (9-20) H 07/26/18 05:16 1.6 mg/dL (0.8-1.5) H 07/26/18 05:16 Estimated GFR 52 ml/min 07/26/18 05:16 18 % 07/26/18 05:16 Glucose 141 mg/dL (75-100) H 07/26/18 05:16 POC Glucose 187 (70-105) H 07/24/18 21:28 4.7 % (4-6) 07/24/18 18:48 Calcium 8.7 mg/dL (8.4-10.2) 07/26/18 05:16 Phosphorus 4.40 mg/dL (2.5-4.5) 07/26/18 05:16 Magnesium 3.10 mg/dL (1.7-2.3) H 07/24/18 11:09 0.50 mg/dL (0.1-1.2) 07/25/18 04:47 AST 21 units/L (5-40) 07/25/18 04:47 ALT 13 units/L (7-56) 07/25/18 04:47 50 units/L (35-129) 07/25/18 04:47 0.039 ng/mL (0.00-0.029) H 07/25/18 00:34 6.2 g/dL (6.3-8.2) L 07/25/18 04:47 4.0 g/dL (3.9-5) 07/25/18 04:47 1.8 % 07/25/18 04:47 Triglycerides 60 mg/dL (2-149) 07/24/18 11:09 Cholesterol 207 mg/dL (50-199) H 07/24/18 11:09 67 mg/dL (50-130) 07/24/18 11:09 139 mg/dL (40-59) H 07/24/18 11:09 1.48 % 07/24/18 11:09 Yellow (Yellow) 07/25/18 02:18 Clear (Clear) 07/25/18 02:18 5.0 (5.0-7.0) 07/25/18 02:18 Ur Specific [place] 1.010 (1.003-1.030) 07/25/18 02:18 <15 mg/dl mg/dL (Negative) 07/25/18 02:18 Neg mg/dL (Negative) 07/25/18 02:18 Negative mg/dL (Negative) 07/25/18 02:18 Neg (Negative) 07/25/18 02:18 Neg (Negative) 07/25/18 02:18 Neg (Negative) 07/25/18 02:18 < 2.0 mg/dL (<2.0) 07/25/18 02:18 Ur Leukocyte Esterase Neg (Negative) 07/25/18 02:18 < 1.0 /HPF (0.0-6.0) 07/25/18 02:18 < 1.0 /HPF (0.0-6.0) 07/25/18 02:18 87.8 mg/dL (0.1-20.0) H 07/25/18 02:18 20 mmol/L 07/25/18 02:18 Active Medications - Current Medications Current Medications: Generic Name Dose Route Start Last Admin Trade Name Freq PRN Reason Stop Dose Admin Acetaminophen 650 mg 07/24/18 18:44 Tylenol PO Q4H PRN Pain MILD(1-3)/Fever >100.5/NOBLE Albuterol 2.5 mg 07/24/18 18:47 Proventil IH Q4HRT PRN Shortness Of Breath Albuterol/Ipratropium 1 ampul 07/24/18 20:00 07/26/18 13:14 Duoneb *Not For Prn Use* IH 1 ampul QIDRT NICOLE Administration Aspirin 81 mg 07/25/18 10:00 07/26/18 09:04 Halfprin Ec PO 81 mg DAILY NICOLE Administration Diltiazem HCl 120 mg 07/24/18 20:00 07/26/18 09:04 Cardizem Cd PO 120 mg DAILY NICOLE Administration Famotidine 10 mg 07/26/18 10:00 07/26/18 09:10 Pepcid PO 10 mg BID NICOLE Administration Folic Acid 0.5 mg 07/25/18 10:00 07/26/18 09:04 Folvite PO 0.5 mg DAILY NICOLE Administration Heparin Sodium (Porcine) 5,000 unit 07/24/18 22:00 07/26/18 09:07 Heparin SUB-Q 5,000 unit Q12HR NICOLE Administration Sodium Chloride 1,000 mls @ 75 mls/hr 07/24/18 19:00 07/26/18 03:10 Nacl 0.9% 1000 Ml IV 75 mls/hr DIRECT NICOLE Administration Levofloxacin 750 mg 07/26/18 22:00 Levaquin PO Q48HR@2200 [facility] Methylprednisolone Sodium Succinate 40 mg 07/26/18 13:44 Solu-Medrol IV Q8H [facility] Morphine Sulfate 2 mg 07/24/18 18:44 Morphine IV Q4H PRN Pain, Moderate (4-6) Ondansetron HCl 4 mg 07/24/18 18:44 Zofran IV Q8H PRN Nausea And Vomiting Oxycodone/Acetaminophen 1 tab 07/24/18 18:44 Percocet 5/325 PO Q6H PRN Pain, Moderate (4-6) Pravastatin Sodium 20 mg 07/24/18 22:00 07/25/18 21:06 Pravachol PO 20 mg QHS NICOLE Administration Sodium Bicarbonate 1,300 mg 07/24/18 22:00 07/26/18 09:04 Sodium Bicarbonate PO 1,300 mg BID NICOLE Administration Sodium Chloride 10 ml 07/24/18 22:00 07/26/18 09:05 Sodium Chloride Flush Syringe 10 Ml IV 10 ml BID NICOLE Administration Sodium Chloride 10 ml 07/24/18 18:44 07/26/18 11:38 Sodium Chloride Flush Syringe 10 Ml IV 10 ml PRN PRN Administration LINE FLUSH Thiamine HCl 100 mg 07/25/18 10:00 07/26/18 09:04 Vitamin B-1 PO 100 mg QDAY NICOLE Administration
--- NOTE | 2018-07-26 14:03 | Progress Note ---
Assessment and Plan 1. Acute kidney injury: Likely vasomotor MAGDALENE superimposed on CKD stage 3 in the setting of volume depletion. R kidney atrophy. renal function is better. Continue IV fluids. Monitor renal function. Avoid nephrotoxic agents. Meds dosage based on GFR. 2. FEN: Hyperkalemia, improved. Hyponatremia, improved. Metabolic acidosis, improved. Monitor lytes. 3. COPD exacerbation. 4. Chest pain with elevated Troponin: Followed by Cards. 5. ETOH abuse. Subjective Date of service: 07/26/18 Interval history: Patient was seen and examined at the bedside. Objective - Vital Signs Vital signs: Vital Signs - 12hr 07/26/18 07/26/18 07/26/18 02:22 07:24 07:41 Temperature 97.8 F 98.2 F Pulse Rate 92 H 98 H Pulse Rate [ 98 H Anterior Bilateral Throughout] Pulse Rate [ 96 H Anterior Bilateral] Pulse Rate [ From Monitor] Respiratory 18 20 Rate Respiratory 18 Rate [Anterior Bilateral Throughout] Respiratory 18 Rate [Anterior Bilateral] Blood Pressure 144/90 139/90 O2 Sat by Pulse 95 95 Oximetry 07/26/18 07/26/18 07/26/18 07:57 09:04 10:00 Temperature Pulse Rate 98 H 113 H Pulse Rate [ Anterior Bilateral Throughout] Pulse Rate [ Anterior Bilateral] Pulse Rate [ 113 H From Monitor] Respiratory 20 Rate Respiratory Rate [Anterior Bilateral Throughout] Respiratory Rate [Anterior Bilateral] Blood Pressure 139/90 O2 Sat by Pulse 95 95 Oximetry 07/26/18 07/26/18 13:16 13:47 Temperature 97.9 F Pulse Rate 96 H Pulse Rate [ Anterior Bilateral Throughout] Pulse Rate [ 101 H Anterior Bilateral] Pulse Rate [ From Monitor] Respiratory 20 Rate Respiratory Rate [Anterior Bilateral Throughout] Respiratory 18 Rate [Anterior Bilateral] Blood Pressure 135/82 O2 Sat by Pulse 96 Oximetry - General Appearance General appearance: well-developed, appears stated age, other (not in distress, frail, thin built) EENT: ATNC, PERRL Neck: supple Respiratory: Present: Clear to Ascultation Cardiology: regular, S1S2 Gastrointestinal: normoactive bowel sounds, no tenderness, no distended Integumentary: no rash, warm and dry Neurologic: no focal deficit, no asterixis Musculoskeletal: other (no edema) - Lab 07/25/18 04:47 07/26/18 05:16 Most recent lab results Calcium 8.7 mg/dL (8.4-10.2) 07/26/18 05:16 Phosphorus 4.40 mg/dL (2.5-4.5) 07/26/18 05:16 Magnesium 3.10 mg/dL (1.7-2.3) H 07/24/18 11:09 87.8 mg/dL (0.1-20.0) H 07/25/18 02:18 20 mmol/L 07/25/18 02:18 Medications & Allergies - Medications Allergies/Adverse Reactions: Allergies No Known Allergies Allergy (Verified 01/02/16 17:32) Home Medications: Home Medications Medication Instructions Recorded Confirmed Last Taken Type Aspirin [Adult Low Dose Aspirin EC] 81 mg PO DAILY 10/11/16 07/25/18 1 Day Ago History ~02/09/17 Pravastatin Sodium [Pravastatin] 20 mg PO QHS 10/11/16 07/25/18 1 Day Ago History ~02/09/17 Thiamine [Vitamin B-1] 100 mg PO QDAY 10/11/16 07/25/18 1 Day Ago History ~02/09/17 dilTIAZem CD [Cardizem CD] 120 mg PO DAILY 10/11/16 07/25/18 1 Day Ago History ~02/09/17 Ipratropium/Albuterol Sulfate 1 ampul IH Q6HRT #30 ampul.neb 10/14/16 07/25/18 1 Day Ago Rx [DUONEB *Not for PRN Use*] ~02/09/17 Sodium Bicarbonate 1,300 mg PO BID #60 tablet 10/14/16 07/25/18 1 Day Ago Rx ~02/09/17 Budesonide/Formoterol Fumarate 10.2 gm IH BID 30 Days hfa.aer.ad 02/13/17 07/25/18 Unknown Rx [Symbicort 160-4.5 Mcg Inhaler] Folic Acid [Folvite] 0.5 mg PO DAILY #30 tablet 02/13/17 07/25/18 Unknown Rx Tiotropium [Spiriva] 18 mcg IH QDAY #1 box 02/13/17 07/25/18 Unknown Rx Fluticasone Propionate 50 mcg INNOSTRIL DAILY 07/25/18 07/25/18 Unknown History Loratadine 10 mg PO PRN PRN 07/25/18 07/25/18 Unknown History Symbicort 80-4.5 Mcg Inhaler 80 mcg INHALATION BID 07/25/18 07/25/18 Unknown History Active Medications: Generic Name Dose Route Start Last Admin Trade Name Freq PRN Reason Stop Dose Admin Acetaminophen 650 mg 07/24/18 18:44 Tylenol PO Q4H PRN Pain MILD(1-3)/Fever >100.5/NOBLE Albuterol 2.5 mg 07/24/18 18:47 Proventil IH Q4HRT PRN Shortness Of Breath Albuterol/Ipratropium 1 ampul 07/24/18 20:00 07/26/18 13:14 Duoneb *Not For Prn Use* IH 1 ampul QIDRT NICOLE Administration Aspirin 81 mg 07/25/18 10:00 07/26/18 09:04 Halfprin Ec PO 81 mg DAILY NICOLE Administration Diltiazem HCl 120 mg 07/24/18 20:00 07/26/18 09:04 Cardizem Cd PO 120 mg DAILY NICOLE Administration Famotidine 10 mg 07/26/18 10:00 07/26/18 09:10 Pepcid PO 10 mg BID NICOLE Administration Folic Acid 0.5 mg 07/25/18 10:00 07/26/18 09:04 Folvite PO 0.5 mg DAILY NICOLE Administration Heparin Sodium (Porcine) 5,000 unit 07/24/18 22:00 07/26/18 09:07 Heparin SUB-Q 5,000 unit Q12HR NICOLE Administration Sodium Chloride 1,000 mls @ 75 mls/hr 07/24/18 19:00 07/26/18 03:10 Nacl 0.9% 1000 Ml IV 75 mls/hr DIRECT NICOLE Administration Levofloxacin 750 mg 07/26/18 22:00 Levaquin PO Q48HR@2200 NICOLE Methylprednisolone Sodium Succinate 40 mg 07/26/18 13:44 Solu-Medrol IV Q8H NICOLE Morphine Sulfate 2 mg 07/24/18 18:44 Morphine IV Q4H PRN Pain, Moderate (4-6) Ondansetron HCl 4 mg 07/24/18 18:44 Zofran IV Q8H PRN Nausea And Vomiting Oxycodone/Acetaminophen 1 tab 07/24/18 18:44 Percocet 5/325 PO Q6H PRN Pain, Moderate (4-6) Pravastatin Sodium 20 mg 07/24/18 22:00 07/25/18 21:06 Pravachol PO 20 mg QHS NICOLE Administration Sodium Bicarbonate 1,300 mg 07/24/18 22:00 07/26/18 09:04 Sodium Bicarbonate PO 1,300 mg BID NICOLE Administration Sodium Chloride 10 ml 07/24/18 22:00 07/26/18 09:05 Sodium Chloride Flush Syringe 10 Ml IV 10 ml BID NICOLE Administration Sodium Chloride 10 ml 07/24/18 18:44 07/26/18 11:38 Sodium Chloride Flush Syringe 10 Ml IV 10 ml PRN PRN Administration LINE FLUSH Thiamine HCl 100 mg 07/25/18 10:00 07/26/18 09:04 Vitamin B-1 PO 100 mg QDAY NICOLE Administration
--- NOTE | 2018-07-26 16:19 | Progress Note ---
Assessment and Plan Patient awake resting on room air.Not using O2 as recommended.. O2 saturation running 96%. No acute respiratory distress. Patient says he is breathing better . - Patient Problems (1) COPD with acute exacerbation Current Visit: Yes Status: Acute Plan to address problem: O2 2 litres via nasal canula. BIPAP stand by in the room. Albuterol/atrovent aerosol treatments q 6 hours. Continue I/V solumedrol Continue Levaquin Continue S/C Heparin. PFTs as out patient. (2) Acute bronchitis Current Visit: No Status: Acute Plan to address problem: Patient is on I/V Levaquin. (3) Acute hypercapnic respiratory failure Current Visit: No Status: Acute Plan to address problem: O2 2 litres via nasal canula. BIPAP stand by in the room. Albuterol/atrovent aerosol treatments q 6 hours. Continue I/V solumedrol Continue Levaquin Continue S/C Heparin. PFTs as out patient (4) Acute kidney injury superimposed on CKD Current Visit: Yes Status: Acute Plan to address problem: Management as per primary care and nephrology. (5) Hypertension Current Visit: Yes Status: Chronic Qualifiers: Hypertension type: essential hypertension Qualified Code(s): I10 - Essential (primary) hypertension Plan to address problem: Management as per primary care. Subjective Date of service: 07/26/18 Interval history: Patient awake resting on room air.Not using O2 as recommended.. O2 saturation running 96%. No acute respiratory distress. Patient says he is breathing better . Objective Vital Signs - 12hr 07/26/18 07/26/18 07/26/18 07:24 07:41 07:57 Temperature 98.2 F Pulse Rate 98 H Pulse Rate [ 98 H Anterior Bilateral Throughout] Pulse Rate [ 96 H Anterior Bilateral] Pulse Rate [ From Monitor] Respiratory 20 Rate Respiratory 18 Rate [Anterior Bilateral Throughout] Respiratory 18 Rate [Anterior Bilateral] Respiratory Rate [denies pain] Blood Pressure 139/90 O2 Sat by Pulse 95 95 Oximetry 07/26/18 07/26/18 07/26/18 09:04 10:00 13:16 Temperature Pulse Rate 98 H 113 H Pulse Rate [ Anterior Bilateral Throughout] Pulse Rate [ 101 H Anterior Bilateral] Pulse Rate [ 113 H From Monitor] Respiratory 20 Rate Respiratory Rate [Anterior Bilateral Throughout] Respiratory 18 Rate [Anterior Bilateral] Respiratory Rate [denies pain] Blood Pressure 139/90 O2 Sat by Pulse 95 Oximetry 07/26/18 07/26/18 07/26/18 13:47 14:00 15:31 Temperature 97.9 F Pulse Rate 96 H Pulse Rate [ 92 H Anterior Bilateral Throughout] Pulse Rate [ 92 H Anterior Bilateral] Pulse Rate [ From Monitor] Respiratory 20 Rate Respiratory 19 Rate [Anterior Bilateral Throughout] Respiratory 18 Rate [Anterior Bilateral] Respiratory 18 Rate [denies pain] Blood Pressure 135/82 O2 Sat by Pulse 96 Oximetry Constitutional: no acute distress, alert Eyes: non-icteric ENT: oropharynx moist Neck: supple, no JVD Ascultation: Bilateral: diminished breath sounds, other (Prolonged expiratory phase.) Cardiovascular: regular rate and rhythm Gastrointestinal: normoactive bowel sounds, soft, non-tender Integumentary: normal Extremities: no cyanosis, no edema Neurologic: normal mental status, non-focal exam, pupils equal and round, CN II- XII normal Psychiatric: mood appropriate CBC and BMP: 07/25/18 04:47 07/26/18 05:16 ABG, PT/INR, D-dimer: ABG POC ABG pH 7.290 (7.35-7.45) L 07/24/18 11:26 POC ABG pCO2 44.8 (35-45) 07/24/18 11:26 POC ABG pO2 83 (80-105) 07/24/18 11:26 POC ABG HCO3 21.5 (22-26 mml/L) 07/24/18 11:26 POC ABG Total CO2 23 (23-27mmol/L) 07/24/18 11:26 POC ABG O2 Sat 95 07/24/18 11:26 PT/INR, D-dimer PT 12.2 Sec. (12.2-14.9) 07/24/18 11:09 INR 0.86 (0.87-1.13) L 07/24/18 11:09 Abnormal lab findings: Abnormal Labs 07/24/18 07/24/18 07/24/18 11:09 11:09 11:09 WBC MCV 102 H MCH 35 H MCHC Lymph % (Auto) Crosby % (Auto) 12.6 H Eos % (Auto) 10.0 H Lymph # Eos # 0.5 H Seg Neutrophils % INR 0.86 L POC ABG pH Sodium 130 L Potassium Chloride 91.1 L Carbon Dioxide 21 L BUN Creatinine 1.7 H Glucose POC Glucose Magnesium 3.10 H Troponin T 0.051 H Total Protein Cholesterol 207 H HDL Cholesterol 139 H Urine Creatinine 07/24/18 07/24/18 07/24/18 11:26 19:03 21:28 WBC MCV MCH MCHC Lymph % (Auto) Crosby % (Auto) Eos % (Auto) Lymph # Eos # Seg Neutrophils % INR POC ABG pH 7.290 L Sodium Potassium Chloride Carbon Dioxide BUN Creatinine Glucose POC Glucose 187 H Magnesium Troponin T 0.044 H Total Protein Cholesterol HDL Cholesterol Urine Creatinine 07/25/18 07/25/18 07/25/18 00:34 02:18 04:47 WBC 2.7 L MCV 100 H MCH 35 H MCHC 35 H Lymph % (Auto) 10.9 L Crosby % (Auto) Eos % (Auto) Lymph # 0.3 L Eos # Seg Neutrophils % 85.4 H INR POC ABG pH Sodium Potassium Chloride Carbon Dioxide BUN Creatinine Glucose POC Glucose Magnesium Troponin T 0.039 H Total Protein Cholesterol HDL Cholesterol Urine Creatinine 87.8 H 07/25/18 07/26/18 04:47 05:16 WBC MCV MCH MCHC Lymph % (Auto) Crosby % (Auto) Eos % (Auto) Lymph # Eos # Seg Neutrophils % INR POC ABG pH Sodium 131 L Potassium 5.6 H Chloride 94.9 L Carbon Dioxide 20 L BUN 27 H 29 H Creatinine 1.9 H 1.6 H Glucose 125 H 141 H POC Glucose Magnesium Troponin T Total Protein 6.2 L Cholesterol HDL Cholesterol Urine Creatinine
[2018-07-26] MEDS ORDERED: LEVAQUIN PO SCH (22:00)
[2018-07-26] MEDS: PRAVACHOL PO SCH (22:12)
[2018-07-27 05:00] LABS: Calcium 8.1 mg/dL (8.4-10.2)
[2018-07-27] MEDS: NACL 0.9% 1000 ML 1,000 ML IV SCH (05:25)
[2018-07-27] MEDS: SOLU-Medrol IV SCH ×2 (05:25→13:47)
[2018-07-27] MEDS: DUONEB *Not for PRN Use IH SCH ×2 (07:51→12:55)
[2018-07-27] MEDS: HALFPRIN EC PO SCH (09:18)
[2018-07-27] MEDS: SODIUM BICARBONATE PO SCH (09:18)
[2018-07-27] MEDS: PEPCID PO SCH (09:18)
[2018-07-27] MEDS: VITAMIN B-1 PO SCH (09:19)
[2018-07-27] MEDS: FOLVITE PO SCH (09:19)
[2018-07-27] MEDS: CARDIZEM CD PO SCH (09:19)
[2018-07-27] MEDS: SODIUM CHLORIDE FLUSH SYRINGE 10 ML IV SCH (09:20)
[2018-07-27] MEDS: HEPARIN SUB-Q SCH (09:20)
[2018-07-27 09:25] VITALS: BP 149/92
--- NOTE | 2018-07-27 10:11 | Progress Note ---
Assessment and Plan 1. Acute kidney injury: Likely vasomotor MAGDALENE superimposed on CKD stage 3 in the setting of volume depletion. R kidney atrophy. Renal function is better. Encouraged PO fluids. Monitor renal function. Avoid nephrotoxic agents. Meds dosage based on GFR. 2. FEN: Hypokalemia, replete K. Hyponatremia, improved. Metabolic acidosis, improved. Monitor lytes. 3. COPD exacerbation. 4. Chest pain with elevated Troponin: Followed by Cards. 5. ETOH abuse. Subjective Date of service: 07/27/18 Interval history: Patient was seen and examined at the bedside. Doing better. Objective - Vital Signs Vital signs: Vital Signs - 12hr 07/27/18 07/27/18 07/27/18 02:45 06:13 07:00 Temperature 98.6 F 97.4 F L Pulse Rate 96 H 91 H 88 Pulse Rate [ Anterior Bilateral] Respiratory 20 18 Rate Respiratory Rate [Anterior Bilateral] Blood Pressure 151/88 Blood Pressure 148/91 [Right] O2 Sat by Pulse 93 97 Oximetry 07/27/18 07/27/18 07/27/18 07:26 07:51 07:52 Temperature 97.4 F L Pulse Rate Pulse Rate [ 94 H Anterior Bilateral] Respiratory 18 Rate Respiratory 18 Rate [Anterior Bilateral] Blood Pressure 149/92 Blood Pressure [Right] O2 Sat by Pulse 97 Oximetry 07/27/18 09:19 Temperature Pulse Rate 94 H Pulse Rate [ Anterior Bilateral] Respiratory Rate Respiratory Rate [Anterior Bilateral] Blood Pressure 149/92 Blood Pressure [Right] O2 Sat by Pulse Oximetry - General Appearance General appearance: well-developed, appears stated age, other (not in distress) EENT: ATNC, PERRL, mucous membranes moist, hearing intact, vision intact Neck: supple Respiratory: Present: Clear to Ascultation Cardiology: regular, S1S2 Gastrointestinal: normoactive bowel sounds, no tenderness, no distended Integumentary: no rash, warm and dry Neurologic: no focal deficit, no asterixis Musculoskeletal: other (no edema) - Lab 07/25/18 04:47 07/27/18 04:22 Most recent lab results Calcium 8.1 mg/dL (8.4-10.2) L 07/27/18 04:22 Phosphorus 4.40 mg/dL (2.5-4.5) 07/26/18 05:16 Magnesium 3.10 mg/dL (1.7-2.3) H 07/24/18 11:09 87.8 mg/dL (0.1-20.0) H 07/25/18 02:18 20 mmol/L 07/25/18 02:18 Medications & Allergies - Medications Allergies/Adverse Reactions: Allergies No Known Allergies Allergy (Verified 01/02/16 17:32) Home Medications: Home Medications Medication Instructions Recorded Confirmed Last Taken Type Aspirin [Adult Low Dose Aspirin EC] 81 mg PO DAILY 10/11/16 07/25/18 1 Day Ago History ~02/09/17 Pravastatin Sodium [Pravastatin] 20 mg PO QHS 10/11/16 07/25/18 1 Day Ago History ~02/09/17 Thiamine [Vitamin B-1] 100 mg PO QDAY 10/11/16 07/25/18 1 Day Ago History ~02/09/17 Sodium Bicarbonate 1,300 mg PO BID #60 tablet 10/14/16 07/25/18 1 Day Ago Rx ~02/09/17 Folic Acid [Folvite] 0.5 mg PO DAILY #30 tablet 02/13/17 07/25/18 Unknown Rx Tiotropium [Spiriva] 18 mcg IH QDAY #1 box 02/13/17 07/25/18 Unknown Rx Loratadine 10 mg PO PRN PRN 07/25/18 07/25/18 Unknown History Symbicort 80-4.5 Mcg Inhaler 80 mcg INHALATION BID 07/25/18 07/25/18 Unknown History Budesonide/Formoterol Fumarate 10.2 gm IH BID 30 Days hfa.aer.ad 07/27/18 Unknown Rx [Symbicort 160-4.5 Mcg Inhaler] Diltiazem HCl [Diltiazem ER] 180 mg PO DAILY #30 tab.er.24h 07/27/18 Unknown Rx Fluticasone Propionate 50 mcg INNOSTRIL DAILY #1 07/27/18 Unknown Rx Ipratropium/Albuterol Sulfate 1 ampul IH Q6HRT #30 ampul.neb 07/27/18 Unknown Rx [DUONEB *Not for PRN Use*] Prednisone [predniSONE 5 mg (6-Day 5 mg PO .TAPER #1 tab.ds.pk 07/27/18 Unknown Rx Pack, 21 Tabs)] Active Medications: Generic Name Dose Route Start Last Admin Trade Name Freq PRN Reason Stop Dose Admin Acetaminophen 650 mg 07/24/18 18:44 Tylenol PO Q4H PRN Pain MILD(1-3)/Fever >100.5/NOBLE Albuterol 2.5 mg 07/24/18 18:47 Proventil IH Q4HRT PRN Shortness Of Breath Albuterol/Ipratropium 1 ampul 07/24/18 20:00 07/27/18 07:51 Duoneb *Not For Prn Use* IH 1 ampul QIDRT NICOLE Administration Aspirin 81 mg 07/25/18 10:00 07/27/18 09:18 Halfprin Ec PO 81 mg DAILY NICOLE Administration Diltiazem HCl 120 mg 07/24/18 20:00 07/27/18 09:19 Cardizem Cd PO 120 mg DAILY NICOLE Administration Famotidine 10 mg 07/26/18 10:00 07/27/18 09:18 Pepcid PO 10 mg BID NICOLE Administration Folic Acid 0.5 mg 07/25/18 10:00 07/27/18 09:19 Folvite PO 0.5 mg DAILY NICOLE Administration Heparin Sodium (Porcine) 5,000 unit 07/24/18 22:00 07/27/18 09:20 Heparin SUB-Q 5,000 unit Q12HR NICOLE Administration Sodium Chloride 1,000 mls @ 75 mls/hr 07/24/18 19:00 07/27/18 05:25 Nacl 0.9% 1000 Ml IV 75 mls/hr DIRECT NICOLE Administration Levofloxacin 750 mg 07/26/18 22:00 07/26/18 22:12 Levaquin PO 750 mg Q48HR@2200 NICOLE Administration Methylprednisolone Sodium Succinate 40 mg 07/26/18 15:00 07/27/18 05:25 Solu-Medrol IV 40 mg Q8HR NICOLE Administration Morphine Sulfate 2 mg 07/24/18 18:44 Morphine IV Q4H PRN Pain, Moderate (4-6) Ondansetron HCl 4 mg 07/24/18 18:44 Zofran IV Q8H PRN Nausea And Vomiting Oxycodone/Acetaminophen 1 tab 07/24/18 18:44 Percocet 5/325 PO Q6H PRN Pain, Moderate (4-6) Pravastatin Sodium 20 mg 07/24/18 22:00 07/26/18 22:12 Pravachol PO 20 mg QHS NICOLE Administration Sodium Bicarbonate 1,300 mg 07/24/18 22:00 07/27/18 09:18 Sodium Bicarbonate PO 1,300 mg BID NICOLE Administration Sodium Chloride 10 ml 07/24/18 22:00 07/27/18 09:20 Sodium Chloride Flush Syringe 10 Ml IV 10 ml BID NICOLE Administration Sodium Chloride 10 ml 07/24/18 18:44 07/26/18 15:00 Sodium Chloride Flush Syringe 10 Ml IV 10 ml PRN PRN Administration LINE FLUSH Thiamine HCl 100 mg 07/25/18 10:00 07/27/18 09:19 Vitamin B-1 PO 100 mg QDAY NICOLE Administration
--- NOTE | 2018-07-27 10:28 | Discharge Summary ---
Providers - Providers Date of Admission: 07/24/18 12:19 Attending physician: MARCIN HUNT MD 07/24/18 18:44 Consult to Physician [CONS] Routine Comment: Consulting Provider: ANNA MARIE CLINE Physician Instructions: Reason For Exam: acute respiratory failure 07/24/18 18:46 Consult to Physician [CONS] Routine Comment: Consulting Provider: ECHO DOYLE Physician Instructions: Reason For Exam: elevated troponin Consult to Physician [CONS] Routine Comment: Consulting Provider: JERSEY GOMEZ Physician Instructions: Reason For Exam: MAGDALENE 07/25/18 09:04 Physical Therapy Evaluation and Treat [CONS] Routine Comment: Reason For Exam: Weakness [facility] Reason for admission: COPD exacerbation Condition: Stable Hospital course: 73-year-old male with history of hypertension and COPD comes in for increasing shortness of breath and wheezing for last 2 days. Patient called EMS. Patient was given 2 g of magnesium and was initiated on CPAP and nebulizer treatments. Patient has difficulty answering because of shortness of breath. Not responding to nebulizer treatments. No fever or chills. No lower extremity pedal edema. No recent travel. Cough productive of mucoid sputum. Primary care Dr.: [facility] On admission was noted to have elevated Troponin but this appears to be chronic, also elevated creatnine which appears to be consistent with his baseline. Patient was treated with hydration and also steroids. He was also given Kayxalate for treatment of the hyperkalemia We adjusted the patients Diltazem for better rate control CXR- Emphysema Echo- EF 50-55%, mild TR. Acute on chronic Respiratory failure with Hypoxia-Secondary to COPD COPD Exacerbation MAGDALENE on CKD stage 3 secondary vasomotor nephropathy NSTEMI type 2 Hyponatremia Atypical chest pain -Pleuritic in nature Hyperkalemia ETOH use disorder Disposition: [id number] HOME [facility]ER [facility] Time spent for discharge: 35 MINS Core Measure Documentation - Palliative Care Palliative Care/ Comfort Measures: Not Applicable - Core Measures Any of the following diagnoses?: none Exam - Physical Exam Narrative exam: General appearance: Present: no acute distress at this time. - Respiratory Respiratory: bilateral: diminished, rhonchi, wheezing - Cardiovascular Heart rate: 90 Rhythm: regular - Extremities Extremities: no ischemia, pulses intact Peripheral Pulses: within normal limits - Abdominal General gastrointestinal: Present: soft, non-tender, normal bowel sounds Male genitourinary: Present: normal - Integumentary Integumentary: Present: clear, warm, dry - Musculoskeletal Musculoskeletal: strength equal bilaterally - Psychiatric Psychiatric: appropriate mood/affect, intact judgment & insight, memory intact, cooperative - Neurologic Neurologic: CNII-XII intact, moves all extremities - Allied Health Allied health notes reviewed: nursing, case management - Constitutional Vitals: Temp Pulse Resp BP Pulse Ox 97.4 F L 94 H 18 149/92 97 07/27/18 07:26 07/27/18 09:19 07/27/18 07:51 07/27/18 09:19 07/27/18 07:52 Plan Activity: advance as tolerated, fall precautions Diet: low fat Special Instructions: record daily BP diary Additional Instructions: [facility] [Primary Care Provider] - 3-5 Days JERSEY GOMEZ MD [Staff Physician] - 7 Days ANNA MARIE CLINE MD [Staff Physician] - 7 Days BARD SEE MD [Staff Physician] - 7 Days Prescriptions: dilTIAZem HCl [Diltiazem ER] 180 mg PO DAILY #30 tab.er.24h Ipratropium/Albuterol Sulfate [DUONEB *Not for PRN Use*] 1 ampul IH Q6HRT #30 ampul.neb Fluticasone Propionate 50 mcg INNOSTRIL DAILY #1 Prednisone [predniSONE 5 mg (6-Day Pack, 21 Tabs)] 5 mg PO .TAPER #1 tab.ds.pk Budesonide/Formoterol Fumarate [Symbicort 160-4.5 Mcg Inhaler] 10.2 gm IH BID 30 Days hfa.aer.ad
[2018-07-27] MEDS ORDERED: K-DUR PO ONE ×2 (11:11→14:00)
[2018-07-27] MEDS ORDERED: CARDIZEM PO ONE (12:00)
--- NOTE | 2018-07-27 12:34 | Progress Note ---
Assessment and Plan COPD with acute exacerbation Acute hypoxemic respiratory failure Acute kidney injury superimposed on CKD Hypertension Metabolic Acidosis (POA) - wean supplemental oxygen for sat's > 90% - continue bronchodilators with pulmonary hygiene per RT (Albuterol/Atrovent aerosol treatment q6 hrs) - Continue steroid taper - GI & VTE prophylaxis - continue other care per attending / other consultants ... discharge planning ongoing concurrently .. re-evaluate in am & prn Subjective Date of service: 07/27/18 Principal diagnosis: AE-COPD; Acute hypoxemic Resp failure; MAGDALENE on CKD; HTN; Met. Acidosis Interval history: Patient is seen today for: COPD with acute exacerbation; Acute hypoxemic respiratory failure; Acute kidney injury superimposed on CKD; Hypertension; Metabolic Acidosis (POA) Seen and examined at bedside; 24hour events reviewed; nursing and respiratory care staff consulted; no adverse overnight events reported to me; doing better respiratory-naylor; no emesis or overt aspiration; no chest pains or palpitations Objective Vital Signs - 12hr 07/27/18 07/27/18 07/27/18 02:45 06:13 07:00 Temperature 98.6 F 97.4 F L Pulse Rate 96 H 91 H 88 Pulse Rate [ Anterior Bilateral] Respiratory 20 18 Rate Respiratory Rate [Anterior Bilateral] Blood Pressure 151/88 Blood Pressure 148/91 [Right] O2 Sat by Pulse 93 97 Oximetry 07/27/18 07/27/18 07/27/18 07:26 07:51 07:52 Temperature 97.4 F L Pulse Rate Pulse Rate [ 94 H Anterior Bilateral] Respiratory 18 Rate Respiratory 18 Rate [Anterior Bilateral] Blood Pressure 149/92 Blood Pressure [Right] O2 Sat by Pulse 97 Oximetry 07/27/18 07/27/18 09:19 10:00 Temperature Pulse Rate 94 H 92 H Pulse Rate [ Anterior Bilateral] Respiratory 18 Rate Respiratory Rate [Anterior Bilateral] Blood Pressure 149/92 Blood Pressure [Right] O2 Sat by Pulse 96 Oximetry Constitutional: no acute distress, alert, other (elderly looking male with mild ly increased resp effort at rest) Eyes: non-icteric ENT: oropharynx moist Neck: supple, no lymphadenopathy, no JVD Ascultation: Bilateral: diminished breath sounds, other (Prolonged expiratory phase.) Percussion: Bilateral: not dull Cardiovascular: regular rate and rhythm Gastrointestinal: normoactive bowel sounds, soft, non-tender, non-distended Integumentary: normal Extremities: no cyanosis, no edema, no ischemia or petechiae Neurologic: normal mental status, non-focal exam, pupils equal and round, CN II- XII normal Psychiatric: mood appropriate, affect normal CBC and BMP: 07/25/18 04:47 07/27/18 04:22 ABG, PT/INR, D-dimer: ABG POC ABG pH 7.290 (7.35-7.45) L 07/24/18 11:26 POC ABG pCO2 44.8 (35-45) 07/24/18 11:26 POC ABG pO2 83 (80-105) 07/24/18 11:26 POC ABG HCO3 21.5 (22-26 mml/L) 07/24/18 11:26 POC ABG Total CO2 23 (23-27mmol/L) 07/24/18 11:26 POC ABG O2 Sat 95 07/24/18 11:26 PT/INR, D-dimer PT 12.2 Sec. (12.2-14.9) 07/24/18 11:09 INR 0.86 (0.87-1.13) L 07/24/18 11:09 Abnormal lab findings: Abnormal Labs 07/24/18 07/24/18 07/24/18 11:09 11:09 11:09 WBC MCV 102 H MCH 35 H MCHC Lymph % (Auto) [place] % (Auto) 12.6 H Eos % (Auto) 10.0 H Lymph # Eos # 0.5 H Seg Neutrophils % INR 0.86 L POC ABG pH Sodium 130 L Potassium Chloride 91.1 L Carbon Dioxide 21 L BUN Creatinine 1.7 H Glucose POC Glucose Calcium Magnesium 3.10 H Troponin T 0.051 H Total Protein Cholesterol 207 H HDL Cholesterol 139 H Urine Creatinine 07/24/18 07/24/18 07/24/18 11:26 19:03 21:28 WBC MCV MCH MCHC Lymph % (Auto) [place] % (Auto) Eos % (Auto) Lymph # Eos # Seg Neutrophils % INR POC ABG pH 7.290 L Sodium Potassium Chloride Carbon Dioxide BUN Creatinine Glucose POC Glucose 187 H Calcium Magnesium Troponin T 0.044 H Total Protein Cholesterol HDL Cholesterol Urine Creatinine 07/25/18 07/25/18 07/25/18 00:34 02:18 04:47 WBC 2.7 L MCV 100 H MCH 35 H MCHC 35 H Lymph % (Auto) 10.9 L [place] % (Auto) Eos % (Auto) Lymph # 0.3 L Eos # Seg Neutrophils % 85.4 H INR POC ABG pH Sodium Potassium Chloride Carbon Dioxide BUN Creatinine Glucose POC Glucose Calcium Magnesium Troponin T 0.039 H Total Protein Cholesterol HDL Cholesterol Urine Creatinine 87.8 H 07/25/18 07/26/18 07/27/18 04:47 05:16 04:22 WBC MCV MCH MCHC Lymph % (Auto) [place] % (Auto) Eos % (Auto) Lymph # Eos # Seg Neutrophils % INR POC ABG pH Sodium 131 L Potassium 5.6 H 3.5 L Chloride 94.9 L 108.2 H Carbon Dioxide 20 L BUN 27 H 29 H 25 H Creatinine 1.9 H 1.6 H 1.6 H Glucose 125 H 141 H 135 H POC Glucose Calcium 8.1 L Magnesium Troponin T Total Protein 6.2 L Cholesterol HDL Cholesterol Urine Creatinine Chest x-ray: report reviewed Allied health notes reviewed: nursing
[2018-07-27] MEDS: SODIUM CHLORIDE FLUSH SYRINGE 10 ML IV PRN (13:47)
== END 2018-07-27 14:32 | disposition home health service (06) | DRG 280 ==
LOC: ED 10:51 → 2B-ACE 12:19
PROVIDERS: ADMIT Internal Medicine; ATTEND Internal Medicine
PROC: 4A033R1 Measurement of Arterial Saturation, Peripheral, Percutaneous Approach (ICD-10-PCS; principal; 2018-07-24)
PROC: 5A09357 Assistance with Respiratory Ventilation, Less than 24 Consecutive Hours, Continuous Positive Airway Pressure (ICD-10-PCS; 2018-07-24)
DX: I21.A1 Myocardial infarction type 2 (principal); J96.21 Acute and chronic respiratory failure with hypoxia; N17.0 Acute kidney failure with tubular necrosis; J96.22 Acute and chronic respiratory failure with hypercapnia; J44.1 Chronic obstructive pulmonary disease with (acute) exacerbation; E87.1 Hypo-osmolality and hyponatremia; E87.2 Acidosis; J44.0 Chronic obstructive pulmonary disease with (acute) lower respiratory infection; N18.3 Chronic kidney disease, stage 3 (moderate); I12.9 Hypertensive chronic kidney disease with stage 1 through stage 4 chronic kidney disease, or unspecified chronic kidney disease; E87.5 Hyperkalemia; J20.9 Acute bronchitis, unspecified; E78.5 Hyperlipidemia, unspecified; Z79.82 Long term (current) use of aspirin; Z79.899 Other long term (current) drug therapy; Z72.89 Other problems related to lifestyle; Z82.49 Family history of ischemic heart disease and other diseases of the circulatory system
CPT/HCPCS: 36415; 71045; 80048; 80053; 80061; 81001; 82570; 82803; 82962; 83036; 83735; 84100; 84300; 84484; 85025; 85610; 93005; 93010; 93306; 94640; 94660; 94760; 96361; 96365; G0378; A9270-GY; J1644; J1956; J2920; J2930; J7030; J7040; J7050

== ENCOUNTER 2019-02-07 07:25 | Inpatient (IN) | payer MEDICARE ==
[2019-02-07] MEDS ORDERED: SODIUM CHLORIDE 0.9% 500 ML 500 ML IV ONE (07:54)
[2019-02-07] MEDS ORDERED: IPRATROPIUM 0.02% NEBU 2.5 ML IH ONE (07:54)
[2019-02-07] MEDS ORDERED: ALBUTEROL 2.5 MG/3 ML NEBU IH ONE (07:54)
--- NOTE | 2019-02-07 07:55 | Emergency Department Report ---
ED Shortness of Breath HPI - General Chief Complaint: Dyspnea/Respdistress Stated Complaint: JOSE LUIS/COPD Time Seen by Provider: 02/07/19 07:45 Source: patient, EMS ( EMS documentation not available at time of chart dictation ), RN notes reviewed, old records reviewed Mode of arrival: Stretcher Limitations: Physical Limitation - History of Present Illness Initial Comments: Primary care DrToan: [facility] Past medical history: COPD, hypertension, renal insufficiency, hyperkalemia, alcohol abuse The patient is a 73-year-old gentleman. He is brought to the hospital by emergency medical services for pain with shortness of breath. Apparently patient is hypoxic in the field. EMS gave the patient albuterol, steroids, magnesium, and started him on CPAP. All of these interventions improved his symptoms. He is still having shortness of breath. He endorses green sputum, and new and/or worse cough than baseline. He denies physical pain, and he denies DVT and pulmonary embolism risk factors. Currently, he is on BiPAP, tachypneic, but indicates that he physically feels somewhat improved. MD Complaint: shortness of breath, cough -: Gradual Consistency: constant Improves With: oxygen, rest, bronchodilators, upright position, medication Worsens With: exertion Known History Of: COPD Associated Symptoms: cough Treatments Prior to Arrival: bronchodilator, NIPPV - Related Data Home Oxygen Therapy: No Home Medications Medication Instructions Recorded Confirmed Last Taken Aspirin [Adult Low Dose Aspirin EC] 81 mg PO DAILY 10/11/16 07/25/18 1 Day Ago ~02/09/17 Pravastatin Sodium [Pravastatin] 20 mg PO QHS 10/11/16 07/25/18 1 Day Ago ~02/09/17 Thiamine [Vitamin B-1] 100 mg PO QDAY 10/11/16 07/25/18 1 Day Ago ~02/09/17 Loratadine 10 mg PO PRN PRN 07/25/18 07/25/18 Unknown Symbicort 80-4.5 Mcg Inhaler 80 mcg INHALATION BID 07/25/18 07/25/18 Unknown Previous Rx's Medication Instructions Recorded Last Taken Type Sodium Bicarbonate 1,300 mg PO BID #60 tablet 10/14/16 1 Day Ago Rx ~02/09/17 Folic Acid [Folvite] 0.5 mg PO DAILY #30 tablet 02/13/17 Unknown Rx Tiotropium [Spiriva] 18 mcg IH QDAY #1 box 02/13/17 Unknown Rx Budesonide/Formoterol Fumarate 10.2 gm IH BID 30 Days hfa.aer.ad 07/27/18 Unknown Rx [Symbicort 160-4.5 Mcg Inhaler] Fluticasone Propionate 50 mcg INNOSTRIL DAILY #1 07/27/18 Unknown Rx Ipratropium/Albuterol Sulfate 1 ampul IH Q6HRT #30 ampul.neb 07/27/18 Unknown Rx [DUONEB *Not for PRN Use*] Prednisone [predniSONE 5 mg (6-Day 5 mg PO .TAPER #1 tab.ds.pk 07/27/18 Unknown Rx Pack, 21 Tabs)] dilTIAZem HCl [Diltiazem ER] 180 mg PO DAILY #30 tab.er.24h 07/27/18 Unknown Rx Allergies Allergy/AdvReac Type Severity Reaction Status Date / Time No Known Allergies Allergy Verified 02/07/19 07:52 ED Review of Systems ROS: Stated complaint: JOSE LUIS/COPD Other details as noted in HPI Comment: Unobtainable due to pts medical conditions Constitutional: other ENT: congestion Respiratory: shortness of breath Cardiovascular: denies: syncope Gastrointestinal: denies: abdominal pain Neurological: weakness Hematological/Lymphatic: denies: easy bleeding ED Past Medical Hx - Past Medical History Previous Medical History?: Yes Hx Hypertension: Yes Hx Renal Disease: Yes Hx of Cancer: Yes (Lung rec radiation 02/15) Hx COPD: Yes Hx HIV: No - Surgical History Past Surgical History?: Yes Additional Surgical History: prostate surgery - Social History Smoking Status: Former Smoker Substance Use Type: None - Medications Home Medications: Home Medications Medication Instructions Recorded Confirmed Last Taken Type Aspirin [Adult Low Dose Aspirin EC] 81 mg PO DAILY 10/11/16 07/25/18 1 Day Ago History ~02/09/17 Pravastatin Sodium [Pravastatin] 20 mg PO QHS 10/11/16 07/25/18 1 Day Ago History ~02/09/17 Thiamine [Vitamin B-1] 100 mg PO QDAY 10/11/16 07/25/18 1 Day Ago History ~02/09/17 Sodium Bicarbonate 1,300 mg PO BID #60 tablet 10/14/16 07/25/18 1 Day Ago Rx ~02/09/17 Folic Acid [Folvite] 0.5 mg PO DAILY #30 tablet 02/13/17 07/25/18 Unknown Rx Tiotropium [Spiriva] 18 mcg IH QDAY #1 box 02/13/17 07/25/18 Unknown Rx Loratadine 10 mg PO PRN PRN 07/25/18 07/25/18 Unknown History Symbicort 80-4.5 Mcg Inhaler 80 mcg INHALATION BID 07/25/18 07/25/18 Unknown History Budesonide/Formoterol Fumarate 10.2 gm IH BID 30 Days hfa.aer.ad 07/27/18 Unknown Rx [Symbicort 160-4.5 Mcg Inhaler] Fluticasone Propionate 50 mcg INNOSTRIL DAILY #1 07/27/18 Unknown Rx Ipratropium/Albuterol Sulfate 1 ampul IH Q6HRT #30 ampul.neb 07/27/18 Unknown Rx [DUONEB *Not for PRN Use*] Prednisone [predniSONE 5 mg (6-Day 5 mg PO .TAPER #1 tab.ds.pk 07/27/18 Unknown Rx Pack, 21 Tabs)] dilTIAZem HCl [Diltiazem ER] 180 mg PO DAILY #30 tab.er.24h 07/27/18 Unknown Rx ED Physical Exam - General Limitations: Physical Limitation General appearance: alert, anxious, in distress - Head Head exam: Present: atraumatic, normocephalic - Eye Eye exam: Present: normal appearance - ENT ENT exam: Present: mucous membranes dry, normal external ear exam - Neck Neck exam: Present: normal inspection, full ROM. Absent: tenderness, meningismus - Respiratory Respiratory exam: Present: respiratory distress, wheezes, rhonchi, accessory muscle use, decreased breath sounds, other (tachypnea). Absent: rales - Cardiovascular Cardiovascular Exam: Present: normal rhythm, tachycardia, normal heart sounds. Absent: systolic murmur, diastolic murmur, rubs, gallop - GI/Abdominal GI/Abdominal exam: Present: soft. Absent: distended, tenderness, guarding, rebound, rigid, pulsatile mass - Rectal Rectal exam: Present: deferred - Extremities Exam Extremities exam: Present: normal inspection, full ROM, other (2+ pulses noted in the bilateral upper and lower extremities. There is no palpable cord. negative Homans sign. Muscular compartments are soft. The pelvis is stable.). Absent: pedal edema, calf tenderness - Back Exam Back exam: Present: normal inspection, full ROM. Absent: tenderness, CVA tenderness (R), CVA tenderness (L), paraspinal tenderness, vertebral tenderness - Neurological Exam Neurological exam: Present: alert, other (there is no facial droop. The tongue is midline. The extraocular movements are intact bilaterally. Sensation is intact to light touch in 4 extremities. 5/5 strength bilateral upper and lower extremities.) - Psychiatric Psychiatric exam: Present: anxious - Skin Skin exam: Present: warm, dry, intact, normal color. Absent: rash ED Course Vital Signs 02/07/19 02/07/19 02/07/19 07:25 07:33 07:45 Temperature Pulse Rate 121 H 118 H 104 H Pulse Rate [ Anterior Bilateral Throughout] Respiratory 35 H 25 H Rate Respiratory Rate [Anterior Bilateral Throughout] Blood Pressure 154/103 Blood Pressure 159/107 [Left] O2 Sat by Pulse 100 100 Oximetry 02/07/19 02/07/19 02/07/19 07:52 08:00 08:15 Temperature Pulse Rate 103 H 103 H Pulse Rate [ Anterior Bilateral Throughout] Respiratory 36 H 47 H 38 H Rate Respiratory Rate [Anterior Bilateral Throughout] Blood Pressure 154/106 162/102 Blood Pressure [Left] O2 Sat by Pulse 100 100 100 Oximetry 02/07/19 02/07/19 02/07/19 08:30 08:46 08:52 Temperature 98.2 F Pulse Rate 99 H 110 H Pulse Rate [ Anterior Bilateral Throughout] Respiratory 29 H 26 H Rate Respiratory Rate [Anterior Bilateral Throughout] Blood Pressure 140/105 140/105 Blood Pressure [Left] O2 Sat by Pulse 99 98 Oximetry 02/07/19 02/07/19 02/07/19 09:00 09:15 09:30 Temperature Pulse Rate 98 H 89 92 H Pulse Rate [ Anterior Bilateral Throughout] Respiratory 27 H 17 17 Rate Respiratory Rate [Anterior Bilateral Throughout] Blood Pressure 145/99 151/100 151/94 Blood Pressure [Left] O2 Sat by Pulse 100 100 100 Oximetry 02/07/19 02/07/19 09:44 09:45 Temperature Pulse Rate 94 H Pulse Rate [ 95 H Anterior Bilateral Throughout] Respiratory 29 H Rate Respiratory 30 H Rate [Anterior Bilateral Throughout] Blood Pressure 152/100 Blood Pressure [Left] O2 Sat by Pulse 100 Oximetry - Reevaluation(s) Reevaluation #1: 02/07/19 10:18 Dr Gómez to admit ED Medical Decision Making - Lab Data Result diagrams: 02/07/19 08:01 02/07/19 08:01 Vital Signs 02/07/19 02/07/19 07:25 07:45 Pulse Rate 121 H 104 H Respiratory 35 H 32 H Rate Blood Pressure 162/102 Blood Pressure 159/107 [Left] O2 Sat by Pulse 100 99 Oximetry Lab Results 02/07/19 02/07/19 02/07/19 Range/Units 08:01 08:01 08:01 WBC 4.4 L (4.5-11.0) K/mm3 RBC 4.44 (3.65-5.03) M/mm3 Hgb 15.4 H (11.8-15.2) gm/dl Hct 44.3 (35.5-45.6) % MCV 100 H (84-94) fl MCH 35 H (28-32) pg MCHC 35 H (32-34) % RDW 14.0 (13.2-15.2) % Plt Count 206 (140-440) K/mm3 PT 12.7 (12.2-14.9) Sec. INR 0.94 (0.87-1.13) Sodium (137-145) mmol/L Potassium (3.6-5.0) mmol/L Chloride (98-107) mmol/L Carbon Dioxide (22-30) mmol/L Anion Gap mmol/L BUN (9-20) mg/dL Creatinine (0.8-1.5) mg/dL Estimated GFR ml/min BUN/Creatinine Ratio % Glucose (75-100) mg/dL Calcium (8.4-10.2) mg/dL Magnesium 3.00 H (1.7-2.3) mg/dL Total Creatine Kinase 320 H (55-170) units/L 02/07/19 Range/Units 08:01 WBC (4.5-11.0) K/mm3 RBC (3.65-5.03) M/mm3 Hgb (11.8-15.2) gm/dl Hct (35.5-45.6) % MCV (84-94) fl MCH (28-32) pg MCHC (32-34) % RDW (13.2-15.2) % Plt Count (140-440) K/mm3 PT (12.2-14.9) Sec. INR (0.87-1.13) Sodium 133 L (137-145) mmol/L Potassium 5.0 (3.6-5.0) mmol/L Chloride 92.7 L (98-107) mmol/L Carbon Dioxide 19 L (22-30) mmol/L Anion Gap 26 mmol/L BUN 21 H (9-20) mg/dL Creatinine 1.5 (0.8-1.5) mg/dL Estimated GFR 56 ml/min BUN/Creatinine Ratio 14 % Glucose 89 (75-100) mg/dL Calcium 9.6 (8.4-10.2) mg/dL Magnesium (1.7-2.3) mg/dL Total Creatine Kinase (55-170) units/L - EKG Data -: EKG Interpreted by Me Rate: tachycardia - EKG Data 02/07/19 09:36 The EKG shows a sinus tachycardia, 102 bpm, there is a normal axis, the QTC is prolonged, there is motion artifact, poor R progression, atrial enlargement, prolonged QTC, no endorsement of chest pain, the EKG is abnormal, it is not consistent with ST elevation myocardial infarction, it appears to be unchanged from prior EKG from June 2018. - Radiology Data Radiology results: report reviewed, image reviewed X-ray the chest is negative for acute disease. Chronic findings noted. - Medical Decision Making Differential diagnosis, including but not limited to: COPD exacerbation, pneumonia, bronchitis, pneumothorax Assessment and plan: 73-year-old gentleman, presenting with painless cough, wheezing, shortness of breath, accessory muscle use, tachycardia, tachypnea, most likely experiencing natural history of underlying COPD. The patient denies DVT and pulmonary embolism risk factors. He will be continued on BiPAP therapy. Fluids, antibiotics, albuterol, Atrovent ordered. Hospital physician was paged to arrange admission. Critical Care Time: Yes Critical care time in (mins) excluding proc time.: 35 Critical care attestation.: If time is entered above; I have spent that time in minutes in the direct care of this critically ill patient, excluding procedure time. ED Disposition Clinical Impression: COPD exacerbation, COPD with acute exacerbation, Respiratory failure Disposition: OP ADMIT IP TO THIS HOSP Is pt being admited?: Yes Condition: Serious Instructions: Chronic Obstructive Pulmonary Disease (ED), Chronic Bronchitis (ED) Referrals: PRIMARY CARE, [Primary Care Provider] - 3-5 Days
--- NOTE | 2019-02-07 08:29 | XRay Report ---
CHEST 1 VIEW INDICATION: sob copd. COMPARISON: 07/24/2018 FINDINGS: Support devices: None. Heart: Within normal limits. Lungs/Pleura: The lungs are severely hyperinflated but clear. No pleural effusion or pneumothorax. Additional findings: None. IMPRESSION: Hyperinflation. No acute process. No change since 07/24/2018. Signer Name: Esdras Banks Jr, MD Signed: 02/07/2019 8:25 AM Workstation Name: [id number]
[2019-02-07 08:42] LABS: Hematocrit 44.3 % (35.5-45.6); Hemoglobin 15.4 gm/dl (11.8-15.2); Mean Corpuscular HGB Conc 35 % (32-34); Mean Corpuscular Volume 100 fl (84-94); Platelet Count 206 K/mm3 (140-440); Red Blood Count 4.44 M/mm3 (3.65-5.03)
[2019-02-07] MEDS ORDERED: DOXYCYCLINE HYCLATE 100 MG in SODIUM CHLORIDE 0.9% 250ML 250 ML IV ONE (09:00)
[2019-02-07 09:05] LABS: Calcium 9.6 mg/dL (8.4-10.2)
[2019-02-07 09:10] LABS: INR 0.94 (0.87-1.13)
[2019-02-07] MEDS ORDERED: NON-FORMULARY EACH (Loratadine 10 MG) PO PRN (14:22)
--- NOTE | 2019-02-07 14:29 | History and Physical Report ---
History of Present Illness Date of examination: 02/07/19 Date of admission: 02/07/19 10:19 Chief complaint: Worsening shortness of breath/acute hypoxic respiratory failure History of present illness: Very pleasant 73-year-old male patient with significant past medical history of COPD hypertension chronic alcohol use renal failure Follows with the [facility] system presented to the emergency room with worsening shortness of breath. When EMS arrived patient was severely hypoxic started on CPAP received nebulizer steroids and magnesium Upon arrival to emergency room patient was severely hypoxic requiring BiPAP tachypneic and tachycardic Patient also complains of some yellow to greenish sputum, denies any chest pain or palpitations Past History Past Medical History: COPD, hypertension, hyperlipidemia Past Surgical History: Other (Prostate surgery) Social history: lives with family. denies: smoking, alcohol abuse, prescription drug abuse Family history: hypertension Medications and Allergies Allergies Allergy/AdvReac Type Severity Reaction Status Date / Time No Known Allergies Allergy Verified 02/07/19 07:52 Home Medications Medication Instructions Recorded Confirmed Last Taken Type Aspirin [Adult Low Dose Aspirin EC] 81 mg PO DAILY 10/11/16 07/25/18 1 Day Ago History ~02/09/17 Pravastatin Sodium [Pravastatin] 20 mg PO QHS 10/11/16 07/25/18 1 Day Ago History ~02/09/17 Thiamine [Vitamin B-1] 100 mg PO QDAY 10/11/16 07/25/18 1 Day Ago History ~02/09/17 Sodium Bicarbonate 1,300 mg PO BID #60 tablet 10/14/16 07/25/18 1 Day Ago Rx ~02/09/17 Folic Acid [Folvite] 0.5 mg PO DAILY #30 tablet 02/13/17 07/25/18 Unknown Rx Tiotropium [Spiriva] 18 mcg IH QDAY #1 box 02/13/17 07/25/18 Unknown Rx Loratadine 10 mg PO PRN PRN 07/25/18 07/25/18 Unknown History Symbicort 80-4.5 Mcg Inhaler 80 mcg INHALATION BID 07/25/18 07/25/18 Unknown History Budesonide/Formoterol Fumarate 10.2 gm IH BID 30 Days hfa.aer.ad 07/27/18 Unknown Rx [Symbicort 160-4.5 Mcg Inhaler] Fluticasone Propionate 50 mcg INNOSTRIL DAILY #1 07/27/18 Unknown Rx Ipratropium/Albuterol Sulfate 1 ampul IH Q6HRT #30 ampul.neb 07/27/18 Unknown Rx [DUONEB *Not for PRN Use*] Prednisone [predniSONE 5 mg (6-Day 5 mg PO .TAPER #1 tab.ds.pk 07/27/18 Unknown Rx Pack, 21 Tabs)] dilTIAZem HCl [Diltiazem ER] 180 mg PO DAILY #30 tab.er.24h 07/27/18 Unknown Rx Active Meds: Active Medications Albuterol/Ipratropium (Duoneb *Not For Prn Use*) 1 ampul IH Q6HRT [facility] Aspirin (Halfprin Ec) 81 mg PO DAILY [facility] Levofloxacin/Dextrose (Levaquin 500mg/100ml) 500 mg in 100 mls @ 100 mls/hr IV Q24HR [facility]; Protocol Methylprednisolone Sodium Succinate (Solu-Medrol) 80 mg IV Q8HR [facility] Miscellaneous Medication (Budesonide/Formoterol Fumarate [Symbicort 160-4.5 Mcg Inhaler]) 10.2 gm IH BID [facility] Miscellaneous Medication (Diltiazem Hcl [Diltiazem 24hr Er ([place])]) 180 mg PO DAILY [facility] Miscellaneous Medication (Loratadine) 10 mg PO PRN PRN PRN Reason: Shortness Of Breath Miscellaneous Medication (Symbicort 80-4.5 Mcg Inhaler) 80 mcg INHALATION BID [facility] Thiamine HCl (Vitamin B-1) 100 mg PO QDAY [facility] Review of Systems Constitutional: fatigue, weakness Ears, nose, mouth and throat: no nasal congestion, no nasal discharge Cardiovascular: orthopnea, shortness of breath, no chest pain Respiratory: cough with sputum, shortness of breath Gastrointestinal: no nausea, no vomiting, no diarrhea Genitourinary Male: no dysuria, no hematuria Musculoskeletal: no myalgias, no arthritis Integumentary: no rash, no lesions Neurological: no seizures, no syncope Psychiatric: no anxiety, no depression Endocrine: no cold intolerance, no heat intolerance Hematologic/Lymphatic: no easy bruising, no easy bleeding Allergic/Immunologic: no urticaria, no allergic rhinitis Exam - Constitutional Vitals: Temp Pulse Resp BP Pulse Ox 97.8 F 100 H 22 163/103 98 02/07/19 12:40 02/07/19 12:40 02/07/19 12:40 02/07/19 12:40 02/07/19 13:15 General appearance: Present: mild distress, cachectic, disheveled - EENT Eyes: Present: PERRL, EOM intact - Neck Neck: Present: supple, normal ROM - Respiratory Respiratory effort: labored Respiratory: bilateral: diminished, wheezing, negative: rales, rhonchi - Cardiovascular Rhythm: regular Heart Sounds: Present: S1 & S2 - Extremities Extremities: no ischemia, No edema - Abdominal General gastrointestinal: Present: soft, non-tender, non-distended, normal bowel sounds - Integumentary Integumentary: Present: clear, warm - Musculoskeletal Musculoskeletal: strength equal bilaterally - Psychiatric Psychiatric: appropriate mood/affect, cooperative - Neurologic Neurologic: CNII-XII intact, moves all extremities Results - Labs CBC & Chem 7: 02/07/19 08:01 02/07/19 08:01 Labs: Abnormal lab results 02/07/19 02/07/19 02/07/19 Range/Units 08:01 08:01 08:01 WBC 4.4 L (4.5-11.0) K/mm3 Hgb 15.4 H (11.8-15.2) gm/dl MCV 100 H (84-94) fl MCH 35 H (28-32) pg MCHC 35 H (32-34) % Sodium 133 L (137-145) mmol/L Chloride 92.7 L (98-107) mmol/L Carbon Dioxide 19 L (22-30) mmol/L BUN 21 H (9-20) mg/dL Magnesium 3.00 H (1.7-2.3) mg/dL Total Creatine Kinase 320 H (55-170) units/L Assessment and Plan --Acute on chronic hypoxic respiratory failure; Requiring BiPAP, secondary to COPD exacerbation Oxygen, nebulizers, IV steroids, IV antibiotics, inhalation steroids Supportive care, pulmonary consultation --Acute exacerbation of COPD; Oxygen titrate O2 sats to more than 90%, BiPAP as needed Evaluation for home oxygen at discharge IV steroids nebulizers antibiotics --Hypertension; Continue current antihypertensives and PRN medications --DVT prophylaxis; Lovenox Monitor closely and adjust management as needed Plan of care reviewed with the patient Disposition; discharge when medically stable
[2019-02-07] MEDS ORDERED: LORATADINE (NF) 10 MG TAB PO PRN (14:53)
[2019-02-07] MEDS ORDERED: ALBUTEROL 2.5 MG/3 ML NEBU IH PRN (14:54)
[2019-02-07] MEDS ORDERED: ZOLPIDEM 5 MG TAB PO PRN (19:39)
[2019-02-07] MEDS ORDERED: FUROSEMIDE 40 MG/4 ML INJ IV SCH (19:41)
[2019-02-07] MEDS: ARFORMOTEROL 15 MCG/2 ML NEBU IH SCH (21:51)
[2019-02-07] MEDS: IPRATROPIUM/ALBUTEROL SULFATE 3 ML AMPUL.NEB IH SCH (21:51)
[2019-02-07] MEDS: BUDESONIDE 0.5 MG/2 ML NEBU IH SCH (21:51)
[2019-02-07] MEDS ORDERED: NON-FORMULARY EACH (Budesonide/Formoterol Fumarate [Symbicort 160-4.5 Mcg Inhaler] 10.2 GM IH SCH (22:00)
[2019-02-07] MEDS ORDERED: SYMBICORT INHALATION SCH (22:00)
[2019-02-08] MEDS: BENZONATATE 100 MG CAP PO SCH ×5 (00:05→22:01)
[2019-02-08] MEDS: methylPREDNISolone Sod Succinate 125 MG/2 ML INJ IV SCH ×6 (00:06→22:01)
[2019-02-08] MEDS: IPRATROPIUM/ALBUTEROL SULFATE 3 ML AMPUL.NEB IH SCH ×2 (02:53→08:41)
[2019-02-08 04:36] LABS: Calcium 9.1 mg/dL (8.4-10.2)
[2019-02-08] MEDS: FUROSEMIDE 20 MG/2 ML INJ IV SCH ×2 (07:06→07:37)
[2019-02-08] MEDS ORDERED: SODIUM POLYSTYRENE 15 GM/60 ML ORAL LIQD PO NR (08:15)
[2019-02-08] MEDS ORDERED: hydrALAZINE 20 MG/1 ML INJ IV NR (08:16)
[2019-02-08] MEDS: ARFORMOTEROL 15 MCG/2 ML NEBU IH SCH (08:40)
[2019-02-08] MEDS: BUDESONIDE 0.5 MG/2 ML NEBU IH SCH (08:40)
[2019-02-08] MEDS: ASPIRIN EC 81 MG TAB PO SCH (09:21)
[2019-02-08] MEDS: dilTIAZem CD 180 MG CAP PO SCH (09:22)
[2019-02-08] MEDS: LORATADINE/PSEUDOEPHEDRINE 10-240 MG TAB 24HR PO SCH (09:25)
[2019-02-08] MEDS ORDERED: NON-FORMULARY EACH (Diltiazem Hcl [Diltiazem 24hr Er (La)] 180 MG) PO SCH (10:00)
[2019-02-08] MEDS: THIAMINE 100 MG TAB PO SCH (10:57)
[2019-02-08] MEDS: hydrALAZINE 10 MG TAB PO SCH ×2 (13:59→22:01)
--- NOTE | 2019-02-08 17:32 | Progress Note ---
Assessment and Plan Assessment and plan: --Acute on chronic hypoxic respiratory failure; Very minimal improvement, patient is tachypneic and tachycardic Requiring BiPAP, secondary to COPD exacerbation Oxygen, nebulizers, IV steroids, IV antibiotics, inhalation steroids Supportive care, pulmonary consultation --Acute exacerbation of COPD; Patient has intermittent labored breathing oxygen titrate O2 sats to more than 90%, BiPAP as needed Tapering doses of IV steroids nebulizers antibiotics Evaluation for home oxygen at discharge --Hypertension; Continue current antihypertensives and PRN medications --DVT prophylaxis;Lovenox If no improvement consider pulmonary evaluation And CT chest, monitor closely and adjust the management As needed Plan of care reviewed with the patient and his nurse Disposition; possible discharge tomorrow if stable History Interval history: Patient seen and examined this morning medical records reviewed Admitted with acute on chronic respiratory failure Very minimal improvement, continues to have shortness of breath, wheezing Intermittent accessory muscle use Tachycarda tachypnec Cachectic chronically ill looking Complains of generalized weakness Vital signs noted Hospitalist Physical - Constitutional Vitals: Temp Pulse Resp BP Pulse Ox 98.6 F 95 H 18 141/56 96 02/08/19 13:31 02/08/19 15:00 02/08/19 15:00 02/08/19 13:59 02/08/19 15:00 General appearance: Present: mild distress, cachectic, disheveled - EENT Eyes: Present: PERRL, EOM intact - Neck Neck: Present: supple, normal ROM - Respiratory Respiratory effort: labored Respiratory: bilateral: diminished, wheezing, negative: rales, rhonchi - Cardiovascular Rhythm: regular Heart Sounds: Present: S1 & S2 (Tachycardia) - Extremities Extremities: no ischemia, No edema - Abdominal General gastrointestinal: soft, non-tender, non-distended, normal bowel sounds - Integumentary Integumentary: Present: clear, warm - Psychiatric Psychiatric: appropriate mood/affect, cooperative, other (Anxious) - Neurologic Neurologic: moves all extremities Results - Labs CBC & Chem 7: 02/07/19 08:01 02/08/19 03:25 Labs: Laboratory Last Values WBC 4.4 K/mm3 (4.5-11.0) L 02/07/19 08:01 RBC 4.44 M/mm3 (3.65-5.03) 02/07/19 08:01 Hgb 15.4 gm/dl (11.8-15.2) H 02/07/19 08:01 Hct 44.3 % (35.5-45.6) 02/07/19 08:01 MCV 100 fl (84-94) H 02/07/19 08:01 MCH 35 pg (28-32) H 02/07/19 08:01 MCHC 35 % (32-34) H 02/07/19 08:01 RDW 14.0 % (13.2-15.2) 02/07/19 08:01 Plt Count 206 K/mm3 (140-440) 02/07/19 08:01 PT 12.7 Sec. (12.2-14.9) 02/07/19 08:01 INR 0.94 (0.87-1.13) 02/07/19 08:01 Sodium 134 mmol/L (137-145) L 02/08/19 03:25 Potassium 5.4 mmol/L (3.6-5.0) H 02/08/19 03:25 Chloride 98.9 mmol/L (98-107) 02/08/19 03:25 Carbon Dioxide 22 mmol/L (22-30) 02/08/19 03:25 Anion Gap 19 mmol/L 02/08/19 03:25 BUN 36 mg/dL (9-20) H 02/08/19 03:25 Creatinine 1.7 mg/dL (0.8-1.5) H 02/08/19 03:25 Estimated GFR 48 ml/min 02/08/19 03:25 BUN/Creatinine Ratio 21 % 02/08/19 03:25 Glucose 156 mg/dL (75-100) H 02/08/19 03:25 Calcium 9.1 mg/dL (8.4-10.2) 02/08/19 03:25 Magnesium 3.00 mg/dL (1.7-2.3) H 02/07/19 08:01 Total Creatine Kinase 320 units/L (55-170) H 02/07/19 08:01 Active Medications - Current Medications Current Medications: Generic Name Dose Route Start Last Admin Trade Name Freq PRN Reason Stop Dose Admin Albuterol 2.5 mg 02/07/19 14:54 Proventil IH Q3HRT PRN Shortness Of Breath Albuterol/Ipratropium 1 ampul 02/07/19 20:00 02/08/19 08:41 Duoneb *Not For Prn Use* IH Not Given Q6HRT NICOLE Arformoterol Tartrate 15 mcg 02/07/19 20:00 02/08/19 08:40 [place] Nebu IH 15 mcg Q12HRT NICOLE Administration Aspirin 81 mg 02/08/19 10:00 02/08/19 09:21 Halfprin Ec PO 81 mg DAILY NICOLE Administration Benzonatate 100 mg 02/07/19 22:00 02/08/19 13:59 Tessalon Perles PO 100 mg Q8HR NICOLE Administration Budesonide 0.5 mg 02/07/19 20:00 02/08/19 08:40 Pulmicort IH 0.5 mg Q12HRT NICOLE Administration Diltiazem HCl 180 mg 02/08/19 10:00 02/08/19 09:22 Cardizem Cd PO 180 mg QDAY NICOLE Administration Furosemide 20 mg 02/08/19 06:00 02/08/19 07:37 Lasix IV 20 mg DAILY@0600 NICOLE Administration Hydralazine HCl 10 mg 02/08/19 14:00 02/08/19 13:59 Apresoline PO 10 mg Q8HR NICOLE Administration Levofloxacin/Dextrose 500 mg in 100 mls @ 100 mls/hr 02/10/19 10:00 Levaquin 500mg/100ml IV Q48HR [facility] Protocol Loratadine 10 mg 02/07/19 14:53 02/08/19 09:22 Claritin PO 10 mg DAILY PRN Administration SOB, ALLERGY SYMPTOMS Loratadine/Pseudoephedrine Sulfate 1 each 02/08/19 10:00 02/08/19 09:25 Claritin-D 24hr PO Not Given Q24HR [facility] Methylprednisolone Sodium Succinate 80 mg 02/07/19 22:00 02/08/19 13:59 Solu-Medrol IV 80 mg Q8HR NICOLE Administration Thiamine HCl 100 mg 02/08/19 10:00 02/08/19 10:57 Vitamin B-1 PO 100 mg QDAY NICOLE Administration Tiotropium [place] 1 puff 02/08/19 10:00 Spiriva IH QDAY NICOLE Zolpidem Tartrate 5 mg 02/07/19 19:39 02/08/19 00:05 Ambien PO 5 mg QHS PRN Administration Sleep Nutrition/Malnutrition Assess - Dietary Evaluation Nutrition/Malnutrition Findings: Nutrition Notes Start: 02/08/19 10:3 0 Freq: Status: Active Protocol: Document 02/08/19 10:30 PS (Rec: 02/08/19 11:32 PS [id number]) Co-Sign 02/08/19 10:30 LM Nutrition Notes Need for Assessment generated from: MD Order,wood buffer,MST Initial or Follow up Assessment Current Diagnosis CKD(stage I-IV),COPD, Hypertension,Hyperlipidemia Current Diet Cardiac, GI soft diet Labs/Tests Na 134 K 5.4 BUN 36 Cr 1.7 Glu 156 Mg 3.0 Pertinent Medications Lasix Height 5 ft 9 in Weight 44.2 kg Usual Body Weight 47.72 kg Jolo Body Weight (kg) 72.72 BMI 14.3 Intake Prior to Admission Fair Weight change and time frame 7.74 lbs in 1 month Weight Status Underweight Subjective/Other Information 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 Pt. 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 Pt. stated his normal body wt is 105 lbs, and thought to be at that wt 1 month ago. Pt. drank 100% of ensure enlive for breakfast, but did not want his food. Pt. had clavical and temporal wasting. Burn Absent Trauma Absent GI Symptoms None Current % PO Fair (50-74%) Minimum of two criteria Yes Interpretation of Weight Loss (severe) >5% in 1 month Body Fat Depletion Moderate depletion (severe) Muscle Mass Mild Depletion (non-severe) #2 Nutrition Diagnosis Malnutrition Etiology COPD As Evidenced by Signs and Symptoms >5% wt loss in 1 month. Moderate fat depletion and mild muscle depletion #1 Nutrition Diagnosis Inadequate energy intake Etiology SOB As Evidenced by Signs and Symptoms pt eating 50% of meals for 3 days and 7 lb wt loss in 1 month Is patient on ventilator? No Is Patient Ambulatory and/or Out of Bed Yes REE-([place]-St. Jeor-ambulatory/OOB) [ 1537.094 NUTR.MSJOOB] Kcal/Kg value to use for calculation 40 Approximate Energy Requirements Using 1768 kcal/Kg Additional Notes Pro: 35-66.3 (0.8-1.5 g/kg) CDK and Malnutrition Fluid: 1 ml/kcal Nutrition Intervention Change Diet Order: Continue Current Add Supplement/Snack (indicate name/kcal Ensure Enlive Vanilla TID /protein ) Provides kCal: 1,050 Provides Protein (gm) 60 Goal #1 Meet 75% of energy/protein needs Anticipated Discharge Needs: Cardiac Diet Follow-Up By: 02/12/19 Additional Comments Follow up for PO/ONS intakes
[2019-02-09] MEDS: hydrALAZINE 10 MG TAB PO SCH ×2 (06:14→13:54)
[2019-02-09] MEDS: BENZONATATE 100 MG CAP PO SCH ×2 (06:14→13:53)
[2019-02-09] MEDS: FUROSEMIDE 20 MG/2 ML INJ IV SCH (06:15)
[2019-02-09] MEDS: methylPREDNISolone Sod Succinate 125 MG/2 ML INJ IV SCH ×2 (06:17→13:54)
[2019-02-09] MEDS: BUDESONIDE 0.5 MG/2 ML NEBU IH SCH ×2 (08:40→09:10)
[2019-02-09] MEDS: ARFORMOTEROL 15 MCG/2 ML NEBU IH SCH ×2 (08:40→09:10)
[2019-02-09] MEDS: IPRATROPIUM/ALBUTEROL SULFATE 3 ML AMPUL.NEB IH SCH ×4 (08:51→14:10)
[2019-02-09] MEDS: TIOTROPIUM 18 MCG CAP INHALATION IH SCH ×2 (09:11→09:46)
[2019-02-09] MEDS: THIAMINE 100 MG TAB PO SCH (09:20)
[2019-02-09] MEDS: LORATADINE/PSEUDOEPHEDRINE 10-240 MG TAB 24HR PO SCH (09:21)
[2019-02-09] MEDS: ASPIRIN EC 81 MG TAB PO SCH (09:22)
[2019-02-09] MEDS: dilTIAZem CD 180 MG CAP PO SCH (09:28)
--- NOTE | 2019-02-09 11:21 | Discharge Summary ---
Providers - Providers Date of Admission: 02/09/19 08:39 Date of discharge: 02/09/19 Attending physician: ALEKSANDER STEPHENSON Primary care physician: BUSINESS BANKING RELATIONSHIP MANAGER Hospitalization Reason for admission: Acute resp failure Condition: Serious Pertinent studies: CXR Hospital course: Very pleasant 73-year-old male patient with significant past medical history of COPD hypertension chronic alcohol use renal failure [facility]s with the [facility] presented to the emergency room with worsening shortness of breath. When EMS arrived patient was severely hypoxic started on CPAP received nebulizer steroids and magnesium Upon arrival to emergency room patient was severely hypoxic requiring BiPAP tachypneic and tachycardic Patient also complains of some yellow to greenish sputum, denies any chest pain or palpitations Discharge Diagnosis: --Acute on chronic hypoxic respiratory failure; Very minimal improvement, patient is tachypneic and tachycardic Requiring BiPAP, secondary to COPD exacerbation Oxygen, nebulizers, IV steroids, IV antibiotics, inhalation steroids Supportive care, pulmonary consultation --Acute exacerbation of COPD; Patient has intermittent labored breathing oxygen titrate O2 sats to more than 90%, BiPAP as needed Tapering doses of IV steroids nebulizers antibiotics Evaluation for home oxygen at discharge --Hypertension; Continue current antihypertensives and PRN medications --DVT prophylaxis;Lovenox If no improvement consider pulmonary evaluation And CT chest, monitor closely and adjust the management As needed Plan of care reviewed with the patient and his nurse stabletable at discharge Disposition: DC-01 TO HOME OR SELFCARE Time spent for discharge: 32 min Core Measure Documentation - Palliative Care Palliative Care/ Comfort Measures: Not Applicable - Core Measures Any of the following diagnoses?: none Exam - Constitutional Vitals: Temp Pulse Resp BP Pulse Ox 98.1 F 101 H 18 123/73 92 02/09/19 07:06 02/09/19 09:28 02/09/19 08:40 02/09/19 09:28 02/09/19 07:06 General appearance: Present: no acute distress, well-nourished - EENT Eyes: Present: PERRL, EOM intact - Neck Neck: Present: supple, normal ROM - Respiratory Respiratory effort: normal Respiratory: bilateral: diminished, negative: rales, rhonchi, wheezing - Cardiovascular Rhythm: regular Heart Sounds: Present: S1 & S2 - Extremities Extremities: no ischemia, No edema - Abdominal General gastrointestinal: Present: soft, non-tender, non-distended - Integumentary Integumentary: Present: clear, warm - Musculoskeletal Musculoskeletal: generalized weakness - Psychiatric Psychiatric: appropriate mood/affect, cooperative - Neurologic Neurologic: moves all extremities Plan Activity: advance as tolerated, fall precautions Diet: other (cardiac diet) Additional Instructions: f/u Private/VA PMD, pulmonary in 1 week. If you have Severe shortness of breath contact M.D. or go to emergency room Follow up with: PRIMARY CARE, [Primary Care Provider] - 3-5 Days Prescriptions: Loratadine/Pseudoephedrine [Claritin-D 24HR] 1 each PO Q24HR #14 tablet Prednisone [predniSONE 10 mg (6-Day Pack, 21 Tabs)] 10 mg PO .TAPER #1 tab.ds.pk Benzonatate [Tessalon Perles] 100 mg PO Q8HR #30 capsule Azithromycin [Zithromax Z-VALERIE] 0 mg PO DAILY #1 tab
[2019-02-09 13:34] VITALS: BP 132/81
== END 2019-02-09 16:55 | disposition home or self-care (01) | DRG 189 ==
LOC: ED 07:25 → 2B-ACE 10:19 → OBSVTOIN 02-09 08:39
PROVIDERS: ADMIT Internal Medicine; ATTEND Internal Medicine
PROC: 5A09357 Assistance with Respiratory Ventilation, Less than 24 Consecutive Hours, Continuous Positive Airway Pressure (ICD-10-PCS; principal; 2019-02-07)
DX: J96.21 Acute and chronic respiratory failure with hypoxia (principal); J44.1 Chronic obstructive pulmonary disease with (acute) exacerbation; I10 Essential (primary) hypertension; E87.6 Hypokalemia; F10.10 Alcohol abuse, uncomplicated; Y90.9 Presence of alcohol in blood, level not specified; Z79.82 Long term (current) use of aspirin; Z79.899 Other long term (current) drug therapy; Z87.891 Personal history of nicotine dependence; Z82.49 Family history of ischemic heart disease and other diseases of the circulatory system
CPT/HCPCS: 36415; 71045; 80048; 82550; 83735; 85027; 85610; 87116; 93005; 93010; 94640; 94644; 94760; 96365; G0378; J0360; J1940; J1956; J2930; J7040; J7050